=== PATIENT | female | born 1985 | race Caucasian/White ===

== ENCOUNTER 2018-04-05 13:04 | Emergency (ER) | payer MEDICAID, SELFPAY ==
[2018-04-05 13:05] VITALS: BP 131/75; PULSE 120; RESP 18; TEMP 36.6; O2SAT 100; BMI 20.9
[2018-04-05 15:07] LABS: Color, Urine Yellow (Yellow); Glucose, Dipstick Normal (Normal); Ketone-Dipstick 50 mg/dl (Negative); Leukocyte Esterase-Dipstick 500 /ul (Negative); Nitrite-Dipstick Negative (Negative); Occult Blood-Urine 10 /ul (Negative); Protein-Dipstick 15 mg/dl (Negative); Urine Clarity Cloudy (Clear); Urine Urobilinogen Normal (Normal)
[2018-04-05 15:13] LABS: Internal QC Validated? YES +Cl - CLEAR BKGD; Pregnancy, Urine Negative Negative
[2018-04-05 15:16] LABS: Urine Bilirubin Dipstick 1 mg/dL (Negative)
[2018-04-05 15:25] LABS: Hyaline Cast 0-5 SEEN /lpf (0-5)
[2018-04-05 15:26] LABS: Squamous Epithelial Cells - UA 0-5 SEEN /hpf (5-10)
[2018-04-05 15:29] LABS: White Blood Cells 0-5 SEEN /hpf (0-5)
[2018-04-05 15:30] LABS: Mucous, Urine 2+ /hpf (<or=2+)
[2018-04-05 15:31] LABS: Red Blood Cells-Urine 0-5 SEEN /hpf (0-5)
[2018-04-05 15:32] LABS: Bacteria RARE /hpf (None Seen)
[2018-04-05 15:44] LABS: Trichomonas 0-5 SEEN /hpf (None Seen)
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
[2018-04-05] MEDS: metroNIDAZOLE 500 MG Tablet PO (16:15)
[2018-04-05] MEDS: metroNIDAZOLE 500 MG Tablet 1500 MG PO (16:15)
[2018-04-05 16:16] VITALS: PULSE 70; RESP 18
[2018-04-05 16:25] LABS: HIV - WCH Non-Reactive (Nonreactive)
[2018-04-05 17:34] LABS: Chlamydia Trachomatis by PCR Negative (Negative); Neisserai gonorrhoeae by PCR Negative (Negative); Probe Check PASS; Sample Adequacy Control PASS; Specimen Processing Control PASS
== END 2018-04-05 16:17 | disposition home or self-care (01) ==
PROVIDERS: Emergency Provider Emergency Medicine
DX: A59.01 Trichomonal vulvovaginitis (principal); Z59.0 Homelessness; Z72.0 Tobacco use; E28.2 Polycystic ovarian syndrome; F11.90 Opioid use, unspecified, uncomplicated
CPT/HCPCS: 81001; 81025; 86703; 87210; 87491; 87591; 99283

== ENCOUNTER 2018-05-18 13:55 | Emergency (ER) | payer MEDICAID, SELFPAY ==
[2018-05-18 13:56] VITALS: BP 126/83; PULSE 138; RESP 20; TEMP 36.7; O2SAT 95; BMI 21.3
--- NOTE | 2018-05-18 14:23 | ED.RN ---
PT STATED SHE WOULD LIKE TO GO THROUGH HER BELONGINGS AND HAVE NURSING WRITE DOWN AN ITEMIZED LIST OF HER BELONGINGS. PT WENT THROUGH ENTIRE BOOKBAG AND NURSING WROTE DOWN ITEMS. PT GIVEN COPY OF ITEMIZED LIST THAT NURSING CREATED OF HER BELONGINGS. PT WAS AGREEABLE TO LIST AND STATES THAT ALL IS CORRECT ON LIST.
[2018-05-18 15:24] LABS: Absolute Lymphocyte Count 2.98 X10^3/ul (0.83-4.51); Absolute Neutrophil Count 9.9 X10^3/uL (2.0-7.7); Basophil# 0.04 X10^3/uL; Basophil% 0.3 % (0-1); Eosinophil# 0.14 X10^3/uL; Hematocrit 40.7 % (37-47); Hemoglobin 13.7 g/dl (12.0-15.0); Lymphocyte # 2.98 X10^3/ul (4.0); Lymphocyte % 20.5 % (19-41); Mean Corp Hgb Conc 33.7 g/gl (32-36); Mean Corpuscular Hgb 30.3 pg (27.0-32.0); Mean Platelet Vol. 10.1 fl (6.2-12.0); Monocyte# 1.43 X10^3/uL; Monocyte% 9.8 % (0-10); Neutrophil # 9.93 X10^3/uL (2.7-7.7); Neutrophil % 68.3 % (47-70); Platelet Count 320 K/mm3 (150-450); RBC Distribution Width CV 13.9 % (11.6-14.6); RBC Distribution Width SD 45.4 fl (35.1-43.9); Red Blood Count 4.52 M/mm3 (4.2-5.4); White Blood Count 14.5 K/mm3 (4.4-11.0)
[2018-05-18 15:25] LABS: POSITIVE COUNT NO; POSITIVE DIFFERENTIAL NO; POSITIVE MORPHOLOGY NO
[2018-05-18 15:32] LABS: Anion Gap 8 (5-15); BUN 15 mg/dL (7-18); Calcium,Total 9.1 mg/dL (8.5-10.1); Chloride 105 mmol/L (98-107); Creatinine, Serum 0.83 mg/dL (0.55-1.02); EST Glomerular Filtration Rate 85 mL/min (>60); Est Glom Filt Rate - Afr Amer 103 mL/min (>60); Estimated Creatinine Clearance 92.78 ml/min; Glucose 148 mg/dL (74-106); Potassium 3.4 mmol/L (3.5-5.1); Sodium Level 139 mmol/L (136-145)
[2018-05-18 15:52] LABS: Alcohol, Blood (Medical)-Serum < 3.0 mg/dL
[2018-05-18 16:23] LABS: Amphetamine Urine VISTA POSITIVE (<1000 ng/mL); Barbiturate Urine VISTA NEGATIVE (< 200 ng/mL); Benzodiazepine Urine VISTA NEGATIVE (< 200 ng/mL); Cocaine Urine VISTA NEGATIVE (< 300 ng/mL); Ecstacy Urine VISTA POSITIVE (< 500 ng/mL); Methadone Urine VISTA NEGATIVE (< 300 ng/mL); PCP Urine VISTA NEGATIVE (< 25 ng/mL); THC Urine VISTA POSITIVE (< 50 ng/mL); Vista UDS pH Range 6
[2018-05-18 16:32] LABS: Pregnancy, Serum, hCG Quali. NEGATIVE Negative (0-9 Nonpreg)
--- NOTE | 2018-05-18 16:37 | ED.VISSUMM ---
- ER Visit Summary Date of Service: 05/18/18 Chief Complaint: Paranoia History of Present Illness: The patient is a 32 F who presents with paranoia. She was brought in by police. She was pink slipped. Apparently she was very paranoid. Patient complains of a impending sense of doom. She is worried that something is going to happen to her son and that someone is going to cause him intentional harm. Apparently she had told the police that her son had been kidnapped and murdered. Her son lives in [place] with his father. Patient does admit to a little line of stimulant. She is uncertain if this was cocaine or methamphetamine. She otherwise denies recent medical illness such as chest pain shortness of breath vomiting or diarrhea. She denies any pain. Physical Examination: Afebrile initial heart rate 138 vitals otherwise unremarkable Moist mucous membranes Heart regular rhythm tachycardia Lungs are clear Abdomen soft Alert Patient is paranoid Test Results: EKG shows sinus rhythm at a rate of 117. Labs notable for white blood cell count 14.5. Glucose 148. Alcohol negative. negative. Drug screen is positive for THC, methamphetamine, amphetamines. 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 Will have the patient evaluated by crisis. Patient signed out to the oncoming physician for final disposition on reevaluation. Treatment Plan: [] Disposition: Pending crisis evaluation Impression: Paranoia Methamphetamine abuse This note was generated with [employer] dictation software. It may contain incorrect words, spelling, and punctuation that were not noted in review of the chart prior to signing ED Disposition - Plan for ED Patient: Chief Complaint: Mental Health Referrals: Care Physician,No Primary [Primary Care Provider] -
--- NOTE | 2018-05-18 16:55 | ED.RN ---
Nilsa called from crisis and will be here to eval pt after he addresses pt at the [facility].
[2018-05-18 19:57] VITALS: BP 120/68; PULSE 96; RESP 14; O2SAT 98
--- NOTE | 2018-05-18 19:59 | ED.VISSUMM ---
- ER Visit Summary Date of Service: 05/18/18 Patient was seen by mental health, she is stable to be discharged. She is not suicidal. This note was generated with [employer] dictation software. It may contain incorrect words, spelling, and punctuation that were not noted in review of the chart prior to signing ED Disposition - Plan for ED Patient: Disposition: Home or Assisted Living Chief Complaint: Mental Health Referrals: Care Physician,No Primary [Primary Care Provider] - 3-5 Days
[2018-05-18 20:17] VITALS: BP 130/74; PULSE 118; RESP 16; RESP 18; O2SAT 98
--- NOTE | 2018-05-18 20:19 | ED.RN ---
PATIENT DISCHARGED, STATES SHE HAS A PLACE TO STAY AND WILL RETURN TO REHAB IN THE MORNING. REFUSES ANY HELP OR RIDE HOME. MOTHER CALLED AND SPOKE WITH.
== END 2018-05-18 20:29 | disposition home or self-care (01) ==
PROVIDERS: Emergency Provider Emergency Medicine
DX: F22 Delusional disorders (principal); F15.10 Other stimulant abuse, uncomplicated; Z72.0 Tobacco use
CPT/HCPCS: 80048; 80307; 80320; 84703; 85025; 93005; 99283; G0480

== ENCOUNTER 2018-07-28 12:11 | Emergency (ER) | payer MEDICAID, SELFPAY ==
[2018-07-28 12:14] VITALS: BP 144/106; PULSE 105; RESP 20; TEMP 36.8; O2SAT 100; BMI 20.9
--- NOTE | 2018-07-28 12:36 | ED.VISSUMM ---
- ER Visit Summary Date of Service: 07/28/18 Chief Complaint: Parasites History of Present Illness: The patient is a 32 F who is concerned about possible parasites. She has been staying on people's couches. She was exposed to fleas. She is also concerned about pinworms. Patient denies any psychiatric history. She denies any medical history. She does use multiple recreational drugs, nothing regularly. Denies regular alcohol use or withdrawal. Denies fevers or any other associated symptoms. Denies any suicidal or homicidal thoughts. Physical Examination: Afebrile and vital signs unremarkable except for a blood pressure of 144/106 and heart rate of 105. Patient has a blunted affect and a depressed mood. She is not suicidal or homicidal. Alert and oriented. Skin and mucous membranes are unremarkable. Rectal exam chaperoned by nurse Foote was unremarkable. Patient has tiny papules over her forearms and feet. No ulcers. Good pulses. No findings consistent with infective endocarditis. No murmur. Lung sounds clear. Abdomen soft and nontender. Test Results: None indicated Emergency Department Course and Treatment: I suspect some of this may be from her polysubstance use. There is no indication that she needs emergency admission. There is nothing to suggest withdrawal that is life-threatening such as alcohol or benzodiazepines. Patient will be treated with a course of Elimite. She may also use Benadryl for itching. Follow-up with primary care. Treatment Plan: As above Disposition: Discharge Impression: 1. Pruritus This note was generated with [employer] dictation software. It may contain incorrect words, spelling, and punctuation that were not noted in review of the chart prior to signing ED Disposition - Plan for ED Patient: Chief Complaint: Itching Referrals: Care Physician,No Primary [Primary Care Provider] -
--- NOTE | 2018-07-28 12:40 | ED.DEP ---
ED Disposition - Plan for ED Patient: Chief Complaint: Itching Instructions: Self-Care for Skin Rashes Prescriptions: DiphenhydrAMINE [Benadryl] 25 mg PO TID PRN PRN #20 cap PRN Reason: Itching Permethrin [Elimite] 60 gm TP X1 #1 cream..g. Referrals: Daniel,Vianney, DO [NON-STAFF] -
--- NOTE | 2018-07-28 14:09 | ED.RN ---
DISCHARGE INSTRUCTIONS GIVEN TO AND REVIEWED WITH PATIENT, PATIENT DENIES QUESTIONS OR CONCERNS AND VOICES UNDERSTANDING OF DISCHARGE INSTRUCTIONS. PT AMBULATES OUT OF ROOM WITHOUT DIFFICULTY.
== END 2018-07-28 14:10 | disposition home or self-care (01) ==
LOC: ED 13:05
PROVIDERS: Emergency Provider Emergency Medicine
DX: L29.9 Pruritus, unspecified (principal); Z72.0 Tobacco use
CPT/HCPCS: 99282

== ENCOUNTER 2018-09-06 14:09 | Inpatient (IN) | payer MEDICAID, SELFPAY ==
[2018-09-06 14:11] VITALS: BP 117/76; PULSE 126; RESP 18; TEMP 37.3; O2SAT 97; BMI 21.3
[2018-09-06] MEDS: DiphenhydrAMINE 50 MG/ML Syringe 25 MG IV (15:03)
[2018-09-06] MEDS: Ketorolac 30 MG/ML Syringe IV (15:03)
[2018-09-06] MEDS: 0.9% Normal Saline 1,000 ML 1000 ML IV (15:03)
[2018-09-06] MEDS: Metoclopramide 10 MG/2 ML Vial IV (15:04)
[2018-09-06 15:22] LABS: Absolute Lymphocyte Count 1.26 X10^3/ul (0.83-4.51); Absolute Neutrophil Count 13.9 X10^3/uL (2.0-7.7); Basophil# 0.03 X10^3/uL; Basophil% 0.2 % (0-1); Eosinophil# 0.08 X10^3/uL; Eosinophils% 0.5 % (0-5); Hematocrit 39.3 % (37-47); Hemoglobin 13.3 g/dl (12.0-15.0); Lymphocyte # 1.26 X10^3/ul (4.0); Lymphocyte % 7.4 % (19-41); Mean Corp Hgb Conc 33.8 g/gl (32-36); Mean Corpuscular Hgb 29.8 pg (27.0-32.0); Mean Corpuscular Volume 87.9 fL (81-99); Mean Platelet Vol. 10.6 fl (6.2-12.0); Monocyte# 1.77 X10^3/uL; Monocyte% 10.3 % (0-10); Neutrophil # 13.94 X10^3/uL (2.7-7.7); Neutrophil % 81.3 % (47-70); Platelet Count 257 K/mm3 (150-450); RBC Distribution Width CV 13.3 % (11.6-14.6); Red Blood Count 4.47 M/mm3 (4.2-5.4); White Blood Count 17.1 K/mm3 (4.4-11.0)
[2018-09-06 15:25] LABS: Anion Gap 5 (5-15); BUN 8 mg/dL (7-18); BUN/Creat Ratio 11.6 RATIO (10-20); Calcium,Total 8.7 mg/dL (8.5-10.1); Chloride 102 mmol/L (98-107); Creatinine, Serum 0.69 mg/dL (0.55-1.02); EST Glomerular Filtration Rate 106 mL/min (>60); Est Glom Filt Rate - Afr Amer 128 mL/min (>60); Estimated Creatinine Clearance 111.61 ml/min; Glucose 117 mg/dL (74-106); Potassium 3.6 mmol/L (3.5-5.1); Sodium Level 138 mmol/L (136-145)
[2018-09-06 15:26] LABS: Differential Indicated SCAN CRITERIA MET; POSITIVE COUNT NO; POSITIVE DIFFERENTIAL YES; POSITIVE MORPHOLOGY NO
[2018-09-06 15:31] LABS: Alcohol, Blood (Medical)-Serum < 3.0 mg/dL
[2018-09-06 15:45] LABS: Pregnancy, Serum, hCG Quali. NEGATIVE Negative (0-9 Nonpreg)
--- NOTE | 2018-09-06 15:58 | RAD_ITS ---
STUDY: X-RAY CHEST REASON FOR EXAM: Female, 32 years old. Migraine. Fever. TECHNIQUE: Frontal and lateral views of the chest. COMPARISON: September 28, 2017 FINDINGS: There is a dense opacity with air bronchograms in the left lower lobe compatible with pneumonia. There is no demonstrated pleural abnormality. Normal size heart. Normal mediastinum and nedra. Normal visualized pulmonary arteries. Normal visualized aortic arch and descending thoracic aorta. Normal visualized thoracic spine. Normal visualized ribs, clavicles, and shoulders. There is no demonstrated abnormality of the visualized soft tissue structures of the upper abdomen. RAD/Chest PA and Lateral IMPRESSION: Left lower lobe pneumonia. Electronically Signed: Stanford Mancilla MD at 17:17 EST , Service support ,
--- NOTE | 2018-09-06 16:40 | ED.VISSUMM ---
- ER Visit Summary Date of Service: 09/06/18 Chief Complaint: [Headache] History of Present Illness: The patient is a 32 F presents the emergency department complaint of headache that started about 1-2 weeks ago. Patient states the headaches go away the but then come back. Patient describes it as migraine-like. Patient complains of photophobia. She complains of nausea. Patient states that she has been dealing with headaches ever since she was young. She denies any falls or head injuries. Patient states that she has had a cough for about a month. Cough mostly dry. Patient has had some chills but denies fever. Patient denies feeling suicidal or homicidal. She does admit to illicit drug use and states that she is used cocaine and methamphetamines about a week ago. She denies alcohol use. She does not smoke cigarettes. Patient states that she would like to detox from drugs and she wants to get better. Patient also tells me that she is homeless.] Physical Examination: HEENT-PERRLA, EOMI. Cranial nerves II through XII grossly intact. TMs clear. Mucous membranes moist. No adenopathy. Cardiovascular-regular rate and rhythm without murmur or ectopy Lungs-clear to auscultation, chest wall stable without crepitus or subcu emphysema Abdomen-normoactive bowel sounds, soft, nontender, no rebound or rigidity, no peritoneal signs. Neuro [id number] and heel sprague testing within normal limits, negative Romberg, negative pronator drift, fundi benign Extremities-intact ?4, normal range of motion, normal pulses, atraumatic] Test Results: [CBC with differential obtained showed a white count 17,000, hemoglobin 13, platelets 287. Chemistries unremarkable. HCG was negative. Alcohol was less than 3. Chest x-ray obtained showed a left lower lobe infiltrate. Urine tox screen pending.] Emergency Department Course and Treatment: [Patient had blood cultures ordered and she was started on Rocephin and Zithromax. Patient was medicated with Reglan, Benadryl, and Toradol for headache as well as with a liter normal same fluid bolus. Her headache mostly resolved.] Treatment Plan: [Case was discussed with hospitalist will evaluate patient for admission] Disposition: [Admit] Impression: [Pneumonia Sepsis Migrainous cephalgia-resolved Illicit drug use] This note was generated with Dragon dictation software. It may contain incorrect words, spelling, and punctuation that were not noted in review of the chart prior to signing ED Disposition - Plan for ED Patient: Chief Complaint: Headache Referrals: Care Physician,No Primary [Primary Care Provider] -
[2018-09-06] MEDS: Ceftriaxone 1 GM/50 ML BAG IV (16:43)
--- NOTE | 2018-09-06 16:49 | PCM.HP.STD ---
Problem List (1) Pneumonia Status: Acute Qualifiers: Pneumonia type: due to unspecified organism Laterality: left Lung location: lower lobe of lung Qualified Code(s): J18.1 - Lobar pneumonia, unspecified organism (2) Sepsis Status: Acute Qualifiers: Sepsis type: sepsis due to unspecified organism Qualified Code(s): A41.9 - Sepsis, unspecified organism History of Present Illness Date of Admission: 09/06/18 Chief Complaint: headache. chest pain. The patient is a 32 year old F presents with a myriad of complaints. Patient complains of headache, nausea, vomiting, abdominal pain, left-sided chest pain that is worse with deep inspirations. Just not feeling well and presented to the emergency room. In the emergency room, patient was noted to be septic with a temperature of 37.3, pulse of 126 white count of 17.1. Patient was found to have a left lower lobe infiltrate. Patient was started on azithromycin and Rocephin in the emergency room. Patient being admitted for sepsis and pneumonia workup. Patient symptoms had been going on for her for about a week or 2 and just gradually gotten worse. [] Past Medical History Past Medical History (Chronic Problems): Chronic Problems Tobacco dependence (Chronic) PCOS (polycystic ovarian syndrome) (Chronic) Allergies No Known Allergies Allergy (Verified 09/06/18 14:11) Home Medications: Ambulatory Orders Medication Instructions Recorded Metformin HCl [Glucophage] 1,000 mg PO DAILY 09/06/18 Smoking Status: Heavy Smoker (>10/day) Tobacco Use: Cigarettes Alcohol: None Drugs: Cocaine - Occasionally, Marijuana - Occasionally, - - Methamphetamines daily. - *Family History Paternal History Items: Diabetes, Hypertension Review of Systems Constitutional: Reports: Chills, Fever Eyes: Denies: Blurred vision, Double vision HEENT: Denies: Head Aches, Sinus Congestion, Sinus Drainage Cardiovascular: Reports: Chest Pain. Denies: Edema Respiratory: Reports: Cough, Shortness of Breath Gastrointestinal: Reports: Abdominal Pain, Nausea, Vomiting. Denies: Diarrhea Genitourinary: Denies: Dysuria Gynecological: Reports: - - Last menstrual period is currently ongoing Musculoskeletal: Denies: Joint Pain, Joint Tenderness Skin: Denies: Rash, Wounds Neurological: Denies: Numbness, Tingling, Focal weakness Psychiatric: Reports: Anxiety. Denies: Depression Hematologic/ Lymphatic: Denies: Easy Bruising, Easy Bleeding, Hx of blood clot Comment: A 10 point review of systems were negative except as mentioned in the history of present illness and the other review of systems. VTE Information - Inpt Only VTE Present on Admission: No VTE Mechan Device Prophylaxis: None VTE Pharm Prophylaxis ordered?: Yes - Physical Exam General: Alert, - - No eye contact. Reluctantly engages in questions. HEENT: Atraumatic, Normocephalic, - - No scleral icterus Oral: Moist Mucosa, No Gingival or Mucosal Lesions/ Ulcerations Neck: No Nodes, Thyroid Normal Size and Texture Lungs: Diminished - And left lower lobe, - - Dullness to percussion in the left lower lobe Cardiovascular: Regular rate, Regular Rhythm, Normal S1, Normal S2 Abdomen: Bowel Sounds Present, Soft, Non Tender, Non-Distended, No Hepato-splenomegaly Extremities: No edema, No Calf Tenderness Skin: No rashes, No breakdown, - - Numerous tattoos on her back as well as lower extremities Musculoskeletal: No Tenderness to Palpation of Joints or Extremities, No Muscle Wasting Neurological: - - DTRs are 3/4 patellar bilateral. No clonus Psych/Mental Status: Appropriate, Flat Affect Vital Signs Temp Pulse Resp BP Pulse Ox 37.3 C H 126 H 18 117/76 97 09/06/18 14:11 09/06/18 14:11 09/06/18 14:11 09/06/18 14:11 09/06/18 14:11 Oxygen Delivery Method Room Air Weight: 59.9 kg Body Mass Index (BMI) 21.3 Laboratory Tests Past 24 Hrs 09/06/18 09/06/18 09/06/18 15:05 15:05 15:05 WBC 17.1 H RBC 4.47 Hgb 13.3 Hct 39.3 MCV 87.9 MCH 29.8 MCHC 33.8 RDW 13.3 RDW Differential 43.0 Plt Count 257 MPV 10.6 Immature Gran % (Auto) 0.300 Neut % (Auto) 81.3 H Lymph % (Auto) 7.4 L [place] % (Auto) 10.3 H Eos % (Auto) 0.5 Baso % (Auto) 0.2 Absolute Neuts (auto) 13.9 H Absolute Lymphs (auto) 1.26 Total Counted Not Reportable Sodium 138 Potassium 3.6 Chloride 102 Carbon Dioxide 31.0 Anion Gap 5 BUN 8 Creatinine 0.69 Estim Creat Clear Calc 111.61 Est GFR (MDRD) Af Amer 128 Est GFR (MDRD) Non-Af 106 BUN/Creatinine Ratio 11.6 Glucose 117 H Calcium 8.7 Serum , Qual Ethyl Alcohol < 3.0 09/06/18 15:05 WBC RBC Hgb Hct MCV MCH MCHC RDW RDW Differential Plt Count MPV Immature Gran % (Auto) Neut % (Auto) Lymph % (Auto) [place] % (Auto) Eos % (Auto) Baso % (Auto) Absolute Neuts (auto) Absolute Lymphs (auto) Total Counted Sodium Potassium Chloride Carbon Dioxide Anion Gap BUN Creatinine Estim Creat Clear Calc Est GFR (MDRD) Af Amer Est GFR (MDRD) Non-Af BUN/Creatinine Ratio Glucose Calcium Serum , Qual NEGATIVE Ethyl Alcohol Chest x-ray personally reviewed and shows a left lower lobe infiltrate. Assessment/Plan All Active Problems Pneumonia (Acute) Sepsis (Acute) 1. Suspected pneumococcal pneumonia Patient will be on Rocephin and azithromycin Check urinary antigens for Streptococcus and Legionella Check sputum culture Pulmonary toilet with chest physiotherapy, bronchodilators and guaifenesin 2. Sepsis present on admission Secondary to pneumonia Lactic acid ordered and currently pending 3. Methamphetamine abuse Patient stated that she is interested in detox. Patient made aware that we do not have any specific detox program here at this hospital. Patient will need further follow-up on outpatient basis for addiction counseling Patient states that she snorts or smokes did not denies any injection use. Nonetheless, we will check an HIV. 4. DVT prophylaxis with Lovenox Code Visit Inpatient E&M: 93638 Init Hosp L3
--- NOTE | 2018-09-06 16:53 | HP.PCM_ITS ---
Problem List (1) Pneumonia Status: Acute Qualifiers: Pneumonia type: due to unspecified organism Laterality: left Lung location: lower lobe of lung Qualified Code(s): J18.1 - Lobar pneumonia, unspecified organism (2) Sepsis Status: Acute Qualifiers: Sepsis type: sepsis due to unspecified organism Qualified Code(s): A41.9 - Sepsis, unspecified organism History of Present Illness Date of Admission: 09/06/18 Chief Complaint: headache. chest pain. The patient is a 32 year old F presents with a myriad of complaints. Patient complains of headache, nausea, vomiting, abdominal pain, left-sided chest pain that is worse with deep inspirations. Just not feeling well and presented to the emergency room. In the emergency room, patient was noted to be septic with a temperature of 37.3, pulse of 126 white count of 17.1. Patient was found to have a left lower lobe infiltrate. Patient was started on azithromycin and Rocephin in the emergency room. Patient being admitted for sepsis and pneumonia workup. Patient symptoms had been going on for her for about a week or 2 and just gradually gotten worse. [] Past Medical History Past Medical History (Chronic Problems): Chronic Problems Tobacco dependence (Chronic) PCOS (polycystic ovarian syndrome) (Chronic) Allergies No Known Allergies Allergy (Verified 09/06/18 14:11) Home Medications: Ambulatory Orders Medication Instructions Recorded Metformin HCl [Glucophage] 1,000 mg PO DAILY 09/06/18 Smoking Status: Heavy Smoker (>10/day) Tobacco Use: Cigarettes Alcohol: None Drugs: Cocaine - Occasionally, Marijuana - Occasionally, - - Methamphetamines daily. - *Family History Paternal History Items: Diabetes, Hypertension Review of Systems Constitutional: Reports: Chills, Fever Eyes: Denies: Blurred vision, Double vision HEENT: Denies: Head Aches, Sinus Congestion, Sinus Drainage Cardiovascular: Reports: Chest Pain. Denies: Edema Respiratory: Reports: Cough, Shortness of Breath Gastrointestinal: Reports: Abdominal Pain, Nausea, Vomiting. Denies: Diarrhea Genitourinary: Denies: Dysuria Gynecological: Reports: - - Last menstrual period is currently ongoing Musculoskeletal: Denies: Joint Pain, Joint Tenderness Skin: Denies: Rash, Wounds Neurological: Denies: Numbness, Tingling, Focal weakness Psychiatric: Reports: Anxiety. Denies: Depression Hematologic/ Lymphatic: Denies: Easy Bruising, Easy Bleeding, Hx of blood clot Comment: A 10 point review of systems were negative except as mentioned in the history of present illness and the other review of systems. VTE Information - Inpt Only VTE Present on Admission: No VTE Mechan Device Prophylaxis: None VTE Pharm Prophylaxis ordered?: Yes - Physical Exam General: Alert, - - No eye contact. Reluctantly engages in questions. HEENT: Atraumatic, Normocephalic, - - No scleral icterus Oral: Moist Mucosa, No Gingival or Mucosal Lesions/ Ulcerations Neck: No Nodes, Thyroid Normal Size and Texture Lungs: Diminished - And left lower lobe, - - Dullness to percussion in the left lower lobe Cardiovascular: Regular rate, Regular Rhythm, Normal S1, Normal S2 Abdomen: Bowel Sounds Present, Soft, Non Tender, Non-Distended, No Hepato- splenomegaly Extremities: No edema, No Calf Tenderness Skin: No rashes, No breakdown, - - Numerous tattoos on her back as well as lower extremities Musculoskeletal: No Tenderness to Palpation of Joints or Extremities, No Muscle Wasting Neurological: - - DTRs are 3/4 patellar bilateral. No clonus Psych/Mental Status: Appropriate, Flat Affect Vital Signs Temp Pulse Resp BP Pulse Ox 37.3 C H 126 H 18 117/76 97 09/06/18 14:11 09/06/18 14:11 09/06/18 14:11 09/06/18 14:11 09/06/18 14:11 Oxygen Delivery Method Room Air Weight: 59.9 kg Body Mass Index (BMI) 21.3 Laboratory Tests Past 24 Hrs 09/06/18 09/06/18 09/06/18 15:05 15:05 15:05 WBC 17.1 H RBC 4.47 Hgb 13.3 Hct 39.3 MCV 87.9 MCH 29.8 MCHC 33.8 RDW 13.3 RDW Differential 43.0 Plt Count 257 MPV 10.6 Immature Gran % (Auto) 0.300 Neut % (Auto) 81.3 H Lymph % (Auto) 7.4 L [place] % (Auto) 10.3 H Eos % (Auto) 0.5 Baso % (Auto) 0.2 Absolute Neuts (auto) 13.9 H Absolute Lymphs (auto) 1.26 Total Counted Not Reportable Sodium 138 Potassium 3.6 Chloride 102 Carbon Dioxide 31.0 Anion Gap 5 BUN 8 Creatinine 0.69 Estim Creat Clear Calc 111.61 Est GFR (MDRD) Af Amer 128 Est GFR (MDRD) Non-Af 106 BUN/Creatinine Ratio 11.6 Glucose 117 H Calcium 8.7 Serum , Qual Ethyl Alcohol < 3.0 09/06/18 15:05 WBC RBC Hgb Hct MCV MCH MCHC RDW RDW Differential Plt Count MPV Immature Gran % (Auto) Neut % (Auto) Lymph % (Auto) [place] % (Auto) Eos % (Auto) Baso % (Auto) Absolute Neuts (auto) Absolute Lymphs (auto) Total Counted Sodium Potassium Chloride Carbon Dioxide Anion Gap BUN Creatinine Estim Creat Clear Calc Est GFR (MDRD) Af Amer Est GFR (MDRD) Non-Af BUN/Creatinine Ratio Glucose Calcium Serum , Qual NEGATIVE Ethyl Alcohol Chest x-ray personally reviewed and shows a left lower lobe infiltrate. Assessment/Plan All Active Problems Pneumonia (Acute) Sepsis (Acute) 1. Suspected pneumococcal pneumonia * Patient will be on Rocephin and azithromycin * Check urinary antigens for Streptococcus and Legionella * Check sputum culture * Pulmonary toilet with chest physiotherapy, bronchodilators and guaifenesin 2. Sepsis present on admission * Secondary to pneumonia * Lactic acid ordered and currently pending 3. Methamphetamine abuse * Patient stated that she is interested in detox. Patient made aware that we do not have any specific detox program here at this hospital. Patient will need further follow-up on outpatient basis for addiction counseling * Patient states that she snorts or smokes did not denies any injection use. Nonetheless, we will check an HIV. 4. DVT prophylaxis with Lovenox Code Visit Inpatient E&M: 75312 Init Hosp L3
[2018-09-06 17:21] VITALS: BP 90/63; PULSE 85; RESP 16; O2SAT 97
[2018-09-06 17:22] VITALS: BP 90/63; PULSE 88; RESP 16; O2SAT 96
[2018-09-06 18:05] VITALS: BMI 20.7
[2018-09-06 18:07] VITALS: BMI 20.6
[2018-09-06 18:43] VITALS: TEMP 37.1
[2018-09-06 19:54] VITALS: PULSE 104; RESP 20
[2018-09-06] MEDS: Ipratropium/Albuterol Sulfate 3 ML AMPUL.NEB INHALATION (19:54)
[2018-09-06 20:16] LABS: Lactic Acid 1.9 mmol/L (0.4-2.0)
[2018-09-06 21:23] VITALS: BP 97/65; PULSE 92; RESP 16; TEMP 36.8; O2SAT 95
[2018-09-06] MEDS: guaiFENesin 1,200 MG Tablet 1200 MG PO (21:31)
[2018-09-06] MEDS: 0.9% Normal Saline 1,000 ML 200 ML IV (21:31)
[2018-09-07] VITALS (8 sets, daily range): BP systolic 105–120; BP diastolic 55–86; PULSE 86–117; RESP 12–22; TEMP 36.6–38.6; O2SAT 95–100
[2018-09-07 01:29] LABS: Amphetamine Urine VISTA POSITIVE (<1000 ng/mL); Barbiturate Urine VISTA NEGATIVE (< 200 ng/mL); Benzodiazepine Urine VISTA NEGATIVE (< 200 ng/mL); Cocaine Urine VISTA NEGATIVE (< 300 ng/mL); Ecstacy Urine VISTA NEGATIVE (< 500 ng/mL); Methadone Urine VISTA NEGATIVE (< 300 ng/mL); PCP Urine VISTA NEGATIVE (< 25 ng/mL); THC Urine VISTA POSITIVE (< 50 ng/mL); Vista UDS pH Range 6
[2018-09-07] MEDS: 0.9% Normal Saline 1,000 ML 200 ML IV (02:26)
[2018-09-07] MEDS: Ketorolac 15 MG/ML Vial IV (02:27)
[2018-09-07 02:37] LABS: Bacteria 0 SEEN /hpf (None Seen)
[2018-09-07 02:40] LABS: Color, Urine Amber (Yellow); Glucose, Dipstick Normal (Normal); Ketone-Dipstick 5 mg/dl (Negative); Leukocyte Esterase-Dipstick 25 /ul (Negative); Nitrite-Dipstick Negative (Negative); Occult Blood-Urine 250 /ul (Negative); Protein-Dipstick 30 mg/dl (Negative); Urine Clarity Sl. Cloudy (Clear); Urine Urobilinogen 1 mg/dl (Normal)
[2018-09-07 02:48] LABS: Urine Bilirubin Dipstick 1 mg/dL (Negative)
[2018-09-07 02:49] LABS: Amorphous Sediment 1+; Mucous, Urine 1+ /hpf (<or=2+); Red Blood Cells-Urine 10-25 SEEN /hpf (0-5); Squamous Epithelial Cells - UA 0-5 SEEN /hpf (5-10); White Blood Cells 0-5 SEEN /hpf (0-5)
[2018-09-07 06:35] LABS: Absolute Lymphocyte Count 1.71 X10^3/ul (0.83-4.51); Absolute Neutrophil Count 5.7 X10^3/uL (2.0-7.7); Basophil# 0.03 X10^3/uL; Basophil% 0.3 % (0-1); Eosinophil# 0.08 X10^3/uL; Eosinophils% 0.9 % (0-5); Hematocrit 33.9 % (37-47); Hemoglobin 11.1 g/dl (12.0-15.0); Lymphocyte # 1.71 X10^3/ul (4.0); Lymphocyte % 19.7 % (19-41); Mean Corp Hgb Conc 32.7 g/gl (32-36); Mean Corpuscular Volume 88.5 fL (81-99); Mean Platelet Vol. 10.4 fl (6.2-12.0); Monocyte# 1.19 X10^3/uL; Monocyte% 13.7 % (0-10); Neutrophil # 5.68 X10^3/uL (2.7-7.7); Neutrophil % 65.3 % (47-70); Platelet Count 252 K/mm3 (150-450); RBC Distribution Width CV 13.5 % (11.6-14.6); RBC Distribution Width SD 43.8 fl (35.1-43.9); Red Blood Count 3.83 M/mm3 (4.2-5.4); White Blood Count 8.7 K/mm3 (4.4-11.0)
[2018-09-07] MEDS: Ipratropium/Albuterol Sulfate 3 ML AMPUL.NEB INHALATION ×2 (07:01→11:03)
[2018-09-07 07:09] LABS: POSITIVE COUNT NO; POSITIVE DIFFERENTIAL NO; POSITIVE MORPHOLOGY NO
[2018-09-07 07:28] LABS: Anion Gap 6 (5-15); BUN 13 mg/dL (7-18); Calcium,Total 7.7 mg/dL (8.5-10.1); Chloride 112 mmol/L (98-107); Creatinine, Serum 0.48 mg/dL (0.55-1.02); EST Glomerular Filtration Rate 160 mL/min (>60); Est Glom Filt Rate - Afr Amer 193 mL/min (>60); Estimated Creatinine Clearance 157.15 ml/min; Glucose 106 mg/dL (74-106); Potassium 3.8 mmol/L (3.5-5.1); Sodium Level 144 mmol/L (136-145)
[2018-09-07] MEDS: Ceftriaxone 1 GM/50 ML BAG IV (09:31)
[2018-09-07] MEDS: 0.9% NaCl Peripheral Flush Adult/Peds IV (09:31)
[2018-09-07] MEDS: guaiFENesin 1,200 MG Tablet 1200 MG PO ×2 (09:32→22:59)
--- NOTE | 2018-09-07 09:33 | PCM.PROGNOTE ---
Subjective: Chief complaint: Follow-up after admission for probable pneumonia and headaches. Patient seen and examined. No acute events overnight. This morning, she mentioned that her headache is getting better. Still complaining of dry cough, sputum production. Denied fever or chills. Her vital signs are stable, afebrile. - Physical Exam General: Alert, Oriented x3, Cooperative, No apparent distress HEENT: Atraumatic, PERRLA, EOMI, Normocephalic Oral: Moist Mucosa, No Gingival or Mucosal Lesions/ Ulcerations Neck: Supple, No JVD, Negative Carotid Bruits, Trachea Midline, Thyroid Normal Size and Texture Lungs: Clear to auscultation, No rhonchi, No wheeze, No rales, Diminished Cardiovascular: Regular rate, Regular Rhythm, Normal S1, Normal S2, PMI Normal Abdomen: Bowel Sounds Present, Soft, Non Tender, Non-Distended, No Hepato-splenomegaly Extremities: No clubbing, No cyanosis, No edema Skin: No rashes, No breakdown Lymphatic: No Cervical, Supraclavicular, or Inguinal Adenopathy Neurological: Cranial nerves II-XII grossly intact, Motor Exam 5/5 strength throughout Psych/Mental Status: Normal Affect, Anxious, Alert and oriented to time, place, person, mood and affect Vital Signs Temp Pulse Resp BP Pulse Ox 97.8 F 86 12 109/74 97 09/07/18 05:52 09/07/18 06:55 09/07/18 06:55 09/07/18 02:24 09/07/18 06:55 Oxygen Delivery Method Room Air Weight: 128 lb 0.91 oz Body Mass Index (BMI) 20.6 Intake and Output for Last 24 Hours 09/05/18 09/06/18 09/07/18 23:59 23:59 23:59 Intake Total 3034 / 3034 Balance 3034 / 3034 Microbiology Past 72 Hours 09/07/18 00:36 Streptococcus pneumoniae Antigen (M - Final Urine, Clean Catch 09/07/18 00:36 Legionella Antigen - Final Urine Catheter - Catheter 09/06/18 20:00 Influenza Types A,B Direct FA (MARY LOU) - Final Mucosa - Nasopharyngeal Laboratory Tests Past 24 Hrs 09/06/18 09/06/18 09/06/18 15:05 15:05 15:05 WBC 17.1 H RBC 4.47 Hgb 13.3 Hct 39.3 MCV 87.9 MCH 29.8 MCHC 33.8 RDW 13.3 RDW Differential 43.0 Plt Count 257 MPV 10.6 Immature Gran % (Auto) 0.300 Neut % (Auto) 81.3 H Lymph % (Auto) 7.4 L [place]uther[place] % (Auto) 10.3 H Eos % (Auto) 0.5 Baso % (Auto) 0.2 Absolute Neuts (auto) 13.9 H Absolute Lymphs (auto) 1.26 Total Counted Not Reportable Sodium 138 Potassium 3.6 Chloride 102 Carbon Dioxide 31.0 Anion Gap 5 BUN 8 Creatinine 0.69 Estim Creat Clear Calc 111.61 Est GFR (MDRD) Af Amer 128 Est GFR (MDRD) Non-Af 106 BUN/Creatinine Ratio 11.6 Glucose 117 H Lactic Acid Calcium 8.7 Serum , Qual Urine Color Urine Clarity Urine pH Ur Specific [place] Urine Protein Urine Glucose (UA) Urine Ketones Urine Occult Blood Urine Nitrite Urine Bilirubin Urine Urobilinogen Ur Leukocyte Esterase Urine RBC Urine WBC Ur Squamous Epith Cells Amorphous Sediment Urine Bacteria Urine Mucus Urine Opiates Screen Urine Methadone Screen Ur Barbiturates Screen Ur Phencyclidine Scrn Ur Amphetamines Screen U Methamphetamin-MDMA U Benzodiazepines Scrn Urine Cocaine Screen U Cannabinoids Screen Ur Drug Screen Comment Ethyl Alcohol < 3.0 HIV 1&2 Antibody 09/06/18 09/06/18 09/06/18 15:05 19:10 19:10 WBC RBC Hgb Hct MCV MCH MCHC RDW RDW Differential Plt Count MPV Immature Gran % (Auto) Neut % (Auto) Lymph % (Auto) [place]uther[place] % (Auto) Eos % (Auto) Baso % (Auto) Absolute Neuts (auto) Absolute Lymphs (auto) Total Counted Sodium Potassium Chloride Carbon Dioxide Anion Gap BUN Creatinine Estim Creat Clear Calc Est GFR (MDRD) Af Amer Est GFR (MDRD) Non-Af BUN/Creatinine Ratio Glucose Lactic Acid 1.9 Calcium Serum , Qual NEGATIVE Urine Color Urine Clarity Urine pH Ur Specific [place] Urine Protein Urine Glucose (UA) Urine Ketones Urine Occult Blood Urine Nitrite Urine Bilirubin Urine Urobilinogen Ur Leukocyte Esterase Urine RBC Urine WBC Ur Squamous Epith Cells Amorphous Sediment Urine Bacteria Urine Mucus Urine Opiates Screen Urine Methadone Screen Ur Barbiturates Screen Ur Phencyclidine Scrn Ur Amphetamines Screen U Methamphetamin-MDMA U Benzodiazepines Scrn Urine Cocaine Screen U Cannabinoids Screen Ur Drug Screen Comment Ethyl Alcohol HIV 1&2 Antibody Pending 09/07/18 09/07/18 09/07/18 00:36 00:36 05:40 WBC RBC Hgb Hct MCV MCH MCHC RDW RDW Differential Plt Count MPV Immature Gran % (Auto) Neut % (Auto) Lymph % (Auto) [place] % (Auto) Eos % (Auto) Baso % (Auto) Absolute Neuts (auto) Absolute Lymphs (auto) Total Counted Sodium 144 Potassium 3.8 Chloride 112 H Carbon Dioxide 26.0 Anion Gap 6 BUN 13 Creatinine 0.48 L Estim Creat Clear Calc 157.15 Est GFR (MDRD) Af Amer 193 Est GFR (MDRD) Non-Af 160 BUN/Creatinine Ratio 27.0 H Glucose 106 Lactic Acid Calcium 7.7 L Serum , Qual Urine Color Hoa Urine Clarity Sl. Cloudy Urine pH 6.0 Ur Specific [place] 1.020 Urine Protein 30 H Urine Glucose (UA) Normal Urine Ketones 5 H Urine Occult Blood 250 H Urine Nitrite Negative Urine Bilirubin 1 H Urine Urobilinogen 1 H Ur Leukocyte Esterase 25 H Urine RBC 10-25 SEEN Urine WBC 0-5 SEEN Ur Squamous Epith Cells 0-5 SEEN Amorphous Sediment 1+ Urine Bacteria 0 SEEN Urine Mucus 1+ Urine Opiates Screen NEGATIVE Urine Methadone Screen NEGATIVE Ur Barbiturates Screen NEGATIVE Ur Phencyclidine Scrn NEGATIVE Ur Amphetamines Screen POSITIVE H U Methamphetamin-MDMA NEGATIVE U Benzodiazepines Scrn NEGATIVE Urine Cocaine Screen NEGATIVE U Cannabinoids Screen POSITIVE H Ur Drug Screen Comment Ethyl Alcohol HIV 1&2 Antibody 09/07/18 05:40 WBC 8.7 RBC 3.83 L Hgb 11.1 L Hct 33.9 L MCV 88.5 MCH 29.0 MCHC 32.7 RDW 13.5 RDW Differential 43.8 Plt Count 252 MPV 10.4 Immature Gran % (Auto) 0.100 Neut % (Auto) 65.3 Lymph % (Auto) 19.7 [place]utherford % (Auto) 13.7 H Eos % (Auto) 0.9 Baso % (Auto) 0.3 Absolute Neuts (auto) 5.7 Absolute Lymphs (auto) 1.71 Total Counted Not Reportable Sodium Potassium Chloride Carbon Dioxide Anion Gap BUN Creatinine Estim Creat Clear Calc Est GFR (MDRD) Af Amer Est GFR (MDRD) Non-Af BUN/Creatinine Ratio Glucose Lactic Acid Calcium Serum , Qual Urine Color Urine Clarity Urine pH Ur Specific [place] Urine Protein Urine Glucose (UA) Urine Ketones Urine Occult Blood Urine Nitrite Urine Bilirubin Urine Urobilinogen Ur Leukocyte Esterase Urine RBC Urine WBC Ur Squamous Epith Cells Amorphous Sediment Urine Bacteria Urine Mucus Urine Opiates Screen Urine Methadone Screen Ur Barbiturates Screen Ur Phencyclidine Scrn Ur Amphetamines Screen U Methamphetamin-MDMA U Benzodiazepines Scrn Urine Cocaine Screen U Cannabinoids Screen Ur Drug Screen Comment Ethyl Alcohol HIV 1&2 Antibody Clinical Impression(s) from Imaging Studies Chest X-Ray 09/06/18 15:58 IMPRESSION: Left lower lobe pneumonia. Electronically Signed: Stanford Mancilla MD at 17:17 EST , Service support , Medical Necessity - Tobacco Use Smoking Status: Heavy Smoker (>10/day) Tobacco Use: Cigarettes Assessment/Plan All Active Problems Pneumonia (Acute) Sepsis (Acute) This is a 32 years old female patient presented to the emergency room because of headache, had chest x-ray done in the ED and she was found to have probable left lower lobe infiltrate consistent with pneumonia as well as sepsis. #1 probable left lower lobe community acquired pneumonia/probable sepsis: She is on IV Rocephin and Zithromax. She did spike a fever this morning, her white blood cell count is back to normal. Pneumococcal and Legionella antigen are negative. Nasal swab for influenza a and B were negative. Blood cultures are pending. Chest x-ray reviewed. Plan to continue same treatment, possible DC home tomorrow. #2 headaches: Attributed to migraine headaches. She is on Toradol and Tylenol. Headache is improving. #3 polysubstance abuse: Urine drug screen was positive for amphetamines and cannabinoids. #4 DVT prophylaxis: Subcu Lovenox. This note was generated with [employer] dictation software. It may contain incorrect words, spelling, and punctuation that were not noted in checking the note before signing. Code Visit Inpatient E&M: 05591 Subs Hosp L2
[2018-09-07] MEDS: Acetaminophen 325 MG Tablet 650 MG PO (09:37)
[2018-09-08 02:00] VITALS: BP 96/60; PULSE 101; RESP 16; TEMP 37.4; O2SAT 95
[2018-09-08 02:57] VITALS: O2SAT 95
--- NOTE | 2018-09-08 07:11 | PCM.PN.HOSP ---
Subjective: Patient with no acute events overnight per self and per nursing report. Patient notes she is breathing with greater ease and has been coughing less. She is mildly irritable this morning and discussed again encouragement to follow-up with primary care physician to establish as well as pending HIV and hepatitis panel with encouraged follow-up to review these results with possibility for treatment for hepatitis C if positive with 6 months of clean status with documented attendance to meetings. Patient denies fevers, chills, nausea, emesis, abdominal pain, chest pain or dyspnea. Objective: Physical Examination: General: awake, alert, oriented x 3 and cooperative, seated upright in bed in no apparent distress. Skin: normal color, turgor, no icterus, cyanosis. HEENT: AT/NC, EOMI, PERRLA, mildly dry MM, no carotid bruits or JVD noted. Lungs: Diminished BS BL Bases, L>R, moderate effort, no rales, ronchi or wheezing. Heart: Regular rate and rhythm; no gallop, rub audible. Abdomen: soft, this habitus, NTTP, ND, normal BS, no HSM. Extremities: no cyanosis, clubbing, or edema. Neurological: patient awake, alert, oriented x 3; cognitive function intact; pupils equally reactive to light and accomodation; cranial nerves II-XII grossly normal, moving all 4 extremities, no focal deficits, strength improving, mildly globally decreased. Psychiatric: affect appears irritable, no acute evidence of depressive or anxiety feelings. Vitals/I&O's: Vital Signs Temp Pulse Resp BP Pulse Ox 99.4 F H 101 H 16 96/60 95 09/08/18 02:00 09/08/18 02:00 09/08/18 02:00 09/08/18 02:00 09/08/18 02:57 Oxygen Delivery Method Room Air Weight: 128 lb 0.923 oz Body Mass Index (BMI) 20.6 Intake and Output for Last 24 Hours 09/06/18 09/07/18 09/08/18 23:59 23:59 23:59 Intake Total 4885 / 4885 300 / 300 Output Total 1000 / 1000 Balance 3885 / 3885 300 / 300 Microbiology Past 72 Hours 09/07/18 00:36 Urine, Clean Catch Streptococcus pneumoniae Antigen (M - Final 09/07/18 00:36 Urine Catheter - Catheter Legionella Antigen - Final 09/06/18 20:00 Mucosa - Nasopharyngeal Influenza Types A,B Direct FA (MARY LOU) - Final Laboratory Results 09/07/18 05:40: Sodium 144, Potassium 3.8, Chloride 112 H, Carbon Dioxide 26.0, Anion Gap 6, BUN 13, Creatinine 0.48 L, Estim Creat Clear Calc 157.15, Est GFR (MDRD) Af Amer 193, Est GFR (MDRD) Non-Af 160, BUN/Creatinine Ratio 27.0 H, Glucose 106, Calcium 7.7 L Current Medications Acetaminophen (Tylenol) 650 mg PO Q6H PRN PRN PRN Reason: Mild Pain (1-3)/Temp > 100.7 F Last Admin: 09/07/18 09:37 Dose: 650 mg Albuterol Sulfate (Ventolin Aerosols) 2.5 mg INHALATION Q2H PRN PRN PRN Reason: SHORTNESS OF BREATH Enoxaparin Sodium (Lovenox) 40 mg SC DAILY@1000 [facility] Last Admin: 09/07/18 09:43 Dose: Not Given Guaifenesin (Mucinex) 1,200 mg PO BID [facility] Last Admin: 09/07/18 22:59 Dose: 1,200 mg Azithromycin 500 mg/ Dextrose 255 mls @ 250 mls/hr IV Q24 [facility] Stop: 09/09/18 11:02 Last Admin: 09/07/18 11:16 Dose: 250 mls/hr Ceftriaxone Sodium (Rocephin) 1 gm in 50 mls @ 100 mls/hr IV Q24 [facility] Last Admin: 09/07/18 09:31 Dose: 100 mls/hr Ketorolac Tromethamine (Toradol) 15 mg IV Q6H PRN PRN PRN Reason: PAIN Stop: 09/11/18 11:44 Last Admin: 09/07/18 02:27 Dose: 15 mg Magnesium Hydroxide (Milk Of Magnesia) 30 ml PO DAILY PRN PRN PRN Reason: Constipation Nutritional Formula (Lactose Free) (Ensure Enlive) 120 ml PO 4X/DAY [facility] Last Admin: 09/07/18 22:59 Dose: 120 ml Ondansetron HCl (Zofran) 4 mg IV Q8H PRN PRN PRN Reason: NAUSEA Sodium Chloride () 5 - 15 ml IV UD PRN PRN Reason: SALINE FLUSH Last Admin: 09/07/18 09:31 Dose: 10 ml Medical Necessity - Tobacco Use Smoking Status: Heavy Smoker (>10/day) Tobacco Use: Cigarettes Assessment/Plan All Active Problems Pneumonia (Acute) Sepsis (Acute) The patient is a 32 y/o F w/ PMHx: Tobacco use, PCOS, Polysubstance abyse (cocain, cannabis, methamphetamines) who presents to the [facility] ED on 09/06/18 with history of headache, nausea, emesis, abdominal discomfort, L sided chest pain worse with deep inspiration. (1) Acute Sepsis secondary to Community Acquired Pneumonia: CXR in the ED w/ LLL PNA. Admission CBC w/ WBC 17.1 with L shift. Admitted to [place], maintain on oxygen with wean as tolerated to room air, continue ATC duonebs, PRN albuterol, maintained on IV Rocephin and Azithromycin, HOB, IS parameters w/ negative antigens, negative rapid influenza, ordered but not obtained sputum cultures. Bld cx x 2 obtained in the ED. Will transition to omnicef and will complete 3rd dose azithromycin prior to discharge. (2) Polysubstance Abuse, IVDA Hx: Patient currently not candidate for hep C treatment currently as needs to be clean, sober x 6 months, documented attendance NA or AA meetings, counseling and ongoing negative drug screens. HIV, hepatitis panel to assess for co-infection pending. Encouraged PCP establishment and follow-up. (3) Tobacco Abuse: Encouraged cessation, inpatient consultation per RT, NR if desired. (4) PCOS: Maintain on home metformin regimen. (5) DVT Prophylaxis: SCDs, lovenox.
--- NOTE | 2018-09-08 07:21 | PN_ITS ---
Subjective: Patient with no acute events overnight per self and per nursing report. Patient notes she is breathing with greater ease and has been coughing less. She is mildly irritable this morning and discussed again encouragement to follow-up with primary care physician to establish as well as pending HIV and hepatitis panel with encouraged follow-up to review these results with possibility for treatment for hepatitis C if positive with 6 months of clean status with documented attendance to meetings. Patient denies fevers, chills, nausea, emesis, abdominal pain, chest pain or dyspnea. Objective: Physical Examination: General: awake, alert, oriented x 3 and cooperative, seated upright in bed in no apparent distress. Skin: normal color, turgor, no icterus, cyanosis. HEENT: AT/NC, EOMI, PERRLA, mildly dry MM, no carotid bruits or JVD noted. Lungs: Diminished BS BL Bases, L>R, moderate effort, no rales, ronchi or whe ezing. Heart: Regular rate and rhythm; no gallop, rub audible. Abdomen: soft, this habitus, NTTP, ND, normal BS, no HSM. Extremities: no cyanosis, clubbing, or edema. Neurological: patient awake, alert, oriented x 3; cognitive function intact; pupils equally reactive to light and accomodation; cranial nerves II-XII grossly normal, moving all 4 extremities, no focal deficits, strength improving, mildly globally decreased. Psychiatric: affect appears irritable, no acute evidence of depressive or anxiety feelings. Vitals/I&O's: Vital Signs Temp Pulse Resp BP Pulse Ox 99.4 F H 101 H 16 96/60 95 09/08/18 02:00 09/08/18 02:00 09/08/18 02:00 09/08/18 02:00 09/08/18 02:57 Oxygen Delivery Method Room Air Weight: 128 lb 0.923 oz Body Mass Index (BMI) 20.6 Intake and Output for Last 24 Hours 09/06/18 09/07/18 09/08/18 23:59 23:59 23:59 Intake Total 4885 / 4885 300 / 300 Output Total 1000 / 1000 Balance 3885 / 3885 300 / 300 Microbiology Past 72 Hours 09/07/18 00:36 Urine, Clean Catch Streptococcus pneumoniae Antigen (M - Final 09/07/18 00:36 Urine Catheter - Catheter Legionella Antigen - Final 09/06/18 20:00 Mucosa - Nasopharyngeal Influenza Types A,B Direct FA (MARY LOU) - Final Laboratory Results 09/07/18 05:40: Sodium 144, Potassium 3.8, Chloride 112 H, Carbon Dioxide 26.0, Anion Gap 6, BUN 13, Creatinine 0.48 L, Estim Creat Clear Calc 157.15, Est GFR (MDRD) Af Amer 193, Est GFR (MDRD) Non-Af 160, BUN/Creatinine Ratio 27.0 H, Glucose 106, Calcium 7.7 L Current Medications Acetaminophen (Tylenol) 650 mg PO Q6H PRN PRN PRN Reason: Mild Pain (1-3)/Temp > 100.7 F Last Admin: 09/07/18 09:37 Dose: 650 mg Albuterol Sulfate (Ventolin Aerosols) 2.5 mg INHALATION Q2H PRN PRN PRN Reason: SHORTNESS OF BREATH Enoxaparin Sodium (Lovenox) 40 mg SC DAILY@1000 [facility] Last Admin: 09/07/18 09:43 Dose: Not Given Guaifenesin (Mucinex) 1,200 mg PO BID [facility] Last Admin: 09/07/18 22:59 Dose: 1,200 mg Azithromycin 500 mg/ Dextrose 255 mls @ 250 mls/hr IV Q24 [facility] Stop: 09/09/18 11:02 Last Admin: 09/07/18 11:16 Dose: 250 mls/hr Ceftriaxone Sodium (Rocephin) 1 gm in 50 mls @ 100 mls/hr IV Q24 [facility] Last Admin: 09/07/18 09:31 Dose: 100 mls/hr Ketorolac Tromethamine (Toradol) 15 mg IV Q6H PRN PRN PRN Reason: PAIN Stop: 09/11/18 11:44 Last Admin: 09/07/18 02:27 Dose: 15 mg Magnesium Hydroxide (Milk Of Magnesia) 30 ml PO DAILY PRN PRN PRN Reason: Constipation Nutritional Formula (Lactose Free) (Ensure Enlive) 120 ml PO 4X/DAY [facility] Last Admin: 09/07/18 22:59 Dose: 120 ml Ondansetron HCl (Zofran) 4 mg IV Q8H PRN PRN PRN Reason: NAUSEA Sodium Chloride () 5 - 15 ml IV UD PRN PRN Reason: SALINE FLUSH Last Admin: 09/07/18 09:31 Dose: 10 ml Medical Necessity - Tobacco Use Smoking Status: Heavy Smoker (>10/day) Tobacco Use: Cigarettes Assessment/Plan All Active Problems Pneumonia (Acute) Sepsis (Acute) The patient is a 32 y/o F w/ PMHx: Tobacco use, PCOS, Polysubstance abyse (cocain, cannabis, methamphetamines) who presents to the [facility] ED on 09/06/18 with history of headache, nausea, emesis, abdominal discomfort, L sided chest pain worse with deep inspiration. (1) Acute Sepsis secondary to Community Acquired Pneumonia: CXR in the ED w/ LLL PNA. Admission CBC w/ WBC 17.1 with L shift. Admitted to [place], maintain on oxygen with wean as tolerated to room air, continue ATC duonebs, PRN albuterol, maintained on IV Rocephin and Azithromycin, HOB, IS parameters w/ negative antigens, negative rapid influenza, ordered but not obtained sputum cultures. Bld cx x 2 obtained in the ED. Will transition to omnicef and will complete 3rd dose azithromycin prior to discharge. (2) Polysubstance Abuse, IVDA Hx: Patient currently not candidate for hep C treatment currently as needs to be clean, sober x 6 months, documented attendance NA or AA meetings, counseling and ongoing negative drug screens. HIV, hepatitis panel to assess for co-infection pending. Encouraged PCP establishment and follow-up. (3) Tobacco Abuse: Encouraged cessation, inpatient consultation per RT, NR if desired. (4) PCOS: Maintain on home metformin regimen. (5) DVT Prophylaxis: SCDs, lovenox.
--- NOTE | 2018-09-08 07:26 | DCINST_ITS ---
- Discharge Diagnoses Current Active Problems: (1) Acute Sepsis secondary to Community Acquired Pneumonia (2) Polysubstance Abuse, IVDA (3) Tobacco Abuse (4) PCOS You will use the following diet at home:: No restrictions Your food should be the consistency of: Regular Your liquids should be the consistency of: Regular/Thin Discharge Activity: - - Advise continued moderate activity until re-evaluation per your primary care physician. Call your doctor if you observe: Fever of 101 or Higher, Inability to urinate, Inability to have a bowel movement, Shortness of breath, Dizziness, Fainting spells, Chest pain, Uncontrolled pain Instructions: What Is Pneumonia?, Preventing Pneumonia, Pneumonia Treatment, Why Do You Smoke?, Planning to Quit Smoking, Getting Support for Quitting Smoking, Coping with Smoking Withdrawal, Cocaine: Myths and Facts, Cocaine: Understanding Its Effects, Cocaine: Getting Help, Understanding Marijuana Abuse, Understanding Methamphetamine Abuse and Addiction Pending Tests on Discharge: HIV and hepatitis panel are pending at your discharge. Please review these results at follow-up with your primary care physician. Allergies/Adverse Reactions: Allergies No Known Allergies Allergy (Verified 09/06/18 14:11) Medications to take at Discharge Metformin HCl [Glucophage] 1,000 mg PO DAILY 09/06/18 Albuterol Inhaler [Ventolin Hfa] 1 - 2 puff INHALATION Q4H PRN PRN #1 inhaler 09/08/18 Cefdinir [Omnicef [equiv]] 300 mg PO Q12H #8 capsule 09/08/18 Guaifenesin [Mucinex] 1,200 mg PO BID #20 tablet 09/08/18 The following prescriptions were given: Albuterol Inhaler [Ventolin Hfa] 1 - 2 puff INHALATION Q4H PRN PRN #1 inhaler PRN Reason: dyspnea, wheezing Cefdinir [Omnicef [equiv]] 300 mg PO Q12H #8 capsule Guaifenesin [Mucinex] 1,200 mg PO BID #20 tablet Primary Care Physician: Care Physician,No Primary [Primary Care Provider] - Please follow up with your Primary Care Physician in: Please establish with PCP and follow-up within 3-5 days. Test Results: Test results from this visit will be discussed in further detail at your follow- up appointment, if applicable. Proposed Discharge Date: 09/08/18
--- NOTE | 2018-09-08 08:36 | PCA ---
went into pt room to find out who her primary care physician is to make a follow up appointment. pt sleeping will check back later before discharge
[2018-09-08 09:12] VITALS: BP 116/61; PULSE 104; RESP 16; TEMP 37.3; O2SAT 95
[2018-09-08] MEDS: Ceftriaxone 1 GM/50 ML BAG IV (10:36)
[2018-09-08] MEDS: guaiFENesin 1,200 MG Tablet 1200 MG PO (10:38)
--- NOTE | 2018-09-08 12:05 | CASEMGMT ---
Social Work Note TAYLOR met with pt to complete initial assessment and to determine discharge needs. SW introduced self and role at [facility]. Pt is alert and orientated x4. Pt states that she is homeless, missed her court date, has a warrant out for her arrest and will be going to half-way once she discharges from [facility]. Per H+P, pt has history of methamphetamine use and alcohol abuse. TAYLOR provided pt with packet of resources including counseling resources in [facility], [facility], and Homeless shelters. Pt agreeable to taking packet of resources. Pt denied additional needs or concerns at this time. Plan: Pt states she will be going to half-way once she discharges from [facility]. Counseling resources and homeless penitentiary resources provided to pt. Sharonda Castillo [employer], [employer] CONTROL CLERK
[2018-09-08 13:36] VITALS: BP 100/71; PULSE 98; RESP 16; TEMP 36.9; O2SAT 100
[2018-09-08 14:08] LABS: HIV - WCH Non-Reactive (Nonreactive)
--- NOTE | 2018-09-08 14:34 | PCM.DC.SUM ---
Discharge Date and Diagnosis Date of Admission: 09/06/18 Date of Discharge: 09/08/18 - Primary Discharge Diagnosis (1) Acute Sepsis secondary to Community Acquired Pneumonia (2) Polysubstance Abuse, IVDA Hx (3) Tobacco Abuse (4) PCOS - Secondary Discharge Diagnosis Chronic Problems Tobacco dependence (Chronic) PCOS (polycystic ovarian syndrome) (Chronic) Hospital Course and Treatment Operations: None Procedures: EKG Summary of Care Provided: The patient is a 32 y/o F w/ PMHx: Tobacco use, PCOS, Polysubstance abuse (cocain, cannabis, methamphetamines) who presented to the [facility] ED on 09/06/18 with history of headache, nausea, emesis, abdominal discomfort, L sided chest pain worse with deep inspiration. CXR in the ED w/ LLL PNA. Admission CBC w/ WBC 17.1 with L shift. Admitted to PR, maintain on oxygen with wean as tolerated to room air, continue ATC duonebs, PRN albuterol, maintained on IV Rocephin and Azithromycin with transition upon discharge to complete course w/ omnicef and 3rd dose azithromycin administered prior to discharge, HOB, IS parameters w/ negative antigens, negative rapid influenza, ordered but not obtained sputum cultures. Bld cx x 2 obtained in the ED. Given patient history of Polysubstance Abuse, IVDA Hx discussed that patient currently not candidate for hep C treatment currently as needs to be clean, sober x 6 months, documented attendance NA or AA meetings, counseling and ongoing negative drug screens. HIV, hepatitis panel to assess for co-infection pending upon discharge. Encouraged PCP establishment and follow-up with CM/SW consulted to assist with PCP set-up and substance abuse; however, patient declined noting it does not matter since I am going to nursing home. Encouraged tobacco cessation, inpatient consultation per RT. Patient discharged to home in improved, stable condition with recommendations as noted and rx for completion abx as well as PRN albuterol. - Physical Exam Vital Signs Temp Pulse Resp BP Pulse Ox 98.4 F 98 16 100/71 100 09/08/18 13:36 09/08/18 13:36 09/08/18 13:36 09/08/18 13:36 09/08/18 13:36 Oxygen Delivery Method Room Air Weight: 128 lb 0.923 oz Body Mass Index (BMI) 20.6 Intake and Output for Last 24 Hours 09/06/18 09/07/18 09/08/18 23:59 23:59 23:59 Intake Total 4885 / 4885 1360 / 1360 Output Total 1000 / 1000 Balance 3885 / 3885 1360 / 1360 Microbiology Past 72 Hours 09/07/18 00:36 Urine Culture - Final Urine, Clean Catch Mixed Gram Positive Organisms 09/07/18 00:36 Streptococcus pneumoniae Antigen (M - Final Urine, Clean Catch 09/07/18 00:36 Legionella Antigen - Final Urine Catheter - Catheter 09/06/18 20:00 Influenza Types A,B Direct FA (MARY LOU) - Final Mucosa - Nasopharyngeal Laboratory Tests Past 24 Hrs 09/06/18 09/08/18 19:10 07:30 Hepatitis A IgM Ab Pending Hepatitis A Ab Total Pending Hep Bs Antigen Pending Hep B Core Total Ab Pending Hep B Core IgM Ab Pending HIV 1&2 Antibody Non-Reactive Discharge Activity: - - Advise continued moderate activity until re-evaluation per your primary care physician. Call your doctor if you observe: Fever of 101 or Higher, Inability to urinate, Inability to have a bowel movement, Shortness of breath, Dizziness, Fainting spells, Chest pain, Uncontrolled pain Home Medications: Medications to take at Discharge Metformin HCl [Glucophage] 1,000 mg PO DAILY 09/06/18 Albuterol Inhaler [Ventolin Hfa] 1 - 2 puff INHALATION Q4H PRN PRN #1 inhaler 09/08/18 Cefdinir [Omnicef [equiv]] 300 mg PO Q12H #8 capsule 09/08/18 Guaifenesin [Mucinex] 1,200 mg PO BID #20 tablet 09/08/18 Following Prescrptions Were Given to Patient: Albuterol Inhaler [Ventolin Hfa] 1 - 2 puff INHALATION Q4H PRN PRN #1 inhaler PRN Reason: dyspnea, wheezing Cefdinir [Omnicef [equiv]] 300 mg PO Q12H #8 capsule Guaifenesin [Mucinex] 1,200 mg PO BID #20 tablet Primary Care Physician: Care Physician,No Primary [Primary Care Provider] - Please follow up with your Primary Care Physician in: Please establish with PCP and follow-up within 3-5 days. Please Follow Up With: Ebony Garcia MD When: 3-5 days Patient Instructions: What Is Pneumonia?, Preventing Pneumonia, Pneumonia Treatment, Cocaine: Myths and Facts, Cocaine: Understanding Its Effects, Cocaine: Getting Help, Why Do You Smoke?, Planning to Quit Smoking, Getting Support for Quitting Smoking, Coping with Smoking Withdrawal, Understanding Marijuana Abuse, Understanding Methamphetamine Abuse and Addiction Pending Tests Upon Discharge: HIV and hepatitis panel pending at discharge to be reviewed with PCP upon evaluation. Disposition: Home Minutes spent on discharge:: 35 Patient Condition:: Fair Medical Necessity - Tobacco Use Smoking Status: Heavy Smoker (>10/day) Tobacco Use: Cigarettes Meaningful Use Info Meaningful Use Diagnoses (Choose all that apply): None applicable Code Visit Inpatient E&M: 14982 Disch Hosp
--- NOTE | 2018-09-08 14:38 | DS.PCM_ITS ---
Discharge Date and Diagnosis Date of Admission: 09/06/18 Date of Discharge: 09/08/18 - Primary Discharge Diagnosis (1) Acute Sepsis secondary to Community Acquired Pneumonia (2) Polysubstance Abuse, IVDA Hx (3) Tobacco Abuse (4) PCOS - Secondary Discharge Diagnosis Chronic Problems Tobacco dependence (Chronic) PCOS (polycystic ovarian syndrome) (Chronic) Hospital Course and Treatment Operations: None Procedures: EKG Summary of Care Provided: The patient is a 32 y/o F w/ PMHx: Tobacco use, PCOS, Polysubstance abuse (cocain, cannabis, methamphetamines) who presented to the [facility] ED on 09/06/18 with history of headache, nausea, emesis, abdominal discomfort, L sided chest pain worse with deep inspiration. CXR in the ED w/ LLL PNA. Admission CBC w/ WBC 17.1 with L shift. Admitted to [place], maintain on oxygen with wean as tolerated to room air, continue ATC duonebs, PRN albuterol, maintained on IV Rocephin and Azithromycin with transition upon discharge to complete course w/ omnicef and 3rd dose azithromycin administered prior to discharge, HOB, IS parameters w/ negative antigens, negative rapid influenza, ordered but not obtained sputum cultures. Bld cx x 2 obtained in the ED. Given patient history of Polysubstance Abuse, IVDA Hx discussed that patient currently not candidate for hep C treatment currently as needs to be clean, sober x 6 months, documented attendance NA or AA meetings, counseling and ongoing negative drug screens. HIV, hepatitis panel to assess for co-infection pending upon discharge. Encouraged PCP establishment and follow-up with CM/SW consulted to assist with PCP set-up and substance abuse; however, patient declined noting it does not matter since I am going [facility]. Encouraged tobacco cessation, inpatient consultation per RT. Patient discharged to home in improved, stable condition with recommendations as noted and rx for completion abx as well as PRN albuterol. - Physical Exam Vital Signs Temp Pulse Resp BP Pulse Ox 98.4 F 98 16 100/71 100 09/08/18 13:36 09/08/18 13:36 09/08/18 13:36 09/08/18 13:36 09/08/18 13:36 Oxygen Delivery Method Room Air Weight: 128 lb 0.923 oz Body Mass Index (BMI) 20.6 Intake and Output for Last 24 Hours 09/06/18 09/07/18 09/08/18 23:59 23:59 23:59 Intake Total 4885 / 4885 1360 / 1360 Output Total 1000 / 1000 Balance 3885 / 3885 1360 / 1360 Microbiology Past 72 Hours 09/07/18 00:36 Urine Culture - Final Urine, Clean Catch Mixed Gram Positive Organisms 09/07/18 00:36 Streptococcus pneumoniae Antigen (M - Final Urine, Clean Catch 09/07/18 00:36 Legionella Antigen - Final Urine Catheter - Catheter 09/06/18 20:00 Influenza Types A,B Direct FA (MARY LOU) - Final Mucosa - Nasopharyngeal Laboratory Tests Past 24 Hrs 09/06/18 09/08/18 19:10 07:30 Hepatitis A IgM Ab Pending Hepatitis A Ab Total Pending Hep Bs Antigen Pending Hep B Core Total Ab Pending Hep B Core IgM Ab Pending HIV 1&2 Antibody Non-Reactive Discharge Activity: - - Advise continued moderate activity until re-evaluation per your primary care physician. Call your doctor if you observe: Fever of 101 or Higher, Inability to urinate, Inability to have a bowel movement, Shortness of breath, Dizziness, Fainting spells, Chest pain, Uncontrolled pain Home Medications: Medications to take at Discharge Metformin HCl [Glucophage] 1,000 mg PO DAILY 09/06/18 Albuterol Inhaler [Ventolin Hfa] 1 - 2 puff INHALATION Q4H PRN PRN #1 inhaler 09/08/18 Cefdinir [Omnicef [equiv]] 300 mg PO Q12H #8 capsule 09/08/18 Guaifenesin [Mucinex] 1,200 mg PO BID #20 tablet 09/08/18 Following Prescrptions Were Given to Patient: Albuterol Inhaler [Ventolin Hfa] 1 - 2 puff INHALATION Q4H PRN PRN #1 inhaler PRN Reason: dyspnea, wheezing Cefdinir [Omnicef [equiv]] 300 mg PO Q12H #8 capsule Guaifenesin [Mucinex] 1,200 mg PO BID #20 tablet Primary Care Physician: Care Physician,No Primary [Primary Care Provider] - Please follow up with your Primary Care Physician in: Please establish with PCP and follow-up within 3-5 days. Please Follow Up With: Ebony Garcia MD When: 3-5 days Patient Instructions: What Is Pneumonia?, Preventing Pneumonia, Pneumonia Treatment, Cocaine: Myths and Facts, Cocaine: Understanding Its Effects, Cocaine: Getting Help, Why Do You Smoke?, Planning to Quit Smoking, Getting Support for Quitting Smoking, Coping with Smoking Withdrawal, Understanding Marijuana Abuse, Understanding Methamphetamine Abuse and Addiction Pending Tests Upon Discharge: HIV and hepatitis panel pending at discharge to be reviewed with PCP upon evaluation. Disposition: Home Minutes spent on discharge:: 35 Patient Condition:: Fair Medical Necessity - Tobacco Use Smoking Status: Heavy Smoker (>10/day) Tobacco Use: Cigarettes Meaningful Use Info Meaningful Use Diagnoses (Choose all that apply): None applicable Code Visit Inpatient E&M: 24646 Disch Hosp
--- NOTE | 2018-09-08 16:53 | CPS ---
Patient working on PEP therapy on own
[2018-09-09 08:10] LABS: HEPATITIS B SURFACE AG Negative (Negative); Hepatitis A AB, Total Positive (Negative); Hepatitis A IgM Antibody Negative (Negative); Hepatitis B Core AB IgM Negative (Negative); Hepatitis B Core Ab Total Negative (Negative); Hepatitis C Ab 0.1 s/co ratio (0.0-0.9)
[2018-09-09 08:45] LABS: Hep B Surface Antibodies Reactive (.)
--- OUTSIDE RECORDS SUMMARY | 2018-10-31 20:54 | XMS RPT_ITS ---
:1985 Author Organization OHIP Care Team Providers Name Role Phone Elma Simons Attending Unavailable Call, On Primary Care Unavailable Primay Care Physicia, No Primary Care Unavailable Jorge Phelps Admitting Unavailable Jorge Phelps Attending Unavailable Jorge Phelps Attending Unavailable Jorge Phelps Attending Unavailable Primay Care Physicia, No Primary Care Unavailable Jonel Parisi Attending Unavailable Primay Care Physicia, No Primary Care Unavailable Jeremy Coates Attending Unavailable Primay Care Physicia, No Primary Care Unavailable Jonel Plasencia Attending Unavailable Primay Care Physicia, No Primary Care Unavailable Jopperi, Petar Admitting Unavailable White, Tonja Attending Unavailable Jopperi, Petar Attending Unavailable Primay Care Physicia, No Primary Care Unavailable Jopperi, Petar Admitting Unavailable Ashelfah, Ghasem Attending Unavailable Primay Care Physicia, No Primary Care Unavailable Ashelfah, Ghasem Consulting Unavailable Jopperi, Petar Admitting Unavailable White, Tonja Attending Unavailable Primay Care Physicia, No Primary Care Unavailable White, Tonja Consulting Unavailable PROBLEMS PROBLEMS DATE TYPE CONDITION / CODE ATTENDING STATUS SOURCE 09/08/2018 Unknown J18.9 - White, Tonja Active Kyle Pneumonia, Community unspecified Hospital organism / Repository J18.9(ICD-10) PROCEDURES PROCEDURES No Procedure Records FoundRESULTS RESULTS DISCHARGE SUMMARY Observed: 09/08/2018 Status: F Source: [place] 2:38 PM [facility] REPOSITORY [facility] Medical Records Department [address] [place] [address] Discharge Summary 09/08/18 1434 MR#: [id number] Acct: [id number] Name: DALY SRINIVASAN Rep #: [id number] : 1985 32 From: Tonja Higginbotham PCP: Care Physician, No Primary Status: DIS IN Y Location: [facility] [place] [id number] Discharge Date and Diagnosis Date of Admission: 09/06/18 Date of Discharge: 09/08/18 - Primary Discharge Diagnosis (1) Acute Sepsis secondary to Community Acquired Pneumonia (2) Polysubstance Abuse, IVDA Hx (3) Tobacco Abuse (4) PCOS - Secondary Discharge Diagnosis Chronic Problems Tobacco dependence (Chronic) PCOS (polycystic ovarian syndrome) (Chronic) Hospital Course and Treatment Operations: None Procedures: EKG Summary of Care Provided: The patient is a 32 y/o F w/ PMHx: Tobacco use, PCOS, Polysubstance abuse (cocain, cannabis, methamphetamines) who presented to the [facility] ED on 09/06/18 with history of headache, nausea, emesis, abdominal discomfort, L sided chest pain worse with deep inspiration. CXR in the ED w/ LLL PNA. Admission CBC w/ WBC 17.1 with L shift. Admitted to UT, maintain on oxygen with wean as tolerated to room air, continue ATC duonebs, PRN albuterol, maintained on IV Rocephin and Azithromycin with transition upon discharge to complete course w/ omnicef and 3rd dose azithromycin administered prior to discharge, HOB, IS parameters w/ negative antigens, negative rapid influenza, ordered but not obtained sputum cultures. Bld cx x 2 obtained in the ED. Given patient history of Polysubstance Abuse, IVDA Hx discussed that patient currently not candidate for hep C treatment currently as needs to be clean, sober x 6 months, documented attendance NA or AA meetings, counseling and ongoing negative drug screens. HIV, hepatitis panel to assess for co-infection pending upon discharge. Encouraged PCP establishment and follow-up with CM/SW consulted to assist with PCP set-up and substance abuse; however, patient declined noting it does not matter since I am going to alf. Encouraged tobacco cessation, inpatient consultation per RT. Patient discharged to home in improved, stable condition with recommendations as noted and rx for completion abx as well as PRN albuterol. - Physical Exam Vital Signs Temp Pulse Resp BP Pulse Ox 98.4 F 98 16 100/71 100 12/03/18 13:36 09/08/18 13:36 09/08/18 13:36 09/08/18 13:36 09/08/18 13:36 Oxygen Delivery Method Room Air Weight: 128 lb 0.923 oz Body Mass Index (BMI) 20.6 Intake and Output for Last 24 Hours Intake Total 4885 / 4885 1360 / 1360 Output Total 1000 / 1000 Balance 3885 / 3885 1360 / 1360 Microbiology Past 72 Hours 09/07/18 00:36 Urine Culture - Final Urine, Clean Catch Mixed Gram Positive Organisms 09/07/18 00:36 Streptococcus pneumoniae Antigen (M - Final Laboratory Tests Past 24 Hrs Discharge Activity: - - Advise continued moderate activity until re-evaluation per your primary care physician. Call your doctor if you observe: Fever of 101 or Higher, Inability to urinate, Inability to have a bowel movement, Shortness of breath, Dizziness, Fainting spells, Chest pain, Uncontrolled pain Home Medications: Medications to take at Discharge Metformin HCl [Glucophage] 1,000 mg PO DAILY 09/06/18 Albuterol Inhaler [Ventolin Hfa] 1 - 2 puff INHALATION Q4H PRN PRN #1 inhaler 09/08/18 Cefdinir [Omnicef [equiv]] 300 mg PO Q12H #8 capsule 09/08/18 Guaifenesin [Mucinex] 1,200 mg PO BID #20 tablet 09/08/18 Following Prescrptions Were Given to Patient: Albuterol Inhaler [Ventolin Hfa] 1 - 2 puff INHALATION Q4H PRN PRN #1 inhaler PRN Reason: dyspnea, wheezing Cefdinir [Omnicef [equiv]] 300 mg PO Q12H #8 capsule Guaifenesin [Mucinex] 1,200 mg PO BID #20 tablet Primary Care Physician: Care Physician,No Primary [Primary Care Provider] - Please follow up with your Primary Care Physician in: Please establish with PCP and follow-up within 3-5 days. Please Follow Up With: Ebony Garcia MD When: 3-5 days Patient Instructions: What Is Pneumonia?, Preventing Pneumonia, Pneumonia Treatment, Cocaine: Myths and Facts, Cocaine: Understanding Its Effects, Cocaine: Getting Help, Why Do You Smoke?, Planning to Quit Smoking, Getting Support for Quitting Smoking, Coping with Smoking Withdrawal, Understanding Marijuana Abuse, Understanding Methamphetamine Abuse and Addiction Pending Tests Upon Discharge: HIV and hepatitis panel pending at discharge to be reviewed with PCP upon evaluation. Disposition: Home Minutes spent on discharge:: 35 Patient Condition:: Fair Medical Necessity - Tobacco Use Smoking Status: Heavy Smoker (>10/day) Tobacco Use: Cigarettes Meaningful Use Info Meaningful Use Diagnoses (Choose all that apply): None applicable Code Visit Inpatient E AND M: 35090 Disch Hosp 09/08/18 1438 <Electronically signed by Tonja Higginbotham > Date Tonja Higginbotham Cosigner Signature (if applicable): Date CC: No Primary Care Physician; Tonja Higginbotham Signed HEPATITIS ABC PROFILE Collected: 09/08/2018 Status: F Source: [place] 7:30 AM [facility] REPOSITORY TYPE CODE TESTS RESULT OUT OF RANGE REFERENCE UNITS LAB L3100.0200 Negative Normal HEP A Negative IgM 6734 LAB L3100.0300 Negative High HEP A Positive AB,T.6726 LAB L3100.0400 Negative Normal HB Negative SURF AG LAB L3100.0440 Negative Normal HB Negative CORE [id number] LAB L3100.0460 Negative Normal HEP B Negative CORE,TOT LAB L3100.0510 . Normal Hep B Reactive Oliva AB Result Comment: Non Reactive: Inconsistent with immunity, less than 10 mIU/mL Reactive: Consistent with immunity, greater than 9.9 mIU/mL LAB L3100.0750 0.0-0.9 s/co ratio Normal HCV Ab 0.1 LAB L3100.0765 . Normal COMMENT Comment Result Comment: Non reactive HCV antibody screen is consistent with no HCV infection, unless recent infection is suspected or other evidence exists to indicate HCV infection. Performed at: [facility] [id number] [employer] Equipment Mechanic: Jj Kent PhD, Phone: [phone] Performed By: #### L3000.0700 #### [facility] (refer to report for specific site) refer to report for address and phone number DISCHARGE INSTRUCTION Observed: 09/08/2018 Status: F Source: [place] 7:26 AM [facility] REPOSITORY [facility] Medical Records Department [address] [place] [address] Instructions for Home/Discharge Instructions 09/08/18 0721 MR#: [id number] Acct: [id number] Name: DALY SRINIVASAN Rep #: [id number] : 1985 32 From: Tonja Higginbotham PCP: Care Physician, No Primary Status: ADM IN - Discharge Diagnoses Current Active Problems: (1) Acute Sepsis secondary to Community Acquired Pneumonia (2) Polysubstance Abuse, IVDA (3) Tobacco Abuse (4) PCOS You will use the following diet at home:: No restrictions Your food should be the consistency of: Regular Your liquids should be the consistency of: Regular/Thin Discharge Activity: - - Advise continued moderate activity until re-evaluation per your primary care physician. Call your doctor if you observe: Fever of 101 or Higher, Inability to urinate, Inability to have a bowel movement, Shortness of breath, Dizziness, Fainting spells, Chest pain, Uncontrolled pain Instructions: What Is Pneumonia?, Preventing Pneumonia, Pneumonia Treatment, Why Do You Smoke?, Planning to Quit Smoking, Getting Support for Quitting Smoking, Coping with Smoking Withdrawal, Cocaine: Myths and Facts, Cocaine: Understanding Its Effects, Cocaine: Getting Help, Understanding Marijuana Abuse, Understanding Methamphetamine Abuse and Addiction Pending Tests on Discharge: HIV and hepatitis panel are pending at your discharge. Please review these results at follow-up with your primary care physician. Allergies/Adverse Reactions: Allergies No Known Allergies Allergy (Verified 09/06/18 14:11) Medications to take at Discharge Metformin HCl [Glucophage] 1,000 mg PO DAILY 09/06/18 Albuterol Inhaler [Ventolin Hfa] 1 - 2 puff INHALATION Q4H PRN PRN #1 inhaler 09/08/18 Cefdinir [Omnicef [equiv]] 300 mg PO Q12H #8 capsule 09/08/18 Guaifenesin [Mucinex] 1,200 mg PO BID #20 tablet 09/08/18 The following prescriptions were given: Albuterol Inhaler [Ventolin Hfa] 1 - 2 puff INHALATION Q4H PRN PRN #1 inhaler PRN Reason: dyspnea, wheezing Cefdinir [Omnicef [equiv]] 300 mg PO Q12H #8 capsule Guaifenesin [Mucinex] 1,200 mg PO BID #20 tablet Primary Care Physician: Care Physician,No Primary [Primary Care Provider] - Please follow up with your Primary Care Physician in: Please establish with PCP and follow-up within 3-5 days. Test Results: Test results from this visit will be discussed in further detail at your follow-up appointment, if applicable. Proposed Discharge Date: 09/08/18 09/08/18 0726 <Electronically signed by Tonja Higginbotham > Date Tonja Higginbotham CC: No Primary Care Physician Observed: 09/07/2018 Status: F Source: [place] CULTURE, BLOOD (WB) 3:40 PM [facility] REPOSITORY BC No growth in 5 days. Performed By: #### M200.1000 #### [facility] [address] [place], [place], [address] CBC W/DIFF, AUTOMATED Collected: 09/07/2018 Status: F Source: [place] 5:40 AM [facility] REPOSITORY TYPE CODE TESTS RESULT OUT OF RANGE REFERENCE UNITS LAB L100.1000 4.4-11.0 K/mm3 Normal WBC 8.7 LAB L100.1200 4.2-5.4 M/mm3 Low RBC 3.83 LAB L100.1300 12.0-15.0 g/dl Low HGB 11.1 LAB L100.1400 37-47 % Low HCT 33.9 LAB L100.1500 81-99 fL Normal MCV 88.5 LAB L100.1600 27.0-32.0 pg Normal MCH 29.0 LAB L100.1700 32-36 g/gl Normal MCHC 32.7 LAB L100.1810 11.6-14.6 % Normal RDW CV 13.5 LAB L100.1820 35.1-43.9 fl Normal RDW SD 43.8 LAB L100.1900 150-450 K/mm3 Normal PLT 252 LAB L100.2000 6.2-12.0 fl Normal MPV 10.4 LAB L100.2100 47-70 % Normal NEUT% 65.3 LAB L100.2200 19-41 % Normal LY% 19.7 LAB L100.2300 0-10 % High MONO% 13.7 LAB L100.2400 0-5 % Normal EO% 0.9 LAB L100.2500 0-1 % Normal BASO% 0.3 LAB L100.2550 0.0-0.9 % Normal IM GRAN % 0.100 Result Comment: IG% - Immature Granulocytes (promyelocytes, myelocytes and metamyelocytes) > 1% indicates that a LEFT SHIFT is Present. LAB L100.2620 2.0-7.7 X10 3/uL Normal Absolute Neut 5.7 LAB L100.2720 0.83-4.51 X10 3/ul Normal Absolute Lymph 1.71 Performed By: #### L100.0100 #### [facility]. [place], [place], [address] BASIC METABOLIC Collected: 09/07/2018 Status: F Source: [place] PROFILE (BMP) 5:40 AM [facility] REPOSITORY TYPE CODE TESTS RESULT OUT OF RANGE REFERENCE UNITS LAB L501.0100 74-106 mg/dL Normal GLU 106 Result Comment: Fasting Glucose result from 100 to 125 mg/dL suggests IMPAIRED HOMEOSTASIS per A.D.A. criteria. Please note revised GLUCOSE reference range effective 2017. LAB L501.1000 7-18 mg/dL Normal BUN 13 LAB L501.1100 0.55-1.02 mg/dL Low CREAT,SERUM 0.48 Result Comment: The validity of the calculated GFR AND GFRAA in patients over 70 years has not been determined. Clinical correlation is essential. LAB L501.1110 >60 mL/min Normal EST GFR 160 Result Comment: Non- GFR Calc LAB L501.1115 >60 mL/min Normal EST GFR - AA 193 Result Comment: GFR Calc LAB L501.1255 ml/min Normal Estimated CRCL 157.15 LAB L501.1300 10-20 RATIO High BUN/CRE 27.0 LAB L501.2200 8.5-10 mg/dL Low .1 CA 7.7 LAB L501.5300 136-14 mmol/L 5 NA Normal 144 LAB L501.5600 3.5-5. mmol/L 1 K Normal 3.8 LAB L501.5900 98-107 mmol/L High CL 112 LAB L501.6100 21.0-3 mmol/L 2.0 CO2 Normal 26.0 LAB L501.6200 5-15 GAP Normal 6 Performed By: #### L500.2500 #### [facility] [address] [place], [place], [address] URINE DRUG SCREEN Collected: 09/07/2018 Status: F Source: [place] (VISTA) 12:36 AM [facility] REPOSITORY TYPE CODE TESTS RESULT OUT OF RANGE REFERENCE UNITS LAB L505.0075 TO BE Normal CONFIRMED Result Comment: CONFIRMATORY TESTING FOR ALL POSITIVE URINE DRUG SCREEN RESULTS WILL ONLY BE SENT OUT UPON PHYSICIAN ORDER. VISTA Urine Drug Screen methods provide only preliminary analytical test results. A more specific alternate chemical method must be used in order to obtain a confirmed analytical result. Gas chromatography/mass spectrometery (GC/MS) is the preferred confirmatory method. Clinical consideration and professional judgement should be applied to any drug of abuse test result, particularly when preliminary positive results are used. URINE TCA TESTING MUST BE ORDERED SEPARATELY. USE TEST MNEMONIC: [facility] LAB L505.5005 VISTA UDS PH 6 Normal LAB L505.5015 <1000 High ng/mL AMPHETAMINES POSITIVE LAB L505.5025 < 200 ng/mL BARBITIURATES Normal NEGATIVE LAB L505.5035 < 200 ng/mL BENZODIAZIPINE Normal NEGATIVE LAB L505.5045 < 300 ng/mL COCAINE Normal NEGATIVE LAB L505.5055 < 500 ng/mL ECSTACY Normal NEGATIVE LAB L505.5065 < 300 ng/mL METHADONE Normal NEGATIVE LAB L505.5075 < 300 ng/mL OPIATES Normal NEGATIVE LAB L505.5085 < 25 ng/mL PCP Normal NEGATIVE LAB L505.5095 < 50 High ng/mL THC POSITIVE Performed By: #### L505.5000 #### [facility] [address] [place], [place], [address] URINALYSIS, COMPLETE Collected: 09/07/2018 Status: F Source: [place] 12:36 AM [facility] REPOSITORY Order Comment: COLOR OF URINE MAY AFFECT DIPSTICK RESULTS. How was Urine Obtained? CLEAN CATCH TYPE CODE TESTS RESULT OUT OF RANGE REFERENCE UNITS LAB L400.3000 Yellow COLOR Normal Hoa LAB L400.3050 Clear Normal CLARITY Sl. Cloudy LAB L400.3200 Normal mg/dl Normal GLUCOSE, UR Normal LAB L400.3300 Negative mg/dL High BILIRUBIN URINE 1 Result Comment: COLOR OF URINE MAY AFFECT DIPSTICK RESULTS. LAB L400.3400 Negative mg/dl High KETONE UR 5 LAB L400.3465 1.002-1.030 Normal SP.GR. DIPSTX 1.020 LAB L400.3550 5.0 - 8.0 pH Normal UR 6.0 LAB L400.3600 Negative mg/dl High PROT DIPSTX 30 LAB L400.3700 Normal mg/dl High UROBILI 1 LAB L400.3750 Negative Normal NITRITE UR Negative LAB L400.3780 Negative /ul High OCCULT 250 BLOOD-UR LAB L400.3800 Negative /ul High LEUK ESTERASE 25 LAB L400.4050 0-5 /hpf Normal WBC 0-5 SEEN LAB L400.4100 0-5 /hpf Normal RBC-UA 10-25 SEEN LAB L400.4150 5-10 /hpf Normal SQUAM EPI 0-5 SEEN LAB L400.4300 None Seen /hpf Normal BACTERIA 0 SEEN LAB L400.4350 <or=2+ /hpf Normal MUCUS, URINE 1+ LAB L400.4900 Normal AMORPHOUS 1+ Performed By: #### L400.0001 #### [facility] [address] [facility]. [place], [place], [id number] Observed: 09/07/2018 Status: F Source: [place] LEGIONELLA ANTIGEN 12:36 AM [facility] URINE REPOSITORY Legionella, UR Legionella Antigen result interpretation: Negative Presumptive negative for Legionella pneumophila serogroup 1 antigen in urine, suggesting no recent or current infection. Legionella Ag, Urine Negative (See interpretation below) Performed By: #### M300.4500 #### [facility] [address] [facility] [place] [place], [address] STREP Observed: 09/07/2018 Status: F Source: [place] PNEUMONIAE ANTIG(UR,CSF) 12:36 AM [facility] REPOSITORY S pneumo Ag [] Negative Urine Presumptive negative for pneumococcal pneumonia, suggesting no current or recent pneumococcal infection. Infection due to S pneumoniae cannot be ruled out since the antigen present in the sample may be below the detection limit of the test. Strep pneumo Test Negative URINE (See interpretation below) Performed By: #### M300.4600 #### [address] [place], [place], [address] Observed: 09/07/2018 Status: F Source: [place] CULTURE, URINE 12:36 AM [facility] REPOSITORY Urine Culture ORGANISM 1: Mixed Gram Positive Organisms [place] Count 1000-10,000 MIX CULTURE Mixed contaminants. Submit a new specimen if indicated. Performed By: #### M100.0650 #### [address] [place], [address] Observed: 09/06/2018 Status: F Source: [place] INFLUENZA A+B (RAPID 8:00 PM [facility] REPOSITORY FLU A/B Rapid Negative test results should be confirmed by culture. Order Rapid Viral Culture for Influenzae A+B ([id number]) if clinically indicated. Influenza Ag, Direct Presumptive NEGATIVE for Influenza A/B Antigen (See Note) Performed By: #### M101.0101 #### [address] [place], [place], [address] LACTIC ACID Collected: 09/06/2018 Status: F Source: [place] 7:10 PM [facility] REPOSITORY Order Comment: Yes/No query for Sepsis Lactate Rule Y TYPE CODE TESTS RESULT OUT OF RANGE REFERENCE UNITS LAB L503.6005 0.4-2.0 mmol/L Normal LACTIC ACID 1.9 Performed By: #### L503.6005 #### [facility] [address] [place] [address]. [place], [place], [address] HIV - [facility] Collected: 09/06/2018 Status: F Source: [place] 7:10 PM [facility] REPOSITORY TYPE CODE TESTS RESULT OUT OF RANGE REFERENCE UNITS LAB L3890.6005 Nonreactive Normal HIV - H Non-Reactive Performed By: #### L3890.6005 #### [facility] [address] [place], [address] Observed: 09/06/2018 Status: F Source: [place] CULTURE, BLOOD (WB) 7:10 PM [facility] REPOSITORY BC No growth in 5 days. Performed By: #### M200.1000 #### [facility] [address] [place], [address] HISTORY AND PHYSICAL Observed: 09/06/2018 Status: F Source: [place] EXAM 4:56 PM [facility] REPOSITORY [facility] Medical Records Department [address] [place] [address] History and Physical 09/06/18 1649 MR#: [id number] Acct: [id number] Name: DALY SRINIVASAN Rep #: [id number] : 1985 32 From: Petar Malone DO PCP: Care Physician, No Primary Status: REG ER Y Location: ED Problem List (1) Pneumonia Status: Acute Qualifiers: Pneumonia type: due to unspecified organism Laterality: left Lung location: lower lobe of lung Qualified Code(s): J18.1 - Lobar pneumonia, unspecified organism (2) Sepsis Status: Acute Qualifiers: Sepsis type: sepsis due to unspecified organism Qualified Code(s): A41.9 - Sepsis, unspecified organism History of Present Illness Date of Admission: 09/06/18 Chief Complaint: headache. chest pain. The patient is a 32 year old F presents with a myriad of complaints. Patient complains of headache, nausea, vomiting, abdominal pain, left-sided chest pain that is worse with deep inspirations. Just not feeling well and presented to the emergency room. In the emergency room, patient was noted to be septic with a temperature of 37.3, pulse of 126 white count of 17.1. Patient was found to have a left lower lobe infiltrate. Patient was started on azithromycin and Rocephin in the emergency room. Patient being admitted for sepsis and pneumonia workup. Patient symptoms had been going on for her for about a week or 2 and just gradually gotten worse. [] Past Medical History Past Medical History (Chronic Problems): Chronic Problems Tobacco dependence (Chronic) PCOS (polycystic ovarian syndrome) (Chronic) Allergies No Known Allergies Allergy (Verified 09/06/18 14:11) Home Medications: Ambulatory Orders Medication Instructions Recorded Metformin HCl [Glucophage] 1,000 mg PO DAILY 09/06/18 Smoking Status: Heavy Smoker (>10/day) Tobacco Use: Cigarettes Alcohol: None Drugs: Cocaine - Occasionally, Marijuana - Occasionally, - - Methamphetamines daily. - *Family History Paternal History Items: Diabetes, Hypertension Review of Systems Constitutional: Reports: Chills, Fever Eyes: Denies: Blurred vision, Double vision HEENT: Denies: Head Aches, Sinus Congestion, Sinus Drainage Cardiovascular: Reports: Chest Pain. Denies: Edema Respiratory: Reports: Cough, Shortness of Breath Gastrointestinal: Reports: Abdominal Pain, Nausea, Vomiting. Denies: Diarrhea Genitourinary: Denies: Dysuria Gynecological: Reports: - - Last menstrual period is currently ongoing Musculoskeletal: Denies: Joint Pain, Joint Tenderness Skin: Denies: Rash, Wounds Neurological: Denies: Numbness, Tingling, Focal weakness Psychiatric: Reports: Anxiety. Denies: Depression Hematologic/ Lymphatic: Denies: Easy Bruising, Easy Bleeding, Hx of blood clot Comment: A 10 point review of systems were negative except as mentioned in the history of present illness and the other review of systems. VTE Information - Inpt Only VTE Present on Admission: No VTE Mechan Device Prophylaxis: None VTE Pharm Prophylaxis ordered?: Yes - Physical Exam General: Alert, - - No eye contact. Reluctantly engages in questions. HEENT: Atraumatic, Normocephalic, - - No scleral icterus Oral: Moist Mucosa, No Gingival or Mucosal Lesions/ Ulcerations Neck: No Nodes, Thyroid Normal Size and Texture Lungs: Diminished - And left lower lobe, - - Dullness to percussion in the left lower lobe Cardiovascular: Regular rate, Regular Rhythm, Normal S1, Normal S2 Abdomen: Bowel Sounds Present, Soft, Non Tender, Non-Distended, No Hepato-splenomegaly Extremities: No edema, No Calf Tenderness Skin: No rashes, No breakdown, - - Numerous tattoos on her back as well as lower extremities Musculoskeletal: No Tenderness to Palpation of Joints or Extremities, No Muscle Wasting Neurological: - - DTRs are 3/4 patellar bilateral. No clonus Psych/Mental Status: Appropriate, Flat Affect Vital Signs Temp Pulse Resp BP Pulse Ox 37.3 C H 126 H 18 117/76 97 09/06/18 14:11 12/01/18 14:11 09/06/18 14:11 09/06/18 14:11 09/06/18 14:11 Oxygen Delivery Method Room Air Weight: 59.9 kg Body Mass Index (BMI) 21.3 Laboratory Tests Past 24 Hrs WBC RBC Hgb Hct MCV MCH MCHC RDW RDW Differential Plt Count MPV Immature Gran % (Auto) Neut % (Auto) Chest x-ray personally reviewed and shows a left lower lobe infiltrate. Assessment/Plan All Active Problems Pneumonia (Acute) Sepsis (Acute) 1. Suspected pneumococcal pneumonia * Patient will be on Rocephin and azithromycin * Check urinary antigens for Streptococcus and Legionella * Check sputum culture * Pulmonary toilet with chest physiotherapy, bronchodilators and guaifenesin 2. Sepsis present on admission * Secondary to pneumonia * Lactic acid ordered and currently pending 3. Methamphetamine abuse * Patient stated that she is interested in detox. Patient made aware that we do not have any specific detox program here at this hospital. Patient will need further follow-up on outpatient basis for addiction counseling * Patient states that she snorts or smokes did not denies any injection use. Nonetheless, we will check an HIV. 4. DVT prophylaxis with Lovenox Code Visit Inpatient E AND M: 16510 Init Hosp L3 09/06/18 1656 <Electronically signed by Petar Malone DO> Date Petar Malone DO [facility] Hospitalign Signature: Date (if applicable) CC: No Primary Care Physician; Petar Malone DO Signed EMERGENCY DEPARTMENT Observed: 09/06/2018 Status: F Source: [place] SUMMARY 4:43 PM [facility] REPOSITORY [facility] Medical Records Department [address] [place] [address] Emergency Department Summary 09/06/18 1640 MR#: [id number] Acct: [id number] Name: DALY SRINIVASAN Rep #: [id number] : 1985 32 From: Jarret Morgan DO PCP: Care Physician, No Primary Status: REG ER - ER Visit Summary Date of Service: 09/06/18 Chief Complaint: [Headache] History of Present Illness: The patient is a 32 F presents the emergency department complaint of headache that started about 1-2 weeks ago. Patient states the headaches go away the but then come back. Patient describes it as migraine-like. Patient complains of photophobia. She complains of nausea. Patient states that she has been dealing with headaches ever since she was young. She denies any falls or head injuries. Patient states that she has had a cough for about a month. Cough mostly dry. Patient has had some chills but denies fever. Patient denies feeling suicidal or homicidal. She does admit to illicit drug use and states that she is used cocaine and methamphetamines about a week ago. She denies alcohol use. She does not smoke cigarettes. Patient states that she would like to detox from drugs and she wants to get better. Patient also tells me that she is homeless.] Physical Examination: HEENT-PERRLA, EOMI. Cranial nerves II through XII grossly intact. TMs clear. Mucous membranes moist. No adenopathy. Cardiovascular-regular rate and rhythm without murmur or ectopy Lungs-clear to auscultation, chest wall stable without crepitus or subcu emphysema Abdomen-normoactive bowel sounds, soft, nontender, no rebound or rigidity, no peritoneal signs. Neuro xywj-hjbjwf-dfvc and heel sprague testing within normal limits, negative Romberg, negative pronator drift, fundi benign Extremities-intact 4, normal range of motion, normal pulses, atraumatic] Test Results: [CBC with differential obtained showed a white count 17,000, hemoglobin 13, platelets 287. Chemistries unremarkable. HCG was negative. Alcohol was less than 3. Chest x-ray obtained showed a left lower lobe infiltrate. Urine tox screen pending.] Emergency Department Course and Treatment: [Patient had blood cultures ordered and she was started on Rocephin and Zithromax. Patient was medicated with Reglan, Benadryl, and Toradol for headache as well as with a liter normal same fluid bolus. Her headache mostly resolved.] Treatment Plan: [Case was discussed with hospitalist will evaluate patient for admission] Disposition: [Admit] Impression: [Pneumonia Sepsis Migrainous cephalgia-resolved Illicit drug use] This note was generated with [employer]erson[employer] dictation software. It may contain incorrect words, spelling, and punctuation that were not noted in review of the chart prior to signing ED Disposition - Plan for ED Patient: Chief Complaint: Headache Referrals: Care Physician,No Primary [Primary Care Provider] - What to do if you have Problems For any increased pain, shortness of breath, bleeding, nausea or vomiting, chest pain, or any unexpected problems, contact your Primary Care Provider. Call [facility] ([phone]) or report to the closest Emergency Room. Call 911 if necessary. 09/06/18 1643 <Electronically signed by Jarret Morgan DO> Date Jarret Morgan DO Cosigner Signature (If Indicated): Date CC: No Primary Care Physician CHEST PA AND LATERAL Observed: 09/06/2018 Status: F Source: [place] 3:58 PM [facility] REPOSITORY [facility] Imaging Services [address] [place] [address] [place] [address] Chest PA and Lateral MR#: [id number] Acct: [id number] Name: DALY SRINIVASAN Rep #: [id number] : 1985 F 32 From: Stanford Mancilla MD PCP: Care Physician, No Primary Status: ADM IN Study: Chest PA and Lateral Date of Exam: 09/06/18 Exam# [id number] Ordering Dr: Jarret Morgan DO STUDY: X-RAY CHEST REASON FOR EXAM: Female, 32 years old. Migraine. Fever. TECHNIQUE: Frontal and lateral views of the chest. COMPARISON: September 28, 2017 FINDINGS: There is a dense opacity with air bronchograms in the left lower lobe compatible with pneumonia. There is no demonstrated pleural abnormality. Normal size heart. Normal mediastinum and nedra. Normal visualized pulmonary arteries. Normal visualized aortic arch and descending thoracic aorta. Normal visualized thoracic spine. Normal visualized ribs, clavicles, and shoulders. There is no demonstrated abnormality of the visualized soft tissue structures of the upper abdomen. RAD/Chest PA and Lateral IMPRESSION: Left lower lobe pneumonia. Electronically Signed: Stanford Mancilla MD at 17:17 EST , Service support , CC: No Primary Care Physician; Jarret Morgan DO Track Grinder: Signed BASIC METABOLIC Collected: 09/06/2018 Status: F Source: [place] PRO[place] (BMP) 3:05 PM [facility] REPOSITORY TYPE CODE TESTS RESULT OUT OF RANGE REFERENCE UNITS LAB L501.0100 74-106 mg/dL High GLU 117 Result Comment: Fasting Glucose result from 100 to 125 mg/dL suggests IMPAIRED HOMEOSTASIS per A.D.A. criteria. Please note revised GLUCOSE reference range effective 2017. LAB L501.1000 7-18 mg/dL Normal BUN 8 LAB L501.1100 0.55-1.02 mg/dL Normal CREAT,SERUM 0.69 Result Comment: The validity of the calculated GFR AND GFRAA in patients over 70 years has not been determined. Clinical correlation is essential. LAB L501.1110 >60 mL/min Normal EST GFR 106 Result Comment: Non- GFR Calc LAB L501.1115 >60 mL/min Normal EST GFR - AA 128 Result Comment: GFR Calc LAB L501.1255 ml/min Normal Estimated CRCL 111.61 LAB L501.1300 10-20 RATIO BUN/CRE Normal 11.6 LAB L501.2200 8.5-10 mg/dL .1 CA Normal 8.7 LAB L501.5300 136-14 mmol/L 5 NA Normal 138 LAB L501.5600 3.5-5. mmol/L 1 K Normal 3.6 LAB L501.5900 98-107 mmol/L CL Normal 102 LAB L501.6100 21.0-3 mmol/L 2.0 CO2 Normal 31.0 LAB L501.6200 5-15 GAP Normal 5 Performed By: #### L500.2500 #### [facility] [place], [address] CBC W/DIFF, AUTOMATED Collected: 09/06/2018 Status: F Source: [place] 3:05 PM [facility] REPOSITORY TYPE CODE TESTS RESULT OUT OF RANGE REFERENCE UNITS LAB L100.1000 4.4-11.0 K/mm3 High WBC 17.1 LAB L100.1200 4.2-5.4 M/mm3 Normal RBC 4.47 LAB L100.1300 12.0-15.0 g/dl Normal HGB 13.3 LAB L100.1400 37-47 % Normal HCT 39.3 LAB L100.1500 81-99 fL Normal MCV 87.9 LAB L100.1600 27.0-32.0 pg Normal MCH 29.8 LAB L100.1700 32-36 g/gl Normal MCHC 33.8 LAB L100.1810 11.6-14.6 % Normal RDW CV 13.3 LAB L100.1820 35.1-43.9 fl Normal RDW SD 43.0 LAB L100.1900 150-450 K/mm3 Normal PLT 257 LAB L100.2000 6.2-12.0 fl Normal MPV 10.6 LAB L100.2100 47-70 % High NEUT% 81.3 LAB L100.2200 19-41 % Low LY% 7.4 LAB L100.2300 0-10 % High MONO% 10.3 LAB L100.2400 0-5 % Normal EO% 0.5 LAB L100.2500 0-1 % Normal BASO% 0.2 LAB L100.2550 0.0-0.9 % Normal IM GRAN % 0.300 Result Comment: IG% - Immature Granulocytes (promyelocytes, myelocytes and metamyelocytes) > 1% indicates that a LEFT SHIFT is Present. LAB L100.2620 2.0-7.7 X10 3/uL High Absolute Neut 13.9 LAB L100.2720 0.83-4.51 X10 3/ul Normal Absolute Lymph 1.26 Performed By: #### L100.0100 #### [facility] [address] [place], [address] ALCOHOL, BLOOD Collected: 09/06/2018 Status: F Source: [place] (MEDICAL)-SERUM 3:05 PM [facility] REPOSITORY TYPE CODE TESTS RESULT OUT OF RANGE REFERENCE UNITS LAB L501.9100 mg/dL Normal SERUM < 3.0 ETOH Result Comment: The serum:whole blood ethanol ratio is approximately 1.14 and varies slightly with hematocrit. Medical Alcohol reference interval and critical value in non-tolerant individuals; 50 - 100 Impairment 100 Intoxication 100 - 250 Severe Poisoning 250 - 400 Deep/possible fatal coma Performed By: #### L501.9100 #### [facility] [place], [address] ,SERUM,HCG QUALI. Collected: Status: F Source: [place] 09/06/2018 3:05 PM [facility] REPOSITORY TYPE CODE TESTS RESULT OUT OF REFERENCE UNITS RANGE LAB L700.6700 =>Qualitative mIU/mL Normal HCG Qual < 1 triggr LAB L700.7000 0-9 Nonpreg Negative Normal HCGSQUAL NEGATIVE Performed By: #### L700.6800 #### [facility] [address] [place] [address] [place], [address] EMERGENCY DEPARTMENT Observed: 07/28/2018 Status: F Source: [place] SUMMARY 4:38 PM [facility] REPOSITORY [facility] Medical Records Department [address] [place] [address] Emergency Department Summary 07/28/18 1236 MR#: [id number] Acct: [id number] Name: DALY SRINIVASAN Rep #: [id number] : 1985 32 From: Jonel Plasencia MD PCP: Care Physician, No Primary Status: DEP ER - ER Visit Summary Date of Service: 07/28/18 Chief Complaint: Parasites History of Present Illness: The patient is a 32 F who is concerned about possible parasites. She has been staying on people's couches. She was exposed to fleas. She is also concerned about pinworms. Patient denies any psychiatric history. She denies any medical history. She does use multiple recreational drugs, nothing regularly. Denies regular alcohol use or withdrawal. Denies fevers or any other associated symptoms. Denies any suicidal or homicidal thoughts. Physical Examination: Afebrile and vital signs unremarkable except for a blood pressure of 144/106 and heart rate of 105. Patient has a blunted affect and a depressed mood. She is not suicidal or homicidal. Alert and oriented. Skin and mucous membranes are unremarkable. Rectal exam chaperoned by nurse Dary was unremarkable. Patient has tiny papules over her forearms and feet. No ulcers. Good pulses. No findings consistent with infective endocarditis. No murmur. Lung sounds clear. Abdomen soft and nontender. Test Results: None indicated Emergency Department Course and Treatment: I suspect some of this may be from her polysubstance use. There is no indication that she needs emergency admission. There is nothing to suggest withdrawal that is life-threatening such as alcohol or benzodiazepines. Patient will be treated with a course of Elimite. She may also use Benadryl for itching. Follow-up with primary care. Treatment Plan: As above Disposition: Discharge Impression: 1. Pruritus This note was generated with Verson[employer] dictation software. It may contain incorrect words, spelling, and punctuation that were not noted in review of the chart prior to signing ED Disposition - Plan for ED Patient: Chief Complaint: Itching Referrals: Care Physician,No Primary [Primary Care Provider] - What to do if you have Problems For any increased pain, shortness of breath, bleeding, nausea or vomiting, chest pain, or any unexpected problems, contact your Primary Care Provider. Call [facility] ([phone]) or report to the closest Emergency Room. Call 911 if necessary. 07/28/18 4838 <Electronically signed by Jonel Plasencia MD> Date Jonel Plasencia MD Cosigner Signature (If Indicated): Date CC: No Primary Care Physician DISCHARGE INSTRUCTION Observed: 07/28/2018 Status: F Source: [place] 4:38 PM [facility] REPOSITORY [facility] Medical Records Department [address] [place] [address] Discharge Instruction 07/28/18 1240 MR#: [id number] Acct: [id number] Name: DALY SRINIVASAN Rep #: [id number] : 1985 32 From: Jonel Plasencia MD PCP: Care Physician, No Primary Status: [facility] ER ED Disposition - Plan for ED Patient: Chief Complaint: Itching Instructions: Self-Care for Skin Rashes Prescriptions: DiphenhydrAMINE [Benadryl] 25 mg PO TID PRN PRN #20 cap PRN Reason: Itching Permethrin [Elimite] 60 gm TP X1 #1 cream..g. Referrals: Fast,Vianney, DO [NON-STAFF] - What to do if you have Problems For any increased pain, shortness of breath, bleeding, nausea or vomiting, chest pain, or any unexpected problems, contact your Primary Care Provider. Call [facility] ([phone]) or report to the closest Emergency Room. Call 911 if necessary. 07/28/18 1638 <Electronically signed by Jonel Plasencia MD> Date Jonel Plasencia MD Cosigner Signature (If Indicated): Date CC: No Primary Care Physician ED.PDOC Observed: 05/20/2018 Status: F Source: [place] 2:30 PM [facility] REPOSITORY DALY SRINIVASAN Female [id number] Attending provider: [facility] ER ER [id number] Elma Diallo 1985 32 DOS: 05/20/18 Hx/Exam - History of Present Illness Chief Complaint: DETOX MEDICAL CLEARANCE Symptom Duration: meth-1 year, alcohol 15 years Quality: alcohol, meth Episode Frequency: constant Assoc Sxs/Pertinent Hx: has never gone to detox previously. Last use/drink few days ago Patient/Family Denies: fever, cp, sob, ab pain, urine sx - Review of Systems Constitutional: Denies: Fever, Chills, Sweats Respiratory: Denies: Shortness of Breath Cardiovascular: Denies: Chest Pain Gastrointestinal: Denies: Nausea, Vomiting, Abdominal Pain Genitourinary: Denies: Dysuria, Frequency, Urgency Reproductive: Denies Presumptive Psychiatric: Denies: Suicidal Ideation - Past Surgical History Surgical History: Yes , Yes Tonsillectomy, Yes Other (right fallopian tube removed s/p tubal preg) - Social History Smoking Status: Current every day smoker - Physical Exam General Appearance: awake, alert, no apparent distress Eyes: PERRL, EOMI, conjunctivae clear, no discharge Neck: supple, non-tender, no stridor, no masses, no bony tenderness, full ROM Respiratory: lungs clear, no wheezes/rhonchi/rales, no respiratory distress Cardiovascular: regular rate, rhythm Abdomen/GI: non tender, soft, non-distended, normal bowel sounds, no organomegaly, no pulsatile mass , no peritoneal signs Neurologic: speech clear/fluent, 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 She notes hx of PCOS, not currently on medication, but otherwise healthy. CMP, CBC WNL. Alcohol is < 3. Drug screen positive for THC. HCG is negative. She is medically clear for detox. Supervising- Dr Morales, seen by NADJA EKG - EKG EKG Interpretation: Not Applicable Discharge Screen - Discharge Discharge Problem: Alcohol abuse, Drug abuse, Desire for detoxification Disposition: [facility] Condition: Stable Referrals: Call,On [Primary Care Provider] - Chemo More [Family Provider] - <Electronically signed by Elma Diallo > Dictated By: NADJA Alvarez Dictated Date/Time:05/20/18 1430 Electronically Signed Date/Time: 05/20/18 2157 CBC WITH AUTO DIFF Collected: 05/20/2018 Status: F Source: [place] 2:22 PM [facility] REPOSITORY TYPE CODE TESTS RESULT OUT OF RANGE REFERENCE UNITS LAB WBC 4.0-11.0 K/uL WHITE BLOOD Normal COUNT 8.3 LAB RBC 4.20-5.50 M/uL RED BLOOD Normal COUNT 4.28 LAB HGB 12.0-16.0 g/dL HEMOGLOBIN Normal 13.1 LAB HCT 37.0-47.0 % HEMATOCRIT Normal 38.4 LAB MCV 80-97 fL MEAN CELL Normal VOLUME 89.9 LAB MCH 26.0-32.0 pg MEAN Normal CORPUSCULAR HGB 30.6 LAB MCHC 31.0-36.0 g/dL MEAN Normal CORPUSCULAR HGB 34.1 CONC LAB RDW 11.0-15.5 % RED CELL Normal DISTRI WIDTH 14.2 LAB PLT 140-450 K/uL PLATELET Normal COUNT 304 LAB MPV 6.6-10.5 fl MEAN Normal PLATELET VOLUME 8.1 LAB GR% 42-80 % GRAN % Normal 56.2 LAB LY% 16-48 % LYMPH % Normal 28.4 LAB MO% 3-9 % High MONO % 10.2 LAB EO% 0-8 % EOS % Normal 4.4 LAB BASO% 0-2 % BAS0 % Normal 0.80 LAB GR# 2.2-9.1 K/uL GRAN # Normal 4.6 LAB LY# 1.0-4.0 K/uL LYMPH # Normal 2.3 LAB MO# 0.1-1.7 K/uL MONO # Normal 0.8 LAB EO# 0.0-1.80 K/uL EOS # Normal 0.4 LAB BA# 0-0.1 K/ul BASO # Normal 0.1 Performed By: #### CBC #### [address] [address] COMPREHENSIVE METABOLIC Collected: 05/20/2018 Status: F Source: [place] PANEL 2:22 PM [facility] REPOSITORY TYPE CODE TESTS RESULT OUT OF REFERENCE UNITS RANGE LAB GLU 70-100 mg/dL GLUCOSE Normal 79 LAB BUN 7-18 mg/dL BUN Normal 12.0 LAB CRE 0.4-1.2 mg/dL CREATININE Normal 0.60 LAB NA 136-147 MMOL/L SODIUM Normal 143 LAB K 3.6-5.2 MMOL/L POTASSIUM Normal 4.2 LAB CL 98-107 MMOL/L CHLORIDE High 108 LAB CO2 21-32 MMOL/L CARBON Normal DIOXIDE 27.0 LAB GAP 11-23 ANION GAP Normal 12.6 LAB CAPO 8.5-10.1 mg/dL CALCIUM Normal 8.8 LAB TP 6.0-8.3 g/dL TOTAL Normal PROTEIN 7.3 LAB ALB 3.0-5.0 g/dL ALBUMIN Normal 3.4 LAB GLOB 2.5-4.6 g/dl GLOBULIN Normal 3.9 LAB A/G 1.1-1.8 Low ALB/GLOB RATIO 0.9 LAB TBIL 0-1.0 mg/dL Normal BILIRUBIN,TOTAL 0.3 LAB SGOT 9-34 U/L SGOT/AST Normal 19 LAB SGPT 12-78 U/L SGPT/ALT Normal 25 LAB ALK 45-117 U/L Low ALK PHOSPHATASE 43 LAB GFR mL/min GFR > 60.0 LAB GFRAA mL/min GFR AM > 60.0 Result Comment: THE NORMAL LEVEL OF GFR VARIES ACCORDING TO AGE, SEX, AND BODY SIZE. A GFR LEVEL OF LESS THAN 60 ML/MIN REPRESENTS LOSS OF THE ADULT LEVEL OF NORMAL KIDNEY FUNCTION. Performed By: #### [place], [place] #### [place] [id number] ALCOHOL Collected: 05/20/2018 Status: F Source: [place] 2:22 PM [facility] REPOSITORY TYPE CODE TESTS RESULT OUT OF REFERENCE UNITS RANGE LAB ALC mg/dL ALCOHOL < 3.0 Result Comment: < 3 mg/dl NONE DETECTED 50-100 mg/dl MAY SHOW SIGNS OF INTOXICATION 300-500 mg/dl COMATOSE LEVEL Performed By: #### [place], [place] #### [address] [address] URINE DRUG SCREEN Collected: 05/20/2018 Status: F Source: [place] 2:22 PM [facility] REPOSITORY Order Comment: What Is Urine Source? Clean [place]atch [place] What Is Urine Source? [place] TYPE CODE TESTS RESULT OUT OF RANGE REFERENCE UNITS LAB UCOC COCAINE NEGATIVE LAB UTHC THC Abnormal PRESUMPTIVE POSITIVE LAB UAMP AMPHETAMINES NEGATIVE LAB UBAR BARBITURATES NEGATIVE LAB UMTD METHADONE NEGATIVE LAB UOPI OPIATES NEGATIVE LAB UPCP PHENCYCLIDINE NEGATIVE LAB UBNZ BENZODIAZEPINES NEGATIVE LAB CUTOFF DRG SCREEN CUT SEE OFF BELOW Performed By: #### HCGUR, UDRGS #### [place] [id number] Other Comment: URINE DRUG SCREENS ARE FOR MEDICAL PURPOSES ONLY. THIS TEST PROVIDES ONLY A PRELIMINARY TEST RESULT. A MORE SPECIFIC ALTERNATE CHEMICAL METHOD MUST BE USED IN ORDER TO OBTAIN A CONFIRMED ANALYTICAL RESULT. CONFIRMATION PERFORMED UPON REQUEST Cannabinoids ........................... 50 Opiates ................................ 300 Cocaine ................................ 150 Amphetamine ............................ 500 Phencyclidine .......................... 25 Barbiturates ........................... 200 Methadone .............................. 300 Benzodiazepines ........................ 200 INTERPRETIVE INFOMRATION: This is a screening test only. False positive and false negative results can occur. The absence of expected drug(s) and/or drug metabolite(s) may indicate non-compliance, inappropriate timing of specimen absorption, diluted/adulterated urine, or limitations of testing. The concentration at which the screening test can detect a drug or metabolite varies within a drug class. The concentration value must be greater than or equal to the cutoff to be reported as positive. The following opiods are not detected in this test: fentanyl,buprenorphine, meperidine, tramadol, and tapentadol. Individual opioid testing is available and can be ordered separately. HCG URINE Collected: 05/20/2018 Status: F Source: [place] 2:22 PM [facility] REPOSITORY TYPE CODE TESTS RESULT OUT OF REFERENCE UNITS RANGE LAB HCGUR HCG NEGATIVE URINE Performed By: #### HCGUR, UDRGS #### [address] [address] Other Comment: URINE DRUG SCREENS ARE FOR MEDICAL PURPOSES ONLY. THIS TEST PROVIDES ONLY A PRELIMINARY TEST RESULT. A MORE SPECIFIC ALTERNATE CHEMICAL METHOD MUST BE USED IN ORDER TO OBTAIN A CONFIRMED ANALYTICAL RESULT. CONFIRMATION PERFORMED UPON REQUEST Cannabinoids ........................... 50 Opiates ................................ 300 Cocaine ................................ 150 Amphetamine ............................ 500 Phencyclidine .......................... 25 Barbiturates ........................... 200 Methadone .............................. 300 Benzodiazepines ........................ 200 INTERPRETIVE INFOMRATION: This is a screening test only. False positive and false negative results can occur. The absence of expected drug(s) and/or drug metabolite(s) may indicate non-compliance, inappropriate timing of specimen absorption, diluted/adulterated urine, or limitations of testing. The concentration at which the screening test can detect a drug or metabolite varies within a drug class. The concentration value must be greater than or equal to the cutoff to be reported as positive. The following opiods are not detected in this test: fentanyl,buprenorphine, meperidine, tramadol, and tapentadol. Individual opioid testing is available and can be ordered separately. RAPID PLASMA REAGIN Collected: 05/20/2018 Status: F Source: [place] 2:22 PM [facility] REPOSITORY TYPE CODE TESTS RESULT OUT OF REFERENCE UNITS RANGE LAB RPR NONREACTIVE NONREACTIVE RAPID PLASMA REAGIN Performed By: #### RPR #### [facility] [address] [place] [address] HEPATITIS PROFILE Collected: 05/20/2018 Status: F Source: [place] 2:22 PM [facility] REPOSITORY TYPE CODE TESTS RESULT OUT OF REFERENCE UNITS RANGE LAB HAIGM Negative HEPATITIS A Negative VIRUS ANTIBODY IGM LAB HBSAGR Negative HEPATITIS B Negative SURFACE ANTIGEN Result Comment: Based on the non-reactive HBsAg screen, the HBsAg Confirmation test is not indicated and therefore not performed. INTERPRETIVE INFORMATION: Hepatitis B Surface Ag This assay should not be used for blood donor screening, associated re-entry protocols, or for screening Human Cells, Tissues and Cellular and Tissue-Based Products (HCT/P). LAB HCVI IV HEPATITIS C AB INDEX 0.02 Result Comment: Performed by [employer] [facility] [employer], [address] [place] [address] [email or web address], Dagoberto Ho MD, Lab. Director Performed By: #### HEP #### [id number] [place] [address] 12 LEAD ELECTROCARDIOGRAM Observed: 05/20/2018 Status: F Source: [place] 12:55 PM [facility] REPOSITORY [facility] Cardiovascular Services [address] [place] [address] 12 Lead EKG 05/18/18 1538 MR#: [id number] Acct: [id number] Name: DALY SRINIVASAN Rep #: [id number] : 1985 32 From: Albin Ocampo MD Attending Dr: Status: DEP ER Ordering Dr: Jeremy Coates MD Date: 05/18/18 Location: ED Sex: F C Admitted: Test Reason : MENTAL HEALTH Blood Pressure : / mmHG Vent. Rate : 117 BPM Atrial Rate : 117 BPM P-R Int : 152 ms QRS Dur : 074 ms QT Int : 320 ms P-R-T Axes : 072 088 045 degrees QTc Int : 446 ms Sinus tachycardia Otherwise normal ECG Confirmed by ALBIN OCAMPO MD ([id number]), editor department MISTI DUNCAN ([id number]) on 05/20/2018 12:55:24 PM Referred By: MARINA Confirmed By:ALBIN OCAMPO MD 05/20/18 1255 Date Albin Ocampo MD CC: No Primary Care Physician; Jeremy Coates MD Signed EMERGENCY DEPARTMENT Observed: 05/18/2018 Status: F Source: [place] SUMMARY 8:01 PM [facility] REPOSITORY [facility] Medical Records Department [address] [place] [address] Emergency Department Summary 05/18/189 MR#: [id number] Acct: [id number] Name: KAMILA SRINIVASANDoreen Sanchez Rep #: [id number] : 1985 32 From: Elier Prieto MD PCP: Care Physician, No Primary Status: REG ER - ER Visit Summary Date of Service: 05/18/18 Patient was seen by [facility], she is stable to be discharged. She is not suicidal. This note was generated with [employer] software. It may contain incorrect words, spelling, and punctuation that were not noted in review of the chart prior to signing ED Disposition - Plan for ED Patient: Disposition: Home or Assisted Living Chief Complaint: Mental Health Referrals: Care Physician,No Primary [Primary Care Provider] - 3-5 Days What to do if you have Problems For any increased pain, shortness of breath, bleeding, nausea or vomiting, chest pain, or any unexpected problems, contact your Primary Care Provider. Call [facility] ([phone]) or report to the closest Emergency Room. Call 911 if necessary. 05/18/182000 <Electronically signed by Elier Prieto MD> Date Elier Prieto MD Cosigner Signature (If Indicated): Date CC: No Primary Care Physician EMERGENCY DEPARTMENT Observed: 05/18/2018 Status: F Source: [place] SUMMARY 4:40 PM [facility] REPOSITORY [facility] Medical Records Department [address] [place] [address] Emergency Department Summary 05/18/18 1637 MR#: [id number] Acct: [id number] Name: DALY SRINIVASAN Rep #: [id number] : 1985 32 From: Jeremy Coates MD PCP: Care Physician, No Primary Status: REG ER - ER Visit Summary Date of Service: 05/18/18 Chief Complaint: Paranoia History of Present Illness: The patient is a 32 F who presents with paranoia. She was brought in by police. She was pink slipped. Apparently she was very paranoid. Patient complains of a impending sense of doom. She is worried that something is going to happen to her son and that someone is going to cause him intentional harm. Apparently she had told the police that her son had been kidnapped and murdered. Her son lives in [place] with his father. Patient does admit to a little line of stimulant. She is uncertain if this was cocaine or methamphetamine. She otherwise denies recent medical illness such as chest pain shortness of breath vomiting or diarrhea. She denies any pain. Physical Examination: Afebrile initial heart rate 138 vitals otherwise unremarkable Moist mucous membranes Heart regular rhythm tachycardia Lungs are clear Abdomen soft Alert Patient is paranoid Test Results: EKG shows sinus rhythm at a rate of 117. Labs notable for white blood cell count 14.5. Glucose 148. Alcohol negative. negative. Drug screen is positive for THC, methamphetamine, amphetamines. 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 Rocephin (patient is septic). Cultures were obtained from the emergency department also placed on IV fluids as well as supplemental oxygen titrated to keep oxygen saturation greater than 90 3. Polycystic ovarian disease patient is on Aldactone and metformin 4. Tobacco dependence counseled on cessation, offered nicotine patch for tobacco cravings 5. DVT prophylaxis low risk did encourage early ambulation Clinical Impression(s) from Imaging Studies Chest X-Ray 09/28/17 10:55 IMPRESSION: Left basilar airspace consolidation likely representing pneumonia. Electronically Signed: Gillian Duncan MD at 11:38 EST , Service support , Chest CTA 09/28/17 11:42 IMPRESSION: 1. No CTA demonstrated pulmonary embolism or arterial dissection. 2. Left lower lobe and right middle lobe airspace consolidation and atelectasis likely representing pneumonia. 3. Mediastinal and left hilar lymphadenopathy. 4. Suggest follow-up imaging after treatment to exclude underlying neoplasia. Electronically Signed: Gillian Duncan MD at 13:03 EST , Service support , 09/28/17 1427 <Electronically signed by Jorge Phelps MD> Date Jorge Phelps MD Cosigner Signature: Date (if applicable) CC: No Primary Care Physician; Jorge Phelps MD Signed Observed: 09/28/2017 Status: F Source: [place] CULTURE, BLOOD (WB) 1:49 PM [facility] REPOSITORY BC No growth in 5 days. Performed By: #### M200.1000 #### [facility] [address] [facility] [place], [address] EMERGENCY DEPARTMENT Observed: 09/28/2017 Status: F Source: [place] SUMMARY 1:48 PM [facility] REPOSITORY [facility] Medical Records Department [address] [place] [address] Emergency Department Summary 09/28/17 1056 MR#: [id number] Acct: [id number] Name: DALY SRINIVASAN Rep #: [id number] : 1985 31 From: Jw Da Silva MD PCP: Care Physician, No Primary Status: REG ER ADDENDUM by Jw Da Silva MD on 09/28/17 at 1347 The patient then changed her mind and wanted to be admitted to the hospital. Her temperature did go up to 100.6 F. Patient will be treated with azithromycin and Rocephin. She will not get doxycycline. Blood cultures and lactate are pending. Patient will be admitted to the hospital. The admitting physician, Dr. Phelps will follow up on the lactate level Date Jw Da Silva MD cc: No Primary Care Physician * Signed - ER Visit Summary Date of Service: 09/28/17 Chief Complaint: Shortness of breath, chest pain History of Present Illness: The patient is a 31 F who presents with shortness of breath and chest pain. She has been this way for about a week. She states is been getting worse for the past 2 days. She saw her PCP who gave her steroids and an inhaler. These are not helping. Her cough is productive of a clear sputum. She also has rhinorrhea. The pain is in the bilateral lower portions of her chest. It is sharp and stabbing. She has been eating and drinking okay. She does smoke but she is not currently on any control pills. She is on Spironolactone and metformin for PCO S. She denies a fever. Physical Examination: Vital signs reviewed. HEENT exam unremarkable. Heart is cardiac in regular rhythm without murmurs. Lungs are clear to auscultation. There is no significant chest tenderness to palpation. Abdomen is soft and nontender. Extremities reveal no edema. Skin exam normal. Neurologic exam normal. Test Results: Laboratory studies reveal a white blood cell count 25.6, chloride 96 d-dimer 1.19. HCG negative. Chest x-ray reveals a left lower lobe infiltrate. CT of the chest was obtained and shows bilateral infiltrates with no PE Emergency Department Course and Treatment: Patient received fluids as well as Toradol. She is feeling better. Treatment Plan: I offered the patient admission based on her white blood cell count and pneumonia. She does not want this. Would like to go home. I will give her doxycycline here and for home. She will continue the inhaler at home. Follow- up with PCP Disposition: Discharge Impression: Community acquired pneumonia This note was generated with [employer] dictation software. It may contain incorrect words, spelling, and punctuation that were not noted in review of the chart prior to signing ED Disposition - Plan for ED Patient: Chief Complaint: Shortness of Breath Referrals: Care Physician,No Primary [Primary Care Provider] - What to do if you have Problems For any increased pain, shortness of breath, bleeding, nausea or vomiting, chest pain, or any unexpected problems, contact your Primary Care Provider. Call [facility] ([phone]) or report to the closest Emergency Room. Call 911 if necessary. 09/28/17 4247 <Electronically signed by Jw Da Silva MD> Date wJ Da Silva MD Cosigner Signature (If Indicated): Date CC: No Primary Care Physician LACTIC ACID Collected: 09/28/2017 Status: F Source: [place] 1:43 PM [facility] REPOSITORY Order Comment: Yes/No query for Sepsis Lactate Rule Y TYPE CODE TESTS RESULT OUT OF RANGE REFERENCE UNITS LAB L503.6005 0.4-2.0 mmol/L Normal LACTIC ACID 1.2 Performed By: #### L503.6005 #### [facility] [address] [facility] [place], [address] Observed: 09/28/2017 Status: F Source: [place] CULTURE, BLOOD (WB) 1:43 PM [facility] REPOSITORY BC No growth in 5 days. Performed By: #### M200.1000 #### [facility] [address] [facility] [place] [place], [address] DISCHARGE INSTRUCTION Observed: 09/28/2017 Status: F Source: [place] 1:18 PM [facility] REPOSITORY [facility] Medical Records Department [address] [place] [address] Discharge Instruction 09/28/17 1318 MR#: [id number] Acct: [id number] Name: DALY SRINIVASAN Rep #: [id number] : 1985 31 From: Jw Da Silva MD PCP: Leanna Physician, No Primary Status: REG ER ED Disposition - Plan for ED Patient: Disposition: Home or Assisted Living Chief Complaint: Shortness of Breath Instructions: ED Pneumonia Adult Prescriptions: Doxycycline Hyclate 1 tab PO BID #20 cap Referrals: Care Physician,No Primary [Primary Care Provider] - What to do if you have Problems For any increased pain, shortness of breath, bleeding, nausea or vomiting, chest pain, or any unexpected problems, contact your Primary Care Provider. Call [facility] ([phone]) or report to the closest Emergency Room. Call 911 if necessary. 09/28/17 1318 <Electronically signed by Jw Da Silva MD> Date Jw Da Silva MD Cosigner Signature (If Indicated): Date CC: No Primary Care Physician CTA CHEST W/WO Observed: 09/28/2017 Status: F Source: [place] CONTRAST 11:42 AM [facility] REPOSITORY [facility] Imaging Services [address] [place] [address] CTA Chest W/WO Contrast MR#: [id number] Acct: [id number] Name: DALY SRINIVASAN Rep #: [id number] : 1985 F 31 From: Gillian Duncan MD PCP: Care Physician, No Primary Status: REG ER Study: CTA Chest W/WO Contrast Date of Exam: 09/28/17 Exam# [id number] Ordering Dr: Jw Da Silva MD STUDY: CTA CHEST REASON FOR EXAM: Female, 31 years old. Elevated d-dimer and pleuritic chest pain. RADIATION DOSAGE (If Supplied By Facility): CTDIvol = ( 6.51 ) mGy, DLP = ( 156.66 ) mGycm TECHNIQUE: The examination was performed with the intravenous administration of 75 ml of Isovue 370 contrast material. Post-processing of the angiographic images was performed, with multiplanar reformation and 3D reconstruction. Individualized dose optimization techniques were used for this CT. COMPARISON: None. FINDINGS: Cardiac monitoring leads are present. Normal enhancement of the main pulmonary artery and right and left pulmonary arteries. Normal enhancement of the bilateral peripheral pulmonary arteries. There is no demonstrated pulmonary embolism. Normal thoracic aorta and visualized great vessels. There is no demonstrated aortic dissection. Normal heart and pericardium. There are enlarged aorticopulmonary window nodes. There are enlarged left-sided hilar lymph nodes. Normal visualized trachea and bronchi. The lungs are hyper expanded, with flattening of the hemidiaphragms. There is left lower lobe airspace consolidation likely secondary to pneumonia. There is also patchy right middle lobe airspace consolidation and/or atelectasis. Normal pleura. Normal chest wall structures. There are degenerative changes of thoracic spine. Normal visualized upper abdomen. CT/CTA Chest W/WO Contrast IMPRESSION: 1. No CTA demonstrated pulmonary embolism or arterial dissection. 2. Left lower lobe and right middle lobe airspace consolidation and atelectasis likely representing pneumonia. 3. Mediastinal and left hilar lymphadenopathy. 4. Suggest follow-up imaging after treatment to exclude underlying neoplasia. Electronically Signed: Gillian Duncan MD at 13:03 EST , Service support , CC: No Primary Care Physician; Jw Da Silva MD Track Grinder: Signed CBC W/DIFF, AUTOMATED Collected: 09/28/2017 Status: F Source: [place] 11:06 AM [facility] REPOSITORY TYPE CODE TESTS RESULT OUT OF RANGE REFERENCE UNITS LAB L100.1000 4.4-11.0 K/mm3 High WBC 25.6 LAB L100.1200 4.2-5.4 M/mm3 Normal RBC 4.62 LAB L100.1300 12.0-15.0 g/dl Normal HGB 14.2 LAB L100.1400 37-47 % Normal HCT 41.6 LAB L100.1500 81-99 fL Normal MCV 90.0 LAB L100.1600 27.0-32.0 pg Normal MCH 30.7 LAB L100.1700 32-36 g/gl Normal MCHC 34.1 LAB L100.1810 11.6-14.6 % Normal RDW CV 13.3 LAB L100.1820 35.1-43.9 fl Normal RDW SD 43.2 LAB L100.1900 150-450 K/mm3 High PLT 613 LAB L100.2000 6.2-12.0 fl Normal MPV 9.0 LAB L100.2100 47-70 % High NEUT% 85.7 LAB L100.2200 19-41 % Low LY% 7.2 LAB L100.2300 0-10 % Normal MONO% 5.9 LAB L100.2400 0-5 % Normal EO% 0.3 LAB L100.2500 0-1 % Normal BASO% 0.2 LAB L100.2550 0.0-0.9 % Normal IM GRAN % 0.700 Result Comment: IG% - Immature Granulocytes (promyelocytes, myelocytes and metamyelocytes) > 1% indicates that a LEFT SHIFT is Present. LAB L100.2620 2.0-7.7 X10 3/uL High Absolute Neut 22.0 LAB L100.2720 0.83-4.51 X10 3/ul Normal Absolute Lymph 1.85 LAB L100.9900 Normal PATH REV Reviewed Result Comment: Neutrophilic leukocytosis. Thrombocytosis. Clinical correlation necessary. Daniel Tsang M.D. 10/02/17 AMENDED REPORT 10/02/17 1246 PATH REV previously reported as: February isamar Performed By: #### L100.0100 #### [facility] [address] [place], [place], [address] D-DIMER QUANTITATIVE Collected: 09/28/2017 Status: F Source: [place] (DVT/PE) 11:06 AM [facility] REPOSITORY Order Comment: CRITICAL VALUE VERIFIED. CALLED TO [facility] 09/28/17 Cynthia5 Mary Ann Mcguire. RESULTS READ BACK BY SAME. TYPE CODE TESTS RESULT OUT OF RANGE REFERENCE UNITS LAB L300.8000 0.27-0.49 FEU/ug/m High alert D-DIMER 1.19 QUANT Result Comment: D-Dimer ELEVATED (>0.49): Additional studies and clinical assessments are indicated to conclude diagnosis of: Deep Vein Thrombosis (DVT) or Pulmonary Embolism (PE) Performed By: #### L300.8000 #### [facility] [address] [place], [place], [address] ,SERUM,HCG QUALI. Collected: Status: F Source: [place] 09/28/2017 11:06 AM [facility] REPOSITORY TYPE CODE TESTS RESULT OUT OF REFERENCE UNITS RANGE LAB L700.7000 0-9 Nonpreg Negative Normal HCGSQUAL NEGATIVE LAB L700.6700 =>Qualitative mIU/mL Normal HCG Qual < 1 triggr Performed By: #### L700.6800 #### [facility] [address] [place], [address] BASIC METABOLIC Collected: 09/28/2017 Status: F Source: [place] PROFILE (BMP) 11:06 AM [facility] REPOSITORY TYPE CODE TESTS RESULT OUT OF RANGE REFERENCE UNITS LAB L501.0100 70-110 mg/dL Normal GLU 71 LAB L501.1000 7-18 mg/dL Normal BUN 10 LAB L501.1100 0.55-1.02 mg/dL Normal 0.62 CREAT,SERUM Result Comment: The validity of the calculated GFR AND GFRAA in patients over 70 years has not been determined. Clinical correlation is essential. LAB L501.1110 >60 mL/min Normal EST GFR 119 Result Comment: Non- GFR Calc LAB L501.1115 >60 mL/min Normal EST GFR - AA 144 Result Comment: GFR Calc LAB L501.1255 ml/min Normal Estimated CRCL 125.34 LAB L501.1300 10-20 RATIO BUN/CRE Normal 16.0 LAB L501.2200 8.5-10 mg/dL .1 CA Normal 9.4 LAB L501.5300 136-14 mmol/L 5 NA Normal 137 LAB L501.5600 3.5-5. mmol/L 1 K Normal 3.9 LAB L501.5900 98-107 mmol/L Low CL 96 LAB L501.6100 21.0-3 mmol/L 2.0 CO2 Normal 30.0 LAB L501.6200 5-15 GAP Normal 11 Performed By: #### L500.2500 #### [facility] [address] [place], [address] CHEST PA AND LATERAL Observed: 09/28/2017 Status: F Source: [place] 10:56 AM [facility] REPOSITORY [facility] Imaging Services [address] [place] [address] Chest PA and Lateral MR#: [id number] Acct: [id number] Name: DALY SRINIVASAN Rep #: [id number] : 1985 F 31 From: Gillian Duncan MD PCP: Care Physician, No Primary Status: REG ER Study: Chest PA and Lateral Date of Exam: 09/28/17 Exam# [id number] Ordering Dr: Jw Da Silva MD STUDY: X-RAY CHEST REASON FOR EXAM: Female, 31 years old. Chest pain with shortness of breath and cough. TECHNIQUE: PA and lateral views of the chest. COMPARISON: Prior comparison studies are not available for review at this time. FINDINGS: Cardiac monitoring leads are present. The lungs are expanded. There is left lower lobe airspace consolidation and lingular airspace consolidation. There may be small left- sided pleural effusion. Normal size heart. Normal mediastinum and nedra. There is prominence of the pulmonary hilar arteries without peripheral pulmonary vascular congestion. There is atherosclerotic tortuosity of the aortic arch and descending thoracic aorta. Normal visualized thoracic spine. Normal visualized ribs, clavicles, and shoulders. There is no demonstrated abnormality of the visualized soft tissue structures of the upper abdomen. RAD/Chest PA and Lateral IMPRESSION: Left basilar airspace consolidation likely representing pneumonia. Electronically Signed: Gillian Duncan MD at 11:38 EST , Service support , CC: No Primary Care Physician; Jw Da Silva MD Track Grinder: Signed Observed: 09/28/2017 Status: F Source: [place] RESPIRATORY PANEL 12:00 AM [facility]LECULAR REPOSITORY Comments: collected by respiratory RP PANEL ADENOVIRUS Not Detected HUMAN METAPHNEUMO Not Detected INFLUENZA A Not Detected INFLUENZA A (SUBTYPE H1) Not Detected INFLUENZA A (SUBTYPE H3) Not Detected INFLUENZA B Not Detected PARAINFLUENZA 1 Not Detected PARAINFLUENZA 2 Not Detected PARAINFLUENZA 3 Not Detected PARAINFLUENZA 4 Not Detected RHINOVIRUS Not Detected RSV A Not Detected RSV B Not Detected NAAT METHOD Testing was performed using nucleic acid amplification Performed By: #### M100.638 #### [facility] [address] [place], [address] ALLERGIES ALLERGIES DATE TYPE / CODE NAME / CODE REACTION SEVERITY SOURCE 09/06/2018 Drug No Known Unknown [facility] Allergy/4160 Allergies/F00 [facility] 85914(SNOMED 8642279(RXNOR Repository CT) M) 05/20/2018 Drug No Known Drug Unknown [place] Allergy/4160 Allergy/M0000 [facility] 36273(SNOMED 133584(RXNO Hospital CT) ) Repository ENCOUNTERS ENCOUNTERS ADMIT/DISCHARGE ACCOUNT ADMITTING ENCOUNTER LOCATION SOURCE NUMBER CLASS 09/06/2018 [id number] Ambulatory BMSBuilding:[facility] [place] [facility] Repository 09/06/2018/ [id number] Petar Malone Inpatient [place] 8 6 Encounter [facility] ing:WE1Imwt: Repository NW471Vnr: 1 09/06/2018 [id number] Petar Malone Ambulatory BMSBuilding:B [place] 0 [facility] Repository 09/06/2018 [id number] Petar Malone Ambulatory BMSBuilding:B [place] [facility] Repository 07/28/2018/ [id number] Emergency [place] 8 5 [facility] ing:ED Repository 05/20/2018/ [id number] Emergency [address] ing:ER Repository 05/18/2018/ [id number] Emergency [place] 4 [facility] ing:ED Repository 04/05/2018/ [id number] Emergency [place] [address] 2 [facility] ing:ED Repository 09/28/2017/ [id number] Jorge Phelps Inpatient [place] 7 8 Encounter [facility] ing:HI8Gkaz: Repository [id number]: 1 09/28/2017 [id number] Ambulatory BMSBuilding:B [place] 0 [facility] Repository 09/28/2017 [id number] Ambulatory BMSBuilding:B [place] 4 [place].[facility] Repository PAYERS PAYERS ENCOUNTER GUARANTOR PAYER SUBSCRIBER SOURCE 09/06/2018 DALY J Primary DALY J [place] [id number] S Insurance:JENNA JAINB: [facility] [id number] PLANPolicy Number: Repository [id number]: . () [id number] Date:7652-45-41WM [address] [place] [address]CT: 09/06/2018 Secondary NOT GIVENUNK [place] Insurance:SELF PAY [facility] Number: Effective Repository Date:2018-09-06 09/06/2018 DALY J Primary DALY J [place] [id number] S Insurance:JENNA JAINB: [facility] [id number] PLANPolicy Number: Repository [address]Nig: . () [id number] Date:1952-47-80LQ [address] [place] [address] 88300ER: 09/06/2018 Secondary NOT GIVENUNK [place] Insurance:SELF PAY [facility] Number: Effective Repository Date:2018-09-06 09/06/2018 DALY J Primary DALY J [place] [id number] Insurance:JENNA JAINB: [facility] [id number] PLANPolicy Number: Repository [id number]: . () [id number] Date:6417-91-80UH [address] [place] [address] 16991WT: 09/06/2018 Secondary NOT GIVENUNK [place] Insurance:SELF PAY [facility] Number: Effective Repository Date:2018-09-06 09/06/2018 DALY J Primary DALY J [place] [id number] S Insurance:JENNA JAINB: [facility] [id number], [place] PLANPolic Number: Repository [id number]: . (HP) [id number] Date:7424-51-47TJ [address] [place], [place] [address] [address]JN: 09/06/2018 Secondary NOT GIVENUNK [place] Insurance:SELF PAY [facility] Number: Effective Repository Date:2018-09-06 07/28/2018 DALY J Primary DALY J [place] [id number] S Insurance:JENNA JAINB: [facility] [id number], [place] PLANPolicy Number: Repository [address]Ioa: . (HP) [id number] Date:3629-71-04VI [address] [place] [address]15[address]EN: 07/28/2018 Secondary NOT GIVENUNK [place] Insurance:SELF PAY [facility] Number: Effective Repository Date:2018-07-28 05/20/2018 DALY J Primary DALY J [place] [id number] S Insurance:JENNA JAINB: [facility] [id number] PLANPolicy Number: 8 S LYME Repository [address]Cdc: 330 [id number] [place], [place] [phone] (HP) Date:2513-74-17JJ [address] [place] [address]69[address]AX: 05/20/2018 Secondary DALY J [place] Insurance:SELF [facility] Number: Hospital Effective Repository Date:2018-05-20 05/18/2018 DALY J Primary DALY J [place] [id number] S Insurance:JENNA FERNANDEZ: [facility] [id number], [place] PLANPolic Number: Repository [id number]: 330 [id number] [phone] (HP) Date:2101-13-05CX [address] [address]CJ: 05/18/2018 Secondary NOT GIVENUNK [place] Insurance:SELF PAY [facility] Number: Effective Repository Date:2018-05-18 04/05/2018 DALY Sanchez Primary DALY [place] [id number] S Insurance:JENNA FERNANDEZ: [facility] [id number] PLANPolicy Number: Repository [address]Txy: 330 [id number] [phone] (HP) Date:9704-86-96QD [address] [place] [address]65[address]VQ: 04/05/2018 Secondary NOT GIVENUNK [place] Insurance:SELF PAY [facility] Number: Effective Repository Date:2018-04-05 09/28/2017 Daly Oliveira Primary Daly [id number] Insurance:JENNA Fernandez: [facility] [id number], [place] PLANPolicy Number: Repository [id number]: 330 [id number] [phone] (HP) Date:1622-28-17YK [address] [place] [address]57[address]TB: 09/28/2017 Secondary NOT GIVENUNK [place] Insurance:SELF PAY [facility] Number: Effective Repository Date:2017-09-28 09/28/2017 Daly Oliveira Primary Daly [id number] Insurance:JENNA Fernandez: [facility] [id number], [place]ANPolic Number: Repository [id number]: 330 [id number] [phone] (HP) Date:0116-10-82KY [address], [place] [address]SZ: 09/28/2017 Secondary NOT GIVENUNK [place] Insurance:SELF PAY [facility] Number: Effective Repository Date:2017-09-28 09/28/2017 Daly Oliveira Primary Daly Wright [id number] S Insurance:JENNA Fernandez: [facility] [id number] PLANPolicy Number: Repository [id number]: [phone] [id number] [phone] () Date:[id number] [address]FN: 09/28/2017 Secondary NOT GIVENUNK Kyle Insurance:SELF PAY [facility] Number: Effective Repository Date:2017-09-28
== END 2018-09-08 14:20 | disposition home or self-care (01) | DRG 139 ==
LOC: ED 14:48 → MS2 17:16
PROVIDERS: Emergency Provider Emergency Medicine; Visit Provider Family Medicine
DX: J18.9 Pneumonia, unspecified organism (principal); E28.2 Polycystic ovarian syndrome; F15.10 Other stimulant abuse, uncomplicated; F14.10 Cocaine abuse, uncomplicated; F12.10 Cannabis abuse, uncomplicated; F17.210 Nicotine dependence, cigarettes, uncomplicated; Z59.0 Homelessness; G43.909 Migraine, unspecified, not intractable, without status migrainosus
CPT/HCPCS: 36415; 71046; 80048; 80307; 80320; 81001; 83605; 84703; 85025; 86703; 86704; 86705; 86706; 86708; 86709; 86803; 87040; 87086; 87088; 87340; 87449; 87804; 94640; 94667; 94668; 97802; 99283; J7030; A4216; G0480

== ENCOUNTER 2019-01-15 14:24 | Emergency (ER) | payer MEDICAID, SELFPAY ==
[2018-09-08 09:21] VITALS: BMI 21.3
[2019-01-15 14:25] VITALS: BP 140/102; PULSE 122; RESP 16; TEMP 36.4; O2SAT 98; BMI 22.6
--- NOTE | 2019-01-15 15:00 | ED.RN ---
PT REFUSED BLOOD DRAW, PT REPORTED I'M TRYING TO REMAIN PROFESSIONAL DR. FAIRCHILD NOT AVAILABLE AT THIS TIME TO INFORM.
--- NOTE | 2019-01-15 15:15 | CM.ED ---
Social Work Assessment Referral Date: 01/15/19 Date of Assessment: 01/15/19 Informant: NURSING Reason for Consult: SUBSTANCE ABUSE Information obtained from: PATIENT AND PATIENT'S MOTHER. Living Arrangements: PATIENT REPORTS IS CURRENTLY LIVING ON THE STRE[address]. Employment/Financial: PATIENT IS NOT EMPLOYED. Supports: PATIENT HAS SUPPORT FROM FAMILY WHO WANT PATIENT TO GET HELP. Social/Family Stressors: PATIENT REPORTS IS HOMELESS D/T SUBSTANCE ABUSE. PATIENT WANTING HELP. PATIENT STATES WAS KICKED OUT OF THE [facility] A FEW MONTHS AGO AND IS UNABLE TO RETURN. Mental Health History: PATIENT DENIES ANY HX OF MENTAL HEALTH. PATIENT STATES ONLY BECOMES PARANOID WHEN USING SUBSTANCES. Substance Abuse History: PATIENT ADMITS TO HX OF SUBSTANCE ABUSE. Substance(s) of choice: METH, COCAINE Last use: EARLIER TODAY Interventions: SOCIAL SERVICE ASSESSMENT [employer] EVALUATED PATIENT- REFERRED TO [facility] CALL TO [facility], PATIENT HAS ALREADY BEEN IN CONTACT AND IS TO COME IN FOR ASSESSMENT. Assessment: PATIENT IS A 33 Y/O FEMALE WHO PRESENTS TO ED D/T SUBSTANCE ABUSE, PARANOIA. PATIENT STATES IS PARANOID SHE IS COMING DOWN OFF METH. PATIENT STATES HAS BEEN LIVING [place] [address] FOR 2 YEARS. REPORTS IS UNABLE TO RETURN TO [facility] SHE DID SOMETHING AND WAS KICKED OUT. [employer] MET WITH PATIENT AND INFORMED HER THERE IS NO DETOX FOR METH. [employer] REFERRED PATIENT TO [facility]. PATIENT REPORTS TO THIS WORKER SHE HAS ALREADY BEEN IN CONTACT WITH [facility] AND IS TO GO IN FOR INTAKE WITHIN THE NEXT FEW DAYS. THIS WORKER CALLED AND VERIFIED THAT [facility] HAS SPOKEN WITH PATIENT AND ENCOURAGED HER TO COME IN FOR INTAKE. PATIENT APPLYING MAKEUP TO FACE AT THIS TIME AND SAYS ONCE COMPLETED WISHES TO LEAVE. PATIENT STATES WILL BE FOLLOWING UP WITH [facility]. UPDATED PHYSICIAN. DISCHARGE INSTRUCTIONS BEING COMPLETED AT THIS TIME. PLAN: PATIENT TO BE DISCHARGED AND ENCOURAGED TO FOLLOW UP WITH INTAKE ASSESSMENT AT [facility].
--- NOTE | 2019-01-15 15:18 | ED.DCSUM_ITS ---
- ER Visit Summary Date of Service: 01/15/19 Chief Complaint: Illicit drug use and request for detox [] History of Present Illness: The patient is a 33 F [presents to the emergency department requesting detox from methamphetamines as well as cocaine. Patient states that she is been using frequently for years. Patient also has been homeless for 2 years. Patient states she gets a lot of anxiety and paranoia related to her drug use however she states that when she is not using she does not feel that way. Patient does not use heroin or narcotics. Patient does not inject drugs but rather snorts them. She denies feeling suicidal or homicidal.] Physical Examination: [HEENT-PERRLA, EOMI. Cranial nerves II through XII grossly intact. TMs clear. Mucous membranes moist. No adenopathy. Cardiovascular-regular rate and rhythm without murmur or ectopy Lungs-clear to auscultation, chest wall stable without crepitus or subcu emphysema Abdomen-normoactive bowel sounds, soft, nontender, no rebound or rigidity, no peritoneal signs. Extremities-intact ?4, normal range of motion, normal pulses, atraumatic] Test Results: [Patient refused blood draw. I ordered a toxicology screen which will be pending. [facility] and apparently she does not qualify for admission here therefore social media senior associate will look into referral to [facility]-up for drug treatment.] Emergency Department Course and Treatment: [Follow-up as outpatient with 180 as there is no available inpatient treatment for which she is requesting.] Treatment Plan: [] Disposition: [Discharge] Impression: [Illicit drug use Paranoia secondary to methamphetamine use] This note was generated with [employer] dictation software. It may contain incorrect words, spelling, and punctuation that were not noted in review of the chart prior to signing ED Disposition - Plan for ED Patient: Referrals: Care Physician,No Primary [Primary Care Provider] -
--- NOTE | 2019-01-15 15:19 | ED.DEP ---
ED Disposition - Plan for ED Patient: Instructions: ED Drug Abuse General Referrals: Care Physician,No Primary [Primary Care Provider] - Additional Instructions: Follow up with [facility]
== END 2019-01-15 15:29 | disposition home or self-care (01) ==
LOC: ED 14:56
PROVIDERS: Emergency Provider Emergency Medicine
DX: F19.10 Other psychoactive substance abuse, uncomplicated (principal); F22 Delusional disorders; F15.90 Other stimulant use, unspecified, uncomplicated; Z72.0 Tobacco use
CPT/HCPCS: 99282

== ENCOUNTER 2019-01-21 17:01 | Emergency (ER) | payer MEDICAID, SELFPAY ==
[2019-01-21 17:02] VITALS: BP 129/109; PULSE 111; RESP 18; TEMP 37; O2SAT 95; BMI 22.2
--- NOTE | 2019-01-21 18:06 | CM.ED ---
SOCIAL WORK NOTE PATIENT SEEN AND ASSESSED BY THIS WORKER ON 01/15/19. PATIENT HERE WANTING REHAB. PATIENT REPORTS DOES NOT HAVE INSURANCE AND HAS BEEN TRYING FOR 2 YEARS TO GET HELP WITH SUBSTANCE ABUSE. PATIENT ADMITS TO METH USE THIS DAY AND STATES I'M HIGH AND TRYING TO COME DOWN. CALL TO [facility]S 24 HOUR TREATMENT NAVIGATOR, HAMLET. PER HAMLET, PATIENT WAS AT [facility] EARLIER THIS DAY AND WAS SENT IN BY SQUAD FROM [facility]. HAMLET SPOKE WITH THE PATIENT OVER THE PHONE AND PATIENT INFORMED HAMLET SHE DOES WANT REHAB. HAMLET STATES NEEDS TO MAKE A FEW PHONE CALLS AND WILL GET BACK TO THIS WORKER. UPDATED DR. TOSCANO AND NURSING ON PLAN. ALESSIO HEART, CEMENT BREAKER, ESTIMATOR PAPERBOARD BOXES.
--- NOTE | 2019-01-21 18:11 | ED.RN ---
ATTEMPTED TO GIVE PT ATIVAN. PT BECOMES ANGRY. STATES I DON'T WANT A FUCKING THING FROM YOU UNLESS YOU ARE KNOCKING ME OUT. TOLD PT I WAS TRYING TO GIVE HER SOMETHING TO TAKE THE EDGE OFF AND HELP HER RELAX SLIGHTLY. PT STATES I DON'T FUCKING WANT ANYTHING FROM YOU. OFFERED PT A WARM BLANKET .. PT REFUSED
--- NOTE | 2019-01-21 18:45 | CM.ED ---
SOCIAL WORK NOTE RECEIVED CALL BACK FROM [facility] TREATMENT NAVIGATOR. PER HAMLET, SPOKE WITH JAMI AT [facility] ([phone]) WHO REPORTS HAS FEMALE BEDS AVAILABLE. HAMLET STATES PATIENT WILL NEED TO CALL AND SPEAK WITH JAMI FOR INTAKE. THIS WORKER UPDATED PATIENT AND FACILITATED CALL TO JAMI WITH [facility]. JAMI REQUESTING LAB WORK BE COMPLETED AND FAXED TO . UPDATED DR. TOSCANO AND NURSING. EMOTIONAL SUPPORT AND ENCOURAGEMENT PROVIDED TO PATIENT THROUGHOUT. PATIENT REQUESTING SOMETHING TO EAT AND DRINK. ASSISTED NURSING IN GETTING FOOD FOR PATIENT AT THIS TIME. ALESSIO HEART, SOLAR DESIGN ENGINEER, CONING MACHINE OPERATOR.
[2019-01-21 19:12] LABS: Absolute Lymphocyte Count 2.94 X10^3/ul (0.83-4.51); Absolute Neutrophil Count 4.7 X10^3/uL (2.0-7.7); Basophil# 0.04 X10^3/uL; Basophil% 0.4 % (0-1); Eosinophil# 0.38 X10^3/uL; Eosinophils% 4.3 % (0-5); Hematocrit 40.3 % (37-47); Lymphocyte # 2.94 X10^3/ul (4.0); Lymphocyte % 33.1 % (19-41); Mean Corp Hgb Conc 34.7 g/gl (32-36); Mean Corpuscular Volume 86.5 fL (81-99); Mean Platelet Vol. 9.9 fl (6.2-12.0); Monocyte# 0.81 X10^3/uL; Monocyte% 9.1 % (0-10); Neutrophil # 4.71 X10^3/uL (2.7-7.7); POSITIVE COUNT NO; POSITIVE DIFFERENTIAL NO; POSITIVE MORPHOLOGY NO; Platelet Count 313 K/mm3 (150-450); RBC Distribution Width CV 13.3 % (11.6-14.6); RBC Distribution Width SD 42.2 fl (35.1-43.9); Red Blood Count 4.66 M/mm3 (4.2-5.4); White Blood Count 8.9 K/mm3 (4.4-11.0)
[2019-01-21 19:26] LABS: ALB/GLOB Ratio 1.1 RATIO (0.9-2.4); AST(SGOT) 13 U/L (15-37); Alanine Aminotransfer ALT/SGPT 16 U/L (13-56); Alkaline Phosphatase 48 U/L (45-117); Anion Gap 9 (5-15); BUN 15 mg/dL (7-18); BUN/Creat Ratio 18.1 RATIO (10-20); Calcium,Total 8.9 mg/dL (8.5-10.1); Chloride 106 mmol/L (98-107); Creatinine, Serum 0.83 mg/dL (0.55-1.02); EST Glomerular Filtration Rate 85 mL/min (>60); Est Glom Filt Rate - Afr Amer 103 mL/min (>60); Estimated Creatinine Clearance 91.94 ml/min; Globulin 3.5 g/dL (2.2-4.2); Glucose 91 mg/dL (74-106); Potassium 3.8 mmol/L (3.5-5.1); Protein, Total 7.5 g/dL (6.4-8.2); Sodium Level 139 mmol/L (136-145)
[2019-01-21 19:30] VITALS: BP 129/84; PULSE 101; RESP 15; O2SAT 97
--- NOTE | 2019-01-21 19:39 | CM.ED ---
SOCIAL WORK NOTE RECEIVED CALL FROM [facility] WITH [facility]. INFORMED PATIENT ABLE TO TRANSPORT BY [facility] TO [facility]. THIS WORKER TO UPDATE [facility] ONCE ALL INFORMATION FAXED TO [facility] AND IS READY FOR D/C. ALESSIO HEART, BUS WASHER, STENO POOL SUPERVISOR.
[2019-01-21 19:52] LABS: Pregnancy, Serum, hCG Quali. NEGATIVE Negative (0-9 Nonpreg)
[2019-01-21 19:53] LABS: Internal QC Validated? YES +Cl - CLEAR BKGD
--- NOTE | 2019-01-21 19:59 | CM.ED ---
SOCIAL WORK NOTE ALL REQUESTED CLINICAL INFORMATION FAXED TO [facility] AT THIS TIME. CALL TO [facility] TO UPDATE. ALESSIO HEART, DIRECT SERVICE PROVIDER, SILO MAN.
--- NOTE | 2019-01-21 20:07 | ED.RN ---
THIS RN SPOKE TO [facility] WORKER IN [facility] AND GAVE A NURSE TO NURSE REPORT ABOUT PT
[2019-01-21 20:08] VITALS: RESP 16
--- NOTE | 2019-01-21 20:45 | CM.ED ---
SOCIAL WORK NOTE CALL TO [facility], SPOKE WITH NURSE. NURSE STATES WILL NEED RESULTS FROM URINE. NURSE REQUESTING TO SPEAK WITH PATIENT. PHONE GIVEN TO PATIENT. PATIENT COOPERATIVE AND ANSWERED ALL QUESTIONS. PATIENT UP OUT OF BED TO GIVE URINE SAMPLE. UPDATED NURSING. ALESSIO HEART, SUPERVISOR SHIPFITTERS, LENS DOTTER.
--- NOTE | 2019-01-21 21:02 | CM.ED ---
SOCIAL WORK NOTE UPDATED PATIENT'S NURSE, URINE SAMPLE IN ROOM. UPDATED DR. TOSCANO ON STATUS. ALESSIO HEART, JEWEL OLIVING MACHINE OPERATOR, CHECK WEIGHER.
[2019-01-21 21:07] VITALS: RESP 16
[2019-01-21 22:06] LABS: Amphetamine Urine VISTA POSITIVE (<1000 ng/mL); Barbiturate Urine VISTA NEGATIVE (< 200 ng/mL); Benzodiazepine Urine VISTA NEGATIVE (< 200 ng/mL); Cocaine Urine VISTA NEGATIVE (< 300 ng/mL); Ecstacy Urine VISTA POSITIVE (< 500 ng/mL); Methadone Urine VISTA NEGATIVE (< 300 ng/mL); PCP Urine VISTA NEGATIVE (< 25 ng/mL); THC Urine VISTA POSITIVE (< 50 ng/mL); Vista UDS pH Range 5
--- NOTE | 2019-01-21 22:13 | CM.ED ---
SOCIAL WORK NOTE TOX SCREEN FAXED AND CALLED TO ADMISSIONS NURSEGIGI WITH [facility]. ALESSIO HEART, OVERHAULER, MINIATURE TRAIN DRIVER.
--- NOTE | 2019-01-21 22:22 | CM.ED ---
SOCIAL WORK NOTE FAX CONFIRMATION FOR [facility] RECEIVED. UPDATED NURSING. CALL TO GIGI, ADMISSIONS NURSE WITH [facility]. PROVIDED WITH CONTACT NUMBER FOR EMERGENCY DEPT. NO OTHER QUESTIONS AT THIS TIME. STILL AWAITING ACCEPTANCE FOR PHYSICIAN. ALESSIO HEART, CONTROL ROOM AGENT, INDUSTRIAL MAINTENANCE MILLWRIGHT.
[2019-01-21 22:39] VITALS: RESP 15
[2019-01-21 23:00] VITALS: RESP 17
--- NOTE | 2019-01-21 23:16 | ED.VISSUMM ---
- ER Visit Summary Date of Service: 01/21/19 Chief Complaint: Need to sleep History of Present Illness: The patient is a 33 F who has multiple issues that stem from methamphetamine use. She said she just really wants to sleep. She is anxious. She denies any suicidal or homicidal thoughts. The patient is currently homeless. She went through intake at [facility] and was started on an outpatient plan. She is not doing well. She continues to use methamphetamines. She is requesting help. Physical Examination: Afebrile. Vital signs unremarkable except for heart rate of 111. Patient is mildly agitated. Making rapid movements and speaking rapidly. Heart is tachycardic but regular. Lungs are clear. Abdomen is soft. Skin appears normal. Cranial nerves grossly intact. No focal or lateralizing neurologic abnormalities grossly. Test Results: CBC, CMP unremarkable. test negative. Alcohol negative. Tox screen positive for amphetamines, methamphetamines/MDMA, and THC. Hepatitis panel was requested by 180, and it is pending. Emergency Department Course and Treatment: Patient did not require involuntary admission or sitter. I believe most of her issues stem from methamphetamine abuse. She declined Ativan. Patient was discussed with [facility]. They requested a medical evaluation. The patient is medically cleared for transfer for inpatient psychiatric and/or detox care. Staff from [facility] were contacting a detox facility and [facility]. If the patient is accepted, she will be transferred by [facility]. Treatment Plan: As above Disposition: Pending Impression: 1. Methamphetamine abuse This note was generated with [employer] dictation software. It may contain incorrect words, spelling, and punctuation that were not noted in review of the chart prior to signing ED Disposition - Plan for ED Patient: Referrals: Care Physician,No Primary [Primary Care Provider] -
--- NOTE | 2019-01-21 23:36 | ED.RN ---
CALLED [facility] AND NOTIFIED THEM THIS PT CANT BE PLACED TONIGHT THROUGH [facility] AND SOCIAL WORK IS NO LONGER HERE. ASKED IF [facility] CAN EVALUATE THE SITUATION.
[2019-01-22] VITALS (12 sets, daily range): BP systolic 118–160; BP diastolic 61–103; PULSE 83–93; RESP 12–18; O2SAT 98–99
--- NOTE | 2019-01-22 01:13 | ED.RN ---
SREEKANTH FROM [facility] WILL BE HERE IN AN HOUR TO SEE THIS PT.
[2019-01-22] MEDS: LORazepam 1 MG Tablet PO (04:29)
--- NOTE | 2019-01-22 06:01 | EKG12_ITS ---
Test Reason : [facility] [place] Blood Pressure : / mmHG Vent. Rate : 074 BPM Atrial Rate : 074 BPM P-R Int : 154 ms QRS Dur : 088 ms QT Int : 402 ms P-R-T Axes : 072 084 065 degrees QTc Int : 446 ms Normal sinus rhythm with sinus arrhythmia Normal ECG Confirmed by GRACE ECHOLS, BETH ([id number]), graphic editor ELICEO FABIAN ([id number]) on 01/26/2019 10:21:11 AM Referred By: CARMELA Confirmed By:BETH EDWARDS MD
--- NOTE | 2019-01-22 10:14 | ED.RN ---
REPORT CALLED TO GINGER NURSE AT [facility].
--- NOTE | 2019-01-22 11:25 | ED.RN ---
EMS IN DEPARTMENT.
[2019-01-23 06:07] LABS: HEPATITIS B SURFACE AG Negative (Negative); Hepatitis A IgM Antibody Negative (Negative); Hepatitis B Core AB IgM Negative (Negative)
[2019-01-23 13:24] LABS: Hep C Antibodies <0.1 s/co ratio (0.0-0.9)
== END 2019-01-22 11:32 ==
PROVIDERS: Emergency Provider Emergency Medicine
DX: F15.10 Other stimulant abuse, uncomplicated (principal); F32.9 Major depressive disorder, single episode, unspecified; F41.9 Anxiety disorder, unspecified; Z72.0 Tobacco use; Z59.0 Homelessness
CPT/HCPCS: 80053; 80074; 80307; 80320; 84703; 85025; 93005; 99285; G0480

== ENCOUNTER → 2019-03-27 10:55 | Outpatient (CLI) | payer MEDICAID, SELFPAY ==
--- NOTE | 2019-03-27 11:00 | RAD_ITS ---
STUDY: X-RAY - LEFT WRIST REASON FOR EXAM: Female, 33 years old. Soft tissue mass TECHNIQUE: 3 view(s) of the wrist were obtained. COMPARISON: None. FINDINGS: Normal visualized distal radius and ulna. Normal radiocarpal articulation. Normal distal radioulnar articulation. Normal carpal bones. Normal carpal articulations. Normal carpometacarpal articulation of the thumb. Normal second through fifth carpometacarpal articulations. Normal visualized metacarpal bones. The palpable soft tissue mass by clinical history is not well visualized. RAD/Wrist min 3 Views IMPRESSION: No acute bony findings The palpable mass by clinical history is not well seen on the radiographs. This could be further evaluated with MRI. Electronically Signed: Franco Chris, at 0:17 EDT Tel , Service support ,
== END ==
DX: M67.40 Ganglion, unspecified site (principal)
CPT/HCPCS: 73110

== ENCOUNTER → 2019-05-04 16:29 | Outpatient (CLI) | payer MEDICAID, SELFPAY ==
--- NOTE | 2019-05-04 16:36 | MRI_ITS ---
STUDY: MRI OF THE WRIST WITHOUT CONTRAST LEFT REASON FOR EXAM: Female, 33 years old. Left distal forearm mass. TECHNIQUE: Multiplanar acquisitions were performed utilizing routine T1 and T2-weighted protocols in 3 planes. COMPARISON: None. FINDINGS: Marrow signal is normal, with no fracture, bone contusion, or osteonecrosis. Radiocarpal and ulnocarpal joints are well-maintained. Triangular fibrocartilage is intact. Scapholunate ligament is unremarkable. There is mild fluid in the triquetral-Pisa form recess. Flexor and extensor tendons are normal. There is a 1.9 x 0.9 x 1.3 cm lesion in the volar wrist, hypointense on T1 and hyperintense on T2-weighted imaging. Thin septations are present. The lesion is located anterior to the distal radius and deep to the flexor carpi radialis tendon. The lesion is most consistent with ganglion cyst. Peripheral nerve sheath tumor is less likely. MRI/Upper Ext/No Jt/ wo IMPRESSION: 1. A 1.9 cm cystic appearing lesion anterior to the distal radius, most consistent with ganglion cyst. Less likely, peripheral nerve sheath tumor. Electronically Signed: Tawnya Donohue MD at 22:12 EDT Tel , Service support ,
== END ==
DX: R22.32 Localized swelling, mass and lump, left upper limb (principal)
CPT/HCPCS: 73218

== ENCOUNTER 2019-12-05 11:45 | Emergency (ER) | payer MEDICAID, SELFPAY ==
[2019-12-05 11:46] VITALS: BP 143/79; PULSE 119; RESP 26; TEMP 36.6; O2SAT 98; BMI 22.6
[2019-12-05 11:54] VITALS: PULSE 104; RESP 20; O2SAT 98
--- NOTE | 2019-12-05 11:54 | RAD_ITS ---
STUDY: X-RAY CHEST REASON FOR EXAM: Female, 34 years old. SOB, FLU TECHNIQUE: PA and lateral views of the chest. COMPARISON: 09/06/2018 FINDINGS: The lungs are clear and expanded. There is no demonstrated pleural abnormality. Normal size heart. Normal mediastinum and nedra. Normal visualized pulmonary arteries. Normal visualized aortic arch and descending thoracic aorta. Normal visualized thoracic spine. Normal visualized ribs, clavicles, and shoulders. There is no demonstrated abnormality of the visualized soft tissue structures of the upper abdomen. RAD/Chest PA and Lateral IMPRESSION: Normal x-ray examination of the chest. Electronically Signed: Randolph Treoj DO at 13:12 EST Tel , Service support ,
--- NOTE | 2019-12-05 11:54 | EKG12_ITS ---
Test Reason : SOB Blood Pressure : / mmHG Vent. Rate : 112 BPM Atrial Rate : 112 BPM P-R Int : 164 ms QRS Dur : 082 ms QT Int : 322 ms P-R-T Axes : 067 078 039 degrees QTc Int : 439 ms Sinus tachycardia Possible Left atrial enlargement Nonspecific T wave abnormality Abnormal ECG Confirmed by CAREN ECHOLS, MONALISA ([id number]), fan mail editor ELICEO FABIAN ([id number]) on 12/07/2019 10:12:53 AM Referred By: JESSIE Confirmed By:MONALISA FABIAN MD
[2019-12-05 11:56] VITALS: O2SAT 99
--- NOTE | 2019-12-05 12:00 | ED.DCSUM_ITS ---
History of Present Illness Chief Complaint: Shortness of Breath Informant: Patient Onset: Yesterday Context: Gradual Onset Timing: Continuous Current Severity: Moderate Maximum Severity: Severe Narrative: The patient is a 34-year-old female with history of recurrent pneumonia and prior cocaine abuse who presents to the emergency department with chest pain or shortness of breath. Patient states that her symptoms began last night. She states she began to have a lot of pleuritic pain in the left side of her chest with cough and congestion. She is unsure if she is had fever. She states this feels very similar to when she has had pneumonia in the past. She is on no daily medications. She does smoke. She denies any history of underlying lung disease. Prior similar symptoms: Yes Recent Illness/Hospitalization: No Past Medical History - Allergies and Home Meds Allergies/Adverse Reactions: Allergies No Known Allergies Allergy (Verified 12/05/19 11:49) Primary Care Physician: Ene Cohen [Primary Care Provider] - Prior records reviewed: Yes Past Medical History: - - Recurrent pneumonia Surgical History: noncontributory Smoking Status: Heavy Smoker (>10/day) - Family History Paternal Family History: Reports: Diabetes, Hypertension Review of Systems General: Reports: Chills Eyes: Denies: Visual changes - bilaterally, Diplopia ENT: Denies: Rhinorrhea, Sore throat Cardiovascular: Reports: Chest pain Respiratory: Reports: Cough, Sputum Gastrointestinal: Reports: Nausea Genitourinary: Denies: Dysuria, Hematuria, Frequency Musculoskeletal: Reports: Arthralgias Skin: Denies: Rash, Wounds Neurological: Denies: Headache, Weakness, Numbness Physical Exam Vital Signs/Narrative: Vital Signs Temp Pulse Resp BP Pulse Ox 12/05/19 11:54 104 H 20 H 98 12/05/19 11:46 98 F 119 H 26 H 143/79 H 98 Inital Vital Signs reviewed: Yes General: Well nourished, Well developed, No Acute Distress Head: Normocephalic, Atraumatic Eyes: Perrl, EOMI ENT: Moist mucous membranes, No rhinorrhea Neck: Supple, Nontender Cardiovascular: Regular rhythm, No murmurs, Tachycardia Respiratory: No distress, Chest nontender, Decreased Air Movement Abdomen: Soft, Nontender, Nondistended, Normal bowel sounds Back: Nontender, Normal Inspection Extremities: Nontender, No edema Skin: Normal color, No rash Neurological: Alert, Oriented x3, Cranial nerves II-XII grossly intact, Normal Strength, Normal Sensation Psychological: Normal affect, Normal Mood Diagnostic/Tx/Re-eval Chest X-Ray - ED: 2 View, Normal, Heart, Lungs Clinical Impression(s) from Imaging Studies Chest X-Ray 12/05/19 11:54 IMPRESSION: Normal x-ray examination of the chest. Electronically Signed: Randolph DO Maya at 13:12 EST Tel , Service support , ADDENDUM: 12/05/19 1349 Chest CTA 12/05/19 12:39 IMPRESSION: Negative for pulmonary embolism or thoracic aortic dissection. There is lingular/partial left lower lobe collapse with probable mucous plug in the left lower lobe bronchus. Bronchoscopy may be helpful to further evaluate. Electronically Signed: Randolph DO Maya at 13:42 EST Tel , Service support , Abnormal Lab Results 12/05/19 12/05/19 12/05/19 12:10 12:10 12:20 WBC 30.4 H* RBC 4.62 Hgb 14.0 Hct 40.9 MCV 88.5 MCH 30.3 MCHC 34.2 RDW Std Deviation 42.5 RDW Coeff of Tonya 13.1 Plt Count 315 MPV 10.0 Immature Gran % (Auto) 0.900 Neut % (Auto) 88.1 H Lymph % (Auto) 4.6 L [place] % (Auto) 5.6 Eos % (Auto) 0.4 Baso % (Auto) 0.4 Absolute Neuts (auto) 26.8 H Absolute Lymphs (auto) 1.39 Nucleated RBC % 0 Differential Comment SCANNED Diff Path Review May foll D-Dimer Quant (PE/DVT) Sodium Potassium Chloride Carbon Dioxide Anion Gap BUN Creatinine Estim Creat Clear Calc Est GFR (MDRD) Af Amer Est GFR (MDRD) Non-Af BUN/Creatinine Ratio Glucose Lactic Acid Calcium Total Bilirubin AST ALT Alkaline Phosphatase Troponin I Total Protein Albumin Globulin Albumin/Globulin Ratio Urine Color Yellow Urine Clarity Cloudy Urine pH 5.0 Ur Specific [place] 1.025 Urine Protein 30 H Urine Glucose (UA) Normal Urine Ketones 5 H Urine Occult Blood 25 H Urine Nitrite Negative Urine Bilirubin 1 H Urine Urobilinogen 1 H Ur Leukocyte Esterase 25 H Urine RBC 0-5 SEEN Urine WBC 0-5 SEEN Ur Squamous Epith Cells 0-5 SEEN Urine Bacteria RARE Urine Mucus 3+ Urine Test Negative 12/05/19 12/05/19 12/05/19 12:20 12:20 12:20 WBC RBC Hgb Hct MCV MCH MCHC RDW Std Deviation RDW Coeff of Tonya Plt Count MPV Immature Gran % (Auto) Neut % (Auto) Lymph % (Auto) Concord[place] % (Auto) Eos % (Auto) Baso % (Auto) Absolute Neuts (auto) Absolute Lymphs (auto) Nucleated RBC % Differential Comment Diff Path Review D-Dimer Quant (PE/DVT) 0.63 H* Sodium 138 Potassium 3.6 Chloride 107 Carbon Dioxide 26.0 Anion Gap 5 BUN 13 Creatinine 0.83 Estim Creat Clear Calc 91.09 Est GFR (MDRD) Af Amer 102 Est GFR (MDRD) Non-Af 85 BUN/Creatinine Ratio 15.6 Glucose 118 H Lactic Acid 2.5 H* Calcium 9.4 Total Bilirubin 0.40 AST 7 L ALT 15 Alkaline Phosphatase 60 Troponin I < 0.015 Total Protein 7.5 Albumin 3.5 Globulin 4.0 Albumin/Globulin Ratio 0.9 Urine Color Urine Clarity Urine pH Ur Specific [place] Urine Protein Urine Glucose (UA) Urine Ketones Urine Occult Blood Urine Nitrite Urine Bilirubin Urine Urobilinogen Ur Leukocyte Esterase Urine RBC Urine WBC Ur Squamous Epith Cells Urine Bacteria Urine Mucus Urine Test - Rhythm Strip Rhythm Strip: Sinus Tach Rate: 110 Ectopy: None - EKG Initial EKG Interpretation: Sinus Rhythm, No Acute Injury Pattern Prior: Unchanged - Medical Decision Making The patient presents to the emergency department with cough, left-sided chest pain, tachypnea, and tachycardia. With her history, was concern for recurrent pneumonia versus pulmonary embolus. The patient was treated with analgesics with marked improvement. She was given nebulized breathing treatment and had some improvement of aeration. Her chest x-ray did not show focal infiltrative process, but given her symptoms I did want to investigate further. The patient does have a leukocytosis of 30,000 and a mild elevation of her lactic acid of 2.5. She was given IV fluids. The patient underwent CTA of her chest. There is no evidence of pulmonary embolus or dissection. She does have mucus plugging in the left lingular and lower lobe and concern for consolidation. I do feel that this patient would benefit from admission. I have discussed her care with tube lancer, Dr. Thomas. The patient was ordered IV antibiotics. I did discuss this with the patient and she is basically refusing admission. I counseled her that with this mucous plugging, if it does not improve, her shortness of breath could get worse and she can suffer a respiratory or cardiac arrest or even permanent disability. The patient still does not want to stay. She states that she needs to take care of things at home. The patient is able to understand the risks and repeat this to me. She has capacity to make her own medical decision. I have no reason to hold her against her will. I will place the patient on oral Levaquin. I have basically begged the patient to stay in the hospital and she is refusing. She will sign out AGAINST MEDICAL ADVICE. Impression 1. Left-sided pleuritic chest pain 2. Mucus plugging 3. Community-acquired pneumonia ED Disposition - Plan for ED Patient: Disposition: Against Medical Advice Instructions: PNEUMONIA (Adult) Prescriptions: Levofloxacin [Levaquin] 750 mg PO DAILY #7 tab Prescription Printed Referrals: Ene Cohen [Primary Care Provider] -
[2019-12-05] MEDS: Ipratropium/Albuterol Sulfate 3 ML AMPUL.NEB INHALATION (12:11)
[2019-12-05 12:13] VITALS: PULSE 122; RESP 20
[2019-12-05] MEDS: Ketorolac 15 MG/ML Vial IV (12:23)
[2019-12-05] MEDS: 0.9% Normal Saline 1,000 ML 1000 ML IV (12:23)
[2019-12-05 12:32] VITALS: BP 113/92; PULSE 116; RESP 28; TEMP 36.7; O2SAT 97
[2019-12-05 12:33] LABS: Color, Urine Yellow (Yellow); Glucose, Dipstick Normal (Normal); Ketone-Dipstick 5 mg/dl (Negative); Leukocyte Esterase-Dipstick 25 /ul (Negative); Nitrite-Dipstick Negative (Negative); Occult Blood-Urine 25 /ul (Negative); Protein-Dipstick 30 mg/dl (Negative); Specific Gravity, Urine 1.025 (1.002-1.030); Urine Clarity Cloudy (Clear); Urine Urobilinogen 1 mg/dl (Normal)
[2019-12-05 12:36] LABS: Absolute Lymphocyte Count 1.39 X10^3/uL (0.83-4.51); Absolute Neutrophil Count 26.8 X10^3/uL (2.0-7.7); Basophil# 0.12 X10^3/uL; Basophil% 0.4 % (0-1); Eosinophil# 0.12 X10^3/uL; Eosinophils% 0.4 % (0-5); Hematocrit 40.9 % (37-47); Lymphocyte # 1.39 X10^3/ul (4.0); Lymphocyte % 4.6 % (19-41); Mean Corp Hgb Conc 34.2 g/dL (32-36); Mean Corpuscular Hgb 30.3 pg (27.0-32.0); Mean Corpuscular Volume 88.5 fL (81-99); Monocyte# 1.71 X10^3/uL; Monocyte% 5.6 % (0-10); NRBC Flagged by Analyzer 0 % (0-5); Neutrophil # 26.76 X10^3/uL (2.7-7.7); Neutrophil % 88.1 % (47-70); POSITIVE COUNT YES; POSITIVE DIFFERENTIAL YES; Platelet Count 315 K/mm3 (150-450); RBC Distribution Width CV 13.1 % (11.6-14.6); RBC Distribution Width SD 42.5 fl (35.1-43.9); Red Blood Count 4.62 M/mm3 (4.2-5.4)
[2019-12-05 12:36] LABS: Internal QC Validated? YES +Cl - CLEAR BKGD
[2019-12-05 12:37] LABS: Pregnancy, Urine Negative Negative
[2019-12-05 12:38] LABS: White Blood Count 30.4 K/mm3 (4.4-11.0)
[2019-12-05 12:38] LABS: Urine Bilirubin Dipstick 1 mg/dL (Negative)
[2019-12-05 12:39] LABS: Differential Indicated SCAN CRITERIA MET
--- NOTE | 2019-12-05 12:39 | CT_ITS ---
STUDY: CTA CHEST REASON FOR EXAM: Female, 34 years old. COUGH,CONGESTION,SHORT OF BREATH, CHEST PAIN W/ DEEP BREATH -- MULTI-USE DRUG ABUSER RADIATION DOSAGE (If Supplied By Facility): CTDIvol = ( 6.99 ) mGy, DLP = ( 186.17 ) mGycm TECHNIQUE: The examination was performed with the intravenous administration of 75CC ISOVUE 370. Post-processing of the angiographic images was performed, with multiplanar reformation and 3D reconstruction. Individualized dose optimization techniques were used for this CT. COMPARISON: None. FINDINGS: Normal enhancement of the main pulmonary artery and right and left pulmonary arteries. Normal enhancement of the bilateral peripheral pulmonary arteries. There is no demonstrated pulmonary embolism. Normal thoracic aorta and visualized great vessels. There is no demonstrated aortic dissection. Normal heart and pericardium. Normal mediastinum. Normal hilar regions. Normal visualized trachea and bronchi. The lungs are well expanded. There is partial left lower lobe/lingular collapse. There appears to be a mucous plug in the region of the left lower lobe bronchus. Lungs are otherwise clear. Normal pleura. Normal chest wall structures. Normal osseous structures. Normal visualized upper abdomen. CT/CTA Chest W/WO Contrast IMPRESSION: Negative for pulmonary embolism or thoracic aortic dissection. There is lingular/partial left lower lobe collapse with probable mucous plug in the left lower lobe bronchus. Bronchoscopy may be helpful to further evaluate. Electronically Signed: Randolph Trejo DO at 13:42 EST Tel , Service support ,
[2019-12-05 12:45] LABS: Bacteria RARE /hpf (None Seen); Mucous, Urine 3+ /hpf (<or=2+); Red Blood Cells-Urine 0-5 SEEN /hpf (0-5); Squamous Epithelial Cells - UA 0-5 SEEN /hpf (5-10); White Blood Cells 0-5 SEEN /hpf (0-5)
[2019-12-05 12:52] LABS: D-Dimer Quantitative (DVT/PE) 0.63 FEU/ug/m (0.27-0.49)
[2019-12-05 12:54] LABS: ALB/GLOB Ratio 0.9 RATIO (0.9-2.4); AST(SGOT) 7 U/L (15-37); Alanine Aminotransfer ALT/SGPT 15 U/L (13-56); Albumin, Serum 3.5 g/dL (3.2-5.0); Alkaline Phosphatase 60 U/L (45-117); Anion Gap 5 (5-15); BUN 13 mg/dL (7-18); BUN/Creat Ratio 15.6 RATIO (10-20); Calcium,Total 9.4 mg/dL (8.5-10.1); Chloride 107 mmol/L (98-107); Creatinine, Serum 0.83 mg/dL (0.55-1.02); EST Glomerular Filtration Rate 85 mL/min (>60); Est Glom Filt Rate - Afr Amer 102 mL/min (>60); Estimated Creatinine Clearance 91.09 ml/min; Glucose 118 mg/dL (74-106); Potassium 3.6 mmol/L (3.5-5.1); Protein, Total 7.5 g/dL (6.4-8.2); Sodium Level 138 mmol/L (136-145)
[2019-12-05 13:05] LABS: Differential Comment SCANNED
[2019-12-05 13:10] LABS: Lactic Acid 2.5 mmol/L (0.4-1.9)
--- NOTE | 2019-12-05 13:10 | EKG12_ITS ---
Test Reason : SOB Blood Pressure : / mmHG Vent. Rate : 119 BPM Atrial Rate : 119 BPM P-R Int : 096 ms QRS Dur : 080 ms QT Int : 446 ms P-R-T Axes : 000 086 059 degrees QTc Int : 627 ms Sinus tachycardia with short NE Prolonged QT Abnormal ECG Confirmed by CAREN ECHOLS, MONALISA ([id number]), rewrite editor ELICEO FABIAN ([id number]) on 12/07/2019 10:13:20 AM Referred By: JESSIE Confirmed By:MONALISA FABIAN MD
[2019-12-05] MEDS: levoFLOXacin 750 MG Tablet PO (14:13)
[2019-12-05 14:14] VITALS: BP 109/76; PULSE 102; RESP 16; O2SAT 95
[2019-12-05 14:58] LABS: Amphetamine Urine VISTA POSITIVE (<1000 ng/mL); Barbiturate Urine VISTA NEGATIVE (< 200 ng/mL); Benzodiazepine Urine VISTA NEGATIVE (< 200 ng/mL); Cocaine Urine VISTA NEGATIVE (< 300 ng/mL); Ecstacy Urine VISTA POSITIVE (< 500 ng/mL); Methadone Urine VISTA NEGATIVE (< 300 ng/mL); PCP Urine VISTA NEGATIVE (< 25 ng/mL); THC Urine VISTA POSITIVE (< 50 ng/mL); Vista UDS pH Range 5
[2019-12-05 16:25] LABS: Reflex Lactate? Y
[2019-12-08 09:56] LABS: Pathologist Review Reviewed
== END 2019-12-05 14:16 | disposition left against medical advice (07) ==
PROVIDERS: Emergency Provider Emergency Medicine
DX: J18.9 Pneumonia, unspecified organism (principal); Z82.49 Family history of ischemic heart disease and other diseases of the circulatory system; T17.990A Other foreign object in respiratory tract, part unspecified in causing asphyxiation, initial encounter; X58.XXXA Exposure to other specified factors, initial encounter; Y93.9 Activity, unspecified; Y92.9 Unspecified place or not applicable; Y99.9 Unspecified external cause status; Z87.01 Personal history of pneumonia (recurrent); F17.210 Nicotine dependence, cigarettes, uncomplicated; F14.10 Cocaine abuse, uncomplicated
CPT/HCPCS: 71046; 71275; 80053; 80307; 81001; 81025; 83605; 84484; 85025; 85379; 87040; 93005; 94640; 96361; 96365; 96367; 96375; 99285; Q9967; A4216

== ENCOUNTER 2019-12-10 17:46 | Inpatient (IN) | payer MEDICAID, SELFPAY ==
[2019-12-10] VITALS (12 sets, daily range): BP systolic 90–125; BP diastolic 55–85; PULSE 112–123; RESP 18–28; TEMP 36.6–37.7; O2SAT 95–100; BMI 23.3; BMI 25.9; BMI 26.0
--- NOTE | 2019-12-10 18:22 | EKG12_ITS ---
Test Reason : SOB Blood Pressure : / mmHG Vent. Rate : 115 BPM Atrial Rate : 115 BPM P-R Int : 138 ms QRS Dur : 084 ms QT Int : 316 ms P-R-T Axes : 063 065 051 degrees QTc Int : 437 ms Sinus tachycardia Possible Left atrial enlargement Borderline ECG Confirmed by CAREN ECHOLS, MONALISA ([id number]), editor greeting card MISTI DUNCAN ([id number]) on 12/14/2019 3:45:17 PM Referred By: Lamar Mahoney Confirmed By:MONALISA FABIAN MD
--- NOTE | 2019-12-10 18:23 | CT_ITS ---
STUDY: CT CHEST WITHOUT CONTRAST REASON FOR EXAM: Female, 34 years old. Check progression of left lower lobe pneumonia. Mucus plugging. Increasing shortness of breath. RADIATION DOSAGE (If Supplied By Facility): CTDIvol = ( 9.75 ) mGy, DLP = ( 284.96 ) mGycm TECHNIQUE: Transaxial imaging was performed without the administration of intravenous contrast material. Multiplanar coronal and sagittal images were reformatted. Individualized dose optimization techniques were used for this CT. COMPARISON: CTA of the chest, December 05, 2019. FINDINGS: There is a moderate left pleural effusion with marked atelectasis involving the left lower lobe. There is occlusion of the right lower lobe bronchus. Lungs are otherwise clear. Remainder of the bronchi appear normal. Normal heart and pericardium. Increasing size and number mediastinal lymphadenopathy. Normal hilar regions. Normal unenhanced pulmonary arteries. Normal aorta arch and descending thoracic aorta. There are multi-level degenerative changes of the thoracic spine. There is no demonstrated abnormality of the visualized upper abdomen. CT/Chest without Contrast IMPRESSION: 1. Occlusion of the left lower lobe bronchus at its origin with complete collapse left lower lobe. 2. New left pleural effusion. 3. Enlarged mediastinal lymphadenopathy. 4. No other interval change. Electronically Signed: Herrera Wolff DO at 19:49 EST Tel [phone], Service support ,
--- NOTE | 2019-12-10 18:27 | ED.DCSUM_ITS ---
History of Present Illness Chief Complaint: Shortness of Breath Informant: Patient Onset: Days - worse last couple days Activity at onset: Rest Timing: Continuous Quality: - - painful breathing, left chest Current Severity: Severe Maximum Severity: Severe Worsened by: Coughing, - - breathing Relieved by: Nothing Associated Symptoms: Chills, Cough, Fever - subjective. Negative for: Bloody Sputum Chest Pain: Pleuritic - left lower chest Narrative: History is limited due to the patient being very angry and being in pain, and crying. She states that she was just recently admitted here for pneumonia, and was told to get back to the hospital she was getting better, she states she is not getting better. She has painful breathing and is having trouble breathing, she states that when she was discharged back to her hotel room with the antib iotic she was post to be on, she lost it and has been without her antibiotic for at least several days. She said she was diagnosed with a mucous plug. She feels like none of these symptoms are new but things are worse in the last few days. - Past Medical History (1) PCOS (polycystic ovarian syndrome) Status: Chronic Past Medical History - Allergies and Home Meds Allergies/Adverse Reactions: Allergies No Known Allergies Allergy (Verified 12/10/19 17:51) Primary Care Physician: [facility] Al,Ene Woods [Primary Care Provider] - Surgical History: noncontributory Lives: Alone Smoking Status: Current every day smoker Drugs: - - hx IVDU and methamphetamine abuse - Family History Paternal Family History: Reports: Diabetes, Hypertension Review of Systems ROS: Unable to Obtain - limited eval due to acuity, yelling, crying General: Reports: Chills, Fever, Malaise, Subjective Eyes: Denies: Visual changes - bilaterally, Diplopia ENT: Denies: Bilateral ear pain, Sore throat Cardiovascular: Reports: Chest pain. Denies: Palpitations Respiratory: Reports: Dyspnea, Cough. Denies: Sputum Gastrointestinal: Denies: Abdominal pain, Nausea, Vomiting, Diarrhea, Melena, Hematochezia Musculoskeletal: Denies: Back pain, Extremity Pain Skin: Denies: Rash, Wounds Neurological: Denies: Weakness, Numbness Psych: Reports: Anxiety. Denies: Suicidal thoughts Physical Exam Vital Signs/Narrative: Vital Signs Temp Pulse Resp BP Pulse Ox 12/10/19 17:47 97.9 F 123 H 18 90/59 L 95 Inital Vital Signs reviewed: Yes General: Well nourished, Well developed, Acute Distress - mild resp/pain; speaking in 3-5 word sentences Head: Normocephalic, Atraumatic Eyes: Perrl, EOMI ENT: Moist mucous membranes, No rhinorrhea Neck: Supple, Nontender, No lymphadenopathy, No JVD Cardiovascular: Regular rate, Regular rhythm, No murmurs, Tachycardia Respiratory: CTA bilaterally - shallow breathing limits exam; equal BS bilat. trachea midline., Chest nontender, - - splinting on deep insp Abdomen: Soft, Nontender, Nondistended, Normal bowel sounds Back: Nontender, Normal Inspection Extremities: Nontender, No edema. Negative for: Calf Tenderness Skin: Normal color, No rash, No Trauma Neurological: Alert, Oriented x3, Cranial nerves II-XII grossly intact, Normal Strength, Normal Sensation Psychological: Tearful, Agitated Diagnostic/Tx/Re-eval Impressions Chest CT 12/10/19 18:23 IMPRESSION: 1. Occlusion of the left lower lobe bronchus at its origin with complete collapse left lower lobe. 2. New left pleural effusion. 3. Enlarged mediastinal lymphadenopathy. 4. No other interval change. Electronically Signed: Herrera Wolff DO at 19:49 EST Tel [phone], Service support , 12/10/19 18:23 CT Chest [Chest without Contrast] [CT] Stat Laboratory Results 12/10/19 12/10/19 12/10/19 18:45 18:45 18:45 WBC 29.4 H RBC 4.50 Hgb 13.5 Hct 40.3 MCV 89.6 MCH 30.0 MCHC 33.5 RDW Std Deviation 44.0 H RDW Coeff of Tonya 13.4 Plt Count 463 H MPV 8.7 Neut % (Auto) Not Reportable Absolute Neuts (auto) 24.4 H Absolute Lymphs (auto) 2.06 Total Counted 100 Neutrophils % (Manual) 60 Band Neutrophils % 23 H Lymphocytes % (Manual) 7 L Monocytes % (Manual) 10 Diff Path Review May foll Platelet Estimate ADEQUATE RBC Morphology NORM C+C PT 16.1 H INR 1.3 APTT 33.2 Sodium 137 Potassium 3.7 Chloride 103 Carbon Dioxide 28.0 Anion Gap 6 BUN 8 Creatinine 0.75 Estim Creat Clear Calc 100.81 Est GFR (MDRD) Af Amer 116 Est GFR (MDRD) Non-Af 96 BUN/Creatinine Ratio 10.7 Glucose 110 H Lactic Acid Calcium 8.9 Total Bilirubin 0.50 AST 11 L ALT 24 Alkaline Phosphatase 63 Troponin I < 0.015 Total Protein 7.3 Albumin 2.5 L Globulin 4.8 H Albumin/Globulin Ratio 0.5 L 12/10/19 18:45 WBC RBC Hgb Hct MCV MCH MCHC RDW Std Deviation RDW Coeff of Tonya Plt Count MPV Neut % (Auto) Absolute Neuts (auto) Absolute Lymphs (auto) Total Counted Neutrophils % (Manual) Band Neutrophils % Lymphocytes % (Manual) Monocytes % (Manual) Diff Path Review Platelet Estimate RBC Morphology PT INR APTT Sodium Potassium Chloride Carbon Dioxide Anion Gap BUN Creatinine Estim Creat Clear Calc Est GFR (MDRD) Af Amer Est GFR (MDRD) Non-Af BUN/Creatinine Ratio Glucose Lactic Acid 1.7 Calcium Total Bilirubin AST ALT Alkaline Phosphatase Troponin I Total Protein Albumin Globulin Albumin/Globulin Ratio - Rhythm Strip Rhythm Strip: Sinus Tach Rate: 115 Ectopy: None - EKG Initial EKG Interpretation: No Acute Injury Pattern, Sinus Tachycardia Prior: Unchanged Treatment - Dyspnea: Albuterol, Atrovent, Antibiotics, - - mucomyst, analgesics Repeat Evaluation: Improved - Medical Decision Making Patient still has a persistent significant leukocytosis with bandemia, her lactate is within normal limits, I repeated the chest imaging with plain CT to reevaluate the details of the lobar collapse and mucous plugging she had associated with her pneumonia before. That is persistent, and in addition she has a parapneumonic effusion now with enlarged mediastinal lymphadenopathy. No other interval change was noted, as above. She had a CT angiography ruling out pulmonary embolus before and I think that there is no reason to re-exposure to the contrast to see if that is there again since she has plenty on this imaging to explain her symptoms. Her symptoms were treated here and she did feel a little better but was still ill enough to be admitted to the hospital. Empiric antibiotics were ordered. Her breathing treatment included Mucomyst. Discussed with hospitalist for PCU admission and at his request will discuss with pulmonology. ED Disposition - Plan for ED Patient: Disposition: Acute Care [facility] Diagnosis: Sepsis, Pneumonia, Noncompliance with medication regimen, Parapneumonic effusion Referrals: Ivette Melendez,Ene Woods [Primary Care Provider] -
[2019-12-10] MEDS: Ipratropium/Albuterol Sulfate 3 ML AMPUL.NEB INHALATION (18:39)
[2019-12-10 19:03] LABS: Hematocrit 40.3 % (37-47); Hemoglobin 13.5 g/dL (12.0-15.0); Mean Corp Hgb Conc 33.5 g/dL (32-36); Mean Corpuscular Volume 89.6 fL (81-99); Mean Platelet Vol. 8.7 fl (6.2-12.0); POSITIVE DIFFERENTIAL YES; POSITIVE MORPHOLOGY YES; Platelet Count 463 K/mm3 (150-450); RBC Distribution Width CV 13.4 % (11.6-14.6); White Blood Count 29.4 K/mm3 (4.4-11.0)
[2019-12-10] MEDS: 0.9% Normal Saline 1,000 ML 999 ML IV (19:10)
[2019-12-10] MEDS: Ondansetron 4 MG/2 ML Vial IV (19:20)
[2019-12-10] MEDS: Morphine 4 MG/ML Syringe IV (19:20)
[2019-12-10 19:25] LABS: International Normalized Ratio 1.3; Prothrombin Time (Protime)PT. 16.1 SECONDS (11.7-14.9)
[2019-12-10 19:26] LABS: Partial Thromboplast Time 33.2 Seconds (24.1-36.2)
[2019-12-10 19:32] LABS: ALB/GLOB Ratio 0.5 RATIO (0.9-2.4); AST(SGOT) 11 U/L (15-37); Alanine Aminotransfer ALT/SGPT 24 U/L (13-56); Albumin, Serum 2.5 g/dL (3.2-5.0); Alkaline Phosphatase 63 U/L (45-117); Anion Gap 6 (5-15); BUN 8 mg/dL (7-18); BUN/Creat Ratio 10.7 RATIO (10-20); Calcium,Total 8.9 mg/dL (8.5-10.1); Chloride 103 mmol/L (98-107); Creatinine, Serum 0.75 mg/dL (0.55-1.02); EST Glomerular Filtration Rate 96 mL/min (>60); Est Glom Filt Rate - Afr Amer 116 mL/min (>60); Estimated Creatinine Clearance 100.81 ml/min; Globulin 4.8 g/dL (2.2-4.2); Glucose 110 mg/dL (74-106); Potassium 3.7 mmol/L (3.5-5.1); Protein, Total 7.3 g/dL (6.4-8.2); Sodium Level 137 mmol/L (136-145)
[2019-12-10 19:37] LABS: Differential Indicated MANUAL DIFF
[2019-12-10 19:40] LABS: Lymphocyte 7 % (19-41); Monocyte 10 % (0-10); Neutrophil-Band 23 % (0-5); Neutrophil-Segmented 60 % (47-70); Total Cells Counted 100 (MANUAL DIFF)
[2019-12-10 19:41] LABS: Platelet Estimate ADEQUATE (ADEQ); Red Cell Morphology NORM C+C NORMAL (NORM C&C)
[2019-12-10 19:43] LABS: Absolute Lymphocyte Count 2.06 X10^3/uL (0.83-4.51); Absolute Neutrophil Count 24.4 X10^3/uL (2.0-7.7)
[2019-12-10] MEDS: Acetylcysteine 800 MG/4 ML VIAL.NEB. INHALATION (19:50)
--- NOTE | 2019-12-10 20:04 | HP.PCM_ITS ---
Problem List (1) Noncompliance with medication regimen Status: Acute (2) Parapneumonic effusion Status: Acute (3) Pneumonia Status: Acute Qualifiers: Pneumonia type: due to unspecified organism Laterality: left Lung location: lower lobe of lung Qualified Code(s): J18.9 - Pneumonia, unspecified organism (4) Sepsis Status: Acute Qualifiers: Sepsis type: sepsis due to unspecified organism Qualified Code(s): A41.9 - Sepsis, unspecified organism (5) Tobacco dependence Status: Chronic (6) PCOS (polycystic ovarian syndrome) Status: Chronic History of Present Illness Date of Admission: 12/10/19 Chief Complaint: sob The patient is a 34 year old F with a significant history of tobacco abuse and prior cocaine abuse who presents with 1-week history of progressively worsening shortness of breath. Associated with her symptoms is pain under her left breast. She rated her pain as intensity 12 out of 10. She has a nonproductive cough. She reported she is homeless. She was seen at our hospital on 12/05/2019 where she was diagnosed with left- sided pleuritic chest pain; mucous plug and community acquired pneumonia. Patient signed out AGAINST MEDICAL ADVICE. However she was given a prescription for Levaquin. She reported that she lost the prescription. On this visit at the Emergent department patient had tachycardia and tachypnea. Further, she had leukocytosis with bandemia. Chest CT showed occlusion of the left lower lobe bronchus at its origin with complete collapse of left lower lobe.; new left pleural effusion; enlarged mediastinal lymphadenopathy. Past Medical History Past Medical History (Chronic Problems): Chronic Problems Tobacco dependence (Chronic) PCOS (polycystic ovarian syndrome) (Chronic) Allergies No Known Allergies Allergy (Verified 12/10/19 17:51) Home Medications: Ambulatory Orders Medication Instructions Recorded NK 12/10/19 Surgical History: tonsillectomy Lives: Homeless Smoking Status: Current every day smoker Tobacco Use: Cigarettes Alcohol: Sober Drugs: - - hx IVDU and methamphetamine abuse - *Family History Paternal History Items: Diabetes, Hypertension Review of Systems Constitutional: Reports: Anorexia. Denies: Chills, Fever, Weight Change HEENT: Denies: Head Aches, Sinus Congestion, Sinus Drainage Cardiovascular: Reports: Chest Pain. Denies: Palpitations Respiratory: Reports: Cough, Shortness of Breath Gastrointestinal: Denies: Abdominal Pain, Nausea, Vomiting Genitourinary: Denies: Dysuria Musculoskeletal: Denies: Joint Pain, Joint Tenderness Skin: Denies: Rash, Wounds Neurological: Denies: Numbness, Tingling, Focal weakness Psychiatric: Denies: Anxiety, Depression, Homicidal Ideations, Suicidal Ideatio ns Hematologic/ Lymphatic: Denies: Easy Bruising, Easy Bleeding VTE Information - Inpt Only VTE Present on Admission: No VTE Mechan Device Prophylaxis: SCD's VTE Pharm Prophylaxis ordered?: No Patient Problems: Active and Suspected Problems Noncompliance with medication regimen (Acute) Parapneumonic effusion (Acute) Pneumonia (Acute) Sepsis (Acute) - Physical Exam Vitals/I&O's: Vital Signs Temp Pulse Resp BP Pulse Ox 97.9 F 113 H 28 H 106/80 97 12/10/19 17:47 12/10/19 19:51 12/10/19 19:51 12/10/19 19:17 12/10/19 19:17 Oxygen Flow Rate (L/min) 2 Oxygen Delivery Method Nasal Cannula Weight: 65.771 kg Body Mass Index (BMI) 23.3 General: Alert, Oriented x3, Cooperative, - - Moaning and screaming secondary to pain HEENT: Atraumatic, EOMI, Normocephalic Neck: Supple, No JVD, Negative Carotid Bruits Lungs: No rhonchi, No wheeze, No rales, Diminished - Left base, - Cardiovascular: Regular rate, Normal S1, Normal S2, No murmurs Abdomen: Bowel Sounds Present, Soft, Non Tender Extremities: No edema, Capillary Refill Less than 3 Seconds Skin: No rashes, No breakdown Musculoskeletal: No Tenderness to Palpation of Joints or Extremities Neurological: Cranial nerves II-XII grossly intact Psych/Mental Status: Restless Laboratory Results 12/10/19 18:45: WBC 29.4 H, RBC 4.50, Hgb 13.5, Hct 40.3, MCV 89.6, MCH 30.0, MCHC 33.5, RDW Std Deviation 44.0 H, RDW Coeff of Tonya 13.4, Plt Count 463 H, MPV 8.7, Neut % (Auto) Not Reportable, Absolute Neuts (auto) 24.4 H, Absolute Lymphs (auto) 2.06, Total Counted 100, Neutrophils % (Manual) 60, Band Neutrophils % 23 H, Lymphocytes % (Manual) 7 L, Monocytes % (Manual) 10, Diff Path Review February, Platelet Estimate ADEQUATE, RBC Morphology NORM C+C 12/10/19 18:45: PT 16.1 H, INR 1.3, APTT 33.2 12/10/19 18:45: Sodium 137, Potassium 3.7, Chloride 103, Carbon Dioxide 28.0, Anion Gap 6, BUN 8, Creatinine 0.75, Estim Creat Clear Calc 100.81, Est GFR (MDRD) Af Amer 116, Est GFR (MDRD) Non-Af 96, BUN/Creatinine Ratio 10.7, Glucose 110 H, Calcium 8.9, Total Bilirubin 0.50, AST 11 L, ALT 24, Alkaline Phosphatase 63, Troponin I < 0.015, Total Protein 7.3, Albumin 2.5 L, Globulin 4.8 H, Albumin/Globulin Ratio 0.5 L 12/10/19 18:45: Lactic Acid Pending Current Medications Ceftriaxone Sodium 2 gm/ (Sodium Chloride) 50 mls @ 100 mls/hr IV X1 ONE Stop: 12/10/19 20:29 Azithromycin 500 mg/ Dextrose 255 mls @ 250 mls/hr IV X1 ONE Stop: 12/10/19 21:01 Assessment/Plan All Active Problems Noncompliance with medication regimen (Acute) Parapneumonic effusion (Acute) Pneumonia (Acute) Sepsis (Acute) The patient is a 34 year old F with a significant history of tobacco abuse and prior cocaine abuse who presents with 1-week history of progressively worsening shortness of breath; left side chest pain nonproductive cough; anorexia; and with leukocytosis; bandemia; Chest CT findings of occlusion of the left lower lobe bronchus at its origin with complete collapse of left lower lobe. and New left pleural effusion; and enlarged mediastinal lymphadenopathy consistent with sepsis secondary to pneumonia; mucous plug and parapneumonic effusion. Sepsis secondary to community-acquired pneumonia/Mucus plug and parapneumonic effusion Probable gram-positive and gram-negative.. Lactic acid: 1.7 RR: Generally more than 20 with highest of 28 Heart rate: Generally more than 90 with highest of 118 Blood culture ?[address] showed occlusion of the left lower lobe bronchus at its origin with complete collapse of left lower lobe.; New left pleural effusion; enlarged mediastinal lymphadenopathy. Respiratory Gram stain and culture pending Antibiotics: Was started on ceftriaxone and azithromycin in the emergency department. While inpatient we will continue patient on ceftriaxone and azithromycin. MRSA nasal screen. IV hydration: Received normal saline bolus at the emergency department. DuoNeb scheduled. Albuterol as needed Mucomyst inhalation. Morphine for pain. Zofran for antiemetics. Bowel protocol in place. Legionella antigen screen and Strep antigen ordered Ultrasound thoracentesis with fluid studies. We will keep patient n.p.o. Case was discussed with a clinical medical transcriptionist, Dr. Ron Akbar who will follow. Tobacco abuse Counseled Nicotine patch prescribed. Cocaine abuse She reported last time of cocaine use was about a month ago. Reportedly she snorted cocaine. Counseled. IV drug use and methamphetamine abuse In chart is documented IV drug use but patient denies. DVT prophylaxis SCDs Inpatient E&M: 10043 Init Hosp L3
[2019-12-10 20:05] LABS: Lactic Acid 1.7 mmol/L (0.4-1.9)
[2019-12-10] MEDS: Morphine 2 MG/ML Syringe IV (22:03)
[2019-12-11] VITALS (33 sets, daily range): BP systolic 92–115; BP diastolic 56–77; PULSE 92–123; RESP 20–36; TEMP 36.6–37.9; O2SAT 95–100
[2019-12-11] MEDS: Ipratropium/Albuterol Sulfate 3 ML AMPUL.NEB INHALATION ×5 (01:50→18:44)
[2019-12-11] MEDS: Acetylcysteine 800 MG/4 ML VIAL.NEB. INHALATION ×2 (01:51→07:07)
[2019-12-11 01:59] LABS: M R Staph aureus DNA By PCR Negative (Negative); Probe Check PASS; Specimen Processing Control PASS
[2019-12-11] MEDS: Morphine 2 MG/ML Syringe IV ×2 (02:13→06:31)
[2019-12-11 06:41] LABS: Absolute Lymphocyte Count 1.33 X10^3/uL (0.83-4.51); Absolute Neutrophil Count 19.1 X10^3/uL (2.0-7.7); Basophil# 0.12 X10^3/uL; Basophil% 0.5 % (0-1); Eosinophil# 0.03 X10^3/uL; Eosinophils% 0.1 % (0-5); Hematocrit 33.7 % (37-47); Hemoglobin 11.1 g/dL (12.0-15.0); Lymphocyte # 1.33 X10^3/ul (4.0); Lymphocyte % 5.9 % (19-41); Mean Corp Hgb Conc 32.9 g/dL (32-36); Mean Corpuscular Hgb 29.8 pg (27.0-32.0); Mean Corpuscular Volume 90.6 fL (81-99); Mean Platelet Vol. 8.9 fl (6.2-12.0); Monocyte# 1.72 X10^3/uL; Monocyte% 7.6 % (0-10); NRBC Flagged by Analyzer 0 % (0-5); Neutrophil # 19.14 X10^3/uL (2.7-7.7); Neutrophil % 84.6 % (47-70); POSITIVE DIFFERENTIAL YES; POSITIVE MORPHOLOGY YES; Platelet Count 330 K/mm3 (150-450); RBC Distribution Width CV 13.6 % (11.6-14.6); RBC Distribution Width SD 44.8 fl (35.1-43.9); Red Blood Count 3.72 M/mm3 (4.2-5.4); White Blood Count 22.6 K/mm3 (4.4-11.0)
[2019-12-11] MEDS: 0.9% Saline Lock 10 ML Syringe IV ×3 (06:42→20:04)
[2019-12-11 06:43] LABS: Differential Indicated SCAN CRITERIA MET
[2019-12-11 06:57] LABS: Differential Comment SCANNED
[2019-12-11 07:17] LABS: ALB/GLOB Ratio 0.4 RATIO (0.9-2.4); Anion Gap 6 (5-15); BUN 7 mg/dL (7-18); BUN/Creat Ratio 13.8 RATIO (10-20); Calcium,Total 7.9 mg/dL (8.5-10.1); Chloride 109 mmol/L (98-107); Creatinine, Serum 0.51 mg/dL (0.55-1.02); EST Glomerular Filtration Rate 149 mL/min (>60); Est Glom Filt Rate - Afr Amer 180 mL/min (>60); Estimated Creatinine Clearance 148.25 ml/min; Globulin 4.1 g/dL (2.2-4.2); Glucose 103 mg/dL (74-106); LDH 249 U/L (84-246); Protein, Total 5.9 g/dL (6.4-8.2); Sodium Level 137 mmol/L (136-145)
[2019-12-11] MEDS: Ketorolac 15 MG/ML Vial IV ×2 (10:30→20:04)
[2019-12-11 11:45] LABS: Color, Urine Amber (Yellow); Glucose, Dipstick Normal (Normal); Ketone-Dipstick 50 mg/dl (Negative); Leukocyte Esterase-Dipstick Negative /ul (Negative); Nitrite-Dipstick Negative (Negative); Occult Blood-Urine 10 /ul (Negative); Protein-Dipstick 15 mg/dl (Negative); Specific Gravity, Urine 1.025 (1.002-1.030); Urine Clarity Sl. Cloudy (Clear); Urine Urobilinogen Normal (Normal)
[2019-12-11 11:50] LABS: Urine Bilirubin Dipstick 1 mg/dL (Negative)
[2019-12-11 11:53] LABS: Bacteria 1+ /hpf (None Seen); Mucous, Urine 2+ /hpf (<or=2+); Red Blood Cells-Urine 0-5 SEEN /hpf (0-5); Squamous Epithelial Cells - UA 0-5 SEEN /hpf (5-10); White Blood Cells 0-5 SEEN /hpf (0-5)
--- NOTE | 2019-12-11 12:09 | PCM.CONS.PUL ---
Problem List (1) Noncompliance with medication regimen Status: Acute (2) Parapneumonic effusion Status: Acute (3) Pneumonia Status: Acute Qualifiers: Pneumonia type: due to unspecified organism Laterality: left Lung location: lower lobe of lung Qualified Code(s): J18.9 - Pneumonia, unspecified organism (4) Sepsis Status: Acute Qualifiers: Sepsis type: sepsis due to unspecified organism Qualified Code(s): A41.9 - Sepsis, unspecified organism (5) Tobacco dependence Status: Chronic (6) PCOS (polycystic ovarian syndrome) Status: Chronic Reason for Consult Date of Consultation: 12/11/19 Reason for Consultation: Left lower lobe collapse History of Present Illness: The patient is a 34 year old F, with no reported past medical history outside of polycystic ovarian syndrome, who presented to [facility] on 12/10/2019 secondary to progressive shortness of breath and chest pain. Patient was reportedly recently seen here and diagnosed with pneumonia. Patient was placed on Levaquin therapy, but failed to continue therapy. Patient states that she felt relatively the same as she did when she was discharged from a symptom standpoint, but they were just more intense. Patient had reported chills, cough and a subjective fever. Patient reported a sharp stabbing chest pain on the left that was worse with deep inhalation. In the ER, patient reportedly did not look well. Patient continued to have a significant leukocytosis and a CT scan of the chest showed complete lobar collapse of the left lower lobe, mucous plugging and an associated effusion with enlarged mediastinal lymphadenopathy. Patient was placed on empiric antibiotics, given a breathing treatment and admitted to the PCU for further evaluation. Since being in the PCU, patient states she feels she is relatively unchanged. Patient was frustrated with the amount of chest pain that she was having and was not very cooperative with extensive questioning. Patient denied ever having issues with pleural effusions previously. Patient has stated that she lost the prescription for antibiotics, but now I found it in my pocket. Patient was discharged from the ER 6 days ago after signing out AMA. Patient does report that she smokes at baseline, but has never been seen by a extension worker or had PFTs previously. Patient does not use any inhalers at baseline. Patient does have a previous history of IV drug use, but denied that at this time. Patient very limited with review of systems secondary to frustration with repeated questioning. Past Medical History Past Medical History (Chronic Problems): Chronic Problems Tobacco dependence (Chronic) PCOS (polycystic ovarian syndrome) (Chronic) Allergies No Known Allergies Allergy (Verified 12/10/19 17:51) Home Medications: Ambulatory Orders Medication Instructions Recorded NK 12/10/19 Surgical History: tonsillectomy Lives: Homeless Smoking Status: Current every day smoker Tobacco Use: Cigarettes Alcohol: Sober Drugs: - - hx IVDU and methamphetamine abuse - *Family History Paternal History Items: Diabetes, Hypertension Review of Systems Unable to obtain accurate/complete ROS d/t: See HPI Patient Problems: Active and Suspected Problems Noncompliance with medication regimen (Acute) Parapneumonic effusion (Acute) Pneumonia (Acute) Sepsis (Acute) Objective: CT of the chest was personally reviewed. Previous CT scan showed no pulmonary embolism with left lower lobe pneumonia. Most recent CT scan shows progression through mediastinal lymphadenopathy, left pleural effusion and displacement of the left lower lobe. - Physical Exam Vitals/I&O's: Vital Signs Temp Pulse Resp BP Pulse Ox 37.0 C 115 H 20 H 103/73 99 12/11/19 11:00 12/11/19 11:08 12/11/19 11:02 12/11/19 11:00 12/11/19 11:00 Oxygen Flow Rate (L/min) 2 Oxygen Delivery Method Nasal Cannula Weight: 74.2 kg Body Mass Index (BMI) 25.9 Intake and Output for Last 24 Hours 12/09/19 12/10/19 12/11/19 23:59 23:59 23:59 Intake Total 1645 / 1645 720.5 / 720.5 Output Total 0 / 0 Balance 1645 / 1645 720.5 / 720.5 General: Alert, Oriented x3, - - Appears ill. Frustrated with questioning. Appears older than stated age. HEENT: Atraumatic, PERRLA, EOMI, Normocephalic, - - Slight scleral injection without icterus Oral: Moist Mucosa, No Gingival or Mucosal Lesions/ Ulcerations, - - Fair dentition Neck: Supple, No JVD, No Nodes, Trachea Midline Lungs: Diminished - Little breath sounds noted in the left base. Rhonchi at the left base., Wheezes - Left, - - Dullness to percussion at the left base. With deep inhalation. Cardiovascular: Normal S1, Normal S2, No murmurs, No rub noted, No Gallop, Tachycardic Abdomen: Bowel Sounds Present, Soft, Non Tender, Non-Distended Extremities: No clubbing, No cyanosis, No edema, Capillary Refill Less than 3 Seconds Skin: No rashes, No breakdown Musculoskeletal: No Tenderness to Palpation of Joints or Extremities Lymphatic: No Cervical, Supraclavicular, or Inguinal Adenopathy Neurological: Cranial nerves II-XII grossly intact, Neuro grossly intact, Motor Exam 5/5 strength throughout Psych/Mental Status: Agitated, Anxious, Restless Laboratory Results 12/10/19 18:45: WBC 29.4 H, RBC 4.50, Hgb 13.5, Hct 40.3, MCV 89.6, MCH 30.0, MCHC 33.5, RDW Std Deviation 44.0 H, RDW Coeff of Tonya 13.4, Plt Count 463 H, MPV 8.7, Neut % (Auto) Not Reportable, Absolute Neuts (auto) 24.4 H, Absolute Lymphs (auto) 2.06, Total Counted 100, Neutrophils % (Manual) 60, Band Neutrophils % 23 H, Lymphocytes % (Manual) 7 L, Monocytes % (Manual) 10, Diff Path Review February, Platelet Estimate ADEQUATE, RBC Morphology NORM C+C 12/10/19 18:45: PT 16.1 H, INR 1.3, APTT 33.2 12/10/19 18:45: Sodium 137, Potassium 3.7, Chloride 103, Carbon Dioxide 28.0, Anion Gap 6, BUN 8, Creatinine 0.75, Estim Creat Clear Calc 100.81, Est GFR (MDRD) Af Amer 116, Est GFR (MDRD) Non-Af 96, BUN/Creatinine Ratio 10.7, Glucose 110 H, Calcium 8.9, Total Bilirubin 0.50, AST 11 L, ALT 24, Alkaline Phosphatase 63, Troponin I < 0.015, Total Protein 7.3, Albumin 2.5 L, Globulin 4.8 H, Albumin/Globulin Ratio 0.5 L 12/10/19 18:45: Lactic Acid 1.7 12/11/19 00:15: MRSA (PCR) Negative 12/11/19 06:24: WBC 22.6 H, RBC 3.72 L, Hgb 11.1 L, Hct 33.7 L, MCV 90.6, MCH 29.8, MCHC 32.9, RDW Std Deviation 44.8 H, RDW Coeff of Tonya 13.6, Plt Count 330, MPV 8.9, Immature Gran % (Auto) 1.300 H, Neut % (Auto) 84.6 H, Lymph % (Auto) 5.9 L, [place] % (Auto) 7.6, Eos % (Auto) 0.1, Baso % (Auto) 0.5, Absolute Neuts (auto) 19.1 H, Absolute Lymphs (auto) 1.33, Nucleated RBC % 0, Differential Comment SCANNED 12/11/19 06:24: Sodium 137, Potassium 4.0, Chloride 109 H, Carbon Dioxide 22.0, Anion Gap 6, BUN 7, Creatinine 0.51 L, Estim Creat Clear Calc 148.25, Est GFR (MDRD) Af Amer 180, Est GFR (MDRD) Non-Af 149, BUN/Creatinine Ratio 13.8, Glucose 103, Calcium 7.9 L, Lactate Dehydrogenase 249 H 12/11/19 06:24: Total Protein 5.9 L, Globulin 4.1, Albumin/Globulin Ratio 0.4 L 12/11/19 11:35: Urine Color Hoa, Urine Clarity Sl. Cloudy, Urine pH 5.0, Ur Specific [place] 1.025, Urine Protein 15 H, Urine Glucose (UA) Normal, Urine Ketones 50 H, Urine Occult Blood 10 H, Urine Nitrite Negative, Urine Bilirubin 1 H, Urine Urobilinogen Normal, Ur Leukocyte Esterase Negative, Urine RBC 0-5 SEEN, Urine WBC 0-5 SEEN, Ur Squamous Epith Cells 0-5 SEEN, Urine Bacteria 1+, Urine Mucus 2+ Current Medications Acetaminophen (Tylenol) 650 mg PO Q6H PRN PRN PRN Reason: Pain Score 1-10/Temp > 100.7 F Albuterol Sulfate (Ventolin Aerosols) 2.5 mg INHALATION Q2H PRN PRN PRN Reason: SOB/Wheezing Albuterol/Ipratropium (Duoneb) 3 ml INHALATION Q4HWA.RT BRANDEN Last Admin: 12/11/19 11:02 Dose: 3 ml Documented by: Glucagon () 1 mg IM .X1 PRN PRN Reason: Hypoglycemia Guaifenesin (Mucinex) 1,200 mg PO BID [facility] Ceftriaxone Sodium 2 gm/ (Sodium Chloride) 50 mls @ 100 mls/hr IV Q24@2200 [facility] Azithromycin 500 mg/ Dextrose 255 mls @ 250 mls/hr IV Q24@2200 [facility] Dextrose (Dextrose 10%-Water) 250 mls @ 999 mls/hr IV .Q16M PRN; Protocol PRN Reason: HYPOGLYCEMIA Sodium Chloride () 250 mls @ 15 mls/hr IV .[id number] PRN PRN Reason: Saline Flush Last Infusion: 12/11/19 06:39 Dose: 0 mls/hr Documented by: Sodium Chloride () 250 mls @ 15 mls/hr IV .[id number] PRN PRN Reason: Additional IVPB Infusion Ketorolac Tromethamine (Toradol (Bkc)) 15 mg IV Q8H PRN PRN PRN Reason: Pain Score 1-1010 Stop: 12/16/19 08:25 Last Admin: 12/11/19 10:30 Dose: 15 mg Documented by: Melatonin (Melatonin) 3 mg PO QHS PRN PRN PRN Reason: INSOMNIA Nicotine (Nicoderm Cq (Pbkc)) 21 mg TRANSDERM. DAILY [facility] Last Admin: 12/11/19 10:32 Dose: 21 mg Documented by: Ondansetron HCl (Zofran) 4 mg IV Q8H PRN PRN PRN Reason: NAUSEA/VOMITING Senna/Docusate Sodium (Senokot-S, Jossie-Colace) 2 tablet PO BID PRN PRN PRN Reason: Constipation Sodium Chloride () 10 - 40 ml IV UD PRN PRN Reason: SALINE FLUSH Last Admin: 12/11/19 10:33 Dose: 20 ml Documented by: Clinical Impression(s) from Imaging Studies Chest CT 12/10/19 18:23 IMPRESSION: 1. Occlusion of the left lower lobe bronchus at its origin with complete collapse left lower lobe. 2. New left pleural effusion. 3. Enlarged mediastinal lymphadenopathy. 4. No other interval change. Electronically Signed: Herrera Wolff DO at 19:49 EST Tel [phone], Service support , Assessment/Plan All Active Problems Noncompliance with medication regimen (Acute) Parapneumonic effusion (Acute) Pneumonia (Acute) Sepsis (Acute) RECOMMENDATIONS: 1. Obtain thoracentesis 2. Agree with empiric antibiotics 3. No plans for bronchoscopy until response to thoracentesis available 4. Hold on steroids for now 5. Transition from Mucomyst to Mucinex IMPRESSIONS: 1. Sepsis secondary to community-acquired pneumonia with probable parapneumonic effusion versus empyema Patient with delay in therapy after leaving AMA from the hospital. Patient has developed a left-sided pleural effusion and concern for parapneumonic effusion versus empyema is significant. Unclear if patient truly has an airway obstruction or if this is secondary to extrinsic compression from the pleural effusion. Pain control with NSAIDs would be appropriate. Continue with IV antibiotics. Vancomycin likely not necessary given negative MRSA screen. Would transition from Mucomyst to Mucinex as this may loosen secretions better in the setting of airway obstruction. Further recommendations once thoracentesis results are available. 2. Tobacco abuse/cocaine abuse/history of methamphetamine and IV drug use/history of noncompliance/homelessness Complicates care, management, recovery and prognosis. No murmurs noted on exam. Findings on CT scan of the chest are not suggestive of septic emboli. Likely okay to hold off on any echocardiogram. Blood cultures have already been sent. Enlarged mediastinal lymphadenopathy would be an expected result of an untreated pneumonia. Monitor for signs or symptoms of withdrawal. Social work to evaluate for medication availability and potential senior care options. Patient has a relative lymphopenia on examination, but this may be secondary to acute bacterial infection. If not improving, evaluation for HIV given history of IV drug use may be appropriate Inpatient E&M: 80447 Init Hosp L3
[2019-12-11 12:59] LABS: Pathologist Review Reviewed
--- NOTE | 2019-12-11 13:03 | PCM.PN.HOSP ---
<Ramses Olivas - Last Filed: 12/11/19 13:03> Patient Problems: Active and Suspected Problems Noncompliance with medication regimen (Acute) Parapneumonic effusion (Acute) Pneumonia (Acute) Sepsis (Acute) Reason for Visit: SOB Subjective: Pt states she returned for SOB, currently denying SOB. She states she feels sick, however does not tell me any specific symptoms. She currently denies CP, dizziness, LH, fever, chills, sweats, cough, SOB, nausea, vomiting, diarrhea. She is somewhat lethargic. She smokes cigarettes and cocaine. Vitals/I&O's: Vital Signs Temp Pulse Resp BP Pulse Ox 98.9 F 97 22 H 102/73 98 12/11/19 12:00 12/11/19 12:00 12/11/19 12:00 12/11/19 12:00 12/11/19 12:00 Oxygen Flow Rate (L/min) 2 Oxygen Delivery Method Nasal Cannula Weight: 163 lb 9.328 oz Body Mass Index (BMI) 25.9 Intake and Output for Last 24 Hours 12/09/19 12/10/19 12/11/19 23:59 23:59 23:59 Intake Total 1645 / 1645 720.5 / 720.5 Output Total 0 / 0 Balance 1645 / 1645 720.5 / 720.5 General: Alert, Oriented x3, Cooperative HEENT: Atraumatic, PERRLA, EOMI, Normocephalic Neck: Supple, No JVD, Negative Carotid Bruits Lungs: Clear to auscultation, Normal air movement, Diminished Cardiovascular: Tachycardic Abdomen: Bowel Sounds Present, Soft, Non Tender Extremities: No edema, Capillary Refill Less than 3 Seconds Skin: No rashes, No breakdown Musculoskeletal: No Tenderness to Palpation of Joints or Extremities Neurological: Cranial nerves II-XII grossly intact Psych/Mental Status: Normal Affect, Appropriate, Alert and oriented to time, place, person, mood and affect Laboratory Results 12/10/19 18:45: WBC 29.4 H, RBC 4.50, Hgb 13.5, Hct 40.3, MCV 89.6, MCH 30.0, MCHC 33.5, RDW Std Deviation 44.0 H, RDW Coeff of Tonya 13.4, Plt Count 463 H, MPV 8.7, Neut % (Auto) Not Reportable, Absolute Neuts (auto) 24.4 H, Absolute Lymphs (auto) 2.06, Total Counted 100, Neutrophils % (Manual) 60, Band Neutrophils % 23 H, Lymphocytes % (Manual) 7 L, Monocytes % (Manual) 10, Diff Path Review Reviewed, Platelet Estimate ADEQUATE, RBC Morphology NORM C+C 12/10/19 18:45: PT 16.1 H, INR 1.3, APTT 33.2 12/10/19 18:45: Sodium 137, Potassium 3.7, Chloride 103, Carbon Dioxide 28.0, Anion Gap 6, BUN 8, Creatinine 0.75, Estim Creat Clear Calc 100.81, Est GFR (MDRD) Af Amer 116, Est GFR (MDRD) Non-Af 96, BUN/Creatinine Ratio 10.7, Glucose 110 H, Calcium 8.9, Total Bilirubin 0.50, AST 11 L, ALT 24, Alkaline Phosphatase 63, Troponin I < 0.015, Total Protein 7.3, Albumin 2.5 L, Globulin 4.8 H, Albumin/Globulin Ratio 0.5 L 12/10/19 18:45: Lactic Acid 1.7 12/11/19 00:15: MRSA (PCR) Negative 12/11/19 06:24: WBC 22.6 H, RBC 3.72 L, Hgb 11.1 L, Hct 33.7 L, MCV 90.6, MCH 29.8, MCHC 32.9, RDW Std Deviation 44.8 H, RDW Coeff of Tonya 13.6, Plt Count 330, MPV 8.9, Immature Gran % (Auto) 1.300 H, Neut % (Auto) 84.6 H, Lymph % (Auto) 5.9 L, [place] % (Auto) 7.6, Eos % (Auto) 0.1, Baso % (Auto) 0.5, Absolute Neuts (auto) 19.1 H, Absolute Lymphs (auto) 1.33, Nucleated RBC % 0, Differential Comment SCANNED 12/11/19 06:24: Sodium 137, Potassium 4.0, Chloride 109 H, Carbon Dioxide 22.0, Anion Gap 6, BUN 7, Creatinine 0.51 L, Estim Creat Clear Calc 148.25, Est GFR (MDRD) Af Amer 180, Est GFR (MDRD) Non-Af 149, BUN/Creatinine Ratio 13.8, Glucose 103, Calcium 7.9 L, Lactate Dehydrogenase 249 H 12/11/19 06:24: Total Protein 5.9 L, Globulin 4.1, Albumin/Globulin Ratio 0.4 L 12/11/19 11:35: Urine Color Hoa, Urine Clarity Sl. Cloudy, Urine pH 5.0, Ur Specific [place] 1.025, Urine Protein 15 H, Urine Glucose (UA) Normal, Urine Ketones 50 H, Urine Occult Blood 10 H, Urine Nitrite Negative, Urine Bilirubin 1 H, Urine Urobilinogen Normal, Ur Leukocyte Esterase Negative, Urine RBC 0-5 SEEN, Urine WBC 0-5 SEEN, Ur Squamous Epith Cells 0-5 SEEN, Urine Bacteria 1+, Urine Mucus 2+ Current Medications Acetaminophen (Tylenol) 650 mg PO Q6H PRN PRN PRN Reason: Pain Score 1-10/Temp > 100.7 F Albuterol Sulfate (Ventolin Aerosols) 2.5 mg INHALATION Q2H PRN PRN PRN Reason: SOB/Wheezing Albuterol/Ipratropium (Duoneb) 3 ml INHALATION Q4HWA.RT BRANDEN Last Admin: 12/11/19 11:02 Dose: 3 ml Documented by: Glucagon () 1 mg IM .X1 PRN PRN Reason: Hypoglycemia Guaifenesin (Mucinex) 1,200 mg PO BID [facility] Ceftriaxone Sodium 2 gm/ (Sodium Chloride) 50 mls @ 100 mls/hr IV Q24@2200 [facility] Azithromycin 500 mg/ Dextrose 255 mls @ 250 mls/hr IV Q24@2200 [facility] Dextrose (Dextrose 10%-Water) 250 mls @ 999 mls/hr IV .Q16M PRN; Protocol PRN Reason: HYPOGLYCEMIA Sodium Chloride () 250 mls @ 15 mls/hr IV .[id number] PRN PRN Reason: Saline Flush Last Infusion: 12/11/19 06:39 Dose: 0 mls/hr Documented by: Sodium Chloride () 250 mls @ 15 mls/hr IV .[id number] PRN PRN Reason: Additional IVPB Infusion Ketorolac Tromethamine (Toradol (Bkc)) 15 mg IV Q8H PRN PRN PRN Reason: Pain Score 1-10/10 Stop: 03/11/20 08:25 Last Admin: 12/11/19 10:30 Dose: 15 mg Documented by: Melatonin (Melatonin) 3 mg PO QHS PRN PRN PRN Reason: INSOMNIA Nicotine (Nicoderm Cq (Pbkc)) 21 mg TRANSDERM. DAILY [facility]AND[facility] Last Admin: 12/11/19 10:32 Dose: 21 mg Documented by: Ondansetron HCl (Zofran) 4 mg IV Q8H PRN PRN PRN Reason: NAUSEA/VOMITING Senna/Docusate Sodium (Senokot-S, Jossie-Colace) 2 tablet PO BID PRN PRN PRN Reason: Constipation Sodium Chloride () 10 - 40 ml IV UD PRN PRN Reason: SALINE FLUSH Last Admin: 12/11/19 10:33 Dose: 20 ml Documented by: STROKE Vital Signs/Narrative: Vital Signs Temp Pulse Resp BP Pulse Ox 12/11/19 12:00 98.9 F 97 22 H 102/73 98 12/11/19 11:08 115 H 12/11/19 11:02 113 H 20 H 12/11/19 11:00 98.6 F 110 H 29 H 103/73 99 12/11/19 10:00 100.1 F H 112 H 26 H 97/64 99 Medical Necessity - Tobacco Use Smoking Status: Current every day smoker Tobacco Use: Cigarettes Assessment/Plan All Active Problems Noncompliance with medication regimen (Acute) Parapneumonic effusion (Acute) Pneumonia (Acute) Sepsis (Acute) 1. Sepsis 2/2 CAP - possible mucus plug, parapneumonic effusion - rocephin/azithro. WBC 29k-->22k. LA 1.7. Trop neg. MRSA neg. -CT chest reviewed. Occlusion of left lower lobe bronchus at origin, complete collapse left lower lobe. New left pleural effusion. suspect parapneumonic. -Left hospital [facility] on 12/05/2019 after being diagnosed with community-acquired pneumonia. She did not fill her Levaquin prescription. -Urine antigens pending, obtain sputum if possible. Diagnostic thora would be helpful if possible. Pulm following. Blood cx pending. 2. Nicotine abuse, cocaine abuse, homelessness - complicating the above, complicating likeliness of follow up, outpatient compliance, and likeliness of recurrence. SW consult. Patch if desired. 3. Hx IVDU - check hiv. lft's nl. 4. Hx PCOS - no home meds DVT ppx: early ambulation DC planning: c/s for homelessness. This patient was seen by Ramses Olivas PA-C under the supervision of Dr. Malone <Petar Malone - Last Filed: 12/11/19 15:21> Vitals/I&O's: Vital Signs Temp Pulse Resp BP Pulse Ox 36.8 C 97 25 H 106/74 100 12/11/19 14:03 12/11/19 14:03 12/11/19 14:03 12/11/19 14:03 12/11/19 14:03 Oxygen Flow Rate (L/min) 2 Oxygen Delivery Method Nasal Cannula Weight: 74.2 kg Body Mass Index (BMI) 25.9 Intake and Output for Last 24 Hours 12/09/19 12/10/19 12/11/19 23:59 23:59 23:59 Intake Total 1645 / 1645 720.5 / 720.5 Output Total 0 / 0 Balance 1645 / 1645 720.5 / 720.5 General: - - groggy, takes time to interact. when she comes to, she follows instructions and interacts appropriately Lungs: Normal air movement, Diminished - LLL Cardiovascular: Tachycardic Abdomen: Bowel Sounds Present, Soft, Non Tender, Non-Distended Psych/Mental Status: Normal Affect, Appropriate Laboratory Results 12/10/19 18:45: WBC 29.4 H, RBC 4.50, Hgb 13.5, Hct 40.3, MCV 89.6, MCH 30.0, MCHC 33.5, RDW Std Deviation 44.0 H, RDW Coeff of Tonya 13.4, Plt Count 463 H, MPV 8.7, Neut % (Auto) Not Reportable, Absolute Neuts (auto) 24.4 H, Absolute Lymphs (auto) 2.06, Total Counted 100, Neutrophils % (Manual) 60, Band Neutrophils % 23 H, Lymphocytes % (Manual) 7 L, Monocytes % (Manual) 10, Diff Path Review Reviewed, Platelet Estimate ADEQUATE, RBC Morphology NORM C+C 12/10/19 18:45: PT 16.1 H, INR 1.3, APTT 33.2 12/10/19 18:45: Sodium 137, Potassium 3.7, Chloride 103, Carbon Dioxide 28.0, Anion Gap 6, BUN 8, Creatinine 0.75, Estim Creat Clear Calc 100.81, Est GFR (MDRD) Af Amer 116, Est GFR (MDRD) Non-Af 96, BUN/Creatinine Ratio 10.7, Glucose 110 H, Calcium 8.9, Total Bilirubin 0.50, AST 11 L, ALT 24, Alkaline Phosphatase 63, Troponin I < 0.015, Total Protein 7.3, Albumin 2.5 L, Globulin 4.8 H, Albumin/Globulin Ratio 0.5 L 12/10/19 18:45: Lactic Acid 1.7 12/11/19 00:15: MRSA (PCR) Negative 12/11/19 06:24: WBC 22.6 H, RBC 3.72 L, Hgb 11.1 L, Hct 33.7 L, MCV 90.6, MCH 29.8, MCHC 32.9, RDW Std Deviation 44.8 H, RDW Coeff of Tonya 13.6, Plt Count 330, MPV 8.9, Immature Gran % (Auto) 1.300 H, Neut % (Auto) 84.6 H, Lymph % (Auto) 5.9 L, [place] % (Auto) 7.6, Eos % (Auto) 0.1, Baso % (Auto) 0.5, Absolute Neuts (auto) 19.1 H, Absolute Lymphs (auto) 1.33, Nucleated RBC % 0, Differential Comment SCANNED 12/11/19 06:24: Sodium 137, Potassium 4.0, Chloride 109 H, Carbon Dioxide 22.0, Anion Gap 6, BUN 7, Creatinine 0.51 L, Estim Creat Clear Calc 148.25, Est GFR (MDRD) Af Amer 180, Est GFR (MDRD) Non-Af 149, BUN/Creatinine Ratio 13.8, Glucose 103, Calcium 7.9 L, Lactate Dehydrogenase 249 H 12/11/19 06:24: Total Protein 5.9 L, Globulin 4.1, Albumin/Globulin Ratio 0.4 L 12/11/19 11:35: Urine Color Hoa, Urine Clarity Sl. Cloudy, Urine pH 5.0, Ur Specific [place] 1.025, Urine Protein 15 H, Urine Glucose (UA) Normal, Urine Ketones 50 H, Urine Occult Blood 10 H, Urine Nitrite Negative, Urine Bilirubin 1 H, Urine Urobilinogen Normal, Ur Leukocyte Esterase Negative, Urine RBC 0-5 SEEN, Urine WBC 0-5 SEEN, Ur Squamous Epith Cells 0-5 SEEN, Urine Bacteria 1+, Urine Mucus 2+ Current Medications Acetaminophen (Tylenol) 650 mg PO Q6H PRN PRN PRN Reason: Pain Score 1-10/Temp > 100.7 F Albuterol Sulfate (Ventolin Aerosols) 2.5 mg INHALATION Q2H PRN PRN PRN Reason: SOB/Wheezing Albuterol/Ipratropium (Duoneb) 3 ml INHALATION Q4HWA.RT BRANDEN Last Admin: 12/11/19 15:03 Dose: 3 ml Documented by: Glucagon () 1 mg IM .X1 PRN PRN Reason: Hypoglycemia Guaifenesin (Mucinex) 1,200 mg PO BID [facility] Ceftriaxone Sodium 2 gm/ (Sodium Chloride) 50 mls @ 100 mls/hr IV Q24@2200 [facility] Azithromycin 500 mg/ Dextrose 255 mls @ 250 mls/hr IV Q24@2200 [facility] Sodium Chloride () 250 mls @ 15 mls/hr IV .[id number] PRN PRN Reason: Saline Flush Last Infusion: 12/11/19 06:39 Dose: 0 mls/hr Documented by: Sodium Chloride () 250 mls @ 15 mls/hr IV .[id number] PRN PRN Reason: Additional IVPB Infusion Ketorolac Tromethamine (Toradol (Bkc)) 15 mg IV Q8H PRN PRN PRN Reason: Pain Score 1-10/10 Stop: 12/16/19 08:25 Last Admin: 12/11/19 10:30 Dose: 15 mg Documented by: Melatonin (Melatonin) 3 mg PO QHS PRN PRN PRN Reason: INSOMNIA Nicotine (Nicoderm Cq (Pbkc)) 21 mg TRANSDERM. DAILY [facility] Last Admin: 12/11/19 10:32 Dose: 21 mg Documented by: Ondansetron HCl (Zofran) 4 mg IV Q8H PRN PRN PRN Reason: NAUSEA/VOMITING Senna/Docusate Sodium (Senokot-S, Jossie-Colace) 2 tablet PO BID PRN PRN PRN Reason: Constipation Sodium Chloride () 10 - 40 ml IV UD PRN PRN Reason: SALINE FLUSH Last Admin: 12/11/19 10:33 Dose: 20 ml Documented by: STROKE Vital Signs/Narrative: Vital Signs Temp Pulse Resp BP Pulse Ox 12/11/19 14:03 36.8 C 97 25 H 106/74 100 12/11/19 13:55 100 12/11/19 13:52 36.8 C 96 25 H 98/67 100 12/11/19 12:00 37.2 C 97 22 H 102/73 98 Assessment/Plan Patient seen and examined independently. Data reviewed. I agree with the above note by the physician drafter assistant. Assessment 1. sepsis 2. suspected pneumococcal pneumonia 3. pleural effusion--ruled out on US 4. Chronic issues: polysubstance abuse, PCOS, nicotine abuse Plan: 1. continue abx 2. stop narcotics, ketorolac for pain Inpatient E&M: 27658 Subs Hosp L2
--- NOTE | 2019-12-11 15:33 | CASEMGMT ---
Social Work Received consult for pt alcohol and substance abuse and homeless. Attempted to visit pt twice but unavailable. SW to continue to follow for possible resources. Viviana Orourke, HOB GRINDER MANAGER ARCHITECTURE
[2019-12-11 17:02] LABS: HIV - WCH Non-Reactive (Nonreactive)
[2019-12-11] MEDS: Acetaminophen 325 MG Tablet 650 MG PO (17:46)
[2019-12-11] MEDS: guaiFENesin 1,200 MG Tablet 1200 MG PO (21:02)
--- NOTE | 2019-12-11 21:03 | US_ITS ---
STUDY: SUPERFICIAL ULTRASOUND - LEFT PLEURAL SPACE REASON FOR EXAM: Female, 34 years old. LT PLEURAL EFFUSION assessment. TECHNIQUE: A superficial ultrasound was performed with real-time and static naik-scale imaging. COMPARISON: None. FINDINGS: There is no evidence of pleural effusion. Dense consolidation of the left lower lobe. US/Chest IMPRESSION: Dense consolidation of the left lower lobe. No pleural effusion is seen. Electronically Signed: Adam Palacios, at 14:14 EST , Service support ,
[2019-12-12] VITALS (20 sets, daily range): BP systolic 96–123; BP diastolic 63–88; PULSE 86–107; RESP 18–30; TEMP 36.3–37.1; O2SAT 94–100
[2019-12-12] MEDS: Ketorolac 15 MG/ML Vial IV ×3 (04:15→22:28)
[2019-12-12] MEDS: Acetaminophen 325 MG Tablet 650 MG PO ×3 (04:15→22:27)
[2019-12-12] MEDS: 0.9% Saline Lock 10 ML Syringe IV ×3 (04:17→22:30)
[2019-12-12] MEDS: Ipratropium/Albuterol Sulfate 3 ML AMPUL.NEB INHALATION ×5 (07:05→22:52)
[2019-12-12 07:44] LABS: Absolute Lymphocyte Count 1.93 X10^3/uL (0.83-4.51); Basophil# 0.06 X10^3/uL; Basophil% 0.3 % (0-1); Eosinophil# 0.18 X10^3/uL; Hematocrit 33.7 % (37-47); Hemoglobin 11.1 g/dL (12.0-15.0); Lymphocyte # 1.93 X10^3/ul (4.0); Lymphocyte % 10.5 % (19-41); Mean Corp Hgb Conc 32.9 g/dL (32-36); Mean Corpuscular Hgb 29.3 pg (27.0-32.0); Mean Corpuscular Volume 88.9 fL (81-99); Mean Platelet Vol. 8.8 fl (6.2-12.0); Monocyte# 0.95 X10^3/uL; Monocyte% 5.2 % (0-10); NRBC Flagged by Analyzer 0 % (0-5); Neutrophil % 81.6 % (47-70); Platelet Count 424 K/mm3 (150-450); RBC Distribution Width CV 13.5 % (11.6-14.6); Red Blood Count 3.79 M/mm3 (4.2-5.4); White Blood Count 18.4 K/mm3 (4.4-11.0)
[2019-12-12 08:11] LABS: Anion Gap 6 (5-15); BUN 7 mg/dL (7-18); Calcium,Total 8.4 mg/dL (8.5-10.1); Chloride 105 mmol/L (98-107); EST Glomerular Filtration Rate 152 mL/min (>60); Est Glom Filt Rate - Afr Amer 184 mL/min (>60); Estimated Creatinine Clearance 151.22 ml/min; Glucose 115 mg/dL (74-106); Potassium 3.4 mmol/L (3.5-5.1); Sodium Level 139 mmol/L (136-145)
--- NOTE | 2019-12-12 08:28 | PCM.PN.PUL ---
Patient Problems: Active and Suspected Problems Noncompliance with medication regimen (Acute) Parapneumonic effusion (Acute) Pneumonia (Acute) Sepsis (Acute) Subjective: Patient feels subjectively improved compared to yesterday. Patient is still reporting some pleuritic chest pain, but feels this is less intense and only associated with coughing. Patient reports minimal production. No nausea or vomiting reported. Patient is reporting she is hungry. - Physical Exam Vitals/I&O's: Vital Signs Temp Pulse Resp BP Pulse Ox 36.8 C 93 24 H 106/70 100 12/12/19 08:00 12/12/19 08:00 12/12/19 08:00 12/12/19 08:00 12/12/19 08:00 Oxygen Flow Rate (L/min) 2 Oxygen Delivery Method Nasal Cannula Weight: 74.2 kg Body Mass Index (BMI) 25.9 Intake and Output for Last 24 Hours 12/10/19 12/11/19 12/12/19 23:59 23:59 23:59 Intake Total 1645 / 1645 1805.5 / 1805.5 110.5 / 110.5 Output Total 0 / 0 1200 / 1200 Balance 1645 / 1645 1805.5 / 1805.5 -1089.5 / -1089.5 General: Alert, Oriented x3, Cooperative, - - Mild distress. Vocalizing well. No stridor appreciated. HEENT: Atraumatic, PERRLA, EOMI, Normocephalic, - - No scleral icterus or injection noted Oral: Moist Mucosa, No Gingival or Mucosal Lesions/ Ulcerations Neck: Supple, No JVD, No Nodes, Trachea Midline Lungs: No rhonchi, No wheeze, No rales, Diminished - Left base, - - Fair effort. Dullness to percussion left base Cardiovascular: Regular rate, Regular Rhythm, Normal S1, Normal S2, No murmurs, No rub noted, No Gallop Abdomen: Bowel Sounds Present, Soft, Non Tender, Non-Distended Extremities: No clubbing, No cyanosis, No edema, Capillary Refill Less than 3 Seconds Skin: No rashes, No breakdown Musculoskeletal: No Tenderness to Palpation of Joints or Extremities Lymphatic: No Cervical, Supraclavicular, or Inguinal Adenopathy Neurological: Cranial nerves II-XII grossly intact, Neuro grossly intact, Motor Exam 5/5 strength throughout Psych/Mental Status: Alert and oriented to time, place, person, mood and affect Microbiology Past 72 Hours 12/11/19 11:35 Urine, Clean Catch Streptococcus pneumoniae Antigen (M - Final Streptococcus pneumonia Ag 12/11/19 11:35 Urine, Clean Catch Legionella Antigen - Final Laboratory Results 12/10/19 18:45: Diff Path Review Reviewed 12/11/19 11:35: Urine Color Hoa, Urine Clarity Sl. Cloudy, Urine pH 5.0, Ur Specific [place] 1.025, Urine Protein 15 H, Urine Glucose (UA) Normal, Urine Ketones 50 H, Urine Occult Blood 10 H, Urine Nitrite Negative, Urine Bilirubin 1 H, Urine Urobilinogen Normal, Ur Leukocyte Esterase Negative, Urine RBC 0-5 SEEN, Urine WBC 0-5 SEEN, Ur Squamous Epith Cells 0-5 SEEN, Urine Bacteria 1+, Urine Mucus 2+ 12/11/19 15:54: HIV 1&2 Antibody Non-Reactive 12/12/19 06:58: WBC 18.4 H, RBC 3.79 L, Hgb 11.1 L, Hct 33.7 L, MCV 88.9, MCH 29.3, MCHC 32.9, RDW Std Deviation 44.0 H, RDW Coeff of Tonya 13.5, Plt Count 424, MPV 8.8, Immature Gran % (Auto) 1.400 H, Neut % (Auto) 81.6 H, Lymph % (Auto) 10.5 L, [place] % (Auto) 5.2, Eos % (Auto) 1.0, Baso % (Auto) 0.3, Absolute Neuts (auto) 15.0 H, Absolute Lymphs (auto) 1.93, Nucleated RBC % 0 12/12/19 06:58: Sodium 139, Potassium 3.4 L, Chloride 105, Carbon Dioxide 28.0, Anion Gap 6, BUN 7, Creatinine 0.50 L, Estim Creat Clear Calc 151.22, Est GFR (MDRD) Af Amer 184, Est GFR (MDRD) Non-Af 152, BUN/Creatinine Ratio 14.0, Glucose 115 H, Calcium 8.4 L Current Medications Acetaminophen (Tylenol) 650 mg PO Q6H PRN PRN PRN Reason: Pain Score 1-10/Temp > 100.7 F Last Admin: 12/12/19 04:15 Dose: 650 mg Documented by: Albuterol Sulfate (Ventolin Aerosols) 2.5 mg INHALATION Q2H PRN PRN PRN Reason: SOB/Wheezing Albuterol/Ipratropium (Duoneb) 3 ml INHALATION Q4HWA.RT [facility] Last Admin: 12/12/19 07:05 Dose: 3 ml Documented by: Glucagon () 1 mg IM .X1 PRN PRN Reason: Hypoglycemia Guaifenesin (Mucinex) 1,200 mg PO BID [facility] Last Admin: 12/11/19 21:02 Dose: 1,200 mg Documented by: Ceftriaxone Sodium 2 gm/ (Sodium Chloride) 50 mls @ 100 mls/hr IV Q24@2200 [facility] Last Infusion: 12/11/19 21:57 Dose: Infused Documented by: Azithromycin 500 mg/ Dextrose 255 mls @ 250 mls/hr IV Q24@2200 [facility] Last Infusion: 12/11/19 23:48 Dose: Infused Documented by: Sodium Chloride () 250 mls @ 15 mls/hr IV .[id number] PRN PRN Reason: Saline Flush Last Infusion: 12/12/19 00:30 Dose: 0 mls/hr Documented by: Sodium Chloride () 250 mls @ 15 mls/hr IV .[id number] PRN PRN Reason: Additional IVPB Infusion Ketorolac Tromethamine (Toradol (Bkc)) 15 mg IV Q8H PRN PRN PRN Reason: Pain Score 1-10/10 Stop: 12/16/19 08:25 Last Admin: 12/12/19 04:15 Dose: 15 mg Documented by: Melatonin (Melatonin) 3 mg PO QHS PRN PRN PRN Reason: INSOMNIA Nicotine (Nicoderm Cq (Pbkc)) 21 mg TRANSDERM. DAILY [facility] Last Admin: 12/11/19 10:32 Dose: 21 mg Documented by: Ondansetron HCl (Zofran) 4 mg IV Q8H PRN PRN PRN Reason: NAUSEA/VOMITING Senna/Docusate Sodium (Senokot-S, Jossie-Colace) 2 tablet PO BID PRN PRN PRN Reason: Constipation Sodium Chloride () 10 - 40 ml IV UD PRN PRN Reason: SALINE FLUSH Last Admin: 12/12/19 04:17 Dose: 20 ml Documented by: Clinical Impression(s) from Imaging Studies Chest Ultrasound 12/11/19 21:03 IMPRESSION: Dense consolidation of the left lower lobe. No pleural effusion is seen. Electronically Signed: Adam Palacios, at 14:14 EST , Service support , Medical Necessity - Tobacco Use Smoking Status: Current every day smoker Tobacco Use: Cigarettes Assessment/Plan All Active Problems Noncompliance with medication regimen (Acute) Parapneumonic effusion (Acute) Pneumonia (Acute) Sepsis (Acute) RECOMMENDATIONS: 1. Initiate vest therapy 2. Agree with empiric antibiotics 3. Stable bronchoscopy on Saturday if unable to recruit left lower lobe 4. Hold on steroids for now 5. Increase activity as tolerated IMPRESSIONS: 1. Sepsis secondary to pneumococcal pneumonia with probable parapneumonic effusion versus empyema Patient with delay in therapy after leaving AMA from the hospital. Patient has developed a left-sided pleural effusion and concern for parapneumonic effusion versus empyema is significant. Reportedly, patient did not have any fluid to drain despite CT imaging. Will initiate patient on aggressive pulmonary toileting with vest therapy. Cannot exclude the need for bronchoscopy on Saturday if unable to recruit left lower lobe. Patient is at increased risk for complications given delay in therapy. 2. Tobacco abuse/cocaine abuse/history of methamphetamine and IV drug use/history of noncompliance/homelessness Complicates care, management, recovery and prognosis. No murmurs noted on exam. Findings on CT scan of the chest are not suggestive of septic emboli. Likely okay to hold off on any echocardiogram. Blood cultures have already been sent. Enlarged mediastinal lymphadenopathy would be an expected result of an untreated pneumonia. Monitor for signs or symptoms of withdrawal. Social work to evaluate for medication availability and potential group home options. Patient has a relative lymphopenia on examination, but this may be secondary to acute bacterial infection. If not improving, evaluation for HIV given history of IV drug use may be appropriate Inpatient E&M: 28009 [facility] H[facility] L3
[2019-12-12] MEDS: guaiFENesin 1,200 MG Tablet 1200 MG PO ×2 (10:09→22:29)
--- NOTE | 2019-12-12 12:23 | PCM.PN.HOSP ---
<Ramses Olivas - Last Filed: 12/12/19 12:23> Patient Problems: Active and Suspected Problems Noncompliance with medication regimen (Acute) Parapneumonic effusion (Acute) Pneumonia (Acute) Sepsis (Acute) Reason for Visit: SOB Subjective: Pt resting comfortably in bed NAD. She is sleepy, but awakens readily, keeps eyes closed during interview. She reports overnight subjective fevers/chills/sweats. Occasional nonproductive cough. Chest pain with cough and deep inspiration. Still on o2 - 100%. Will wean. Denies SOB. Vitals/I&O's: Vital Signs Temp Pulse Resp BP Pulse Ox 97.5 F L 89 20 H 119/88 H 100 12/12/19 10:00 12/12/19 11:08 12/12/19 11:08 12/12/19 10:00 12/12/19 10:00 Oxygen Flow Rate (L/min) 2 Oxygen Delivery Method Room Air Weight: 163 lb 9.328 oz Body Mass Index (BMI) 25.9 Intake and Output for Last 24 Hours 12/10/19 12/11/19 12/12/19 23:59 23:59 23:59 Intake Total 1645 / 1645 1805.5 / 1805.5 410.5 / 410.5 Output Total 0 / 0 1200 / 1200 Balance 1645 / 1645 1805.5 / 1805.5 -789.5 / -789.5 General: Alert, Oriented x3, Cooperative HEENT: Atraumatic, PERRLA, EOMI, Normocephalic Neck: Supple, No JVD, Negative Carotid Bruits Lungs: Clear to auscultation, Diminished Cardiovascular: Regular rate, No murmurs Abdomen: Bowel Sounds Present, Soft, Non Tender Extremities: No edema, Capillary Refill Less than 3 Seconds Skin: No rashes, No breakdown Musculoskeletal: No Tenderness to Palpation of Joints or Extremities Neurological: Cranial nerves II-XII grossly intact Psych/Mental Status: Normal Affect, Appropriate, Alert and oriented to time, place, person, mood and affect Microbiology Past 72 Hours 12/11/19 11:35 Urine, Clean Catch Streptococcus pneumoniae Antigen (M - Final Streptococcus pneumonia Ag 12/11/19 11:35 Urine, Clean Catch Legionella Antigen - Final Laboratory Results 12/10/19 18:45: Diff Path Review Reviewed 12/11/19 15:54: HIV 1&2 Antibody Non-Reactive 12/12/19 06:58: WBC 18.4 H, RBC 3.79 L, Hgb 11.1 L, Hct 33.7 L, MCV 88.9, MCH 29.3, MCHC 32.9, RDW Std Deviation 44.0 H, RDW Coeff of Tonya 13.5, Plt Count 424, MPV 8.8, Immature Gran % (Auto) 1.400 H, Neut % (Auto) 81.6 H, Lymph % (Auto) 10.5 L, [place] % (Auto) 5.2, Eos % (Auto) 1.0, Baso % (Auto) 0.3, Absolute Neuts (auto) 15.0 H, Absolute Lymphs (auto) 1.93, Nucleated RBC % 0 12/12/19 06:58: Sodium 139, Potassium 3.4 L, Chloride 105, Carbon Dioxide 28.0, Anion Gap 6, BUN 7, Creatinine 0.50 L, Estim Creat Clear Calc 151.22, Est GFR (MDRD) Af Amer 184, Est GFR (MDRD) Non-Af 152, BUN/Creatinine Ratio 14.0, Glucose 115 H, Calcium 8.4 L Current Medications Acetaminophen (Tylenol) 650 mg PO Q6H PRN PRN PRN Reason: Pain Score 1-10/Temp > 100.7 F Last Admin: 12/12/19 04:15 Dose: 650 mg Documented by: Albuterol Sulfate (Ventolin Aerosols) 2.5 mg INHALATION Q2H PRN PRN PRN Reason: SOB/Wheezing Albuterol/Ipratropium (Duoneb) 3 ml INHALATION Q4HWA.RT [facility] Last Admin: 12/12/19 11:08 Dose: 3 ml Documented by: Glucagon () 1 mg IM .X1 PRN PRN Reason: Hypoglycemia Guaifenesin (Mucinex) 1,200 mg PO BID [facility] Last Admin: 12/12/19 10:09 Dose: 1,200 mg Documented by: Ceftriaxone Sodium 2 gm/ (Sodium Chloride) 50 mls @ 100 mls/hr IV Q24@2200 [facility] Last Infusion: 12/11/19 21:57 Dose: Infused Documented by: Azithromycin 500 mg/ Dextrose 255 mls @ 250 mls/hr IV Q24@2200 [facility] Last Infusion: 12/11/19 23:48 Dose: Infused Documented by: Sodium Chloride () 250 mls @ 15 mls/hr IV .[id number] PRN PRN Reason: Saline Flush Last Infusion: 12/12/19 00:30 Dose: 0 mls/hr Documented by: Sodium Chloride () 250 mls @ 15 mls/hr IV .[id number] PRN PRN Reason: Additional IVPB Infusion Ketorolac Tromethamine (Toradol (Bkc)) 15 mg IV Q8H PRN PRN PRN Reason: Pain Score 1-1010 Stop: 12/16/19 08:25 Last Admin: 12/12/19 04:15 Dose: 15 mg Documented by: Melatonin (Melatonin) 3 mg PO QHS PRN PRN PRN Reason: INSOMNIA Nicotine (Nicoderm Cq (Pbkc)) 21 mg TRANSDERM. DAILY [facility] Last Admin: 12/12/19 10:09 Dose: 21 mg Documented by: Ondansetron HCl (Zofran) 4 mg IV Q8H PRN PRN PRN Reason: NAUSEA/VOMITING Senna/Docusate Sodium (Senokot-S, Jossie-Colace) 2 tablet PO BID PRN PRN PRN Reason: Constipation Sodium Chloride () 10 - 40 ml IV UD PRN PRN Reason: SALINE FLUSH Last Admin: 12/12/19 04:17 Dose: 20 ml Documented by: STROKE Vital Signs/Narrative: Vital Signs Temp Pulse Resp BP Pulse Ox 12/12/19 11:08 89 20 H 12/12/19 10:00 97.5 F L 94 24 H 119/88 H 100 Medical Necessity - Tobacco Use Smoking Status: Current every day smoker Tobacco Use: Cigarettes Assessment/Plan All Active Problems Noncompliance with medication regimen (Acute) Parapneumonic effusion (Acute) Pneumonia (Acute) Sepsis (Acute) 1. Sepsis 2/2 CAP - possible mucus plug, parapneumonic effusion - rocephin/azithro. WBC improving. LA 1.7. Trop neg. MRSA neg. -CT chest reviewed. Occlusion of left lower lobe bronchus at origin, complete collapse left lower lobe. New left pleural effusion. suspect parapneumonic. -[facility] on 12/05/2019 after being diagnosed with community-acquired pneumonia. She did not fill her Levaquin prescription. -Urine antigens + for strep pna. obtain sputum if possible.Pulm following. Blood cx pending. -US with no effusion, dense consolidation. -possible bronch per pul. per pulm no steroids. try vest. -add IS 2. Nicotine abuse, cocaine abuse, homelessness - complicating the above, complicating likeliness of follow up, outpatient compliance, and likeliness of recurrence. SW consult. Patch if desired. 3. Hx IVDU - hiv neg.. lft's nl. 4. Hx PCOS - no home meds DVT ppx: early ambulation DC planning: SW c/s for homelessness. This patient was seen by Ramses Olivas PA-C under the supervision of Dr. Malone <Petar Malone - Last Filed: 12/12/19 13:32> Vitals/I&O's: Vital Signs Temp Pulse Resp BP Pulse Ox 36.4 C L 89 20 H 119/88 H 94 12/12/19 10:00 12/12/19 11:08 12/12/19 11:08 12/12/19 10:00 12/12/19 12:36 Oxygen Flow Rate (L/min) 2 Oxygen Delivery Method Room Air Weight: 74.2 kg Body Mass Index (BMI) 25.9 Intake and Output for Last 24 Hours 12/10/19 12/11/19 12/12/19 23:59 23:59 23:59 Intake Total 1645 / 1645 1805.5 / 1805.5 410.5 / 410.5 Output Total 0 / 0 1200 / 1200 Balance 1645 / 1645 1805.5 / 1805.5 -789.5 / -789.5 General: Alert, Cooperative HEENT: Atraumatic, Normocephalic Neck: No Nodes, Trachea Midline Lungs: No rhonchi, No wheeze, Diminished Cardiovascular: Regular rate, Regular Rhythm, Normal S1, Normal S2, No murmurs Extremities: No edema, No Calf Tenderness Skin: No rashes, No breakdown Psych/Mental Status: Normal Affect, Appropriate Microbiology Past 72 Hours 12/11/19 11:35 Urine, Clean Catch Streptococcus pneumoniae Antigen (M - Final Streptococcus pneumonia Ag 12/11/19 11:35 Urine, Clean Catch Legionella Antigen - Final Laboratory Results 12/11/19 15:54: HIV 1&2 Antibody Non-Reactive 12/12/19 06:58: WBC 18.4 H, RBC 3.79 L, Hgb 11.1 L, Hct 33.7 L, MCV 88.9, MCH 29.3, MCHC 32.9, RDW Std Deviation 44.0 H, RDW Coeff of [place] 13.5, Plt Count 424, MPV 8.8, Immature Gran % (Auto) 1.400 H, Neut % (Auto) 81.6 H, Lymph % (Auto) 10.5 L, [place] % (Auto) 5.2, Eos % (Auto) 1.0, Baso % (Auto) 0.3, Absolute Neuts (auto) 15.0 H, Absolute Lymphs (auto) 1.93, Nucleated RBC % 0 12/12/19 06:58: Sodium 139, Potassium 3.4 L, Chloride 105, Carbon Dioxide 28.0, Anion Gap 6, BUN 7, Creatinine 0.50 L, Estim Creat Clear Calc 151.22, Est GFR (MDRD) Af Amer 184, Est GFR (MDRD) Non-Af 152, BUN/Creatinine Ratio 14.0, Glucose 115 H, Calcium 8.4 L Current Medications Acetaminophen (Tylenol) 650 mg PO Q6H PRN PRN PRN Reason: Pain Score 1-10/Temp > 100.7 F Last Admin: 12/12/19 04:15 Dose: 650 mg Documented by: Albuterol Sulfate (Ventolin Aerosols) 2.5 mg INHALATION Q2H PRN PRN PRN Reason: SOB/Wheezing Albuterol/Ipratropium (Duoneb) 3 ml INHALATION Q4HWA.RT [facility] Last Admin: 12/12/19 11:08 Dose: 3 ml Documented by: Glucagon () 1 mg IM .X1 PRN PRN Reason: Hypoglycemia Guaifenesin (Mucinex) 1,200 mg PO BID [facility] Last Admin: 12/12/19 10:09 Dose: 1,200 mg Documented by: Ceftriaxone Sodium 2 gm/ (Sodium Chloride) 50 mls @ 100 mls/hr IV Q24@2200 [facility] Last Infusion: 12/11/19 21:57 Dose: Infused Documented by: Azithromycin 500 mg/ Dextrose 255 mls @ 250 mls/hr IV Q24@2200 [facility] Last Infusion: 12/11/19 23:48 Dose: Infused Documented by: Sodium Chloride () 250 mls @ 15 mls/hr IV .[id number] PRN PRN Reason: Saline Flush Last Infusion: 12/12/19 00:30 Dose: 0 mls/hr Documented by: Sodium Chloride () 250 mls @ 15 mls/hr IV .[id number] PRN PRN Reason: Additional IVPB Infusion Ketorolac Tromethamine (Toradol (Bkc)) 15 mg IV Q8H PRN PRN PRN Reason: Pain Score 1-10/10 Stop: 12/16/19 08:25 Last Admin: 12/12/19 04:15 Dose: 15 mg Documented by: Melatonin (Melatonin) 3 mg PO QHS PRN PRN PRN Reason: INSOMNIA Nicotine (Nicoderm Cq (Pbkc)) 21 mg TRANSDERM. DAILY [facility] Last Admin: 12/12/19 10:09 Dose: 21 mg Documented by: Ondansetron HCl (Zofran) 4 mg IV Q8H PRN PRN PRN Reason: NAUSEA/VOMITING Senna/Docusate Sodium (Senokot-S, Jossie-Colace) 2 tablet PO BID PRN PRN PRN Reason: Constipation Sodium Chloride () 10 - 40 ml IV UD PRN PRN Reason: SALINE FLUSH Last Admin: 12/12/19 04:17 Dose: 20 ml Documented by: STROKE Vital Signs/Narrative: Vital Signs Temp Pulse Resp BP Pulse Ox 12/12/19 12:36 94 12/12/19 11:08 89 20 H 12/12/19 10:00 36.4 C L 94 24 H 119/88 H 100 Assessment/Plan Patient seen and examined independently. Data reviewed. I agree with the above note by the physician chemical laboratory assistant. Assessment 1. sepsis 2. suspected pneumococcal pneumonia 3. pleural effusion--ruled out on US 4. Chronic issues: polysubstance abuse, PCOS, nicotine abuse Plan: 1. continue abx 2. pulmonary toilet 3. may need bronch. Inpatient E&M: 63098 Subs Hosp L2
--- NOTE | 2019-12-12 14:30 | CASEMGMT ---
SOCIAL WORK REASON FOR REFERRAL: HOMELESS, HISTORY OF MENTAL HEALTH AND SUBSTANCE ABUSE PATIENT KNOWN TO THIS WORKER FROM PREVIOUS VISITS. MET WITH PATIENT IN ROOM. INTRODUCED ROLE. PATIENT REPORTS IS HOMELESS AND HAS BEEN FOR SOME TIME. PATIENT STATES WILL STAY WITH OTHERS OR IN HOTELS. PATIENT REPORTS DOES NOT WANT ANY ASSISTANCE FROM [facility] SHE HAS BEEN THERE IN THE PAST. PATIENT DID NOT WANT TO DISCUSS ISSUES WITH [facility]. PATIENT STATES HAS FOLLOWED WITH THE COUNSELING CENTER AND HAS HISTORY OF ANXIETY. PATIENT WAS PRESCRIBED MEDICATION, BUT MEDICATION ALWAYS GETS STOLEN. PATIENT ADMITS TO SUBSTANCE ABUSE REPORTING, WHATEVER I CAN GET. FROM PRIOR VISITS PATIENT WITH HISTORY OF METH. PATIENT UNSURE OF NEEDS AT THIS TIME. EDUCATION PROVIDED ON LOCAL RESOURCES INCLUDING [employer]. SW WILL REMAIN AVAILABLE FOR NEEDS. 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
[2019-12-12] MEDS: MELATONIN 3 MG TABLET PO (22:27)
[2019-12-13] VITALS (11 sets, daily range): BP systolic 103–126; BP diastolic 63–83; PULSE 86–108; RESP 18–30; TEMP 36.5–36.9; O2SAT 93–97; BMI 25.9
--- NOTE | 2019-12-13 01:16 | EKG12_ITS ---
Test Reason : RHYTHM CHANGE Blood Pressure : / mmHG Vent. Rate : 094 BPM Atrial Rate : 094 BPM P-R Int : 144 ms QRS Dur : 092 ms QT Int : 350 ms P-R-T Axes : 051 064 038 degrees QTc Int : 437 ms Normal sinus rhythm Normal ECG Confirmed by GRACE ECHOLS, BETH ([id number]), manager editorial ELICEO FABIAN ([id number]) on 12/16/2019 10:02:54 AM Referred By: Lamar Mahoney Confirmed By:BETH EDWARDS MD
[2019-12-13 06:35] LABS: Absolute Lymphocyte Count 2.83 X10^3/uL (0.83-4.51); Absolute Neutrophil Count 7.2 X10^3/uL (2.0-7.7); Basophil# 0.09 X10^3/uL; Basophil% 0.8 % (0-1); Eosinophil# 0.31 X10^3/uL; Eosinophils% 2.7 % (0-5); Hemoglobin 10.9 g/dL (12.0-15.0); Lymphocyte # 2.83 X10^3/ul (4.0); Lymphocyte % 24.9 % (19-41); Mean Corpuscular Hgb 29.1 pg (27.0-32.0); Mean Corpuscular Volume 88.2 fL (81-99); Mean Platelet Vol. 8.8 fl (6.2-12.0); Monocyte# 0.67 X10^3/uL; Monocyte% 5.9 % (0-10); NRBC Flagged by Analyzer 0 % (0-5); Neutrophil # 7.16 X10^3/uL (2.7-7.7); Neutrophil % 62.9 % (47-70); Platelet Count 460 K/mm3 (150-450); RBC Distribution Width CV 13.5 % (11.6-14.6); RBC Distribution Width SD 43.8 fl (35.1-43.9); Red Blood Count 3.74 M/mm3 (4.2-5.4); White Blood Count 11.4 K/mm3 (4.4-11.0)
[2019-12-13 07:06] LABS: Anion Gap 7 (5-15); BUN 6 mg/dL (7-18); BUN/Creat Ratio 15.5 RATIO (10-20); Calcium,Total 8.3 mg/dL (8.5-10.1); Chloride 107 mmol/L (98-107); Creatinine, Serum 0.39 mg/dL (0.55-1.02); EST Glomerular Filtration Rate 205 mL/min (>60); Est Glom Filt Rate - Afr Amer 248 mL/min (>60); Estimated Creatinine Clearance 193.87 ml/min; Glucose 85 mg/dL (74-106); Potassium 3.9 mmol/L (3.5-5.1); Sodium Level 139 mmol/L (136-145)
[2019-12-13] MEDS: Ipratropium/Albuterol Sulfate 3 ML AMPUL.NEB INHALATION ×4 (07:14→19:00)
[2019-12-13] MEDS: Ketorolac 15 MG/ML Vial IV ×2 (08:14→18:31)
[2019-12-13] MEDS: 0.9% Saline Lock 10 ML Syringe IV ×2 (08:14→18:31)
[2019-12-13] MEDS: Acetaminophen 325 MG Tablet 650 MG PO ×2 (08:14→18:30)
--- NOTE | 2019-12-13 09:54 | PCM.PN.PUL ---
Patient Problems: Active and Suspected Problems Noncompliance with medication regimen (Acute) Parapneumonic effusion (Acute) Pneumonia (Acute) Sepsis (Acute) Subjective: Patient continues to have pleuritic chest pain, but overall feels subjectively improved compared to previous. Patient does believe the vest therapy is making a difference, but is not reporting a lot of production associated with its use. Patient denies any nausea or vomiting. - Physical Exam Vitals/I&O's: Vital Signs Temp Pulse Resp BP Pulse Ox 36.8 C 99 18 103/63 93 12/13/19 05:00 12/13/19 07:14 12/13/19 07:14 12/13/19 05:00 12/13/19 07:14 Oxygen Flow Rate (L/min) 2 Oxygen Delivery Method Room Air Weight: 74.2 kg Body Mass Index (BMI) 25.9 Intake and Output for Last 24 Hours 12/11/19 12/12/19 12/14/19 23:59 23:59 00:59 Intake Total 1805.5 / 1805.5 764.67 / 764.67 267.83 / 267.83 Output Total 0 / 0 2200 / 2200 Balance 1805.5 / 1805.5 -1435.33 / -1435.33 267.83 / 267.83 General: Alert, Oriented x3, Cooperative, No apparent distress, - - No conversational dyspnea. HEENT: Atraumatic, PERRLA, EOMI, Normocephalic, - - No scleral icterus or injection noted Oral: Moist Mucosa, No Gingival or Mucosal Lesions/ Ulcerations Neck: Supple, No JVD, No Nodes, Trachea Midline Lungs: No rhonchi, No wheeze, No rales, Diminished - Left base Cardiovascular: Regular rate, Regular Rhythm, Normal S1, Normal S2, No murmurs, No rub noted, No Gallop Abdomen: Bowel Sounds Present, Soft, Non Tender, Non-Distended Extremities: No clubbing, No cyanosis, No edema Skin: No rashes, No breakdown Musculoskeletal: No Tenderness to Palpation of Joints or Extremities Lymphatic: No Cervical, Supraclavicular, or Inguinal Adenopathy Neurological: Cranial nerves II-XII grossly intact, Neuro grossly intact, Motor Exam 5/5 strength throughout Psych/Mental Status: Anxious Microbiology Past 72 Hours 12/12/19 04:20 Sputum, Expectorated/Coughed Gram Stain - Final 12/11/19 11:35 Urine, Clean Catch Streptococcus pneumoniae Antigen (M - Final Streptococcus pneumonia Ag 12/11/19 11:35 Urine, Clean Catch Legionella Antigen - Final Laboratory Results 12/13/19 05:33: WBC 11.4 H, RBC 3.74 L, Hgb 10.9 L, Hct 33.0 L, MCV 88.2, MCH 29.1, MCHC 33.0, RDW Std Deviation 43.8, RDW Coeff of Tonya 13.5, Plt Count 460 H, MPV 8.8, Immature Gran % (Auto) 2.800 H, Neut % (Auto) 62.9, Lymph % (Auto) 24.9, [place] % (Auto) 5.9, Eos % (Auto) 2.7, Baso % (Auto) 0.8, Absolute Neuts (auto) 7.2, Absolute Lymphs (auto) 2.83, Nucleated RBC % 0 12/13/19 05:33: Sodium 139, Potassium 3.9, Chloride 107, Carbon Dioxide 25.0, Anion Gap 7, BUN 6 L, Creatinine 0.39 L, Estim Creat Clear Calc 193.87, Est GFR (MDRD) Af Amer 248, Est GFR (MDRD) Non-Af 205, BUN/Creatinine Ratio 15.5, Glucose 85, Calcium 8.3 L Current Medications Acetaminophen (Tylenol) 650 mg PO Q6H PRN PRN PRN Reason: Pain Score 1-10/Temp > 100.7 F Last Admin: 12/13/19 08:14 Dose: 650 mg Documented by: Albuterol Sulfate (Ventolin Aerosols) 2.5 mg INHALATION Q2H PRN PRN PRN Reason: SOB/Wheezing Albuterol/Ipratropium (Duoneb) 3 ml INHALATION Q4HWA.RT [facility] Last Admin: 12/13/19 07:14 Dose: 3 ml Documented by: Glucagon () 1 mg IM .X1 PRN PRN Reason: Hypoglycemia Guaifenesin (Mucinex) 1,200 mg PO BID [facility] Last Admin: 12/12/19 22:29 Dose: 1,200 mg Documented by: Ceftriaxone Sodium 2 gm/ (Sodium Chloride) 50 mls @ 100 mls/hr IV Q24@2200 [facility] Last Infusion: 12/12/19 22:57 Dose: Infused Documented by: Azithromycin 500 mg/ Dextrose 255 mls @ 250 mls/hr IV Q24@2200 [facility] Last Infusion: 12/13/19 01:06 Dose: Infused Documented by: Sodium Chloride () 250 mls @ 15 mls/hr IV .[id number] PRN PRN Reason: Saline Flush Last Infusion: 12/13/19 00:05 Dose: 0 mls/hr Documented by: Sodium Chloride () 250 mls @ 15 mls/hr IV .[id number] PRN PRN Reason: Additional IVPB Infusion Ketorolac Tromethamine (Toradol (Bkc)) 15 mg IV Q8H PRN PRN PRN Reason: Pain Score 1-10/10 Stop: 12/16/19 08:25 Last Admin: 12/13/19 08:14 Dose: 15 mg Documented by: Melatonin (Melatonin) 3 mg PO QHS PRN PRN PRN Reason: INSOMNIA Last Admin: 12/12/19 22:27 Dose: 3 mg Documented by: Nicotine (Nicoderm Cq (Pbkc)) 21 mg TRANSDERM. DAILY [facility] Last Admin: 12/12/19 10:09 Dose: 21 mg Documented by: Ondansetron HCl (Zofran) 4 mg IV Q8H PRN PRN PRN Reason: NAUSEA/VOMITING Senna/Docusate Sodium (Senokot-S, Jossie-Colace) 2 tablet PO BID PRN PRN PRN Reason: Constipation Sodium Chloride () 10 - 40 ml IV UD PRN PRN Reason: SALINE FLUSH Last Admin: 12/13/19 08:14 Dose: 30 ml Documented by: Medical Necessity - Tobacco Use Smoking Status: Current every day smoker Tobacco Use: Cigarettes Assessment/Plan All Active Problems Noncompliance with medication regimen (Acute) Parapneumonic effusion (Acute) Pneumonia (Acute) Sepsis (Acute) RECOMMENDATIONS: 1. Continue vest therapy with chest x-ray in the morning 2. Agree with empiric antibiotics 3. Possible bronchoscopy on Saturday if unable to recruit left lower lobe 4. Hold on steroids for now 5. Increase activity as tolerated IMPRESSIONS: 1. Sepsis secondary to pneumococcal pneumonia with probable parapneumonic effusion versus empyema Patient with delay in therapy after leaving AMA from the hospital. Patient has developed a left-sided pleural effusion and concern for parapneumonic effusion versus empyema is significant. Reportedly, patient did not have any fluid to drain despite CT imaging. Initiated patient on aggressive pulmonary toileting with vest therapy. Cannot exclude the need for bronchoscopy on Saturday if unable to recruit left lower lobe. Patient is at increased risk for complications given delay in initial therapy. 2. Tobacco abuse/cocaine abuse/history of methamphetamine and IV drug use/history of noncompliance/homelessness Complicates care, management, recovery and prognosis. No murmurs noted on exam. Findings on CT scan of the chest are not suggestive of septic emboli. Likely okay to hold off on any echocardiogram. Blood cultures have already been sent. Enlarged mediastinal lymphadenopathy would be an expected result of an untreated pneumonia. Monitor for signs or symptoms of withdrawal. Social work to evaluate for medication availability and potential residential options. Patient has a relative lymphopenia on examination, but this may be secondary to acute bacterial infection. If not improving, evaluation for HIV given history of IV drug use may be appropriate Inpatient E&M: [id number] [facility] Hosp L2
[2019-12-13] MEDS: guaiFENesin 1,200 MG Tablet 1200 MG PO ×2 (10:37→22:36)
--- NOTE | 2019-12-13 13:13 | NURSING ---
With patient's verbal permission, I updated patient's mother, Elisabeth, on patient's current condition and plan of care. Patient's mother is at bedside visiting at this time.
--- NOTE | 2019-12-13 13:50 | PCM.PN.HOSP ---
<Ramses Olivas - Last Filed: 12/13/19 13:50> Patient Problems: Active and Suspected Problems Noncompliance with medication regimen (Acute) Parapneumonic effusion (Acute) Pneumonia (Acute) Sepsis (Acute) Reason for Visit: SOB Subjective: Pt doing well. Still lethargic. No SOB at rest or when ambulating without O2. No fevers/chills. Some CP with cough and deep breath. Still with coughing bouts and some sputum production. No hemoptysis. no le edema. no nausea/vomiting/diarrhea. Vitals/I&O's: Vital Signs Temp Pulse Resp BP Pulse Ox 98.5 F 98 18 108/68 94 12/13/19 10:35 12/13/19 11:16 12/13/19 11:16 12/13/19 10:35 12/13/19 10:35 Oxygen Flow Rate (L/min) 2 Oxygen Delivery Method Room Air Weight: 163 lb 9.328 oz Body Mass Index (BMI) 25.9 Intake and Output for Last 24 Hours 12/11/19 12/12/19 12/14/19 23:59 23:59 00:59 Intake Total 1805.5 / 1805.5 764.67 / 764.67 567.83 / 567.83 Output Total 0 / 0 2200 / 2200 Balance 1805.5 / 1805.5 -1435.33 / -1435.33 567.83 / 567.83 General: Alert, Oriented x3, Cooperative HEENT: Atraumatic, PERRLA, EOMI, Normocephalic Neck: Supple, No JVD, Negative Carotid Bruits Lungs: Clear to auscultation, Diminished Cardiovascular: Regular rate, No murmurs Abdomen: Bowel Sounds Present, Soft, Non Tender Extremities: No edema, Capillary Refill Less than 3 Seconds Skin: No rashes, No breakdown Musculoskeletal: No Tenderness to Palpation of Joints or Extremities Neurological: Cranial nerves II-XII grossly intact Psych/Mental Status: Normal Affect, Appropriate, Alert and oriented to time, place, person, mood and affect Microbiology Past 72 Hours 12/12/19 04:20 Sputum, Expectorated/Coughed Gram Stain - Final 12/12/19 04:20 Sputum, Expectorated/Coughed Respiratory Culture - Preliminary Presumptive C albicans 12/11/19 11:35 Urine, Clean Catch Streptococcus pneumoniae Antigen (M - Final Streptococcus pneumonia Ag 12/11/19 11:35 Urine, Clean Catch Legionella Antigen - Final Laboratory Results 12/13/19 05:33: WBC 11.4 H, RBC 3.74 L, Hgb 10.9 L, Hct 33.0 L, MCV 88.2, MCH 29.1, MCHC 33.0, RDW Std Deviation 43.8, RDW Coeff of Tonya 13.5, Plt Count 460 H, MPV 8.8, Immature Gran % (Auto) 2.800 H, Neut % (Auto) 62.9, Lymph % (Auto) 24.9, [place] % (Auto) 5.9, Eos % (Auto) 2.7, Baso % (Auto) 0.8, Absolute Neuts (auto) 7.2, Absolute Lymphs (auto) 2.83, Nucleated RBC % 0 12/13/19 05:33: Sodium 139, Potassium 3.9, Chloride 107, Carbon Dioxide 25.0, Anion Gap 7, BUN 6 L, Creatinine 0.39 L, Estim Creat Clear Calc 193.87, Est GFR (MDRD) Af Amer 248, Est GFR (MDRD) Non-Af 205, BUN/Creatinine Ratio 15.5, Glucose 85, Calcium 8.3 L Current Medications Acetaminophen (Tylenol) 650 mg PO Q6H PRN PRN PRN Reason: Pain Score 1-10/Temp > 100.7 F Last Admin: 12/13/19 08:14 Dose: 650 mg Documented by: Albuterol Sulfate (Ventolin Aerosols) 2.5 mg INHALATION Q2H PRN PRN PRN Reason: SOB/Wheezing Albuterol/Ipratropium (Duoneb) 3 ml INHALATION Q4HWA.RT [facility] Last Admin: 12/13/19 11:14 Dose: 3 ml Documented by: Glucagon () 1 mg IM .X1 PRN PRN Reason: Hypoglycemia Guaifenesin (Mucinex) 1,200 mg PO BID [facility] Last Admin: 12/13/19 10:37 Dose: 1,200 mg Documented by: Ceftriaxone Sodium 2 gm/ (Sodium Chloride) 50 mls @ 100 mls/hr IV Q24@2200 [facility] Last Infusion: 12/12/19 22:57 Dose: Infused Documented by: Azithromycin 500 mg/ Dextrose 255 mls @ 250 mls/hr IV Q24@2200 [facility] Last Infusion: 12/13/19 01:06 Dose: Infused Documented by: Sodium Chloride () 250 mls @ 15 mls/hr IV .[id number] PRN PRN Reason: Saline Flush Last Infusion: 12/13/19 00:05 Dose: 0 mls/hr Documented by: Sodium Chloride () 250 mls @ 15 mls/hr IV .[id number] PRN PRN Reason: Additional IVPB Infusion Ketorolac Tromethamine (Toradol (Bkc)) 15 mg IV Q8H PRN PRN PRN Reason: Pain Score 1-10/10 Stop: 12/16/19 08:25 Last Admin: 12/13/19 08:14 Dose: 15 mg Documented by: Melatonin (Melatonin) 3 mg PO QHS PRN PRN PRN Reason: INSOMNIA Last Admin: 12/12/19 22:27 Dose: 3 mg Documented by: Nicotine (Nicoderm Cq (Pbkc)) 21 mg TRANSDERM. DAILY [facility] Last Admin: 12/13/19 10:37 Dose: 21 mg Documented by: Ondansetron HCl (Zofran) 4 mg IV Q8H PRN PRN PRN Reason: NAUSEA/VOMITING Senna/Docusate Sodium (Senokot-S, Jossie-Colace) 2 tablet PO BID PRN PRN PRN Reason: Constipation Sodium Chloride () 10 - 40 ml IV UD PRN PRN Reason: SALINE FLUSH Last Admin: 12/13/19 08:14 Dose: 30 ml Documented by: STROKE Vital Signs/Narrative: Vital Signs Temp Pulse Resp BP Pulse Ox 12/13/19 11:16 98 18 12/13/19 10:35 98.5 F 86 20 H 108/68 94 Medical Necessity - Tobacco Use Smoking Status: Current every day smoker Tobacco Use: Cigarettes Assessment/Plan All Active Problems Noncompliance with medication regimen (Acute) Parapneumonic effusion (Acute) Pneumonia (Acute) Sepsis (Acute) 1. Sepsis 2/2 CAP - possible mucus plug, parapneumonic effusion - rocephin/azithro. WBC improving. LA 1.7. Trop neg. MRSA neg. -pt ambulating in the zazu[place] of o2 with no sob. -Urine antigens + for strep pna. obtain sputum if possible. Blood cx pending. -possible bronch per pulm on saturday. no steroids. continue vest. some sputum production. -continue IS 2. Nicotine abuse, cocaine abuse, homelessness - complicating the above, complicating likeliness of follow up, outpatient compliance, and likeliness of recurrence. SW consult. Patch if desired. 3. Hx IVDU - hiv neg. lft's nl. 4. Hx PCOS - no home meds DVT ppx: early ambulation DC planning: SW c/s for homelessness. This patient was seen by Ramses Olivas PA-C under the supervision of Dr. Malone <Petar Malone - Last Filed: 12/13/19 14:56> Vitals/I&O's: Vital Signs Temp Pulse Resp BP Pulse Ox 36.9 C 98 18 108/68 94 12/13/19 10:35 12/13/19 11:16 12/13/19 11:16 12/13/19 10:35 12/13/19 10:35 Oxygen Flow Rate (L/min) 2 Oxygen Delivery Method Room Air Weight: 74.2 kg Body Mass Index (BMI) 25.9 Intake and Output for Last 24 Hours 12/11/19 12/12/19 12/14/19 23:59 23:59 00:59 Intake Total 1805.5 / 1805.5 764.67 / 764.67 567.83 / 567.83 Output Total 0 / 0 2200 / 2200 Balance 1805.5 / 1805.5 -1435.33 / -1435.33 567.83 / 567.83 General: Alert, Cooperative Cardiovascular: Regular rate, No murmurs Abdomen: Bowel Sounds Present, Soft, Non Tender Extremities: No edema, No Calf Tenderness Skin: No rashes, No breakdown Psych/Mental Status: Normal Affect, Appropriate Microbiology Past 72 Hours 12/10/19 18:58 Blood Culture (Wb) - Anticubital Left Blood Culture - Preliminary No growth in 48 hours. 12/10/19 18:45 Blood Culture (Wb) - Anticubital Right Blood Culture - Preliminary No growth in 48 hours. 12/12/19 04:20 Sputum, Expectorated/Coughed Gram Stain - Final 12/12/19 04:20 Sputum, Expectorated/Coughed Respiratory Culture - Preliminary Presumptive C albicans 12/11/19 11:35 Urine, Clean Catch Streptococcus pneumoniae Antigen (M - Final Streptococcus pneumonia Ag 12/11/19 11:35 Urine, Clean Catch Legionella Antigen - Final Laboratory Results 12/13/19 05:33: WBC 11.4 H, RBC 3.74 L, Hgb 10.9 L, Hct 33.0 L, MCV 88.2, MCH 29.1, MCHC 33.0, RDW Std Deviation 43.8, RDW Coeff of Tonya 13.5, Plt Count 460 H, MPV 8.8, Immature Gran % (Auto) 2.800 H, Neut % (Auto) 62.9, Lymph % (Auto) 24.9, [place] % (Auto) 5.9, Eos % (Auto) 2.7, Baso % (Auto) 0.8, Absolute Neuts (auto) 7.2, Absolute Lymphs (auto) 2.83, Nucleated RBC % 0 12/13/19 05:33: Sodium 139, Potassium 3.9, Chloride 107, Carbon Dioxide 25.0, Anion Gap 7, BUN 6 L, Creatinine 0.39 L, Estim Creat Clear Calc 193.87, Est GFR (MDRD) Af Amer 248, Est GFR (MDRD) Non-Af 205, BUN/Creatinine Ratio 15.5, Glucose 85, Calcium 8.3 L Current Medications Acetaminophen (Tylenol) 650 mg PO Q6H PRN PRN PRN Reason: Pain Score 1-10/Temp > 100.7 F Last Admin: 12/13/19 08:14 Dose: 650 mg Documented by: Albuterol Sulfate (Ventolin Aerosols) 2.5 mg INHALATION Q2H PRN PRN PRN Reason: SOB/Wheezing Albuterol/Ipratropium (Duoneb) 3 ml INHALATION Q4HWA.RT [facility] Last Admin: 12/13/19 11:14 Dose: 3 ml Documented by: Glucagon () 1 mg IM .X1 PRN PRN Reason: Hypoglycemia Guaifenesin (Mucinex) 1,200 mg PO BID [facility] Last Admin: 12/13/19 10:37 Dose: 1,200 mg Documented by: Ceftriaxone Sodium 2 gm/ (Sodium Chloride) 50 mls @ 100 mls/hr IV Q24@2200 [facility] Last Infusion: 12/12/19 22:57 Dose: Infused Documented by: Azithromycin 500 mg/ Dextrose 255 mls @ 250 mls/hr IV Q24@2200 [facility] Last Infusion: 12/13/19 01:06 Dose: Infused Documented by: Sodium Chloride () 250 mls @ 15 mls/hr IV .[id number] PRN PRN Reason: Saline Flush Last Infusion: 12/13/19 00:05 Dose: 0 mls/hr Documented by: Sodium Chloride () 250 mls @ 15 mls/hr IV .[id number] PRN PRN Reason: Additional IVPB Infusion Ketorolac Tromethamine (Toradol (Bkc)) 15 mg IV Q8H PRN PRN PRN Reason: Pain Score 1-10/10 Stop: 12/16/19 08:25 Last Admin: 12/13/19 08:14 Dose: 15 mg Documented by: Melatonin (Melatonin) 3 mg PO QHS PRN PRN PRN Reason: INSOMNIA Last Admin: 12/12/19 22:27 Dose: 3 mg Documented by: Nicotine (Nicoderm Cq (Pbkc)) 21 mg TRANSDERM. DAILY [facility] Last Admin: 12/13/19 10:37 Dose: 21 mg Documented by: Ondansetron HCl (Zofran) 4 mg IV Q8H PRN PRN PRN Reason: NAUSEA/VOMITING Senna/Docusate Sodium (Senokot-S, Jossie-Colace) 2 tablet PO BID PRN PRN PRN Reason: Constipation Sodium Chloride () 10 - 40 ml IV UD PRN PRN Reason: SALINE FLUSH Last Admin: 12/13/19 08:14 Dose: 30 ml Documented by: STROKE Vital Signs/Narrative: Vital Signs Pulse Resp 12/13/19 11:16 98 18 Assessment/Plan Patient seen and examined independently. Data reviewed. I agree with the above note by the physician student assistant. Assessment 1. sepsis 2. pneumococcal pneumonia 3. pleural effusion--ruled out on US 4. Chronic issues: polysubstance abuse, PCOS, nicotine abuse Plan: 1. continue abx 2. pulmonary toilet 3. may need bronch. Possibly on 12/13. Inpatient E&M: [id number] [facility] Hosp L2
[2019-12-13] MEDS: MELATONIN 3 MG TABLET PO (22:34)
[2019-12-14] VITALS (9 sets, daily range): BP systolic 108–114; BP diastolic 69–77; PULSE 83–110; RESP 19–32; TEMP 36.7–37.1; O2SAT 94–95
[2019-12-14] MEDS: Acetaminophen 325 MG Tablet 650 MG PO (01:03)
[2019-12-14 01:48] LABS: Internal QC Validated? YES +Cl - CLEAR BKGD; Pregnancy, Urine Negative Negative
[2019-12-14] MEDS: Ipratropium/Albuterol Sulfate 3 ML AMPUL.NEB INHALATION ×4 (03:27→14:46)
[2019-12-14] MEDS: 0.9% Saline Lock 10 ML Syringe IV (03:45)
[2019-12-14] MEDS: Ketorolac 15 MG/ML Vial IV (03:45)
--- NOTE | 2019-12-14 05:55 | RAD_ITS ---
STUDY: X-RAY CHEST REASON FOR EXAM: Female, 34 years old. LLL COLLAPSE TECHNIQUE: PA and lateral views of the chest. COMPARISON: Comparison is made with prior study dated December 05, 2019. FINDINGS: EKG electrodes are seen. Persistent left lower lobe infiltration with soft tissue density in the distal left mainstem bronchus. Small left pleural effusion. Mild increased markings at the right lung base with blunting of the right costophrenic angle. Normal size heart. Normal mediastinum and nedra. Normal visualized pulmonary arteries. Normal visualized aortic arch and descending thoracic aorta. Normal visualized thoracic spine. Normal visualized ribs, clavicles, and shoulders. There is no demonstrated abnormality of the visualized soft tissue structures of the upper abdomen. RAD/Chest PA and Lateral IMPRESSION: Progressive left lower lobe infiltrate/left lower lobe volume loss with evidence of a soft tissue density within the left mainstem bronchus. Blunting of both concerning angles worse on the left side with mild increased markings at the right lung base. Electronically Signed: Adam Palacios, at 12:29 EDT , Service support ,
[2019-12-14 06:27] LABS: Absolute Lymphocyte Count 2.75 X10^3/uL (0.83-4.51); Absolute Neutrophil Count 6.2 X10^3/uL (2.0-7.7); Basophil# 0.07 X10^3/uL; Basophil% 0.7 % (0-1); Eosinophil# 0.33 X10^3/uL; Eosinophils% 3.3 % (0-5); Hematocrit 33.4 % (37-47); Hemoglobin 10.8 g/dL (12.0-15.0); Lymphocyte # 2.75 X10^3/ul (4.0); Lymphocyte % 27.2 % (19-41); Mean Corp Hgb Conc 32.3 g/dL (32-36); Mean Corpuscular Hgb 28.5 pg (27.0-32.0); Mean Corpuscular Volume 88.1 fL (81-99); Mean Platelet Vol. 8.4 fl (6.2-12.0); Monocyte# 0.54 X10^3/uL; Monocyte% 5.3 % (0-10); NRBC Flagged by Analyzer 0 % (0-5); Neutrophil # 6.15 X10^3/uL (2.7-7.7); Neutrophil % 60.9 % (47-70); Platelet Count 511 K/mm3 (150-450); RBC Distribution Width CV 13.6 % (11.6-14.6); RBC Distribution Width SD 43.9 fl (35.1-43.9); Red Blood Count 3.79 M/mm3 (4.2-5.4); White Blood Count 10.1 K/mm3 (4.4-11.0)
[2019-12-14 06:31] LABS: Prothrombin Time (Protime)PT. 12.6 SECONDS (11.7-14.9)
[2019-12-14 06:32] LABS: Partial Thromboplast Time 30.4 Seconds (24.1-36.2)
[2019-12-14] MEDS: guaiFENesin 1,200 MG Tablet 1200 MG PO (10:09)
--- NOTE | 2019-12-14 12:00 | PN_ITS ---
Subjective: The patient was seen and examined at the bedside this morning. Events from the last 24 hours have been reviewed. The patient is currently afebrile, hemodynamically stable and maintaining appropriate oxygen saturations on room air. The patient reports improvement in her overall breathing quality following admission to the hospital. Objective: The patient's most recent lab work, culture data and imaging studies have all been personally reviewed. Streptococcus pneumoniae urinary antigen was positive. - Physical Exam Vitals/I&O's: Vital Signs Temp Pulse Resp BP Pulse Ox 98.8 F 95 20 H 114/77 94 12/14/19 09:57 12/14/19 11:08 12/14/19 11:08 12/14/19 09:57 12/14/19 09:57 Oxygen Flow Rate (L/min) 2 Oxygen Delivery Method Room Air Weight: 163 lb 9.328 oz Body Mass Index (BMI) 25.9 Intake and Output for Last 24 Hours 12/12/19 12/13/19 12/14/19 22:59 23:59 23:59 Intake Total 250.83 / 250.83 Output Total Balance 250.83 / 250.83 General: Alert, Cooperative, No apparent distress HEENT: Atraumatic, Normocephalic Oral: No Gingival or Mucosal Lesions/ Ulcerations Neck: Supple, No Nodes, Trachea Midline Lungs: No rhonchi, No wheeze, No rales, Diminished Cardiovascular: Regular rate, Regular Rhythm, Normal S1, Normal S2 Abdomen: Bowel Sounds Present, Soft, Non Tender Extremities: No clubbing, No cyanosis, No edema Skin: No breakdown Musculoskeletal: No Tenderness to Palpation of Joints or Extremities Lymphatic: No Cervical, Supraclavicular, or Inguinal Adenopathy Neurological: Cranial nerves II-XII grossly intact, Neuro grossly intact Psych/Mental Status: Normal Affect Labs (Last 48 Hours) 12/13/19 12/13/19 12/14/19 05:33 05:33 01:30 WBC 11.4 H RBC 3.74 L Hgb 10.9 L Hct 33.0 L MCV 88.2 MCH 29.1 MCHC 33.0 RDW Std Deviation 43.8 RDW Coeff of Tonya 13.5 Plt Count 460 H MPV 8.8 Immature Gran % (Auto) 2.800 H Neut % (Auto) 62.9 Lymph % (Auto) 24.9 Dukes % (Auto) 5.9 Eos % (Auto) 2.7 Baso % (Auto) 0.8 Absolute Neuts (auto) 7.2 Absolute Lymphs (auto) 2.83 Nucleated RBC % 0 PT INR APTT Sodium 139 Potassium 3.9 Chloride 107 Carbon Dioxide 25.0 Anion Gap 7 BUN 6 L Creatinine 0.39 L Estim Creat Clear Calc 193.87 Est GFR (MDRD) Af Amer 248 Est GFR (MDRD) Non-Af 205 BUN/Creatinine Ratio 15.5 Glucose 85 Calcium 8.3 L Urine Test Negative 12/14/19 12/14/19 06:00 06:00 WBC 10.1 RBC 3.79 L Hgb 10.8 L Hct 33.4 L MCV 88.1 MCH 28.5 MCHC 32.3 RDW Std Deviation 43.9 RDW Coeff of Tonya 13.6 Plt Count 511 H MPV 8.4 Immature Gran % (Auto) 2.600 H Neut % (Auto) 60.9 Lymph % (Auto) 27.2 Dukes % (Auto) 5.3 Eos % (Auto) 3.3 Baso % (Auto) 0.7 Absolute Neuts (auto) 6.2 Absolute Lymphs (auto) 2.75 Nucleated RBC % 0 PT 12.6 INR 1.0 APTT 30.4 Sodium Potassium Chloride Carbon Dioxide Anion Gap BUN Creatinine Estim Creat Clear Calc Est GFR (MDRD) Af Amer Est GFR (MDRD) Non-Af BUN/Creatinine Ratio Glucose Calcium Urine Test Microbiology 12/12/19 04:20 Sputum, Expectorated/Coughed Gram Stain - Final 12/12/19 04:20 Sputum, Expectorated/Coughed Respiratory Culture - Final Presumptive C albicans 12/10/19 18:58 Blood Culture (Wb) - Anticubital Left Blood Culture - Preliminary No growth in 48 hours. 12/10/19 18:45 Blood Culture (Wb) - Anticubital Right Blood Culture - Preliminary No growth in 48 hours. Clinical Impression(s) from Imaging Studies Chest CT 12/10/19 18:23 IMPRESSION: 1. Occlusion of the left lower lobe bronchus at its origin with complete collapse left lower lobe. 2. New left pleural effusion. 3. Enlarged mediastinal lymphadenopathy. 4. No other interval change. Electronically Signed: Herrera Wolff DO at 19:49 EST Tel [phone], Service support , Chest Ultrasound 12/11/19 21:03 IMPRESSION: Dense consolidation of the left lower lobe. No pleural effusion is seen. Electronically Signed: Adam Palacios, at 14:14 EST , Service support , Current Medications Acetaminophen (Tylenol) 650 mg PO Q6H PRN PRN PRN Reason: Pain Score 1-10/Temp > 100.7 F Last Admin: 12/14/19 01:03 Dose: 650 mg Documented by: Albuterol Sulfate (Ventolin Aerosols) 2.5 mg INHALATION Q2H PRN PRN PRN Reason: SOB/Wheezing Albuterol/Ipratropium (Duoneb) 3 ml INHALATION Q4HWA.RT [facility] Last Admin: 12/14/19 11:08 Dose: 3 ml Documented by: Glucagon () 1 mg IM .X1 PRN PRN Reason: Hypoglycemia Guaifenesin (Mucinex) 1,200 mg PO BID [facility] Last Admin: 12/14/19 10:09 Dose: 1,200 mg Documented by: Ceftriaxone Sodium 2 gm/ (Sodium Chloride) 50 mls @ 100 mls/hr IV Q24@2200 [facility] Last Infusion: 12/13/19 23:20 Dose: Infused Documented by: Azithromycin 500 mg/ Dextrose 255 mls @ 250 mls/hr IV Q24@2200 [facility] Last Infusion: 12/14/19 00:48 Dose: Infused Documented by: Sodium Chloride () 250 mls @ 15 mls/hr IV .[id number] PRN PRN Reason: Saline Flush Last Infusion: 12/13/19 00:05 Dose: 0 mls/hr Documented by: Sodium Chloride () 250 mls @ 15 mls/hr IV .[id number] PRN PRN Reason: Additional IVPB Infusion Ketorolac Tromethamine (Toradol (Bkc)) 15 mg IV Q8H PRN PRN PRN Reason: Pain Score 1-10/10 Stop: 12/16/19 08:25 Last Admin: 12/14/19 03:45 Dose: 15 mg Documented by: Melatonin (Melatonin) 3 mg PO QHS PRN PRN PRN Reason: INSOMNIA Last Admin: 12/13/19 22:34 Dose: 3 mg Documented by: Nicotine (Nicoderm Cq (Pbkc)) 21 mg TRANSDERM. DAILY [facility] Last Admin: 12/14/19 10:09 Dose: 21 mg Documented by: Ondansetron HCl (Zofran) 4 mg IV Q8H PRN PRN PRN Reason: NAUSEA/VOMITING Senna/Docusate Sodium (Senokot-S, Jossie-Colace) 2 tablet PO BID PRN PRN PRN Reason: Constipation Sodium Chloride () 10 - 40 ml IV UD PRN PRN Reason: SALINE FLUSH Last Admin: 12/14/19 03:45 Dose: 10 ml Documented by: Medical Necessity - Tobacco Use Smoking Status: Current every day smoker Tobacco Use: Cigarettes Assessment/Plan All Active Problems Noncompliance with medication regimen (Acute) Parapneumonic effusion (Acute) Pneumonia (Acute) Sepsis (Acute) RECOMMENDATIONS: 1. Continue antibiotics and bronchodilators. 2. Continue nicotine replacement therapy. 3. Walking oximetry study prior to consideration for discharge home. 4. Outpatient pulmonary follow-up in 2 weeks. IMPRESSIONS: 1. Sepsis secondary to pneumococcal pneumonia with probable parapneumonic effusion versus empyema Patient with delay in therapy after leaving AMA from the hospital. Patient has developed a left-sided lobar collapse concerning for retained secretions. Continue aggressive bronchopulmonary hygiene. Continue antibiotics as ordered. The patient is currently maintaining appropriate oxygen saturations on room air. 2. Tobacco abuse/cocaine abuse/history of methamphetamine and IV drug use/history of noncompliance/homelessness Complicates care, management, recovery and prognosis. Findings on CT scan of the chest are not suggestive of septic emboli. Enlarged mediastinal lymphadenopathy would be an expected result of an untreated pneumonia. Monitor for signs or symptoms of withdrawal. Social work to evaluate for medication availability and potential senior living options. This note was generated with [employer] dictation software. It may contain incorrect words, spelling, and punctuation that were not noted in checking the note before signing. Inpatient E&M: [id number] Subs Hosp L2
--- NOTE | 2019-12-14 13:09 | DCINST_ITS ---
- Discharge Diagnoses Current Active Problems: Current Active and Chronic Problems Noncompliance with medication regimen (Acute) Parapneumonic effusion (Acute) Pneumonia (Acute) Sepsis (Acute) You will use the following diet at home:: No restrictions Your food should be the consistency of: Regular Your liquids should be the consistency of: Regular/Thin Discharge Activity: Return to Normal Activity Allergies/Adverse Reactions: Allergies No Known Allergies Allergy (Verified 12/10/19 17:51) Medications to take at Discharge Albuterol IH (ProAir) [Proair Hfa] 1 puff INHALATION Q4H PRN PRN #1 inhaler 12/14/19 Cefdinir [Omnicef [equiv]] 300 mg PO Q12H #12 cap 12/14/19 Guaifenesin Dm [Robitussin Dm] 10 ml PO Q6H PRN PRN #1 bottle 12/14/19 The following prescriptions were given: Cefdinir [Omnicef [equiv]] 300 mg PO Q12H #12 cap Transmission Status: Pending to [facility] Albuterol IH (ProAir) [Proair Hfa] 1 puff INHALATION Q4H PRN PRN #1 inhaler PRN Reason: Sob &/Or Wheezing Transmission Status: Pending to [facility] Guaifenesin Dm [Robitussin Dm] 10 ml PO Q6H PRN PRN #1 bottle PRN Reason: Cough Transmission Status: Pending to [facility] Primary Care Physician: Ene Cohen [Primary Care Provider] - Please follow up with your Primary Care Physician in: 1 week Test Results: Test results from this visit will be discussed in further detail at your follow- up appointment, if applicable. Please Follow Up With: Ti Thomas DO When: 2 weeks Proposed Discharge Date: 12/14/19
--- NOTE | 2019-12-14 13:10 | DS.PCM_ITS ---
<Ramses Olivas - Last Filed: 12/14/19 13:10> Discharge Date and Diagnosis - Problem List Patient Problems: Active and Suspected Problems Noncompliance with medication regimen (Acute) Parapneumonic effusion (Acute) Pneumonia (Acute) Sepsis (Acute) Date of Admission: 12/10/19 Date of Discharge: 12/14/19 - Primary Discharge Diagnosis Active and Suspected Problems LLL CAP, strep pneuo + Nicotine abuse Cocaine abuse IVDU Homelessness Hx PCOS - Secondary Discharge Diagnosis Chronic Problems Tobacco dependence (Chronic) PCOS (polycystic ovarian syndrome) (Chronic) Hospital Course and Treatment Imaging Results: CT/Chest without Contrast IMPRESSION: 1. Occlusion of the left lower lobe bronchus at its origin with complete collapse left lower lobe. 2. New left pleural effusion. 3. Enlarged mediastinal lymphadenopathy. 4. No other interval change. US/Chest IMPRESSION: Dense consolidation of the left lower lobe. No pleural effusion is seen. RAD/Chest PA and Lateral IMPRESSION: Progressive left lower lobe infiltrate/left lower lobe volume loss with evidence of a soft tissue density within the left mainstem bronchus. Blunting of both concerning angles worse on the left side with mild increased markings at the right lung base. Operations: None Procedures: None Summary of Care Provided: Hospital Course: The patient is a 34 year old F past medical history of PCOS, nicotine abuse, cocaine abuse, IV drug abuse, homelessness, who presented to the emergency room with shortness of breath. Has been worsening over the past week. She had rec ently been at the hospital with left-sided AMA. She was given a prescription for Levaquin however she did not fill it or take it-she says she lost the prescription. The patient appeared to be septic in the emergency room with chest CT showing occlusion of the left lower lobe bronchus with collapse of the left lower lobe, new left pleural effusion, enlarged mediastinal lymphadenopathy. She had a history of IV drug use and some lymphopenia so she was screened for HIV-this was negative. She had a fever, tachycardia, tachypnea. Actiq acid was 1.7. She was admitted to the PCU and placed on te lemetry and started on azithromycin and Rocephin for sepsis secondary to community-acquired pneumonia. She did test positive for strep pneumo. She seen by pulmonary medicine. There is a plan for thoracentesis however there was no fluid to drain on ultrasound. Patient's breathing improved. She was weaned off oxygen. She ambulated in the room, in the hallway, off oxygen, with no shortness of breath or hypoxia. She completed 5 days of azithromycin here. She will complete a total of 10 days of antibiotics with a prescription for Omnicef. She was also given a prescription for albuterol and Robitussin-DM. These were brought to the room prior to discharge. She will need to follow-up with her PCP in 1 week, follow-up with pulmonary medicine in 2 weeks. She was discharged home in stable condition. This patient was seen by Ramses Olivas PA-C under the supervision of Doctor Mattie. [] Patient Problems: Active and Suspected Problems Noncompliance with medication regimen (Acute) Parapneumonic effusion (Acute) Pneumonia (Acute) Sepsis (Acute) - Physical Exam Vitals/I&O's: Vital Signs Temp Pulse Resp BP Pulse Ox 98.8 F 95 20 H 114/77 94 12/14/19 09:57 12/14/19 11:08 12/14/19 11:08 12/14/19 09:57 12/14/19 09:57 Oxygen Flow Rate (L/min) 2 Oxygen Delivery Method Room Air Weight: 163 lb 9.328 oz Body Mass Index (BMI) 25.9 Intake and Output for Last 24 Hours 12/12/19 12/13/19 12/14/19 22:59 23:59 23:59 Intake Total 490.83 / 490.83 Output Total Balance 490.83 / 490.83 General: Alert, Oriented x3, Cooperative HEENT: Atraumatic, PERRLA, EOMI, Normocephalic Neck: Supple, No JVD, Negative Carotid Bruits Lungs: Clear to auscultation, Normal air movement Cardiovascular: Regular rate, No murmurs Abdomen: Bowel Sounds Present, Soft, Non Tender Extremities: No edema, Capillary Refill Less than 3 Seconds Skin: No rashes, No breakdown Musculoskeletal: No Tenderness to Palpation of Joints or Extremities Neurological: Cranial nerves II-XII grossly intact Psych/Mental Status: Normal Affect, Appropriate, Alert and oriented to time, place, person, mood and affect Microbiology Past 72 Hours 12/12/19 04:20 Sputum, Expectorated/Coughed Gram Stain - Final 12/12/19 04:20 Sputum, Expectorated/Coughed Respiratory Culture - Final Presumptive C albicans 12/10/19 18:58 Blood Culture (Wb) - Anticubital Left Blood Culture - Preliminary No growth in 48 hours. 12/10/19 18:45 Blood Culture (Wb) - Anticubital Right Blood Culture - Preliminary No growth in 48 hours. 12/11/19 11:35 Urine, Clean Catch Streptococcus pneumoniae Antigen (M - Final Streptococcus pneumonia Ag 12/11/19 11:35 Urine, Clean Catch Legionella Antigen - Final Laboratory Results 12/14/19 01:30: Urine Test Negative 12/14/19 06:00: WBC 10.1, RBC 3.79 L, Hgb 10.8 L, Hct 33.4 L, MCV 88.1, MCH 28.5, MCHC 32.3, RDW Std Deviation 43.9, RDW Coeff of Tonya 13.6, Plt Count 511 H, MPV 8.4, Immature Gran % (Auto) 2.600 H, Neut % (Auto) 60.9, Lymph % (Auto) 27.2, [place] % (Auto) 5.3, Eos % (Auto) 3.3, Baso % (Auto) 0.7, Absolute Neuts (auto) 6.2, Absolute Lymphs (auto) 2.75, Nucleated RBC % 0 12/14/19 06:00: PT 12.6, INR 1.0, APTT 30.4 Current Medications Acetaminophen (Tylenol) 650 mg PO Q6H PRN PRN PRN Reason: Pain Score 1-10/Temp > 100.7 F Last Admin: 12/14/19 01:03 Dose: 650 mg Documented by: Albuterol Sulfate (Ventolin Aerosols) 2.5 mg INHALATION Q2H PRN PRN PRN Reason: SOB/Wheezing Albuterol/Ipratropium (Duoneb) 3 ml INHALATION Q4HWA.RT [facility] Last Admin: 12/14/19 11:08 Dose: 3 ml Documented by: Glucagon () 1 mg IM .X1 PRN PRN Reason: Hypoglycemia Guaifenesin (Mucinex) 1,200 mg PO BID [facility] Last Admin: 12/14/19 10:09 Dose: 1,200 mg Documented by: Ceftriaxone Sodium 2 gm/ (Sodium Chloride) 50 mls @ 100 mls/hr IV Q24@2200 [facility] Last Infusion: 12/13/19 23:20 Dose: Infused Documented by: Azithromycin 500 mg/ Dextrose 255 mls @ 250 mls/hr IV Q24@2200 [facility] Last Infusion: 12/14/19 00:48 Dose: Infused Documented by: Sodium Chloride () 250 mls @ 15 mls/hr IV .[id number] PRN PRN Reason: Saline Flush Last Infusion: 12/13/19 00:05 Dose: 0 mls/hr Documented by: Sodium Chloride () 250 mls @ 15 mls/hr IV .[id number] PRN PRN Reason: Additional IVPB Infusion Ketorolac Tromethamine (Toradol (Bkc)) 15 mg IV Q8H PRN PRN PRN Reason: Pain Score 1-1010 Stop: 12/16/19 08:25 Last Admin: 12/14/19 03:45 Dose: 15 mg Documented by: Melatonin (Melatonin) 3 mg PO QHS PRN PRN PRN Reason: INSOMNIA Last Admin: 12/13/19 22:34 Dose: 3 mg Documented by: Nicotine (Nicoderm Cq (Pbkc)) 21 mg TRANSDERM. DAILY [facility] Last Admin: 12/14/19 10:09 Dose: 21 mg Documented by: Ondansetron HCl (Zofran) 4 mg IV Q8H PRN PRN PRN Reason: NAUSEA/VOMITING Senna/Docusate Sodium (Senokot-S, Jossie-Colace) 2 tablet PO BID PRN PRN PRN Reason: Constipation Sodium Chloride () 10 - 40 ml IV UD PRN PRN Reason: SALINE FLUSH Last Admin: 12/14/19 03:45 Dose: 10 ml Documented by: Discharge Diet: No Restrictions Discharge Activity: Return to Normal Activity Home Medications: Medications to take at Discharge Albuterol IH (ProAir) [Proair Hfa] 1 puff INHALATION Q4H PRN PRN #1 inhaler 12/14/19 Cefdinir [Omnicef [equiv]] 300 mg PO Q12H #12 cap 12/14/19 Guaifenesin Dm [Robitussin Dm] 10 ml PO Q6H PRN PRN #1 bottle 12/14/19 Following Prescrptions Were Given to Patient: Cefdinir [Omnicef [equiv]] 300 mg PO Q12H #12 cap Transmission Status: Sent to [facility] Albuterol IH (ProAir) [Proair Hfa] 1 puff INHALATION Q4H PRN PRN #1 inhaler PRN Reason: Sob &/Or Wheezing Transmission Status: Sent to [facility] Guaifenesin Dm [Robitussin Dm] 10 ml PO Q6H PRN PRN #1 bottle PRN Reason: Cough Transmission Status: Sent to [facility] Primary Care Physician: Ene Cohen [Primary Care Provider] - Please follow up with your Primary Care Physician in: 1 week Please Follow Up With: Ti Thomas DO When: 2 weeks Disposition: Home Minutes spent on discharge:: 35 Patient Condition:: Stable Medical Necessity - Tobacco Use Smoking Status: Current every day smoker Tobacco Use: Cigarettes Meaningful Use Info Meaningful Use Diagnoses (Choose all that apply): None applicable <Jorge Phelps - Last Filed: 12/14/19 15:19> Discharge Date and Diagnosis - Primary Discharge Diagnosis Active and Suspected Problems Noncompliance with medication regimen (Acute) Parapneumonic effusion (Acute) Pneumonia (Acute) Sepsis (Acute) - Secondary Discharge Diagnosis Chronic Problems Tobacco dependence (Chronic) PCOS (polycystic ovarian syndrome) (Chronic) Hospital Course and Treatment Summary of Care Provided: This patient was seen in conjunction with Ramses Olivas PA-C . I have independently interviewed and examined the patient and reviewed pertinent historical, laboratory, and other data. Please refer to Ramses Olivas PA-C note for details of this patient's presentation, findings, and recommendations. I have reviewed Ramses Olivas PA-C note and concur with documented findings. In brief,The patient is a 34 year old F with history of polysubstance abuse who presented with shortness of breath. Patient was diagnosed with pneumonia admitted to regular nursing floor where patient was managed. Patient condition did stabilize after 4 days of hospitalization discharged home instructed to follow-up with PCP for subsequent care Hospital course: As documented above - Physical Exam Vitals/I&O's: Vital Signs Temp Pulse Resp BP Pulse Ox 98.8 F 110 H 26 H 114/77 94 12/14/19 09:57 12/14/19 14:45 12/14/19 14:45 12/14/19 09:57 12/14/19 09:57 Oxygen Flow Rate (L/min) 2 Oxygen Delivery Method Room Air Weight: 74.2 kg Body Mass Index (BMI) 25.9 Intake and Output for Last 24 Hours 12/12/19 12/13/19 12/14/19 22:59 23:59 23:59 Intake Total 490.83 / 490.83 Output Total Balance 490.83 / 490.83 Microbiology Past 72 Hours 12/12/19 04:20 Sputum, Expectorated/Coughed Gram Stain - Final 12/12/19 04:20 Sputum, Expectorated/Coughed Respiratory Culture - Final Presumptive C albicans 12/10/19 18:58 Blood Culture (Wb) - Anticubital Left Blood Culture - Preliminary No growth in 48 hours. 12/10/19 18:45 Blood Culture (Wb) - Anticubital Right Blood Culture - Preliminary No growth in 48 hours. 12/11/19 11:35 Urine, Clean Catch Streptococcus pneumoniae Antigen (M - Final Streptococcus pneumonia Ag 12/11/19 11:35 Urine, Clean Catch Legionella Antigen - Final Laboratory Results 12/14/19 01:30: Urine Test Negative 12/14/19 06:00: WBC 10.1, RBC 3.79 L, Hgb 10.8 L, Hct 33.4 L, MCV 88.1, MCH 28.5, MCHC 32.3, RDW Std Deviation 43.9, RDW Coeff of Tonya 13.6, Plt Count 511 H, MPV 8.4, Immature Gran % (Auto) 2.600 H, Neut % (Auto) 60.9, Lymph % (Auto) 27.2, [place] % (Auto) 5.3, Eos % (Auto) 3.3, Baso % (Auto) 0.7, Absolute Neuts (auto) 6.2, Absolute Lymphs (auto) 2.75, Nucleated RBC % 0 12/14/19 06:00: PT 12.6, INR 1.0, APTT 30.4 Current Medications Acetaminophen (Tylenol) 650 mg PO Q6H PRN PRN PRN Reason: Pain Score 1-10/Temp > 100.7 F Last Admin: 12/14/19 01:03 Dose: 650 mg Documented by: Albuterol Sulfate (Ventolin Aerosols) 2.5 mg INHALATION Q2H PRN PRN PRN Reason: SOB/Wheezing Albuterol/Ipratropium (Duoneb) 3 ml INHALATION Q4HWA.RT [facility] Last Admin: 12/14/19 14:46 Dose: 3 ml Documented by: Glucagon () 1 mg IM .X1 PRN PRN Reason: Hypoglycemia Guaifenesin (Mucinex) 1,200 mg PO BID [facility] Last Admin: 12/14/19 10:09 Dose: 1,200 mg Documented by: Ceftriaxone Sodium 2 gm/ (Sodium Chloride) 50 mls @ 100 mls/hr IV Q24@2200 [facility] Last Infusion: 12/13/19 23:20 Dose: Infused Documented by: Azithromycin 500 mg/ Dextrose 255 mls @ 250 mls/hr IV Q24@2200 [facility] Last Infusion: 12/14/19 00:48 Dose: Infused Documented by: Sodium Chloride () 250 mls @ 15 mls/hr IV .[id number] PRN PRN Reason: Saline Flush Last Infusion: 12/13/19 00:05 Dose: 0 mls/hr Documented by: Sodium Chloride () 250 mls @ 15 mls/hr IV .[id number] PRN PRN Reason: Additional IVPB Infusion Ketorolac Tromethamine (Toradol (Bkc)) 15 mg IV Q8H PRN PRN PRN Reason: Pain Score 1-10/10 Stop: 12/16/19 08:25 Last Admin: 12/14/19 03:45 Dose: 15 mg Documented by: Melatonin (Melatonin) 3 mg PO QHS PRN PRN PRN Reason: INSOMNIA Last Admin: 12/13/19 22:34 Dose: 3 mg Documented by: Nicotine (Nicoderm Cq (Pbkc)) 21 mg TRANSDERM. DAILY [facility] Last Admin: 12/14/19 10:09 Dose: 21 mg Documented by: Ondansetron HCl (Zofran) 4 mg IV Q8H PRN PRN PRN Reason: NAUSEA/VOMITING Senna/Docusate Sodium (Senokot-S, Jossie-Colace) 2 tablet PO BID PRN PRN PRN Reason: Constipation Sodium Chloride () 10 - 40 ml IV UD PRN PRN Reason: SALINE FLUSH Last Admin: 12/14/19 03:45 Dose: 10 ml Documented by: Inpatient E&M: [id number] Disch Hosp
== END 2019-12-14 15:45 | disposition home or self-care (01) | DRG 139 ==
LOC: ED 20:11 → PCU 21:02
PROVIDERS: Internal Medicine Critical Care Medicine; Physician Assistant; Admitting Provider Hospitalist; Emergency Provider Emergency Medicine; Referring Provider Nurse Practitioner Family; Visit Provider Internal Medicine
DX: J13 Pneumonia due to Streptococcus pneumoniae (principal); Z59.0 Homelessness; E28.2 Polycystic ovarian syndrome; J91.8 Pleural effusion in other conditions classified elsewhere; F14.10 Cocaine abuse, uncomplicated; Z91.14 Patient's other noncompliance with medication regimen; F17.210 Nicotine dependence, cigarettes, uncomplicated; Z23 Encounter for immunization
CPT/HCPCS: 36415; 71046; 71250; 76604; 80048; 80053; 81001; 81025; 83605; 83615; 84156; 84484; 85025; 85610; 85730; 86703; 87040; 87070; 87106; 87205; 87449; 87641; 93005; 94640; 94667; 94668; 99285; 99406; J7030; J7050; 90686; A4216; J0696; J2405

== ENCOUNTER 2020-09-25 14:26 | Emergency (ER) | payer MEDICAID, SELFPAY ==
[2019-12-13 21:51] VITALS: BMI 25.9
[2020-09-25 14:28] VITALS: BP 137/94; PULSE 100; RESP 19; TEMP 36.8; O2SAT 98; BMI 26.4
--- NOTE | 2020-09-25 14:51 | ED.DCSUM_ITS ---
History of Present Illness Chief Complaint: Mental Health Narrative: This patient is a 34 female who was walking down the street and a bystander called EMS. The patient was brought here due to right foot pain. Patient states that for about 3 to 5 days she has had redness pain and swelling of her right foot with small pustules. No fevers. No nausea or vomiting. She does admit to methamphetamine use. She otherwise has no complaints at this time. Past Medical History - Allergies and Home Meds Allergies/Adverse Reactions: Allergies No Known Allergies Allergy (Verified 09/25/20 14:27) Primary Care Physician: [facility] Ene Wang [Primary Care Provider] - Past Medical History: - - Methamphetamine abuse Surgical History: tonsillectomy Smoking Status: Current every day smoker - Family History Paternal Family History: Reports: Diabetes, Hypertension Review of Systems All systems negative except as indicated General: Denies: Fever Eyes: Denies: Visual changes - bilaterally Cardiovascular: Denies: Chest pain Respiratory: Denies: Dyspnea Gastrointestinal: Denies: Vomiting, Diarrhea Musculoskeletal: Denies: Myalgias, Arthralgias Skin: Reports: Rash Neurological: Denies: Headache Physical Exam Vital Signs/Narrative: Vital Signs Temp Pulse Resp BP Pulse Ox 09/25/20 14:28 98.2 F 100 19 H 137/94 H 98 Inital Vital Signs reviewed: Yes General: Well nourished Head: Normocephalic Eyes: EOMI ENT: Moist mucous membranes Neck: Supple Cardiovascular: Regular rhythm, Tachycardia Respiratory: CTA bilaterally Skin: - - Patient has a couple of tiny pustules on the back of her right ankle as well as some induration and erythema she does not have a focal abscess amenable to incision and drainage she does not have lymphangitic streaking no rash isolated to right ankle Neurological: Alert Psychological: Normal affect Diagnostic/Tx/Re-eval - Medical Decision Making Patient was also requesting an HIV test. We will obtain this at the patient's request. She was given first dose of Keflex as well as a prescription for the same. She understands to follow-up as an outpatient. Patient discharged. ED Disposition - Plan for ED Patient: Disposition: Home or Assisted Living Diagnosis: Cellulitis Instructions: ED Cellulitis Prescriptions: Cephalexin [Keflex] 500 mg PO Q6 #40 cap Prescription Printed Referrals: [facility] Ene Wang [Primary Care Provider] -
[2020-09-25] MEDS: Cephalexin 250 MG Capsule 500 MG PO (15:22)
--- NOTE | 2020-09-25 15:27 | ED.RN ---
PATIENT LEFT BEFORE GETTING FOOT WRAPPED.
[2020-09-25 17:53] LABS: HIV - WCH Non-Reactive (Nonreactive)
== END 2020-09-25 15:29 | disposition home or self-care (01) ==
LOC: ED 15:13
PROVIDERS: Emergency Provider Emergency Medicine
DX: L03.90 Cellulitis, unspecified (principal); F15.90 Other stimulant use, unspecified, uncomplicated; F17.200 Nicotine dependence, unspecified, uncomplicated; Z82.49 Family history of ischemic heart disease and other diseases of the circulatory system; Z83.3 Family history of diabetes mellitus
CPT/HCPCS: 86703; 99284

== ENCOUNTER 2020-12-07 18:45 | Emergency (ER) | payer MEDICAID, SELFPAY ==
[2020-12-07 18:46] VITALS: BP 119/90; PULSE 121; RESP 16; TEMP 35.8; O2SAT 99; BMI 28.7
[2020-12-07 20:17] VITALS: RESP 18
[2020-12-07 20:45] LABS: Absolute Lymphocyte Count 3.47 X10^3/uL (0.83-4.51); Absolute Neutrophil Count 7.5 X10^3/uL (2.0-7.7); Basophil# 0.06 X10^3/uL; Basophil% 0.5 % (0-1); Eosinophils% 3.1 % (0-5); Hematocrit 41.5 % (37-47); Hemoglobin 13.7 g/dL (12.0-15.0); Lymphocyte # 3.47 X10^3/ul (4.0); Lymphocyte % 27.2 % (19-41); Mean Corpuscular Hgb 29.7 pg (27.0-32.0); Mean Corpuscular Volume 89.8 fL (81-99); Mean Platelet Vol. 10.5 fl (6.2-12.0); Monocyte# 1.33 X10^3/uL; Monocyte% 10.4 % (0-10); NRBC Flagged by Analyzer 0 % (0-5); Neutrophil # 7.45 X10^3/uL (2.7-7.7); Neutrophil % 58.5 % (47-70); Platelet Count 417 K/mm3 (150-450); RBC Distribution Width CV 13.1 % (11.6-14.6); RBC Distribution Width SD 42.5 fl (35.1-43.9); Red Blood Count 4.62 M/mm3 (4.2-5.4); White Blood Count 12.8 K/mm3 (4.4-11.0)
[2020-12-07 20:51] LABS: Internal QC Validated? YES +Cl - CLEAR BKGD; Pregnancy, Serum, hCG Quali. NEGATIVE Negative
[2020-12-07 20:57] LABS: Anion Gap 5 (5-15); BUN 22 mg/dL (7-18); BUN/Creat Ratio 26.5 RATIO (10-20); Calcium,Total 9.1 mg/dL (8.5-10.1); Chloride 106 mmol/L (98-107); Creatinine, Serum 0.83 mg/dL (0.55-1.02); EST Glomerular Filtration Rate 84 mL/min (>60); Est Glom Filt Rate - Afr Amer 102 mL/min (>60); Estimated Creatinine Clearance 90.25 ml/min; Glucose 95 mg/dL (74-106); Potassium 3.7 mmol/L (3.5-5.1); Sodium Level 141 mmol/L (136-145)
[2020-12-07 21:17] VITALS: RESP 18
[2020-12-07] MEDS: Ziprasidone IM 20 MG/ML VIAL 10 MG IM (21:22)
[2020-12-07 23:00] VITALS: BP 114/66; PULSE 72; RESP 16; O2SAT 97
[2020-12-08] VITALS: RESP 18
--- NOTE | 2020-12-08 00:03 | ED.DCSUM_ITS ---
- ER Visit Summary Date of Service: 12/08/20 Chief Complaint: Mental health evaluation History of Present Illness: The patient is a 35 F brought in by family member for a mental health evaluation. Patient has been off her medications. She has history of schizophrenia, bipolar disorder, anxiety, depression. She was pink slipped by police. Per pink slip, she is responding to hallucinations and is paranoid. She believes the government is listening to her. She is unable to stay on topic and is pacing around the room. Physical Examination: Vitals are stable. Patient is afebrile. Alert no acute distress. HEENT exam is unremarkable. Neck is supple. Lungs are clear and equal bilaterally. Heart is regular tachycardic Abdomen is soft nontender nondistended. Extremities are unremarkable. Skin is warm and dry. No focal neurologic deficit. Flight of ideas, pacing, agitated Remainder of exam is unremarkable. Emergency Department Course and Treatment: CBC, chemistries unremarkable. hCG negative. Alcohol negative. Covid negative. Tox is pending. Patient remains medically stable in the ED. Will discuss with counseling center for evaluation. Disposition: Per counseling center Impression: Psychosis, history of schizophrenia This note was generated with [employer] dictation software. It may contain incorrect words, spelling, and punctuation that were not noted in review of the chart prior to signing ED Disposition - Plan for ED Patient: Referrals: Care Physician,No Primary [Primary Care Provider] -
--- NOTE | 2020-12-08 01:19 | ED.RN ---
[facility] HAD CALL[facility] AND ASKED FOR THE PINK SLIP TO BE FAXED OVER SO THAT WAS DONE AT 0115. PATIENT WAS ALSO HAD A REFERRAL PUT INTO [facility].
[2020-12-08 01:26] LABS: Amphetamine Urine VISTA POSITIVE (<1000 ng/mL); Barbiturate Urine VISTA NEGATIVE (< 200 ng/mL); Benzodiazepine Urine VISTA NEGATIVE (< 200 ng/mL); Cocaine Urine VISTA NEGATIVE (< 300 ng/mL); Ecstacy Urine VISTA POSITIVE (< 500 ng/mL); Methadone Urine VISTA NEGATIVE (< 300 ng/mL); PCP Urine VISTA NEGATIVE (< 25 ng/mL); THC Urine VISTA NEGATIVE (< 50 ng/mL); Vista UDS pH Range 5
[2020-12-08 03:06] VITALS: BP 120/74; PULSE 78; RESP 16; O2SAT 98
--- NOTE | 2020-12-08 03:59 | ED.RN ---
Report given to [facility] and they are in room to take patient for discharge to other facility
[2020-12-08 04:00] VITALS: RESP 16
== END 2020-12-08 04:00 ==
LOC: ED 20:46
PROVIDERS: Emergency Provider Emergency Medicine
DX: F29 Unspecified psychosis not due to a substance or known physiological condition (principal); F32.9 Major depressive disorder, single episode, unspecified; F41.9 Anxiety disorder, unspecified
CPT/HCPCS: 80048; 80307; 82077; 84703; 85025; 87426; 96372; 99285; J3486

== ENCOUNTER 2021-01-16 23:35 | Emergency (ER) | payer MEDICAID, SELFPAY ==
[2021-01-16 23:37] VITALS: BP 132/52; PULSE 118; RESP 18; TEMP 35.4; O2SAT 95; BMI 25.7
--- NOTE | 2021-01-17 01:28 | ED.DCSUM_ITS ---
- ER Visit Summary Date of Service: 01/17/21 Chief Complaint: Anxiety History of Present Illness: The patient is a 35 F presenting with anxiety and feeling of impending doom. Patient states that she is under a lot of stress because she is homeless. She states she has been homeless for several years. She states she has nowhere to go and becomes more and more anxious if it is cold outside. She has not been taking her medications. Per chart patient has history of schizophrenia but she denies this. She does not have a counselor. She denies fever. Denies suicidal thoughts. Physical Examination: Vitals are stable. Patient is afebrile. Alert no acute distress. HEENT exam is unremarkable. Neck is supple. Lungs are clear and equal bilaterally. Heart is regular rate and rhythm. Abdomen is soft nontender nondistended. Extremities are unremarkable. Skin is warm and dry. No focal neurologic deficit. Denies suicidal or homicidal ideation Remainder of exam is unremarkable. Emergency Department Course and Treatment: Patient was given Ativan p.o. Labs are pending. Patient will be signed out to the oncoming physician for reevaluation. Disposition: Pending Impression: Anxiety This note was generated with [employer] dictation software. It may contain incorrect words, spelling, and punctuation that were not noted in review of the chart prior to signing ED Disposition - Plan for ED Patient: Referrals: Care Physician,No Primary [Primary Care Provider] -
[2021-01-17 02:06] LABS: Absolute Lymphocyte Count 1.79 X10^3/uL (0.83-4.51); Absolute Neutrophil Count 18.6 X10^3/uL (2.0-7.7); Basophil# 0.07 X10^3/uL; Basophil% 0.3 % (0-1); Eosinophil# 0.07 X10^3/uL; Eosinophils% 0.3 % (0-5); Hematocrit 49.2 % (37-47); Hemoglobin 16.7 g/dL (12.0-15.0); Lymphocyte # 1.79 X10^3/ul (4.0); Lymphocyte % 8.3 % (19-41); Mean Corp Hgb Conc 33.9 g/dL (32-36); Mean Corpuscular Hgb 30.3 pg (27.0-32.0); Mean Corpuscular Volume 89.3 fL (81-99); Mean Platelet Vol. 9.4 fl (6.2-12.0); Monocyte# 0.98 X10^3/uL; Monocyte% 4.5 % (0-10); NRBC Flagged by Analyzer 0 % (0-5); Neutrophil # 18.57 X10^3/uL (2.7-7.7); Platelet Count 426 K/mm3 (150-450); RBC Distribution Width CV 13.8 % (11.6-14.6); RBC Distribution Width SD 44.9 fl (35.1-43.9); Red Blood Count 5.51 M/mm3 (4.2-5.4); White Blood Count 21.6 K/mm3 (4.4-11.0)
[2021-01-17] MEDS: LORazepam 1 MG Tablet PO (02:11)
[2021-01-17 02:13] LABS: Internal QC Validated? YES +Cl - CLEAR BKGD; Pregnancy, Serum, hCG Quali. NEGATIVE Negative
[2021-01-17 02:20] LABS: Anion Gap 7 (5-15); BUN 15 mg/dL (7-18); Calcium,Total 9.8 mg/dL (8.5-10.1); Chloride 101 mmol/L (98-107); Creatinine, Serum 1.25 mg/dL (0.55-1.02); EST Glomerular Filtration Rate 52 mL/min (>60); Est Glom Filt Rate - Afr Amer 63 mL/min (>60); Glucose 122 mg/dL (74-106); Potassium 4.1 mmol/L (3.5-5.1); Sodium Level 135 mmol/L (136-145)
[2021-01-17 02:27] LABS: Alcohol, Blood (Medical)-Serum < 3.0 mg/dL
[2021-01-17 03:17] LABS: Amphetamine Urine VISTA POSITIVE (<1000 ng/mL); Barbiturate Urine VISTA NEGATIVE (< 200 ng/mL); Benzodiazepine Urine VISTA NEGATIVE (< 200 ng/mL); Cocaine Urine VISTA NEGATIVE (< 300 ng/mL); Ecstacy Urine VISTA POSITIVE (< 500 ng/mL); Methadone Urine VISTA NEGATIVE (< 300 ng/mL); PCP Urine VISTA NEGATIVE (< 25 ng/mL); THC Urine VISTA NEGATIVE (< 50 ng/mL); Vista UDS pH Range 5
--- NOTE | 2021-01-17 03:29 | ED.RN ---
crisis made aware of patient at this time
--- NOTE | 2021-01-17 03:36 | RAD_ITS ---
STUDY: X-RAY CHEST REASON FOR EXAM: Female, 35 years old. Leukocytosis TECHNIQUE: Single AP portable view of the chest. COMPARISON: December 14, 2019 chest x-ray FINDINGS: There is a persistent slight prominence of the right lower lobe lung markings similar to prior study. There is improved aeration of the left lower lobe when compared to prior study. There is no demonstrated pleural abnormality. Normal size heart. Normal mediastinum and nedra. Normal visualized pulmonary arteries. Normal visualized aortic arch and descending thoracic aorta. Normal visualized thoracic spine. Normal visualized ribs, clavicles, and shoulders. There is no demonstrated abnormality of the visualized soft tissue structures of the upper abdomen. RAD/Chest 1 View (Portable) IMPRESSION: No visualized acute focal infiltrate. Probable chronic right lower lobe atelectasis or minimal interstitial prominence. Electronically Signed: Trisha Longoria MD at 5:43 EDT Tel , Service support ,
[2021-01-17] MEDS: 0.9% Normal Saline 1,000 ML 999 ML IV (03:48)
[2021-01-17 03:52] VITALS: BP 128/84; PULSE 114; RESP 16; TEMP 36.8; O2SAT 98
[2021-01-17 03:58] LABS: CPK Total, Creatine Kinase 173 U/L (26-192)
[2021-01-17 05:43] VITALS: BP 129/85; PULSE 109; RESP 16; O2SAT 98
[2021-01-17 05:56] LABS: Anion Gap 4 (5-15); BUN 15 mg/dL (7-18); BUN/Creat Ratio 17.3 RATIO (10-20); Calcium,Total 8.8 mg/dL (8.5-10.1); Chloride 105 mmol/L (98-107); Creatinine, Serum 0.87 mg/dL (0.55-1.02); EST Glomerular Filtration Rate 80 mL/min (>60); Est Glom Filt Rate - Afr Amer 97 mL/min (>60); Estimated Creatinine Clearance 82.76 ml/min; Glucose 104 mg/dL (74-106); Potassium 4.2 mmol/L (3.5-5.1); Sodium Level 134 mmol/L (136-145)
--- NOTE | 2021-01-17 06:18 | ED.RN ---
CHART FAXED TO [facility] AT THIS TIME
[2021-01-17 06:58] VITALS: BP 110/84; PULSE 92; RESP 16; O2SAT 96
[2021-01-17 07:00] VITALS: BP 113/89; PULSE 105; RESP 28; O2SAT 98
--- NOTE | 2021-01-17 07:46 | ED.VISSUMM ---
- ER Visit Summary Date of Service: 01/17/21 Chief Complaint: [] History of Present Illness: The patient is a 35 F [] Physical Examination: [] Test Results: [] Emergency Department Course and Treatment: [Patient evaluated for feeling down and being off her meds. Is anxious but the majority of her anxiety seems to be associated with her homelessness. She does have a history of schizophrenia. She admits to drug use but denies any heroin use. Patient's work-up is remarkable for leukocytosis but there is no obvious torso infection. No fever. I suspect is reactive. Urine drug is positive for amphetamines. CPK does not show any findings consistent with rhabdomyolysis. Creatinine is mildly elevated. Patient is given a liter of IV fluids and this is rechecked. Her creatinine is now normalized. Patient is given a dose of Ativan in the ER. Patient is evaluated by crisis. She does not have any homicidal or suicidal ideations. She does not require inpatient psychiatric evaluation at this time. She is not interested in addiction counseling. Patient is interested in counseling services. She is given information for this. Treatment Plan: [] Disposition: [Discharge] Impression: [1. Depression 2. Substance abuse 3. Homelessness] This note was generated with [employer] dictation software. It may contain incorrect words, spelling, and punctuation that were not noted in review of the chart prior to signing ED Disposition - Plan for ED Patient: Disposition: Home or Assisted Living Diagnosis: Depression, Drug abuse, Leukocytosis, Homelessness Instructions: ED Depression, ED Drug Abuse Referrals: Counseling,Center [GROUP OF PHYSICIANS] - Additional Instructions: Please follow-up with the counseling center. Their address is [facility] Jelena Ledezma and their phone number [phone]
[2021-01-17 08:03] VITALS: BP 128/91; PULSE 98; RESP 15; O2SAT 99
== END 2021-01-17 08:04 | disposition home or self-care (01) ==
PROVIDERS: Emergency Medicine; Emergency Provider Emergency Medicine
DX: F41.9 Anxiety disorder, unspecified (principal); Z59.0 Homelessness; Z91.14 Patient's other noncompliance with medication regimen; F20.9 Schizophrenia, unspecified
CPT/HCPCS: 71045; 80048; 80307; 82077; 82550; 84703; 85025; 87426; 96360; 99284; A4216

== ENCOUNTER 2021-07-13 09:57 | Emergency (ER) | payer MEDICAID, SELFPAY ==
[2021-07-13 09:59] VITALS: BP 128/95; PULSE 96; RESP 20; TEMP 36.2; O2SAT 97; BMI 33.7
--- NOTE | 2021-07-13 10:19 | RAD_ITS ---
STUDY: X-RAY CHEST REASON FOR EXAM: Female, 35 years old. SOB, PRODUCTIVE COUGH, HEADACHE, DENTAL PAIN X1 WEEK TECHNIQUE: AP COMPARISON: 01/17/2021 FINDINGS: The lungs are clear and expanded. There is no demonstrated pleural abnormality. Normal size heart. Normal mediastinum and nedra. Normal visualized pulmonary arteries. Normal visualized aortic arch and descending thoracic aorta. Normal visualized thoracic spine. Normal visualized ribs, clavicles, and shoulders. There is no demonstrated abnormality of the visualized soft tissue structures of the upper abdomen. RAD/Chest 1 View (Portable) IMPRESSION: Nonacute portable x-ray examination of the chest. Electronically Signed: Jimy Okeefe MD ([facility]) at 10:51 EDT , Service support ,
--- NOTE | 2021-07-13 10:20 | ED.VIS.DYS ---
HPI History of Present Illness Chief Complaint: Shortness of Breath Informant: patient Narrative Narrative: 35-year-old female presented to the emergency room with cough. Patient states for the past week she has had cough shortness of breath and sputum production. She describes the sputum is thick greenish-yellow. Patient states that she is currently homeless and has been sleeping outside. She is a smoker. She notes a headache due to a tooth problem. She does not have a dentist. She is looking for help from social work. No reported fevers. PFSH PFSH Home Medications albuterol sulfate [Ventolin HFA] 2 puff INHALATION Q4H PRN PRN #1 inhaler 07/13/21 [Rx Last Taken Unknown] azithromycin [Zithromax Z-Edin] See Rx Instructions .ROUTE .COMPLEX #6 tab 07/13/21 [Rx Last Taken Unknown] docosahexaenoic acid [ DHA] 200 mg PO DAILY #30 cap 07/13/21 [Rx Last Taken Unknown] Allergy/AdvReac Type Severity Reaction Status Date / Time No Known Allergies Allergy Verified 01/16/21 23:39 Social History (Updated 07/13/21 @ 10:[address] Jonel Parisi, DO) housing: homeless current occupational status: unemployed Smoking Status: Current every day smoker ROS ROS ED Constitutional Constitutional ED: Denies chills or weight loss Eyes Eyes: Denies change in vision or diplopia ENT ENT ED: Reports other Details: Dental pain ; Denies ear pain, rhinorrhea or sore throat Cardiovascular Cardiovascular: Denies chest pain, orthopnea, palpitations or racing heartbeat Respiratory/Chest Respiratory/Chest: Reports cough, dyspnea, dyspnea on exertion and sputum; Denies orthopnea Gastrointestinal Gastrointestinal: Denies abdominal pain, diarrhea, nausea or vomiting Genitourinary Genitourinary ED: Denies dysuria, hematuria or urinary frequency Musculoskeletal Musculoskeletal: Denies arthralgias or myalgias Integumentary Denies abscess or rash Neurologic Neurologic: Reports headache(s); Denies weakness Psychiatric Psychiatric: Denies anxiety, depression, suicidal ideation or suicidal thoughts Endocrine Endocrinology: Denies polydipsia, polyphagia or polyuria Allergic/Immunologic Allergic/Immunologic ED: Denies mouth swelling, tongue swelling or urticaria EXAM Physical Exam Const Vital Signs: 07/13/21 09:59 07/13/21 10:40 Temperature 97.1 F L Temperature Source Temporal Pulse Rate 96 93 Respiratory Rate 20 H 20 H Blood Pressure 128/95 H Blood Pressure Mean 106 Pulse Ox 97 Oxygen Delivery Method Room Air Positive well nourished and well developed General Appearance ED: well developed HEENT Reports normocephalic, head/scalp atraumatic and moist mucous membranes HEENT Narrative: Poor dentition no evidence of abscess floor the mouth is soft. No mandibular swelling or facial swelling noted. Eyes PERRL and EOMs intact bilaterally Neck no lymphadenopathy, supple and no JVD Resp Resp Narrative: Tachypnea Auscultation: wheezes Cardio regular rate, regular rhythm and no murmurs GI normal to inspection, nondistended, normoactive bowel sounds and non-tender Palpation: soft Back/Spine no CVA tenderness and normal ROM Extremity normal to inspection General Extremety ED: Negative for edema General Extremity: Negative for edema Neuro oriented x3 and CN's II-XII intact bilaterally Sensorium / Orientation: alert Motor Exam: strength 5/5 throughout Psych mental status grossly normal Mood & Affect: Negative for depressed or tearful Skin no rashes or lesions noted and no wounds MDM MDM MDM Narrative Medical decision making narrative: My interpretation of the chest x-ray is no acute process. Covid test is negative patient received a DuoNeb. Her lung sounds are better. Home with prescribe her azithromycin and an albuterol MDI. I had social work talk with her and we gave her dental clinics. Radiography Diagnostic Testing: Clinical Impression(s) from Imaging Studies Chest X-Ray 07/13/21 10:19 IMPRESSION: Nonacute portable x-ray examination of the chest. Electronically Signed: Jimy Okeefe MD (Bro[facility]) at 10:51 EDT , Service support , Discharge Plan Triage Chief Complaint: Shortness of Breath ED Provider: Jonel Parisi Dx/Rx/DC Orders Clinical Impression: Acute bronchitis with bronchospasm, Pain, dental Instructions: ED Bronchitis with Wheezing (Adult) Prescriptions: New DHA 200 mg capsule 200 mg PO DAILY Qty: 30 RF: 0 albuterol sulfate [Ventolin HFA] 1 INHALER inhaler 2 puff inhalation Q4H PRN PRN (Reason: Wheezing) Qty: 1 RF: 0 azithromycin [Zithromax Z-Edin] 250 mg tablet See Rx Instructions .ROUTE .COMPLEX Qty: 6 RF: 0 Primary Care Provider: Care Physician,No Primary Referrals: [facility] [NON-STAFF] - As soon as possible Care Physician,No Primary [Primary Care Provider] - Disposition Disposition: Home, Self Care
[2021-07-13 10:40] VITALS: PULSE 93; RESP 20
[2021-07-13] MEDS: Ipratropium/Albuterol Sulfate 3 ML AMPUL.NEB INHALATION (10:40)
--- NOTE | 2021-07-13 11:13 | CM.ED ---
SW Note Referral Source: MD and conditioner tender Reason: Patient is and homeless. SW was advised that patient is and homeless. Per MD she wanted hospital gown as she has been wearing her own clothes for a week. voiced that patient can not go to [facility] related to past issues. Possible drug history. SW called Piotr, detox seo consultant, who works with [facility] and she said that patient could call [facility] and speak to marketing support specialist. SW met with patient in her room. Patient said she had literally just talked to [facility] and this service writer's assistance is not necessary. SW asked patient her plan and she said I was so sick I can't think of a plan. Patient was asked if she needed to talk to [facility] now and patient said I don't have a phone. SW asked if patient needed to use this service writer's phone to contact [facility] and she said that she had talked to them. SW asked how she had talked to them and patient said in person before I came here. SW asked if patient needs any other resources such as Help Me Grow and she denied any other needs or issues. Patient was provided with streetcard list of resources and Dental assistance program at [facility]. SW remains available if needs arise. Plan: Resource list provided. Patient said that she has talked to [facility] and they will help her in regards to housing Phyllis Gibson SUNNY BRITTON
[2021-07-13] MEDS: Acetaminophen 500 MG Tablet 1000 MG PO (12:03)
--- NOTE | 2021-07-13 12:10 | ED.RN ---
PT IS REFUSING HEART TONES AT THIS TIME PT STATES I HAVE AN OB FOR THAT I DON'T NEED IT FROM YOU. MD MADE AWARE. PT STATES I'M NOT DOING ANYTHING 1-EIGHTY IS SUPPOSED TO BE TAKING CARE OF ME. PT D/C WITH RESOURCES.
== END 2021-07-13 12:16 | disposition home or self-care (01) ==
LOC: ED 11:53
PROVIDERS: Emergency Provider Emergency Medicine
DX: J20.9 Acute bronchitis, unspecified (principal); K08.89 Other specified disorders of teeth and supporting structures; F17.200 Nicotine dependence, unspecified, uncomplicated; Z59.00 Homelessness unspecified; Z79.899 Other long term (current) drug therapy
CPT/HCPCS: 71045; 87426; 94640; 99284

== ENCOUNTER 2021-09-23 07:26 | Inpatient (IN) | payer MEDICAID, SELFPAY ==
[2021-09-23] VITALS (163 sets, daily range): BP systolic 102–139; BP diastolic 42–85; PULSE 96–143; RESP 16–36; TEMP 36.1–37.1; O2SAT 67–100; BMI 35.4; BMI 30.7
--- NOTE | 2021-09-23 07:33 | EKG12_ITS ---
Test Reason : SOB Blood Pressure : / mmHG Vent. Rate : 124 BPM Atrial Rate : 124 BPM P-R Int : 144 ms QRS Dur : 070 ms QT Int : 296 ms P-R-T Axes : 057 064 021 degrees QTc Int : 425 ms Sinus tachycardia Otherwise normal ECG Confirmed by GRACE ECHOLS, BETH ([id number]), art editor ELICEO FABIAN ([id number]) on 09/25/2021 9:32:25 AM Referred By: KRANTHI Confirmed By:BETH EDWARDS MD
--- NOTE | 2021-09-23 07:40 | RAD_ITS ---
STUDY: X-RAY CHEST REASON FOR EXAM: Female, 35 years old. SOB TECHNIQUE: Single AP portable view of the chest. COMPARISON: 07/13/2021 FINDINGS: Poor inspiration with some bibasilar atelectasis. There is no demonstrated pleural abnormality. Normal size heart. Normal mediastinum and nedra. Normal visualized pulmonary arteries. Normal visualized aortic arch and descending thoracic aorta. Normal visualized thoracic spine. Normal visualized ribs, clavicles, and shoulders. There is no demonstrated abnormality of the visualized soft tissue structures of the upper abdomen. RAD/Chest 1 View (Portable) IMPRESSION: Poor inspiration with some bibasilar atelectasis. Electronically Signed: Jerome Hobson MD at 7:56 EST Tel , Service support ,
--- NOTE | 2021-09-23 07:42 | CT_ITS ---
STUDY: CTA CHEST REASON FOR EXAM: Female, 35 years old. SOB RADIATION DOSAGE (If Supplied By Facility): CTDIvol = ( 13.84 ) mGy, DLP = ( 435.10 ) mGycm TECHNIQUE: The examination was performed with the intravenous administration of IV 100mL Isovue-370. Post-processing of the angiographic images was performed, with multiplanar reformation and 3D reconstruction. Individualized dose optimization techniques were used for this CT. COMPARISON: CT 12/10/2019 FINDINGS: Normal enhancement of the main pulmonary artery and right and left pulmonary arteries. Normal enhancement of the bilateral peripheral pulmonary arteries. There is no demonstrated pulmonary embolism. Normal thoracic aorta and visualized great vessels. There is no demonstrated aortic dissection. Normal heart and pericardium. Normal mediastinum. Normal hilar regions. Obstruction of the left lower lobe bronchus with complete collapse of the left lower lobe likely from mucous plugging or aspiration. Correlation with bronchoscopy may be useful. The lungs are well expanded. Normal pulmonary parenchyma. Normal pleura. Normal chest wall structures. Normal osseous structures. Normal visualized upper abdomen. CT/CTA Chest W/WO Contrast IMPRESSION: 1. No CT evidence of pulmonary embolism. 2. Obstruction of the left lower lobe bronchus with left lower lobe collapse, possibly from mucous plugging or aspiration. Correlation with endoscopy would be useful.. Electronically Signed: Jerome Hobson MD at 8:45 EST Tel , Service support ,
[2021-09-23 07:45] LABS: Absolute Lymphocyte Count 2.33 X10^3/uL (0.83-4.51); Absolute Neutrophil Count 18.1 X10^3/uL (2.0-7.7); Basophil# 0.05 X10^3/uL; Basophil% 0.2 % (0-1); Eosinophil# 0.16 X10^3/uL; Eosinophils% 0.7 % (0-5); Hematocrit 42.4 % (37-47); Lymphocyte # 2.33 X10^3/ul (0.83-4.51); Lymphocyte % 10.7 % (19-41); Mean Corpuscular Hgb 29.7 pg (27.0-32.0); Mean Platelet Vol. 9.3 fl (6.2-12.0); Monocyte# 0.94 X10^3/uL; Monocyte% 4.3 % (0-10); NRBC Flagged by Analyzer 0 % (0-5); Neutrophil # 18.13 X10^3/uL (2.7-7.7); Neutrophil % 83.6 % (47-70); Platelet Count 431 K/mm3 (150-450); RBC Distribution Width CV 14.8 % (11.6-14.6); RBC Distribution Width SD 48.2 fl (35.1-43.9); Red Blood Count 4.71 M/mm3 (4.2-5.4); White Blood Count 21.7 K/mm3 (4.4-11.0)
--- NOTE | 2021-09-23 07:59 | ED.VIS.DYS ---
HPI History of Present Illness Chief Complaint: Shortness of Breath Narrative Narrative: Patient presenting for evaluation secondary to shortness of breath. Patient is in the third trimester of , her G's and P's are relatively uncertain she tells me that she has one live child and has been maybe ten times. States that she is due any day now. Patient states that she developed significant shortness of breath today. It came on suddenly associated with pain on deep inspiration. Patient does report that she has a cough productive of some yellow sputum. She denies any fevers. Patient states that she has past history of pneumonia, bronchitis, and a collapsed lung. Patient states that she is still having movement denies any vaginal discharge or bleeding. [facility] Medical History Drug abuse Home Medications albuterol sulfate [Ventolin HFA] 2 puff INHALATION Q4H PRN PRN #1 inhaler 07/13/21 [Rx Last Taken Unknown] azithromycin [Zithromax Z-Edin] See Rx Instructions .ROUTE .COMPLEX #6 tab 07/13/21 [Rx Last Taken Unknown] docosahexaenoic acid [ DHA] 200 mg PO DAILY #30 cap 07/13/21 [Rx Last Taken Unknown] Allergy/AdvReac Type Severity Reaction Status Date / Time No Known Allergies Allergy Verified 09/23/21 07:28 Social History housing: homeless current occupational status: unemployed Smoking Status: Current every day smoker tobacco type: cigarettes ROS ROS ED Constitutional Constitutional ED: Denies chills or fever(s) ENT ENT ED: Denies rhinorrhea Cardiovascular Cardiovascular: Reports chest pain Respiratory/Chest Respiratory/Chest: Reports dyspnea Gastrointestinal Gastrointestinal: Denies abdominal pain, diarrhea, nausea or vomiting Genitourinary Genitourinary ED: Denies dysuria or hematuria Musculoskeletal Musculoskeletal: Denies back pain Integumentary Denies rash Neurologic Neurologic: Denies paresthesias or weakness Psychiatric Psychiatric: Denies depression Endocrine Endocrinology: Denies fatigue Allergic/Immunologic Allergic/Immunologic ED: Denies urticaria EXAM Physical Exam Const Vital Signs: 09/23/21 07:28 09/23/21 07:33 Temperature 97.3 F L Temperature Source Temporal Pulse Rate 129 H Respiratory Rate 35 H Respiratory Effort Short of Breath Labored Accessory Muscle Use Blood Pressure 139/60 H Blood Pressure Mean 86 Pulse Ox 94 Oxygen Delivery Method Room Air Nasal Cannula Oxygen Flow Rate (L/min) 2 Somewhat unkempt in respiratory distress Positive well nourished and well developed General Appearance ED: well developed HEENT Reports moist mucous membranes Negative for trauma or tenderness Eyes EOMs intact bilaterally Neck no lymphadenopathy, supple and no JVD Chest Wall inspection of chest normal Resp Resp Narrative: Lung sounds are clear to auscultation bilaterally with shallow respirations and tachypnea. No signs of retractions or accessory muscle use. Cardio regular rate, no murmurs and peripheral pulses 2+ throughout Cardio Narrative: 2+ radial pulses bilaterally symmetric Rate: tachycardic GI normal to inspection, nondistended, normoactive bowel sounds GI Narrative: Abdomen is gravid and nontender Back/Spine normal to inspection Extremity normal to inspection General Extremety ED: Negative for tenderness Neuro oriented x3 and no sensory deficits noted Sensorium / Orientation: alert Motor Exam: strength 5/5 throughout Psych mental status grossly normal Skin no rashes or lesions noted Rashes: no rashes MDM MDM MDM Narrative Medical decision making narrative: Patient presented in respiratory distress. Patient was placed on supplemental oxygen. Bedside ultrasound showed normal lung sliding, no evidence of pneumothorax. Obstetrics ultrasound demonstrates fetus with a heart rate of one hundred sixty-two. Chest x-ray was obtained which didn't show any obvious immediate infiltrates or cause for the patient's significant shortness of breath by my personal interpretation as well as radiology.. CT angiogram of the chest was ordered. EKG demonstrates tachycardic with no ischemic changes. Patient was noted to have a leukocytosis of 21,000 which she did have on a prior lab test. Chemistry shows no significant renal insufficiency or electrolyte derangement lactic acid was modestly elevated at 2.1 bilirubin was normal AST ALT normal alkaline phosphatase very modestly elevated at 133 LDH was normal at 169. Patient does not seem to have evidence of her preeclampsia. CT of the patient's chest demonstrates no evidence of pulmonary embolus, but does show left lower lobe infiltrate with potential mucous plugging. Reviewed patient's records, she has had a history of this in the past. Discussed patient's case initially with obstetrics who did state that the patient would be appropriate for treatment with Rocephin and azithromycin given the fact that she is late in her third trimester this was ordered. Discussed patient with medicine who reported that they did not feel comfortable primarily admitting a third trimester patient. I discussed this again with Dr. Peck who did agree to accept the patient for further treatment. Lab Data Labs: Laboratory Results - last 24 hr 09/23/21 09/23/21 09/23/21 07:38 07:38 07:56 WBC 21.7 H RBC 4.71 Hgb 14.0 Hct 42.4 MCV 90.0 MCH 29.7 MCHC 33.0 RDW Std Deviation 48.2 H RDW Coeff of Tonya 14.8 H Plt Count 431 MPV 9.3 Immature Gran % (Auto) 0.500 Neut % (Auto) 83.6 H Lymph % (Auto) 10.7 L [place] % (Auto) 4.3 Eos % (Auto) 0.7 Baso % (Auto) 0.2 Absolute Neuts (auto) 18.1 H Absolute Lymphs (auto) 2.33 Nucleated RBC % 0 Sodium 138 Potassium 3.7 Chloride 105 Carbon Dioxide 22.0 Anion Gap 11 BUN 9 Creatinine 0.68 Estim Creat Clear Calc 110.16 Est GFR (MDRD) Af Amer 128 Est GFR (MDRD) Non-Af 105 BUN/Creatinine Ratio 13.2 Glucose 117 H Lactic Acid 2.1 H* Calcium 9.3 Total Bilirubin 0.30 AST 14 L ALT 22 Alkaline Phosphatase 133 H Lactate Dehydrogenase 169 Troponin I High Sens 4 Total Protein 7.2 Albumin 2.6 L Globulin 4.6 H Albumin/Globulin Ratio 0.6 L ABG Data ABG results: ABG 09/23/21 08:14 Specimen Type ART Sample Site R Radial pH 7.45 Bicarbonate Actual 20.3 L Total CO2 21 Base Excess -4 L O2 Saturation 96 ABG pCO2 29.3 L ABG pO2 77 Bony Test Positive O2 Delivery Device Cannula Liter Flow 3.0 Radiography Diagnostic Testing: Clinical Impression(s) from Imaging Studies Chest X-Ray 09/23/21 07:40 IMPRESSION: Poor inspiration with some bibasilar atelectasis. Electronically Signed: Jerome Hobson MD at 7:56 EST Tel , Service support , Chest CTA 09/23/21 07:42 IMPRESSION: 1. No CT evidence of pulmonary embolism. 2. Obstruction of the left lower lobe bronchus with left lower lobe collapse, possibly from mucous plugging or aspiration. Correlation with endoscopy would be useful.. 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, Discussing w/Consultants, Arranging Admission or Transfer and Performing Direct Patient Care at Bedside Discharge Plan Triage Chief Complaint: Shortness of Breath ED Provider: Chemo Funes Dx/Rx/DC Orders Clinical Impression: Sepsis, Pneumonia, Third trimester Prescriptions: No Action DHA 200 mg capsule 200 mg PO DAILY Qty: 30 RF: 0 albuterol sulfate [Ventolin HFA] 1 INHALER inhaler 2 puff inhalation Q4H PRN PRN (Reason: Wheezing) Qty: 1 RF: 0 azithromycin [Zithromax Z-Edin] 250 mg tablet See Rx Instructions .ROUTE .COMPLEX Qty: 6 RF: 0 Primary Care Provider: Care Physician,No Primary Referrals: Care Physician,No Primary [Primary Care Provider] - Disposition Disposition: Acute Care Hospital [facility]
[2021-09-23 08:05] LABS: ALB/GLOB Ratio 0.6 RATIO (0.9-2.4); AST(SGOT) 14 U/L (15-37); Alanine Aminotransfer ALT/SGPT 22 U/L (13-56); Albumin, Serum 2.6 g/dL (3.2-5.0); Alkaline Phosphatase 133 U/L (45-117); Anion Gap 11 (5-15); BUN 9 mg/dL (7-18); BUN/Creat Ratio 13.2 RATIO (10-20); Calcium,Total 9.3 mg/dL (8.5-10.1); Chloride 105 mmol/L (98-107); Creatinine, Serum 0.68 mg/dL (0.55-1.02); EST Glomerular Filtration Rate 105 mL/min (>60); Est Glom Filt Rate - Afr Amer 128 mL/min (>60); Estimated Creatinine Clearance 110.16 ml/min; Globulin 4.6 g/dL (2.2-4.2); Glucose 117 mg/dL (74-106); LDH 169 U/L (84-246); Potassium 3.7 mmol/L (3.5-5.1); Protein, Total 7.2 g/dL (6.4-8.2); Sodium Level 138 mmol/L (136-145); Troponin-I HS 4 pg/mL (3.0-54.0)
[2021-09-23 08:21] LABS: Allen Test Positive; Base Excess -4 mmol/L (-2 to +2); Bicarbonate 20.3 mmol/L (22-26); Blood Gas Specimen Type ART; O2 Delivery Device Cannula; PO2 77 mmHG (75-100); SITE R Radial; SO2 96 % (95-99); Total Carbon Dioxide 21 mmol/L; pCO2 29.3 mmHg (35-45); pH 7.45 (7.35-7.45)
[2021-09-23 09:00] LABS: Lactic Acid 2.1 mmol/L (0.4-1.9)
[2021-09-23] MEDS: Ceftriaxone 1 GM/50 ML BAG IV (09:37)
--- NOTE | 2021-09-23 10:14 | HP.PCM.OB_ITS ---
HPI - General General Date of Admission: 09/23/21 HPI Narrative CHAPIN SRINIVASAN, is a 35 F G @ 38.2 weeks who presented to ED c/o Chest pain and SOB with vomiting this morning. Pt reports no OB concerns. denies VB, LOF, contractions. Pt reports h/o drug use but denies recent use. Maternal Data Information Final FABIO: 10/05/21 Final FABIO Source: US >20 weeks Gestational age: 38.2 PFSH PFSH Medical History Drug abuse Home Medications NK 09/23/21 [History Last Taken Unknown] Allergy/AdvReac Type Severity Reaction Status Date / Time No Known Allergies Allergy Verified 09/23/21 07:28 Social History housing: homeless current occupational status: unemployed Smoking Status: Current every day smoker tobacco type: cigarettes NST FHR Rate Baby A Baseline: 150 Variability:: Moderate Accelerations:: 15 x 15 Decelerations:: None NST Reactive:: Yes FHR Category:: Category I Uterine Activity:: q2-5min- pt not feeling contractions. Vital Signs Vital Signs Vital Signs: 09/23/21 07:28 09/23/21 07:33 09/23/21 09:40 Temperature 97.3 F L 98.7 F Temperature Source Temporal Temporal Pulse Rate 129 H 131 H Respiratory Rate 35 H 16 Respiratory Effort Short of Breath Labored Accessory Muscle Use Blood Pressure 139/60 H 127/42 H Blood Pressure Mean 86 70 Pulse Ox 94 93 Oxygen Delivery Method Room Air Nasal Cannula Room Air Oxygen Flow Rate (L/min) 2 09/23/21 10:11 Temperature Temperature Source Pulse Rate 140 H Respiratory Rate Respiratory Effort Blood Pressure Blood Pressure Mean Pulse Ox 95 Oxygen Delivery Method Oxygen Flow Rate (L/min) Weight Weight: 99.6 kg Body Mass Index (BMI) 35.4 Physical Exam Const alert and oriented x3 General Appearance: cooperative HEENT normocephalic Chest Chest Narrative: . Resp Resp Narrative: tachypnea, decreased BS noted- Pt moving difficult to assess but wheezing appreciated GI GI Narrative: Gravid, non tender to palpation. OB / External & Speculum: external exam normal Extremity normal to inspection Skin no rashes or lesions noted Neuro oriented x3 and CN's II-XII intact bilaterally Psych Appearance: grossly normal Labs Labs Labs: Hct 42.4 % (37-47) Hgb 14.0 g/dL (12.0-15.0) Hep Bs Antigen Negative (Negative) HIV 1&2 Antibody Non-Reactive (Nonreactive) C.trachomatis DNA (PCR) Negative (Negative) Group B Strep DNA Pending Assessment & Plan (1) 38 weeks gestation of : (2) Pneumonia affecting : QUALIFIERS: Trimester: third trimester Qualified Code(s): O99.513 - Diseases of the respiratory system complicating , third trimester; J18.9 - Pneumonia, unspecified organism (3) Mucus plugging of bronchi: (4) Collapse of left lung: (5) History of drug use: PLAN: HD#1 admitted from ED with Pneumonia- Left Lower lobe lung collapse due to possible mucous plug 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 Phelps Pulmonology consult- Dr. Thomas Continue IV ABX- Zithromax and rocephin IVF KVO Chest CT done in ER- shows Obstruction LLL Bronchus complete collapse LLL Likely UDS- pt was informed and agrees NSTs Q shift VS - continuous Pulse Ox will await further recommendations for Medicine and pulmonary
[2021-09-23] MEDS: Lactated Ringers 1,000 ML 15 ML IV (10:30)
--- NOTE | 2021-09-23 10:37 | PCM.CONS.GEN ---
Assessment & Plan Assessment/Plan (1) Collapse of left lung: (2) Mucus plugging of bronchi: (3) Pneumonia affecting : QUALIFIERS: Trimester: third trimester Qualified Code(s): O99.513 - Diseases of the respiratory system complicating , third trimester; J18.9 - Pneumonia, unspecified organism (4) 38 weeks gestation of : PLAN: CHAPIN SRINIVASAN, is a 35 F who is 38 weeks presented to the emergency department complaining of right-sided chest pain in addition to shortness of breath. Patient also did complain of nausea and vomiting. Patient was evaluated in the emergency department with a CTA which demonstrated obstruction of the left lower lobe bronchus with left lower lobe collapse possibly from mucous plugging and aspiration. Patient was also found to have elevated WBC count. Patient was started on broad-spectrum antibiotic therapy admitted to the OB service and consultation placed to the hospitalist service. 1. Sepsis ?Secondary to community-acquired pneumonia patient has history of strep pneumonia based on urine antigen test from 12/11/2019. Patient started on Rocephin and azithromycin sputum and blood cultures initiated. Ordered supplemental oxygen to keep oxygen saturation greater than 90 2. Left lower lobe collapse ?Consult placed to pulmonary medicine. Patient seen by Dr. Thomas did recommend bronchopulmonary toileting with Pep therapy, with plans for patient to undergo bronchoscopy possibly on 09/24/2021 if she does not respond to conservative treatment 3. 38-week gestation ?Management deferred to OB 4. History of polysubstance abuse 5. History of noncompliance with medical therapy 6. DVT prophylaxis ?We will recommend bilateral SCDs HPI Consult Data Date of Consult: 09/23/21 HPI Narrative Reason for Consultation: Pneumonia HPI Narrative: CHAPIN SRINIVASAN, is a 35 F who is 38 weeks presented to the emergency department complaining of left-sided chest pain in addition to shortness of breath. Patient also did complain of nausea and vomiting. Patient was evaluated in the emergency department with a CTA which demonstrated obstruction of the left lower lobe bronchus with left lower lobe collapse possibly from mucous plugging and aspiration. Patient was also found to have elevated WBC count. Patient was started on broad-spectrum antibiotic therapy admitted to the OB service and consultation placed to the hospitalist service. [facility], [facility] Medical History Drug abuse Home Medications NK 09/23/21 [History Last Taken Unknown] Allergy/AdvReac Type Severity Reaction Status Date / Time No Known Allergies Allergy Verified 09/23/21 07:28 Social History housing: homeless current occupational status: unemployed Smoking Status: Current every day smoker tobacco type: cigarettes ROS ROS Narrative GENERAL: chills, night sweats, HEENT: denies headache, sinus congestion, RESPIRATORY: shortness of breath, CARDIAC: chest pain, palpitations, GASTROINTESTINAL: , nausea, vomiting, GENITOURINARY: denies dysuria, urgency, frequency, EXTREMITY: denies swelling MUSCULOSKELETAL: denies current joint pain or tenderness NEUROLOGIC: denies focal numbness, weakness, tingling HEMATOLOGIC: denies easy bruising and/or hemorrhage INTEGUMENT: denies rashes PSYCHIATRIC: denies suicidal or homicidal ideation Physical Exam Narrative GENERAL: Appears ill looking HEENT: Atraumatic; EYES; Anicteric, Normal Conjunctiva NECK; supple, normal thyroid, RESPIRATORY: Diminished to auscultation CARDIOVASCULAR: Regular S1 S2, GI: soft, normoactive bowel sounds, : Gravid uterus EXTREMITIES: No edema, no clubbing, MUSCULOSKELETAL: no muscle waisting NEURO: Awake; no lateralizing signs. SKIN: No Rash PSYCH; Flat affect Lab / Micro Data Result Diagrams: 09/23/21 07:38 09/23/21 07:38 Labs: Laboratory Results - last 24 hr 09/23/21 07:38: WBC 21.7 H, RBC 4.71, Hgb 14.0, Hct 42.4, MCV 90.0, MCH 29.7, MCHC 33.0, RDW Std Deviation 48.2 H, RDW Coeff of Tonya 14.8 H, Plt Count 431, MPV 9.3, Immature Gran % (Auto) 0.500, Neut % (Auto) 83.6 H, Lymph % (Auto) 10.7 L, [place] % (Auto) 4.3, Eos % (Auto) 0.7, Baso % (Auto) 0.2, Absolute Neuts (auto) 18.1 H, Absolute Lymphs (auto) 2.33, Nucleated RBC % 0 09/23/21 07:38: Sodium 138, Potassium 3.7, Chloride 105, Carbon Dioxide 22.0, Anion Gap 11, BUN 9, Creatinine 0.68, Estim Creat Clear Calc 110.16, Est GFR (MDRD) Af Amer 128, Est GFR (MDRD) Non-Af 105, BUN/Creatinine Ratio 13.2, Glucose 117 H, Calcium 9.3, Total Bilirubin 0.30, AST 14 L, ALT 22, Alkaline Phosphatase 133 H, Lactate Dehydrogenase 169, Troponin I High Sens 4, Total Protein 7.2, Albumin 2.6 L, Globulin 4.6 H, Albumin/Globulin Ratio 0.6 L 09/23/21 07:56: Lactic Acid 2.1 H* Micro: Microbiology 09/23/21 07:40 Nasal Secretion SARS-CoV-2 Antigen (Rapid) - Final 09/23/21 07:45 Mucosa - Nasopharyngeal Influenza Types A,B Direct FA (MARY LOU) - Final ABG Data ABG results: ABG 09/23/21 08:14 Specimen Type ART Sample Site R Radial pH 7.45 Bicarbonate Actual 20.3 L Total CO2 21 Base Excess -4 L O2 Saturation 96 ABG pCO2 29.3 L ABG pO2 77 Bony Test Positive O2 Delivery Device Cannula Liter Flow 3.0 Radiology Impression Chest X-Ray 09/23/21 07:40 IMPRESSION: Poor inspiration with some bibasilar atelectasis. Electronically Signed: Jerome Hobson MD at 7:56 EST Tel , Service support , Chest CTA 09/23/21 07:42 IMPRESSION: 1. No CT evidence of pulmonary embolism. 2. Obstruction of the left lower lobe bronchus with left lower lobe collapse, possibly from mucous plugging or aspiration. Correlation with endoscopy would be useful.. Electronically Signed: Jerome Hobson MD at 8:45 EST Tel , Service support , Charges/Coding Visit Charges Office Visits / Consults: [id number] IP Consult L5
--- NOTE | 2021-09-23 10:58 | EX.PCM.CONCC ---
Assessment & Plan Assessment/Plan (1) Mucus plugging of bronchi: PLAN: RECOMMENDATIONS: 1. Continue empiric antimicrobials for now. 2. Check strep and urine Legionella antigens. 3. Will provide patient with bronchopulmonary hygiene in the form of PEP therapy. 4. Obtain repeat chest x-ray tomorrow morning. 5. Plan for bronchoscopy tomorrow morning, if mucous plug has not cleared on chest imaging. IMPRESSIONS: 1. Shortness of breath with possible mucous plugging The patient presented to the hospital with shortness of breath. CTA chest was negative for PE but did demonstrate some lobar collapse in the left lower lobe with concern for possible mucous plugging or retained secretions. The patient is currently maintaining appropriate oxygen saturations on room air. The patient was admitted to the hospital in December 2019 under similar circumstances with lobar collapse involving the left lower lobe as well. She never required bronchoscopic intervention at that time as the secretions cleared with bronchopulmonary hygiene. Therefore, the patient is going to be provided with a PEP device to be utilized over the course of the day. I am going to obtain a repeat plain film chest x-ray in the morning. If her mucous plug has cleared at that time, there would be no indication for bronchoscopy. Nevertheless, I have tentatively scheduled the patient for bronchoscopy tomorrow morning at 7 AM, should the mucous plug not resolved. The patient should be made n.p.o. at midnight. Agree with continuing empiric antimicrobials for now. 2. History of polysubstance abuse and medical noncompliance Complicates care, management, recovery and prognosis. Continue supportive measures as noted above. This note was generated with [employer] dictation software. It may contain incorrect words, spelling, and punctuation that were not noted in checking the note before signing. HPI Consult Data Date of Consult: 09/23/21 HPI Narrative Reason for Consultation: Mucous plug HPI Narrative: The patient is a 35-year-old female, with a history as outlined below, who presented to the emergency department on the morning of September 23 with reported shortness of breath. The patient is currently 38 weeks . She did report some associated nausea and vomiting this morning. In December 2019, the patient was admitted to the hospital under similar circumstances with left-sided lobar collapse concerning for retained secretions. The patient did have a positive pneumococcal urinary antigen at that time. She was treated with antimicrobials and bronchopulmonary hygiene. She never did require bronchoscopy at that time. The patient's medical history is significant for polysubstance dependency. On presentation to the emergency department, the patient was noted to be afebrile but was tachycardic and tachypneic. She was otherwise hemodynamically stable. Initial laboratory evaluation revealed an elevated white blood cell count to 21,000. Chemistry profile was unrevealing. CTA chest was obtained which demonstrated no evidence for pulmonary embolism. There was, however, incidental note of left lower lobe collapse with what appeared to be a mucous plug or retained secretions. The patient was subsequently [facility]. She was started on antimicrobials. [facility] Medical History Drug abuse Home Medications NK 09/23/21 [History Last Taken Unknown] Allergy/AdvReac Type Severity Reaction Status Date / Time No Known Allergies Allergy Verified 09/23/21 07:28 Social History housing: homeless current occupational status: unemployed Smoking Status: Current every day smoker tobacco type: cigarettes ROS Constitutional Constitutional: Denies chills, fatigue or fever(s) Eyes Eyes: Denies blurry vision or change in vision ENT HEENT: Denies dizziness, dysphagia or epistaxis Cardiovascular Cardiovascular: Reports dyspnea; Denies chest pain, claudication or dizziness Respiratory/Chest Respiratory/Chest: Reports cough and dyspnea Gastrointestinal Gastrointestinal: Reports vomiting; Denies abdominal pain or diarrhea Genitourinary Genitourinary: Denies difficulty urinating Musculoskeletal Musculoskeletal: Denies arthralgias Integumentary Integumentary: Denies lesions, rash or skin ulcer Neurologic Neurologic: Denies abnormal gait Psychiatric Psychiatric: Denies anxiety or depression Endocrine Endocrinology: Denies fatigue Hematologic/Lymphatic Hematologic/Lymphatic: Denies easy bleeding or easy bruising Physical Exam Const alert and no apparent distress Constitutional Narrative: Currently laying in right lateral decubitus position. General Appearance: cooperative HEENT normocephalic, head/scalp atraumatic and moist oral mucous membranes Eyes PERRL, EOMs intact bilaterally and conjunctivae normal Neck supple General: trachea midline Chest inspection of chest normal Resp Effort and Inspection: able to speak in complete sentences and tachypneic Auscultation: diminished lung sounds Cardio S1 normal heart sound and S2 normal heart sound Rate: tachycardic GI normal to inspection, nondistended, normoactive bowel sounds Inspection: gravid Extremity no clubbing, cyanosis or edema Skin no rashes or lesions noted Neuro CN's II-XII intact bilaterally, moves all extremities and no focal motor deficits Psych Mood & Affect: anxious Lab / Micro Data Result Diagrams: 09/23/21 07:38 09/23/21 07:38 Labs: Laboratory Results - last 24 hr 09/23/21 07:38: WBC 21.7 H, RBC 4.71, Hgb 14.0, Hct 42.4, MCV 90.0, MCH 29.7, MCHC 33.0, RDW Std Deviation 48.2 H, RDW Coeff of Tonya 14.8 H, Plt Count 431, MPV 9.3, Immature Gran % (Auto) 0.500, Neut % (Auto) 83.6 H, Lymph % (Auto) 10.7 L, [place] % (Auto) 4.3, Eos % (Auto) 0.7, Baso % (Auto) 0.2, Absolute Neuts (auto) 18.1 H, Absolute Lymphs (auto) 2.33, Nucleated RBC % 0 09/23/21 07:38: Sodium 138, Potassium 3.7, Chloride 105, Carbon Dioxide 22.0, Anion Gap 11, BUN 9, Creatinine 0.68, Estim Creat Clear Calc 110.16, Est GFR (MDRD) Af Amer 128, Est GFR (MDRD) Non-Af 105, BUN/Creatinine Ratio 13.2, Glucose 117 H, Calcium 9.3, Total Bilirubin 0.30, AST 14 L, ALT 22, Alkaline Phosphatase 133 H, Lactate Dehydrogenase 169, Troponin I High Sens 4, Total Protein 7.2, Albumin 2.6 L, Globulin 4.6 H, Albumin/Globulin Ratio 0.6 L 09/23/21 07:56: Lactic Acid 2.1 H* Micro: Microbiology 09/23/21 07:40 Nasal Secretion SARS-CoV-2 Antigen (Rapid) - Final 09/23/21 07:45 Mucosa - Nasopharyngeal Influenza Types A,B Direct FA (MARY LOU) - Final ABG Data ABG results: ABG 09/23/21 08:14 Specimen Type ART Sample Site R Radial pH 7.45 Bicarbonate Actual 20.3 L Total CO2 21 Base Excess -4 L O2 Saturation 96 ABG pCO2 29.3 L ABG pO2 77 Bony Test Positive O2 Delivery Device Cannula Liter Flow 3.0 Radiology Impression Chest X-Ray 09/23/21 07:40 IMPRESSION: Poor inspiration with some bibasilar atelectasis. Electronically Signed: Jerome Hobson MD at 7:56 EST Tel , Service support , Chest CTA 09/23/21 07:42 IMPRESSION: 1. No CT evidence of pulmonary embolism. 2. Obstruction of the left lower lobe bronchus with left lower lobe collapse, possibly from mucous plugging or aspiration. Correlation with endoscopy would be useful.. Electronically Signed: Jerome Hobson MD at 8:45 EST Tel , Service support , Charges/Coding Visit Charges Inpatient E&M: [id number] Init Hosp L3
[2021-09-23 12:14] LABS: Reflex Lactate? Y
[2021-09-23 12:48] LABS: Bacteria 0 SEEN /hpf (None Seen); Mucous, Urine 0 SEEN /hpf (<or=2+); Red Blood Cells-Urine 0 SEEN /hpf (0-5)
[2021-09-23 12:50] LABS: Color, Urine Yellow (Yellow); Glucose, Dipstick Normal (Normal); Ketone-Dipstick 50 mg/dl (Negative); Leukocyte Esterase-Dipstick 500 /ul (Negative); Nitrite-Dipstick Negative (Negative); Occult Blood-Urine 10 /ul (Negative); Protein-Dipstick 30 mg/dl (Negative); Urine Bilirubin Dipstick Negative (Negative); Urine Clarity Sl. Cloudy (Clear); Urine Urobilinogen Normal (Normal)
[2021-09-23 13:08] LABS: Squamous Epithelial Cells - UA 5-10 SEEN /hpf (5-10)
[2021-09-23 13:09] LABS: White Blood Cells 10-25 SEEN /hpf (0-5)
[2021-09-23 13:18] LABS: Amphetamine Urine VISTA NEGATIVE (<1000 ng/mL); Barbiturate Urine VISTA NEGATIVE (< 200 ng/mL); Benzodiazepine Urine VISTA NEGATIVE (< 200 ng/mL); Cocaine Urine VISTA NEGATIVE (< 300 ng/mL); Ecstacy Urine VISTA NEGATIVE (< 500 ng/mL); Methadone Urine VISTA NEGATIVE (< 300 ng/mL); PCP Urine VISTA NEGATIVE (< 25 ng/mL); THC Urine VISTA NEGATIVE (< 50 ng/mL); Vista UDS pH Range 6
[2021-09-23] MEDS: Lactated Ringers 1,000 ML 999 ML IV (14:25)
[2021-09-23 14:43] LABS: Lactic Acid 3.6 mmol/L (0.4-1.9)
[2021-09-23 14:44] LABS: ROM Internal Control Test YES-OK TO RESULT pt. (Internal QC); ROM Patient Test Negative (Negative)
[2021-09-23 15:14] LABS: M R Staph aureus DNA By PCR Negative (Negative); Probe Check PASS; Specimen Processing Control PASS
--- NOTE | 2021-09-23 15:21 | PCM.PN.BLA ---
Progress Note was called and notified that Patient was having Late decelerations and SROM- grossly ruptured. Lactic acid now 3.6 and oxygen is being administered due to pulse ox now 93-94% on room air, with 10L o2 she is saturating 98%now. Decision at this time to consult Anesthesia and Pulmonary due to respiratory status. Charge nurse notified and ICU bed and vent are available. Pt was consulted on risks of surgery including bleeding, infection, need for intubation, need for blood transfusion, hysterectomy. pt states she does not want to accept blood products- understands risks of if declines- she verbalized understanding and reports will not accept blood. pt also requesting Salpingectomy- reports only has one tube left- title 19 was previously signed. pt understands will not be able to get after this. pt plans on adoption of this child.
[2021-09-23 15:22] LABS: Group B Strep DNA By PCR POSITIVE (Negative); Probe Check PASS
[2021-09-23] MEDS: Sodium Citrate/Citric Acid 30 ML UDC PO (15:40)
[2021-09-23] MEDS: Acetaminophen 500 MG Tablet 1000 MG PO ×2 (15:40→20:58)
--- NOTE | 2021-09-23 16:17 | PLAC_PTH ---
PATIENT: CHAPIN SRINIVASAN LOC: [facility] U#:[id number] AGE/SX: 35/F ROOM: [facility]015 RE09/23/[address]: Dr. Ginny Staley MD : 1985 BED: 1 DIS: 09/27/2021 SPEC #: [id number] RECD: 09/24/21 05:16 STATUS: ALESSANDRO RETrell #: [id number] ROWAN: 09/23/21 16:[address]: Pippa Dobbins DEPT: SURGICAL PATHOLOGY RECD BY: Nuria Wade ENTERED: 09/25/21 10:07 SP TYPE: PLACENTA OTHR DR: MD Dr. Ron Valdez MD Dr. Derek Brown, DO Dr. David Kittoe, MD Dr. Deidre Neyhart-McIntosh, MD Primary Care Phys Christel Walsh, SENIOR LOGISTICS MANAGER-C Tissues: Placenta, NOS Procedures: Surgery Specimen Level V Comments: @ Ordering doctor for [facility] edited from to DR.DMCINT Clayton by MARY at 09/25/21 153 @ Submitting doctor edited from to DR.DMCINT Clayton by MARY at 09/25/21 1531 HEADER OPERATION: Repeat section PRE-OP DIAGNOSIS: 38.2 gestation, pneumonia, GBS positive TISSUE SUBMITTED: Placenta MICROSCOPIC DIAGNOSIS Garcia placenta (539 gm): Umbilical cord ? trivascular with no inflammation. Placental membranes ? no pathologic change. Placental disc ? Ritchie-Alfred change, intravillous congestion and remote infarct. AM:juan miguel 09/27/2021 MICROSCOPIC DESCRIPTION Slides are reviewed. GROSS DESCRIPTION SPECIMEN: PLACENTA / CLINICAL INFORMATION: A. Weight: 3.45 kg B. Gestational Age: 38 weeks C. Sex: Male PLACENTAL WEIGHT (POST FIXATION): 539 gm PLACENTAL DIMENSIONS: 18 x 17 x 3 cm PLACENTAL SHAPE: Usual ovoid PLACENTAL WEIGHT FOR GESTATIONAL AGE: Within 10-99th percentile MEMBRANES - Present A. Insertion: Marginal B. Site of rupture from edge: At edge of placental disc C. Color of membrane: Hilton-naik D. Abnormalities: None UMBILICAL CORD - Present A. Color: Hilton-naik B. Insertion: Eccentric C. Length: 51 cm D. Diameter: 1.5 cm E. Number of vessels: Three F. Abnormalities: None PLACENTAL DISC - Present A. Color of surface: Hilton-naik B. surface abnormalities: None C. Maternal cotyledons: Intact with minimal tears D. Attached retro placental clot: No clot E. Cut surface: Dark red and spongy F. Lesions: 1 cm hilton-white lesion at periphery. G. Separate clot: Blood clot measures 12 x 9 x 2 cm. SECTIONS SUBMITTED: 1. Umbilical cord ( end notched) 2. Umbilical cord, placental end 3. Membrane roll 4. Placental disc, and maternal surfaces, lesion 5. Placental disc, and maternal surfaces 6. Placental disc, and maternal surfaces AM:juan miguel 09/26/21 TC:3 CPT: 15269
--- NOTE | 2021-09-23 16:43 | EX.PCM.OBRPT ---
Assessment & Plan (1) Tobacco dependence: (2) Sepsis: QUALIFIERS: Sepsis type: sepsis due to unspecified organism Qualified Code(s): A41.9 - Sepsis, unspecified organism (3) Pneumonia: QUALIFIERS: Pneumonia type: due to unspecified organism Laterality: left Lung location: lower lobe of lung Qualified Code(s): J18.9 - Pneumonia, unspecified organism (4) Third trimester : (5) 38 weeks gestation of : (6) Pneumonia affecting : QUALIFIERS: Trimester: third trimester Qualified Code(s): O99.513 - Diseases of the respiratory system complicating , third trimester; J18.9 - Pneumonia, unspecified organism (7) Mucus plugging of bronchi: (8) History of drug use: (9) Delivery by section: Maternal Data Information Final FABIO: 10/05/21 Final FABIO Source: US >20 weeks Gestational age: 38.2 Details Operative Information Date of Procedure: 09/23/21 Pre-Operative Diagnosis: 38 weeks, late decelerations, SROM, previous c/s, Pneumonia, desires sterlization Post-Operative Diagnosis: same, live male infant- declined sterilization Indications for : Repeat Elective and Nonreassuring Status Indications Narrative: Patient was admitted to [facility] labor and delivery for pneumonia, left lower lobe lung collapse, tachypnea, 38 weeks gestation. Upon evaluation patient had spontaneous rupture of membranes followed by late decelerations. Decision made for repeat section at this time. Originally patient consented for salpingectomy but during the section changed her mind and did not desire a salpingectomy. Patient declined any type of control at this time. 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 She was then placed in the supine position. She was prepped and draped in the normal sterile fashion. Anesthesia was found to be adequate. At this time a Pfannenstiel skin incision was made with a knife was carried down to the underlying layer of the fascia. The fascial incision was then extended laterally using curved Hernandez scissor. attention was then turned to the superior aspect of the fascial edge was grasped with 2 straight [place] clamps tented up and the rectus muscle dissected off sharply using curved Hernandez scissor. Attention was then turned to the inferior aspect where again Jose clamps were placed in the rectus muscles were tented up and the fascia was dissected off sharply using the curved Hernandez scissor. Rectus muscles were grasped in the midline with Allises then sharply with the scalpel. Gentle opposing traction was placed. At this time the vesicouterine peritoneum was identified. Very thin lower uterine segment was appreciated. Scalpel was used to make a uterine incision in a low transverse fashion. The uterus was then entered bluntly gentle opposing traction was placed to extend this incision. Small amount of amniotic fluid clear. Infant's head was brought to the uterine incision was delivered atraumatically. Cord was clamped and cut was handed to the waiting nursery team. The Placenta was removed from the uterus. The uterus was then removed from the abdominal cavity. The uterus was cleared of all clots and debris using a lap. At this time the uterine incision was reapproximated using #1 Vicryl in a running locked fashion. Hemostasis was appreciated. Second imbricating layer using 1 Vicryl was placed. Posterior cul-de-sac was then cleared of all clots and debris. Right salpingectomy was appreciated. Left tube and ovary appeared normal. Patient declined salpingectomy at the time of surgery. Uterus was placed back in the abdominal cavity. Gutters were cleared of all clots and debris. Uterine incision was reevaluated and noted to be of excellent hemostasis. Matthew placed over uterine incision. At this time the peritoneum was grasped with Kellys reapproximated using #2 Vicryl suture in a running fashion. Fascia was then reapproximated using #1 Vicryl in a running fashion. Subcu layer was reapproximated with #2 0 plain gut suture in an interrupted fashion. Subcu layer was closed using 4-0 Monocryl in a subcu fashion. Dry sterile dressing was applied. Instrument lap needle count correct ?2. Anticipated normal postoperative course. Presentation: Positive for Vertex Amniotic Membrane Rupture Type: Spontaneous Amniotic Fluid Description: Clear Placental Delivery Description: Expressed Placenta Disposition: Routine to Lab Specimen(s) Sent to Pathology: placenta Cord Vessel Description: 3 Vessels Cord Entanglement: None Cord Gases: ABG and VBG Infant A Gender: Male (1 minute): 8 (5 minute): 9 Delayed Cord Clamping: Yes Complications Risks of Surgery Discussed w/Patient: Bleeding, Anesthesia Risks, Infection, Need for Future C-Sections and Injury to surrounding structure(s) including bowel and bladder Complications: none
[2021-09-23] MEDS: Oxytocin 30 units/NS 500 ml 30 UNITS/500 ML IV.SOLN 167 UNITS IV (16:50)
[2021-09-23] MEDS: Ketorolac 30 MG/ML Syringe IV ×2 (17:40→23:23)
--- NOTE | 2021-09-23 18:29 | CM.ED ---
TAYLOR Note Referral Source: corn lab technician Nava and MD Referral Reason: for discharge planning TAYLOR spoke to Nava. She said that patient is from [facility]. She reports that patient reports she has 10 year old child but does not appear to enjoy talking about the child. Nava said that [facility] had called to check on patient. Taylor received call from Nava. She said that patient is going to have a c section today. Nava said that patient has said that she isn't sure if she wants to see the child. TAYLOR called Nava to receive update. Nava said that patient has now said that she see child after . TAYLOR called Luisa Boone and updated her. She said that she will do discharge planning for when she returns on Saturday. TAYLOR updated Nava corn lab technician. Plan: To be determined Phyllis BRITTON
[2021-09-23] MEDS: Ipratropium/Albuterol Sulfate 3 ML AMPUL.NEB INHALATION (19:40)
[2021-09-23] MEDS: Lactated Ringers 1,000 ML 100 ML IV (20:13)
[2021-09-24] VITALS (22 sets, daily range): BP systolic 106–140; BP diastolic 58–97; PULSE 95–125; RESP 16–24; TEMP 35.8–36.7; O2SAT 93–99
[2021-09-24] MEDS: Ipratropium/Albuterol Sulfate 3 ML AMPUL.NEB INHALATION ×4 (01:36→19:28)
[2021-09-24] MEDS: Acetaminophen 500 MG Tablet 1000 MG PO ×4 (03:20→21:57)
[2021-09-24] MEDS: oxyCODONE 5 MG Tablet PO (03:57)
[2021-09-24] MEDS: Enoxaparin 40 MG/0.4 ML Syringe SC (04:03)
[2021-09-24] MEDS: Ketorolac 30 MG/ML Syringe IV ×2 (05:27→13:09)
[2021-09-24] MEDS: Lactated Ringers 1,000 ML 100 ML IV (05:27)
--- NOTE | 2021-09-24 06:00 | RAD_ITS ---
HISTORY: LLL Collapse, cough with shortness of breath. EXAMINATION/TECHNIQUE: XR Chest 1 View COMPARISON: Chest x-ray and chest CT from one day prior FINDINGS: LINES/DEVICES: None. LUNGS: No overt pulmonary edema. Persistent left basilar retrocardiac opacification. No sizable pleural effusion. No pneumothorax detected. MEDIASTINUM AND CARDIOVASCULAR STRUCTURES: Heart size within normal limits for imaging technique. Central airways and mediastinal contour are unremarkable. BONES AND SOFT TISSUES: No acute findings. RAD/Chest 1 View (Portable) IMPRESSION: Left basilar retrocardiac opacification compatible with left lower lobe collapse demonstrated on recent CT. at 0713 Reported and signed by: Isidro Rodriguez MD Electronically Signed: Isidro Rodriguez MD at 7:12 EST Tel , Service support ,
[2021-09-24 06:14] LABS: Hemoglobin 10.5 g/dL (12.0-15.0); Mean Corp Hgb Conc 32.8 g/dL (32-36); Mean Corpuscular Hgb 29.3 pg (27.0-32.0); Mean Corpuscular Volume 89.4 fL (81-99); Mean Platelet Vol. 9.9 fl (6.2-12.0); Platelet Count 370 K/mm3 (150-450); RBC Distribution Width CV 15.2 % (11.6-14.6); RBC Distribution Width SD 49.3 fl (35.1-43.9); Red Blood Count 3.58 M/mm3 (4.2-5.4); White Blood Count 26.9 K/mm3 (4.4-11.0)
[2021-09-24 06:35] LABS: Lactic Acid 1.3 mmol/L (0.4-1.9)
--- NOTE | 2021-09-24 06:56 | PN.CC_ITS ---
Assessment & Plan Assessment/Plan (1) Mucus plugging of bronchi: PLAN: RECOMMENDATIONS: 1. Continue antimicrobials to complete 7-day treatment course. 2. Continue bronchopulmonary hygiene with PEP and incentive spirometer. 3. Mobilize patient as tolerated. 4. Follow-up in the pulmonary medicine clinic within 2 weeks of discharge. 5. The patient will ultimately require referral to either interventional pulmonology or thoracic surgery, which can be arranged on an outpatient basis. 6. Will sign off at this time. Please call with any additional questions. IMPRESSIONS: 1. Shortness of breath with associated endobronchial lesion The patient presented to the hospital with shortness of breath. CTA chest was negative for PE but did demonstrate some lobar collapse in the left lower lobe with concern for possible mucous plugging or retained secretions. The patient was admitted to the hospital in December 2019 under similar circumstances with lobar collapse involving the left lower lobe as well. The patient's oxygenation status has remained stable. Streptococcal pneumonia urinary antigen was found to be positive. Repeat chest x-ray from this morning revealed continued atelectasis. Therefore, the patient was taken for bronchoscopy which did reveal evidence of a sizable endobronchial lesion. While the etiology for the lesion is not known, it could represent a hamartoma. The patient is likely developing recurrent postobstructive pneumonias as a consequence of the endobronchial obstruction. For now, I recommend that the patient complete 7 days of antimicrobials. She should follow-up in the pulmonary medicine clinic 2 weeks post discharge. We will help facilitate additional work-up on an outpatient basis. She will likely require evaluation by either interventional pulmonology or thoracic surgery for consideration of surgical removal of the lesion. Continue bronchopulmonary hygiene with PEP and incentive spirometry. Mobilize patient as tolerated. 2. History of polysubstance abuse and medical noncompliance Complicates care, management, recovery and prognosis. Continue supportive measures as noted above. This note was generated with ExoYou dictation software. It may contain incorrect words, spelling, and punctuation that were not noted in checking the note before signing. Subjective Subjective The patient was seen and examined at the bedside this morning. Events from the last 24 hours have been reviewed. Yesterday afternoon, the patient's water broke and she subsequently underwent . Post procedure, the patient's oxygenation status has remained stable. She is currently maintaining appropriate saturations in the mid 90s on room air at rest. Chest x-ray from this morning revealed left basilar atelectasis. It should be noted that the patient again had a positive streptococcal pneumonia urinary antigen. The patient is agreeable to proceed with bronchoscopy. Objective Data Objective Data The patient's most recent lab work, culture data and imaging studies have all been personally reviewed. Vital Signs: Vital Signs Temp Pulse Resp BP Pulse Ox 97.5 F L 111 H 18 106/67 95 09/24/21 03:50 09/24/21 03:50 09/24/21 03:50 09/24/21 03:50 09/24/21 03:50 Oxygen Flow Rate (L/min) 2 Oxygen Delivery Method Room Air Weight: 86.183 kg Body Mass Index (BMI) 30.7 Intake & Output: Intake and Output for Last 24 Hours 09/22/21 09/23/21 09/24/21 23:59 23:59 23:59 Intake Total 1973.75 / 1973.75 923.33 / 923.33 Output Total 800 / 800 600 / 600 Balance 1173.75 / 1173.75 323.33 / 323.33 Lab / Micro Data Attestation: I reviewed the patient's lab results. Result Diagrams: 09/24/21 05:35 09/23/21 07:38 Labs: Laboratory Results - last 24 hr 09/23/21 07:38: WBC 21.7 H, RBC 4.71, Hgb 14.0, Hct 42.4, MCV 90.0, MCH 29.7, MCHC 33.0, RDW Std Deviation 48.2 H, RDW Coeff of Tonya 14.8 H, Plt Count 431, MPV 9.3, Immature Gran % (Auto) 0.500, Neut % (Auto) 83.6 H, Lymph % (Auto) 10.7 L, [place] % (Auto) 4.3, Eos % (Auto) 0.7, Baso % (Auto) 0.2, Absolute Neuts (auto) 18.1 H, Absolute Lymphs (auto) 2.33, Nucleated RBC % 0 09/23/21 07:38: Sodium 138, Potassium 3.7, Chloride 105, Carbon Dioxide 22.0, Anion Gap 11, BUN 9, Creatinine 0.68, Estim Creat Clear Calc 110.16, Est GFR (MDRD) Af Amer 128, Est GFR (MDRD) Non-Af 105, BUN/Creatinine Ratio 13.2, Glucose 117 H, Calcium 9.3, Total Bilirubin 0.30, AST 14 L, ALT 22, Alkaline Phosphatase 133 H, Lactate Dehydrogenase 169, Troponin I High Sens 4, Total Protein 7.2, Albumin 2.6 L, Globulin 4.6 H, Albumin/Globulin Ratio 0.6 L 09/23/21 07:56: Lactic Acid 2.1 H* 09/23/21 10:07: Group B Strep DNA Cancelled, Specimen Comment Cancelled 09/23/21 12:35: Urine Color Yellow, Urine Clarity Sl. Cloudy, Urine pH 7.0, Ur Specific [place] 1.010, Urine Protein 30 H, Urine Glucose (UA) Normal, Urine Ketones 50 H, Urine Occult Blood 10 H, Urine Nitrite Negative, Urine Bilirubin Negative, Urine Urobilinogen Normal, Ur Leukocyte Esterase 500 H, Urine RBC 0 SEEN, Urine WBC 10-25 SEEN, Ur Squamous Epith Cells 5-10 SEEN, Urine Bacteria 0 SEEN, Urine Mucus 0 SEEN 09/23/21 12:35: Urine Opiates Screen NEGATIVE, Urine Methadone Screen NEGATIVE, Ur Barbiturates Screen NEGATIVE, Ur Phencyclidine Scrn NEGATIVE, Ur Amphetamines Screen NEGATIVE, U Methamphetamin-MDMA NEGATIVE, U Benzodiazepines Scrn NEGATIVE, Urine Cocaine Screen NEGATIVE, U Cannabinoids Screen NEGATIVE, Ur Drug Screen Comment 09/23/21 13:45: MRSA (PCR) Negative 09/23/21 14:06: Lactic Acid 3.6 H* 09/23/21 14:06: Blood Type A POSITIVE, Antibody Screen NEGATIVE 09/23/21 14:15: Group B Strep DNA POSITIVE H, Specimen Comment Not Reportable 09/23/21 14:15: Vag Amniotic Fld Detect Negative 09/24/21 05:35: WBC 26.9 H, RBC 3.58 L, Hgb 10.5 L, Hct 32.0 L, MCV 89.4, MCH 29.3, MCHC 32.8, RDW Std Deviation 49.3 H, RDW Coeff of Tonya 15.2 H, Plt Count 370, MPV 9.9 09/24/21 05:35: Lactic Acid 1.3 Micro: Microbiology 09/23/21 12:45 Mucosa - Nose Respiratory Panel (PCR) - Final 09/23/21 12:35 Urine, Clean Catch Legionella Antigen - Final 09/23/21 12:35 Urine, Clean Catch Streptococcus pneumoniae Antigen (M - Final 09/23/21 07:40 Nasal Secretion SARS-CoV-2 Antigen (Rapid) - Final 09/23/21 07:45 Mucosa - Nasopharyngeal Influenza Types A,B Direct FA (MARY LOU) - Final ABG Data ABG results: ABG 09/23/21 08:14 Specimen Type ART Sample Site R Radial pH 7.45 Bicarbonate Actual 20.3 L Total CO2 21 Base Excess -4 L O2 Saturation 96 ABG pCO2 29.3 L ABG pO2 77 Bony Test Positive O2 Delivery Device Cannula Liter Flow 3.0 Radiography Diagnostic Testing: Radiology Impression Chest X-Ray 09/23/21 07:40 IMPRESSION: Poor inspiration with some bibasilar atelectasis. Electronically Signed: Jerome Hobson MD at 7:56 EST Tel , Service support , Chest CTA 09/23/21 07:[address]: 1[address] evidence of pulmonary embolism. 2. Obstruction of the left lower lobe bronchus with left lower lobe collapse, possibly from mucous plugging or aspiration. Correlation with endoscopy would be useful.. Electronically Signed: Jerome Hobson MD at 8:45 EST Tel , Service support , Physical Exam Const alert and no apparent distress General Appearance: cooperative HEENT normocephalic, head/scalp atraumatic and moist oral mucous membranes Eyes PERRL, EOMs intact bilaterally and conjunctivae normal Neck supple General: trachea midline Chest inspection of chest normal Resp normal respiratory effort Effort and Inspection: able to speak in complete sentences Auscultation: Negative for rales, rhonchi or wheezes Cardio S1 normal heart sound and S2 normal heart sound Rate: tachycardic GI normal to inspection, nondistended, normoactive bowel sounds Extremity no clubbing, cyanosis or edema Skin no rashes or lesions noted Neuro CN's II-XII intact bilaterally, moves all extremities and no focal motor deficits Psych cooperative and affect normal Charges/Coding Visit Charges Inpatient E&M: 53344 Subs Hosp L2
--- NOTE | 2021-09-24 07:00 | FLU_PTH ---
PATIENT: CHAPIN SRINIVASAN LOC: WP U#:[id number] AGE/SX: 35/F ROOM: [facility] RE09/23/[address]: Dr. Ginny Staley MD : 1985 BED: 1 DIS: 09/27/2021 SPEC #: [id number] RECD: 09/24/21 07:55 STATUS: SOUT REQ #: [id number] ROWAN: 09/24/21 07:[address]: Ti Thomas DEPT: CYTOLOGY RECD BY: Nuria Wade ENTERED: 09/25/21 10:04 SP TYPE: Fluid OTHR DR: MD Dr. Ron Valdez MD Dr. Derek Brown, DO Dr. David Kittoe, MD Dr. Deidre Neyhart-McIntosh, MD Primary Care Phys Christel Walsh, VLADIMIR-C Tissues: Bronchus, NOS Procedures: Special Stain Group II Special Stain Group I Surgery Specimen Level IV AFB Stain (control) GMS Stain (control) Cytospin Fluid Comments: @ Ordering doctor for SSII edited from to DR.[email or web address] Clayton by MARY at 09/25/21 1218 @ Ordering doctor for SUIV edited from to DR.[email or web address] Clayton by MARY at 09/25/21 1218 @ Ordering doctor for CYSPIN edited from to DR.[email or web address] Clayton by MARY at 09/25/21 1218 @ Submitting doctor edited from to DR.[email or web address] Clayton by MARY at 09/25/21 1218 HEADER OPERATION: Bronchoscopy PRE-OP DIAGNOSIS: Abnormal chest CT TISSUE SUBMITTED: Washings DIAGNOSIS CYTOLOGY Washings, not further specified (cytospin and cell block): Negative for malignant cells. Negative for acid fast bacilli. Negative for fungal organisms. See comment. AM:juan miguel 09/26/2021 COMMENT AFB and GMS stains with matched controls were used in the evaluation of this case. CYTOLOGY STUDY Slides are reviewed. CYTOLOGY GROSS Received is 30 ml of white cloudy fluid labeled with the patient's name and and designated per the requisition as washings. Submitted for cytology preparation including cell block. / juan miguel 09/25/2021 TC:5 CPT: 91152, 76859, 61771 x2
--- NOTE | 2021-09-24 07:44 | OP.BRONCH_ITS ---
Patient Name: Daly Britton Procedure Date: 09/24/2021 7:11 AM Date of : 1985 Age: 35 Procedure: Bronchoscopy Indications: Abnormal CT scan of chest Providers: Ti Thomas MD Medicines: See the Anesthesia note for documentation of the administered medications Complications: No immediate complications. Estimated blood loss: None Procedure: Pre-Anesthesia Assessment: - A History and Physical has been performed. Patient meds and allergies have been reviewed. The risks and benefits of the procedure and the sedation options and risks were discussed with the patient. All questions were answered and informed consent was obtained. Patient identification and proposed procedure were verified prior to the procedure by the physician and the nurse in the procedure room. Mental Status Examination: alert and oriented. Airway Examination: normal oropharyngeal airway. Respiratory Examination: clear to auscultation. CV Examination: normal. ASA Grade Assessment: II - A patient with mild systemic disease. After reviewing the risks and benefits, the patient was deemed in satisfactory condition to undergo the procedure. The anesthesia plan was to use monitored anesthesia care (MAC). Immediately prior to administration of medications, the patient was re-assessed for adequacy to receive sedatives. The heart rate, respiratory rate, oxygen saturations, blood pressure, adequacy of pulmonary ventilation, and response to care were monitored throughout the procedure. The physical status of the patient was re-assessed after the procedure. After I obtained informed consent, the scope was passed under direct vision. Throughout the procedure, the patient's blood pressure, pulse, and oxygen saturations were monitored continuously. The bronchoscope was introduced through the mouth and advanced to the tracheobronchial tree. The procedure was accomplished without difficulty. The patient tolerated the procedure well. Findings: Bilateral Lung Abnormalities: Scant, mucopurulent secretions were found throughout the tracheobronchial tree. They were not obstructing the airway. A partially obstructing mass was found in the left mainstem bronchus. The mass was medium-sized and endobronchial. The lesion was successfully traversed. Washings were obtained in the entire tracheobronchial tree and sent for cell count and differential and routine cytology. The return was mucopurulent. Impression: - Abnormal CT scan of chest - Scant, mucopurulent secretions were found throughout the tracheobronchial tree. - An endobronchial mass was found in the distal left mainstem bronchus. - Washings were obtained. Recommendation: - Await washing results. - Follow up with bronchoscopist in 2 weeks. Procedure Code(s): --- Professional --- 15036, Bronchoscopy, rigid or flexible, including fluoroscopic guidance, when performed; diagnostic, with cell washing, when performed (separate procedure) Diagnosis Code(s): --- Professional --- R09.89, Other specified symptoms and signs involving the circulatory and respiratory systems J98.9, Respiratory disorder, unspecified R93.8, Abnormal findings on diagnostic imaging of other specified body structures CPT copyright 2017 [employer]. All rights reserved. The codes documented in this report are preliminary and upon parts assembler review may be revised to meet current compliance requirements. DO Ti Chowdary MD 09/24/2021 7:43:49 AM This report has been signed electronically. Number of Addenda: 0 Note Initiated On: 09/24/2021 7:11 AM
[2021-09-24 08:12] LABS: Cytology, Washings SEE PATHOLOGY REPORT
[2021-09-24 08:41] LABS: Appearance/Body Fluid CLEAR; Color/Body Fluid COLORLESS; Source- Body Fluid BRONCHIAL LAVAGE
[2021-09-24 08:44] LABS: Red Cell Count/Body Fluid 15 /mm3; White Blood Count/Body Fluid 145 /mm3
--- NOTE | 2021-09-24 09:03 | PN.HOSP_ITS ---
Documented by User: Claudette Pro NP-C 09/24/21 09:28 Subjective Subjective Patient seen and examined. Patient lying in bed, just returned from bronchoscopy. Patient denies shortness of breath, O2 sats within normal limits on room air. Patient denies pain at this time Objective Data Objective Data Vital Signs: Vital Signs Temp Pulse Resp BP Pulse Ox 97.3 F L 106 H 18 110/75 95 09/24/21 08:28 09/24/21 08:30 09/24/21 08:00 09/24/21 08:30 09/24/21 08:00 Oxygen Flow Rate (L/min) 2 Oxygen Delivery Method Room Air Weight: 190 lb Body Mass Index (BMI) 30.7 Intake & Output: Intake and Output for Last 24 Hours 09/22/21 09/23/21 09/24/21 23:59 23:59 23:59 Intake Total 1973.75 / 1973.75 923.33 / 923.33 Output Total 800 / 800 600 / 600 Balance 1173.75 / 1173.75 323.33 / 323.33 Lab / Micro Data Result Diagrams: 09/24/21 05:35 09/23/21 07:38 Labs: Laboratory Results - last 24 hr 09/23/21 10:07: Group B Strep DNA Cancelled, Specimen Comment Cancelled 09/23/21 12:35: Urine Color Yellow, Urine Clarity Sl. Cloudy, Urine pH 7.0, Ur Specific [place] 1.010, Urine Protein 30 H, Urine Glucose (UA) Normal, Urine Ketones 50 H, Urine Occult Blood 10 H, Urine Nitrite Negative, Urine Bilirubin Negative, Urine Urobilinogen Normal, Ur Leukocyte Esterase 500 H, Urine RBC 0 SEEN, Urine WBC 10-25 SEEN, Ur Squamous Epith Cells 5-10 SEEN, Urine Bacteria 0 SEEN, Urine Mucus 0 SEEN 09/23/21 12:35: Urine Opiates Screen NEGATIVE, Urine Methadone Screen NEGATIVE, Ur Barbiturates Screen NEGATIVE, Ur Phencyclidine Scrn NEGATIVE, Ur Amphetamines Screen NEGATIVE, U Methamphetamin-MDMA NEGATIVE, U Benzodiazepines Scrn NEGATIVE, Urine Cocaine Screen NEGATIVE, U Cannabinoids Screen NEGATIVE, Ur Drug Screen Comment 09/23/21 13:45: MRSA (PCR) Negative 09/23/21 14:06: Lactic Acid 3.6 H* 09/23/21 14:06: Blood Type A POSITIVE, Antibody Screen NEGATIVE 09/23/21 14:15: Group B Strep DNA POSITIVE H, Specimen Comment Not Reportable 09/23/21 14:15: Vag Amniotic Fld Detect Negative 09/24/21 05:35: WBC 26.9 H, RBC 3.58 L, Hgb 10.5 L, Hct 32.0 L, MCV 89.4, MCH 29.3, MCHC 32.8, RDW Std Deviation 49.3 H, RDW Coeff of Tonya 15.2 H, Plt Count 370, MPV 9.9 09/24/21 05:35: Lactic Acid 1.3 09/24/21 07:00: Fluid Source BRONCHIAL LAVAGE, Fluid Color COLORLESS, Fluid Appearance CLEAR, Fluid WBC 145, Fluid RBC 15, Fluid Tot Cell Count TNP, Fl Pathologist Comment May follow, Fluid Comment 2 Not Reportable Micro: Microbiology 09/23/21 12:45 Mucosa - Nose Respiratory Panel (PCR) - Final 09/23/21 12:35 Urine, Clean Catch Legionella Antigen - Final 09/23/21 12:35 Urine, Clean Catch Streptococcus pneumoniae Antigen (M - Final 09/23/21 07:40 Nasal Secretion SARS-CoV-2 Antigen (Rapid) - Final 09/23/21 07:45 Mucosa - Nasopharyngeal Influenza Types A,B Direct FA (MARY LOU) - Final Radiography Diagnostic Testing: Radiology Impression Chest X-Ray 09/24/21 06:00 IMPRESSION: Left basilar retrocardiac opacification compatible with left lower lobe collapse demonstrated on recent CT. at 0713 Reported and signed by: Isidro Rodriguez MD Electronically Signed: Isidro Rodriguez MD at 7:12 EST Tel , Service support , Physical Exam Const alert, oriented x3 and no apparent distress HEENT head/scalp atraumatic and moist oral mucous membranes Head and Scalp: normocephalic Eyes conjunctivae normal and no scleral icterus Neck supple and thyroid normal Cardio regular rate, regular rhythm, S1 normal heart sound and S2 normal heart sound GI soft to palpation GI Narrative: Patient is postop day 1 from 38 weeks. Patient tender with palpation to lower abdominal quadrants Auscultation: normoactive bowel sounds Extremity normal to inspection, full ROM and no clubbing, cyanosis or edema Peripheral Pulses: Yes pulses 2+ throughout Neuro moves all extremities, no focal motor deficits and no sensory deficits noted Sensorium / Orientation: awake and alert Psych Attitude: withdrawn and bizarre Speech: slow Assessment & Plan Assessment/Plan (1) Delivery by section: (2) Mucus plugging of bronchi: (3) Pneumonia affecting : QUALIFIERS: Trimester: third trimester Qualified Code(s): O99.513 - Diseases of the respiratory system complicating , third trimester; J18.9 - Pneumonia, unspecified organism PLAN: Patient is a 35-year-old female who underwent on 09/23/2021 at 38 weeks gestation. Following patient experienced shortness of breath and was found to have mucous plugging. Patient has history of strep a pneumonia. 1. Pneumococcal pneumonia -Continue IV Rocephin -Courage use of incentive spirometry as well as Pep therapy -As needed aerosol treatments ordered -Patient will need discharged on p.o. antibiotics for full 7-day course 2. Mucus plugging of bronchi -Patient underwent bronchoscopy with Dr. 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 -Washings were obtained and sent for cell count and differential and routine cytopathology, no biopsies obtained. -Patient will need to follow-up with Dr. Thomas in 2 weeks and will need to be evaluated by cardiothoracic surgeon. 3. Status post -Postop day 1 -Patient being managed by Dr. Peck. Documented by User: Dr. Jorge Phelps MD 09/24/21 11:48 Objective Data Lab / Micro Data Result Diagrams: 09/24/21 05:35 09/23/21 07:38 Assessment & Plan Addt'l Comments This patient was seen in conjunction with Claudette Pro NP-C . I have independently interviewed and examined the patient and reviewed pertinent historical, laboratory, and other data. Please refer to EMI Navarrete note for details of this patient's presentation, findings, and recommendations. I have reviewed E[facility] Navarrete note and concur with documented findings. In brief, CHAPIN SRINIVASAN, is a 35 F who is 38 weeks presented to the emergency department complaining of right-sided chest pain in addition to shortness of breath. Patient also did complain of nausea and vomiting. Patient was evaluated in the emergency department with a CTA which demonstrated obstruction of the left lower lobe bronchus with left lower lobe collapse possibly from mucous plugging and aspiration. Patient was also found to have elevated WBC count. Patient was started on broad-spectrum antibiotic therapy admitted to the OB service and consultation placed to the hospitalist service. 09/24/2021; patient underwent emergency after she went into labor with rupture of membranes on 09/23/2021. -Underwent bronchoscopy on the morning o 09/24/[address] Thomas findings included an endobronchial mass in the distal left mainstem bronchus washings were obtained Physical Examination: GENERAL: cooperative HEENT: Atraumatic; EYES; Anicteric, Normal Conjunctiva NECK; supple, normal thyroid, RESPIRATORY: Diminished to auscultation CARDIOVASCULAR: Regular S1 S2, GI: soft, normoactive bowel sounds, : No Renal angle tenderness; EXTREMITIES: No edema, no clubbing, MUSCULOSKELETAL: no muscle waisting NEURO: Awake; no lateralizing signs. SKIN: No Rash PSYCH; Flat affect Assessment: 1. Sepsis 2. Postobstructive pneumonia with strep pneumo 3. Endobronchial mass 4. Status post 5. History of polysubstance abuse 6. History of noncompliance with medical therapy 7. DVT prophylaxis Recommendations: 1. I have discussed the results of my overview and impressions with the patient 2. Options for management were reviewed Charges/Coding Visit Charges Inpatient E&M: 75900 Subs Hosp L3
[2021-09-24 09:17] LABS: Lymphocytes 1 %; Macrophages 6 %; Neutrophil (Segs) 88 %; Other Cell Type/BF 5 %
[2021-09-24 09:20] LABS: Body Fluid QC Type(s) BF1Q,BF2Q
--- NOTE | 2021-09-24 09:47 | NURSING ---
Addendum entered by Betsy Gabriel 09/24/21 18:14: LE: Care provided for this pt was 09/23/21 Original Note: When asking admission questions regarding pt safety Daly verbalized concerns. Daly stated I don't feel safe anywhere. She preceded to state that she doesn't want to take the baby at discharge because she's staying at [facility] and she doesn't feel like its a good option to take the baby to [facility]. She was not able to elaborate. Daly was also in significant pain due to contractions and her water being broke. Daly was unable to make a decision at that time if she would want to see the baby at delivery or how she would want the infant to feed after delivery. She stated she has no support people involved. She did call her dad shortly before delivery. She briefly talked to him and stated I'm going for an emergency because my water broke. I told them if I need blood I don't want it. She preceded to ask if he's coming to the hospital. After the call she stated her father would not be coming to the hospital. Shortly after this we went to back for delivery. After delivery the patient wanted to see the and requested to breastfeed. Daly spent over an hour skin to skin, and was able to miranda appropriately with baby.
[2021-09-24] MEDS: Senna/Docusate Sodium 1 Tablet PO (10:03)
[2021-09-24] MEDS: 0.9% Saline Lock 10 ML Syringe IV (13:11)
--- NOTE | 2021-09-24 16:29 | NURSING ---
This nurse walked into pt. room for rounds. Pt. standing by crib shaking her hands and rocking side to side.
--- NOTE | 2021-09-24 17:32 | PN.OBGYN_ITS ---
Subjective Subjective Pain controlled. SOB improved. Just feels tired. Objective Data Objective Data Vital Signs: Vital Signs Temp Pulse Resp BP Pulse Ox 97.3 F L 99 20 H 131/80 H 96 09/24/21 16:30 09/24/21 16:30 09/24/21 16:29 09/24/21 16:30 09/24/21 16:29 Oxygen Flow Rate (L/min) 2 Oxygen Delivery Method Room Air Weight: 190 lb Body Mass Index (BMI) 30.7 Intake & Output: Intake and Output for Last 24 Hours 09/22/21 09/23/21 09/24/21 23:59 23:59 23:59 Intake Total 1973.75 / 1973.75 1933.33 / 1933.33 Output Total 800 / 800 1000 / 1000 Balance 1173.75 / 1173.75 933.33 / 933.33 Lab / Micro Data Result Diagrams: 09/24/21 05:35 09/23/21 07:38 Labs: Laboratory Results - last 24 hr 09/23/21 08:14: Specimen Type ART, Sample Site R Radial, pH 7.45, Bicarbonate Actual 20.3 L, Total CO2 21, Base Excess -4 L, O2 Saturation 96, ABG pCO2 29.3 L , ABG pO2 77, Bony Test Positive, O2 Delivery Device Cannula, Liter Flow 3.0 09/24/21 05:35: WBC 26.9 H, RBC 3.58 L, Hgb 10.5 L, Hct 32.0 L, MCV 89.4, MCH 29.3, MCHC 32.8, RDW Std Deviation 49.3 H, RDW Coeff of Tonya 15.2 H, Plt Count 370, MPV 9.9 09/24/21 05:35: Lactic Acid 1.3 09/24/21 07:00: Fluid Source BRONCHIAL LAVAGE, Fluid Color COLORLESS, Fluid Appearance CLEAR, Fluid WBC 145, Fluid RBC 15, Fluid Tot Cell Count TNP, Fluid Neutrophils 88, Fluid Lymphocytes 1, Fluid Macrophages 6, Fluid Other Cells 5, Fl Pathologist Comment May follow, Fluid Comment 2 Not Reportable Micro: Microbiology 09/23/21 12:45 Mucosa - Nose Respiratory Panel (PCR) - Final 09/23/21 12:35 Urine, Clean Catch Legionella Antigen - Final 09/23/21 12:35 Urine, Clean Catch Streptococcus pneumoniae Antigen (M - Final 09/23/21 07:40 Nasal Secretion SARS-CoV-2 Antigen (Rapid) - Final 09/23/21 07:45 Mucosa - Nasopharyngeal Influenza Types A,B Direct FA (MARY LOU) - Final Radiography Diagnostic Testing: Radiology Impression Chest X-Ray 09/24/21 06:00 IMPRESSION: Left basilar retrocardiac opacification compatible with left lower lobe collapse demonstrated on recent CT. at 0713 Reported and signed by: Isidro Rodriguez MD Electronically Signed: Isidro Rodriguez MD at 7:12 EST Tel , Service support , Physical Exam Const alert, oriented x3 and no apparent distress HEENT normocephalic GI soft to palpation, non-tender and non-distended GI Narrative: fundus firm, mid & below umbilicus Incision - bandage c/d/i Extremity normal to inspection and no calf tenderness Assessment & Plan (1) Delivery by section: COMMENT: POD#1 PLAN: (1) Heme - HDS, CBC reviewed (2) ID - patient with Pneumococcal pneumonia & sepsis on admission. Management per hospitalist team. -Continue IV Rocephin -Courage use of incentive spirometry as well as Pep therapy -As needed aerosol treatments ordered -Patient will need discharged on p.o. antibiotics for full 7-day course (3) Pulm - Mucus plugging of bronchi -Patient underwent bronchoscopy with Dr. 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 -Washings were obtained and sent for cell count and differential and routine cytopathology, no biopsies obtained. -Patient will need to follow-up with Dr. Thomas in 2 weeks and will need to be evaluated by cardiothoracic surgeon. (4) GI - ADAT (5) Social work consult pending as patient homeless & may adopt baby out. Also h/o drug use. Routine care
--- NOTE | 2021-09-24 17:32 | NURSING ---
This nurse took infant back to mother from nursery. Mother was angry with this nurse for supplementing infant with formula after mother could not get infant to latch.
[2021-09-24] MEDS: Naproxen 500 MG Tablet PO (19:33)
--- NOTE | 2021-09-24 20:26 | NURSING ---
Pt stated she does not want to breastfeed anymore. Stated our staff want him to have formula so that's what he will have. Offered to help with a couple times. Pt refused each time. Asked pt if she wanted to see her baby (infant has been in nursery since last feed). Pt stated I'm done with it. Pt said she does not want him in here.
--- NOTE | 2021-09-24 20:40 | NURSING ---
When this RN went in to give pt a sandwich, pt stated I'm gonna bust out of here without the baby. They want it so bad damn bad they can fucking have the mother fucker.
--- NOTE | 2021-09-24 20:56 | NURSING ---
Pt called this RN into room and stated that she has changed her mind and she does want to breastfeed her baby. She stated she was just upset that a nurse gave her baby formula without talking to her first. Pt stated she has changed her mind and wants to try again to breastfeed.
[2021-09-25] VITALS (15 sets, daily range): BP systolic 119–130; BP diastolic 71–87; PULSE 75–120; RESP 16–20; TEMP 36.1–36.5; O2SAT 95–100
[2021-09-25] MEDS: Ipratropium/Albuterol Sulfate 3 ML AMPUL.NEB INHALATION ×3 (01:22→19:00)
[2021-09-25] MEDS: Acetaminophen 500 MG Tablet 1000 MG PO ×4 (04:02→23:17)
[2021-09-25] MEDS: Enoxaparin 40 MG/0.4 ML Syringe SC (04:02)
[2021-09-25] MEDS: Naproxen 500 MG Tablet PO ×3 (04:03→16:48)
--- NOTE | 2021-09-25 09:46 | PCM.PN.HOSP ---
Documented by User: Claudette Pro NP-C 09/25/21 09:53 Subjective Subjective Patient seen and examined. Patient lying in bed no distress noted holding her son. Patient states that she has had a productive cough this morning but is feeling better, currently on room air Objective Data Objective Data Vital Signs: Vital Signs Temp Pulse Resp BP Pulse Ox 97.2 F L 96 16 119/76 96 09/25/21 08:21 09/25/21 08:21 09/25/21 08:20 09/25/21 08:21 09/25/21 08:20 Oxygen Flow Rate (L/min) 2 Oxygen Delivery Method Room Air Weight: 190 lb Body Mass Index (BMI) 30.7 Intake & Output: Intake and Output for Last 24 Hours 09/23/21 09/24/21 09/25/21 23:59 23:59 23:59 Intake Total 1973.75 / 1973.75 1933.33 / 1933.33 Output Total 800 / 800 1800 / 1800 Balance 1173.75 / 1173.75 133.33 / 133.33 Lab / Micro Data Result Diagrams: 09/24/21 05:35 09/23/21 07:38 Micro: Microbiology 09/23/21 12:45 Mucosa - Nose Respiratory Panel (PCR) - Final 09/23/21 12:35 Urine, Clean Catch Legionella Antigen - Final 09/23/21 12:35 Urine, Clean Catch Streptococcus pneumoniae Antigen (M - Final 09/23/21 07:40 Nasal Secretion SARS-CoV-2 Antigen (Rapid) - Final 09/23/21 07:45 Mucosa - Nasopharyngeal Influenza Types A,B Direct FA (MARY LOU) - Final Physical Exam Const alert, oriented x3 and no apparent distress HEENT head/scalp atraumatic and moist oral mucous membranes Eyes conjunctivae normal and no scleral icterus Neck supple and thyroid normal Cardio regular rate, regular rhythm, S1 normal heart sound and S2 normal heart sound GI soft to palpation GI Narrative: Patient is postop day 2 from 38 weeks. Patient tender with palpation to lower abdominal quadrants Auscultation: normoactive bowel sounds Extremity normal to inspection, full ROM and no clubbing, cyanosis or edema Neuro moves all extremities, no focal motor deficits and no sensory deficits noted Sensorium / Orientation: awake and alert Psych Speech: slow Mood & Affect: flat affect Assessment & Plan Assessment/Plan (1) Delivery by section: (2) Mucus plugging of bronchi: (3) Pneumonia affecting : QUALIFIERS: Trimester: third trimester Qualified Code(s): O99.513 - Diseases of the respiratory system complicating , third trimester; J18.9 - Pneumonia, unspecified organism PLAN: Patient is a 35-year-old female who underwent on 09/23/2021 at 38 weeks gestation. Following patient experienced shortness of breath and was found to have mucous plugging. Patient has history of strep a pneumonia. 1. Pneumococcal pneumonia -Continue IV Rocephin -Encourage use of incentive spirometry as well as Pep therapy -As needed aerosol treatments ordered -Patient will need discharged on p.o. antibiotics for full 7-day course 2. Mucus plugging of bronchi -Patient underwent bronchoscopy 09/24/[address] 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 -Washings were obtained and sent for cell count and differential and routine cytopathology, no biopsies obtained. -Patient will need to follow-up with Dr. Thomas in 2 weeks and will need to be evaluated by cardiothoracic surgeon outpatient 3. Status post -Postop day 2 -Patient being managed by Dr. Peck. DVT prophylaxis-subcu Lovenox This patient was seen by EMI Navarrete under the supervision of Dr. Staley. Documented by User: Dr. Ginny Staley MD 09/25/21 10:09 Objective Data Lab / Micro Data Result Diagrams: 09/24/21 05:35 09/23/21 07:38 Charges/Coding Addendum Addendum: This patient was seen in conjunction with Jonel Morris NP. I have independently interviewed and examined the patient and reviewed pertinent historical, laboratory, and other data. I have reviewed her note and concur with her documentation Patient was seen and examined. She is on room air. Not in respiratory distress. She was doing [id number] with her baby. She stated that she has been coughing up sputum. She denied any chest pain or fever or chills. Physical Exam: Gen:Comfortable, not pale, not jaundiced CVS:HS I +II, regular, no murmurs RESP: Diminished at lung bases GI: BS present and normal, soft, nontender, no palpable organs EXT:No edema Intra bronchoscopy washings cultures and pathology are pending ASSESSMENT: 1. Acute pneumococcal pneumonia, urine streptococcal pneumonia antigen was positive 2. Distal left mainstem bronchus endobronchial mass, status post bronchoscopy on 09/24/21 3. Acute mucous plugging status post bronchoscopy 4. Status post recent delivery by section, postop day #2 5. History of polysubstance abuse Plan: Continue with IV ceftriaxone; switch to p.o. antibiotics at discharge to complete 7-day total antibiotic use Continue to encourage use of incentive spirometer Follow-up with pulmonology in the outpatient Visit Charges Inpatient E&M: 57166 Subs Hosp L2
[2021-09-25] MEDS: Senna/Docusate Sodium 1 Tablet PO (10:16)
--- NOTE | 2021-09-25 11:00 | CASEMGMT ---
Social Work Assessment Labor and Delivery Unit Patient Address: [facility] [place], [place] (living at the [facility] currently) Phone number: [phone] (message line) Date of Referral: 09/23/2021 Time of Referral: 1426 Referred By: Dr. Sherman Peck Date of Intervention: 09/25/2021 Time of Intervention: 1100 Reason for Referral: Homelessness and maternal history of drug use History obtained from: Medical records and mother of baby (CRISPIN) Daly Britton Household composition: CRISPIN is currently homeless and has been living at the [facility] since July 2021. CRISPIN reports her anger was triggered living with her parents during this and could not peacefully live in these homes. Record indicates the MOB is also lived at churches in the past. Patient's parent/guardian status: CRISPIN is a 35-year-old female. Paternity is unknown for this baby. Record indicates paternity is between 3 individuals. CRISPIN has 2 children total. Oldest is a son named Caleb who was born 07/23/2011 and who has reportedly been in the custody of his father since the age of 5 or 6. This son is reportedly living in [place]. [place] baby boy is not currently named but CRISPIN is thinking the name will be Mitzy, born 09/23/2021. Medical History: Medical record indicates CRISPIN is 9, para 1 now 2 after delivering baby boy demetra. care started at 13 weeks. care with a couple of gaps in care between 19 and 25 weeks and then 32 weeks until time of delivery at 38. Total visits occurred at: 13, 17, 19, 25, 29, 30, 32 as per the care record in the chart at this time. Delivery occurred at 38 weeks via section. weight for the baby was 7 pounds 14 ounces. Apgars 8 and 9. Educational Status: CRISPIN has her bachelor's in nursing and reportedly graduated with honors. No difficulty reading, writing or understanding what is read. Financial Status: CRISPIN reports her last gainful employment was in 2016. Reports will have some benefits from job and family services but has been waiting to access those financial benefits until after the baby was born. CRISPIN does have a food card and reports to have WIC. Supplies: CRISPIN reports a general lack of baby supplies reports to have some things. MOB was not specific with those things were. Reports that family has told the MOB there is a car seat available. MOB is reporting at this time a hope to provide breastmilk to the baby mother via the breast or after discharge via pumped milk. Childcare/Caregiver(s): MOB is uncertain at this time about who will be the caregiver the . MOB does not want to take the baby to the halfway and is hoping family will help out. Transportation: MOB reports to be reliant on others, such as family for help. MOB was also walking a lot during the . Programs/Agencies Involved: CRISPIN is living at the [facility]. Reports to have Medicaid and food card through job and family. Reports to have WIC. Verbally agrees to help me grow referral. Is on the [facility] waiting list. Reports to be a client at the counseling center but has missed some appointments. Reports went to [facility]. Children Services/Legal Issues: No identified legal issues. Denies that loss of custody of Caleb was through children services. Behavioral Health Issues: Mental Health History: MOB endorses a history of anxiety and PTSD for sure. Reports to have depression but describes this is situational. Reports the depression is actually anger which turns to self-loathing and then could be considered depression but reports the root cause is anger. Medical record indicates the MOB has a history of bipolar disorder. MOB reports she does not actually believe this diagnosis. Medical record indicates the MOB has a history of treatment with Vistaril, Trileptal, and Zyprexa. Reports did not take any medication during due to concern for risk of baby. Denies history of depression issues. Denies any history of psychosis. care record indicates the MOB was manic at the office visit on 09/19/2021. However MOB was positive for amphetamines on that day as well. MOB endorses having patience issues. Reports has been mean and irritated throughout this . Also reports that she has a sound mind, body, and spirit. Denies any history of suicidal ideation, planning, or attempts. Reports has been self-destructive in the past with drug use but no actual suicide attempts. No identified homicidal thoughts. Reported that did make some morbid jokes at the halfway with a woman who had a history of having a child with shaken baby. Reports that people perceive the MOB is antagonizing but was not trying to be. Substance Use History: MOB reports a long history of substance use. Reports her typical go to use her alcohol and marijuana but denies any of this during . When this underwriter solicitation director addressed amphetamine and methamphetamine use, the MOB reported that methamphetamine issues should just be called amphetamines. Inquired as to what substances the MOB use during , and what the baby has been exposed to the MOB went on to talk about stimulants and that this could be anything such as nicotine, cocaine, Adderall, meth are all stimulants. Reports in the past has tried pills but not during this and never really like this type of the drug. Denies any history of IV drug use. Family History: Not discussed Drug Screens: Noted in the mother's medical record 2+ drug screens in the spring 2020 for amphetamines and methamphetamine/MDMA with the last one being 01/17/2021. Positive drug screen in the OB office on 07/20/2021 for amphetamines which was at 29 weeks gestation. Negative at delivery on 09/13/2021. Infant's urine is negative. Meconium is pending. Family/Social Stressors: Unplanned with questionable paternity. Chronic homelessness. Limited finances and limited identified support system. Untreated mental health, with MOB endorsing missing several appointments at the counseling center and no current prescribed medication. Limited transportation substance use during , though reports has been working on sobriety and has reduced use. She reports that use feels more related to coping skills when the MOB is feeling stressed out. MOB reports to have had recurrent bronchitis and pneumonia issues during . Pneumonia at the time of delivery with a bronchoscopy showing a bronchial mass which will require some follow-up. Support Systems: MOB identifies family as a support but also identifies this has been limited. Depression/Shaken Baby/Safe Sleeping: Broached mood and anxiety disorders and risk. MOB reports awareness of safe sleeping and shaken baby prevention. ASSESSMENT: Met with the MOB in room, introducing to self and social work role. MOB had baby to breast upon social work entering the room and smiled brightly upon this underwriter solicitation director's introduction. MOB cooperative and willing to speak with the manager social services. MOB was polite in conversation though would intermittently curse, though not directed at this underwriter solicitation director. Mood anxious. Affect constricted. Eye contact sporadic with MOB having avoidant eye contact/staring off to the side with and intense gaze then at times looking at this underwriter solicitation director with normal appearing intensity. Thought process and communication circumstantial and sporadically tangential. Appearance disheveled with hair, and gown and gown loosing hanging off of chest; breasts exposed most of visit as MOB had baby to breast for the entirety of social work visit, which was over an hour. At the end, when baby was not latching MOB made comment to the baby that not sure what baby wanted. This underwriter solicitation director suggested that maybe the baby was not hungry and just holding the baby would be okay. MOB then held baby to chest and covered baby with blanket. Note, when MOB was talking to this underwriter solicitation director MOB would be intent on conversation, not necessarily checking on baby position. MOB was gentle however in how handled the baby. At one point MOB made comment that need to make sure the baby can breathe. MOB voiced intent and desire to keep the baby and parent the baby, but that does not want the baby to live with MOB at the halfway. MOB plans to return to the halfway, as reports unable to peacefully get along with family, but reports hope the family will help with care of baby. From conversation, supplies for baby do not yet seem to be in place. MOB voiced hope the family will come through on this. MOB receptive to a [facility] or [facility] [employer] referral. Discussed with MOB having some mental health follow up. MOB initially reported plan to call in a few weeks after having time to heal up. Suggested this underwriter solicitation director, or MOB if she wants to, make the appointment now as sometimes it does take a few weeks to get in. MOB verbally agreed to allow this underwriter solicitation director to call [facility]. Let MOB know that this underwriter solicitation director was given MOB's mom's name Elisabeth Vu and number to call. MOB voiced verbal permission for this underwriter solicitation director to check with Elisabeth on willingness to take the baby at discharge and about a car seat. MOB reported had been trying to give Elisabeth space. Emotional support provided to MOB this date. Supportive listening. Educated MOB to need to call children services. MOB voiced that a health child day care center worker had already told MOB that children services will be taking the baby at discharge. Let MOB know that uncertain what specific plan will be but that children services will be following. Note, this underwriter solicitation director did review chart. Appreciate nursing documentation regarding parent/child interactions and bonding. From documentation, this underwriter solicitation director with concern regarding MOB's anger/irritability responses/coping when faced with things that are upsetting to the MOB. Concern ultimately as to how MOB's anger /irritability responses could potentially impact care of baby after discharge. MOB also voiced several times during social work visit that MOB is not a patient person and has been feeling mean and irritable during this . Positive that MOB is voicing willingness to follow up with mental health and Help Me Grow. MOB did however decline this underwriter solicitation director making any substance treatment referrals. MOB reported to feel to be doing well, that has been in rehabs in the past and has reduced use. Safe Plan of Care for infant related to substance use: Reduce use and continue with sobriety. PLAN: Social work to follow for support, resources, referrals to mental health, HMG, and children services. -REBA Felton MSW *This note was generated with [employer] dictation software. It may contain incorrect words, spelling, and punctuation that were not noted in review of the chart prior to signing*
--- NOTE | 2021-09-25 12:31 | PCM.PN.OB ---
Objective Data Objective Data Vital Signs: Vital Signs Temp Pulse Resp BP Pulse Ox 97.2 F L 96 16 119/76 96 09/25/21 08:21 09/25/21 08:21 09/25/21 08:20 09/25/21 08:21 09/25/21 08:20 Oxygen Flow Rate (L/min) 2 Oxygen Delivery Method Room Air Weight: 190 lb Body Mass Index (BMI) 30.7 Intake & Output: Intake and Output for Last 24 Hours 09/23/21 09/24/21 09/25/21 23:59 23:59 23:59 Intake Total 1973.75 / 1973.75 1933.33 / 1933.33 50 / 50 Output Total 800 / 800 1800 / 1800 Balance 1173.75 / 1173.75 133.33 / 133.33 50 / 50 Lab / Micro Data Result Diagrams: 09/24/21 05:35 09/23/21 07:38 Micro: Microbiology 09/24/21 07:00 Wash - Bronchial Wash Respiratory Culture - Preliminary Appears to be normal respiratory omid. Further studies to follow. 09/23/21 08:04 Blood Culture (Wb) - Right Hand Blood Culture - Preliminary No growth in 48 hours. 09/23/21 07:56 Blood Culture (Wb) - Anticubital Left Blood Culture - Preliminary No growth in 48 hours. 09/23/21 12:45 Mucosa - Nose Respiratory Panel (PCR) - Final 09/23/21 12:35 Urine, Clean Catch Legionella Antigen - Final 09/23/21 12:35 Urine, Clean Catch Streptococcus pneumoniae Antigen (M - Final 09/23/21 07:40 Nasal Secretion SARS-CoV-2 Antigen (Rapid) - Final 09/23/21 07:45 Mucosa - Nasopharyngeal Influenza Types A,B Direct FA (MARY LOU) - Final Assessment & Plan (1) Delivery by section: COMMENT: POD#2 PLAN: 1) Routine care 2) Continue with IV ceftriaxone; switch to p.o. antibiotics at discharge to complete 7-day total antibiotic use 3)Courage use of incentive spirometry as well as Pep therapy 4)As needed aerosol treatments ordered 5) Patient underwent bronchoscopy with Dr. 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 Washings were obtained and sent for cell count and differential and routine cytopathology, no biopsies obtained. Patient will need to follow-up with Dr. Thomas in 2 weeks and will need to be evaluated by cardiothoracic surgeon. 6) Social work consult pending as patient homeless & may adopt baby out. Also h/o drug use. Routine care
--- NOTE | 2021-09-25 12:36 | NURSING ---
Received phone call from Yaneli Vee, psychologist at [facility]. [facility] [facility]. [place] [facility] came forward and reported that the patient said, she would Give my baby wiliam wings and a halo and hang it from a tree. She also reports that the patient said, When the baby cries, I will put a belt arounds its neck and tie it tighter and tighter until it dies. Yaneli was given the phone number to TAYLOR Felton to report this information as well as she would be the person to refer to CPS as appropriate. Will follow up with Luisa.
--- NOTE | 2021-09-25 12:45 | NURSING ---
Huddle performed with SW, cut out worker, this RN, charge nurse, and community liaison officerassistant fitness manager to discuss safety plan following phone call from Yaneli Vee at [facility] (see previous note). Based on conversations with SW, documented notes from previous RNs, it was decided that a safety sealer will need to be present in room to supervise the patient when she is alone with her baby. SW to notify patient.
--- NOTE | 2021-09-25 14:18 | NURSING ---
Child Protective Services at bedside at this time.
--- NOTE | 2021-09-25 16:30 | CASEMGMT ---
Social Work Labor and delivery Date of intervention: 09.25.2021 Time of intervention: 1100 and ongoing throughout day until 1630 Summary: Called mother of baby (MOB) mother Elisabeth Vu at [phone], as per conversation with the MOB this date. Elisabeth reports would be willing to have the baby stay in the home, but has to get MOB's stepfather Alberto Vu approval as well. Let Elisabeth know of potential discharge timeframe for the baby. Inquired about car seat. Elisabeth reports MOB's sister has a car seat, and Elisabeth just needs to pick it up. Elisabeth reports to also have a bassinet. Elisabeth shared that patient has tried to live with Elisabeth and Alberto during this , but that MOB cannot get along with Alberto. Elisabeth shared that MOB also tried to live with MOB's father and father's partner during the , but MOB could not get along with the father's partner. Elisabeth reports the MOB is an intelligent woman who graduated from college with honors, and expressed wanting staff to know that MOB wants to get out of the pit that has fallen into. Supportive listening provided. Called [facility] ([facility]) at [phone] and spoke with Mela Reddy in the intake department. Referral due to concerns regarding substance exposed infant in utero, maternal mental health not currently treated, no current treatment for substance use history, homelessness, general lack of preparation for the baby for home going, limited support, and concerns about parent/child interactions thus far. Referral will be screened in for investigation and bridge maintenance worker will contact this physician underwriter, with a likely visit to hospital today. Received call from Yaneli Vee, psychologist and clinical director of [facility]. For continuity of care, Yaneli reports concern for safety of the baby. Yaneli reports that met with the MOB last and at that time the MOB was uncertain on intention regarding parenting versus adoption of baby. MOB not willing at that time to engage in discussion/planning for baby. Yaneli reports was then approached by someone who shared that MOB was making comments at the senior care about giving the baby wiliam wings and a halo, hanging baby from a tree, and tightening the belt tighter each time the baby cried. Huddled with unit staff, management and rubber compounder mixer regarding safety concerns called in. In light of MOB's observed actions in the hospital, MOB voicing to this physician underwriter being angry/irritable during and not a patient person, as well as concerns called in decision made to have someone with MOB to provide support and supervision. This physician underwriter to room to update MOB to decision for supervision. Knocked on MOB's door, no answer. Opened door and no answer with this physician underwriter calling the MOB's name. Found the room darkened, MOB lying on side with back to the door and baby not in sight. Crib empty. Walked into room and found the baby laying by MOB's side sleeping, tucked into MOB's side. MOB's eyes were half open and staring off. Observed no immediate response that this physician underwriter was present or awareness. This physician underwriter to bed, and said MOB's name again. MOB jerked and eyes focused on this physician underwriter. This physician underwriter suggested that baby be placed in crib for safety. MOB voiced it might be good for this physician underwriter to take baby so MOB could sit up. Placed baby in crib and swaddled the baby. MOB sat up. As soon as baby started to cry MOB asked for baby and stated that baby needs to feed. Gave baby back to MOB and baby placed to breast. This physician underwriter let MOB know that children services would be coming to see MOB today, that MOB's mom said there is car seat available, and that this physician underwriter would get the baby an and outfit to wear as MOB had no clothes for the baby at hospital. This physician underwriter also took opportunity to address with MOB concerns regarding call received regarding threats to baby. As soon as this physician underwriter mentioned wiliam wings the MOB interjected and made comment can't people take a joke? This physician underwriter inquired if MOB is aware then of concerns this physician underwriter is talking about. MOB voiced that is aware of comments and that figured this would get back around. MOB reported that has dark sense of humor and people don't know how to take jokes. MOB also talked about being an artist and these comments were artistic expression. Gently confronted/challenged MOB that these comments would not be considered artistic expression nor joking about killing a baby as something to joke about. MOB maintained that this was all humor, and frustrated that others as at the senior care are doing things they shouldn't and I have to be well rounded. Educated MOB that as these are serious comments and combined with risk for depression, anxiety and psychosis staff will be giving MOB some support and supervision with the baby. Encouated MOB that having someone in the room may be a positive, as really every postapartum mom could use some help and support. MOB voiced I wish I knew what all of that was, in reference to the mood issues. Educated to PPD, anxiety and psychosis. Explained that MOB is at risk based on history. Explored whether MOB has been experiencing any paranoia, hallucinations, difficulty with reality testing or history of such. MOB reports has only ever hallucinated when did hallucinogenic type drugs. MOB denies any intent to harm the baby, or any thoughts of such since baby has been born, maintaining that it was all a joke. While MOB expressed irritability with concerns reported and having to have someone in the room, the MOB did not outright argue with the plan. MOB did exhibit irritability and matter of factly at one point when talked about staff as motherfuckers and the baby a motherfucker when talking about baby having had some formula the other day. Children services presented to the unit to see MOB. Sharonda Meek the assigned worker, , extension [phone]. Sharonda rapports looking at safety planning options versus filing in court, but will know more after meeting with the MOB. Updated nursing that this physician underwriter found MOB and baby in a safe sleeping situation and that removed baby to crib until MOB was awake and alert. Received call from MOB's mother Elisabeth Vu who reports has not been able to talk to children services and that has heard that MOB's father and stepmother are approved for safety plan. Elisabeth reports that MOB wants Elisabeth over the MOB's father to provide care to the baby. This physician underwriter called Sharonda and left message about from Elisabeth. Gave Elisabeth's number. Received call from Sharonda at [facility] who reports just left the MOB's father's home. This home as well as MOB's father and stepmother are approved for safety plan. Sharonda reports Elisabeth may be an option later on, but for purposes of baby's discharge on 09.25.2021 the MOB's father and stepmother are approved at this time. Giselle Aroldo is the stepmother and who would come to hospital to pick baby up. Sharonda reports Giselle has questions bout type of formula for the baby. Sharonda provided [phone] as number to call. Elizabeth Cobb charge coordinator for [facility] approached this physician underwriter about Elisabeth being present and having questions. Updated to call with [facility]. Elizabeth will update Elisabeth. Gave Sharonda at [facility] number for Elisabeth to call. Plan: Social work to follow and assist with planning for MOB and baby. Anticipate discharge on 09.26.2021. -RICCO Felton, RECLAMATION SUPERVISOR
--- NOTE | 2021-09-25 19:41 | NURSING ---
This RN speaking with patient during assessment and questioned mother on age of previous child and whether or not she sees him. patient states that child is just over 10 but states she does not really like to talk about child. This RN apologized and redirected conversation. Patient does not appear upset after redirection.
[2021-09-26] VITALS (11 sets, daily range): BP systolic 119–130; BP diastolic 70–86; PULSE 88–97; RESP 16–28; TEMP 36.3–36.6; O2SAT 95–98
--- NOTE | 2021-09-26 00:44 | NURSING ---
Patient talking with this RN and expressing that she is upset that upset because will not be going home with her at this time. Patient states that she has a dark, cynical sense of humor and that some people don't understand that. Patient states that she has never hurt a child and would never hurt a child. Patient states she hopes that living separately from will only be temporary.
[2021-09-26] MEDS: Naproxen 500 MG Tablet PO ×3 (03:46→18:28)
[2021-09-26] MEDS: Enoxaparin 40 MG/0.4 ML Syringe SC (03:46)
[2021-09-26] MEDS: Acetaminophen 500 MG Tablet 1000 MG PO ×4 (03:46→22:21)
--- NOTE | 2021-09-26 08:33 | NURSING ---
Sitting with patient continuously. She has been patient and nurturing with baby as he cluster feeds.
--- NOTE | 2021-09-26 09:17 | PCM.PN.OB ---
Subjective Subjective Denies complaints Objective Data Objective Data Vital Signs: Vital Signs Temp Pulse Resp BP Pulse Ox 97.8 F 91 28 H 127/86 H 98 09/26/21 07:46 09/26/21 07:46 09/26/21 07:46 09/26/21 07:46 09/26/21 07:46 Oxygen Flow Rate (L/min) 2 Oxygen Delivery Method Room Air Weight: 190 lb Body Mass Index (BMI) 30.7 Intake & Output: Intake and Output for Last 24 Hours 09/24/21 09/25/21 09/26/21 23:59 23:59 23:59 Intake Total 1933.33 / 1933.33 50 / 50 Output Total 1800 / 1800 Balance 133.33 / 133.33 50 / 50 Lab / Micro Data Result Diagrams: 09/24/21 05:35 09/23/21 07:38 Micro: Microbiology 09/24/21 07:00 Wash - Bronchial Wash Gram Stain - Final 09/24/21 07:00 Wash - Bronchial Wash Respiratory Culture - Final 09/23/21 08:04 Blood Culture (Wb) - Right Hand Blood Culture - Preliminary No growth in 48 hours. 09/23/21 07:56 Blood Culture (Wb) - Anticubital Left Blood Culture - Preliminary No growth in 48 hours. 09/23/21 12:45 Mucosa - Nose Respiratory Panel (PCR) - Final 09/23/21 12:35 Urine, Clean Catch Legionella Antigen - Final 09/23/21 12:35 Urine, Clean Catch Streptococcus pneumoniae Antigen (M - Final 09/23/21 07:40 Nasal Secretion SARS-CoV-2 Antigen (Rapid) - Final 09/23/21 07:45 Mucosa - Nasopharyngeal Influenza Types A,B Direct FA (MARY LOU) - Final Physical Exam Const alert, oriented x3 and no apparent distress HEENT normocephalic GI soft to palpation, non-tender and non-distended GI Narrative: fundus firm, mid & below umbilicus Incision - bandage c/d/i Extremity normal to inspection and no calf tenderness Assessment & Plan (1) Pneumonia: QUALIFIERS: Laterality: left Lung location: lower lobe of lung Pneumonia type: due to unspecified organism Qualified Code(s): J18.9 - Pneumonia, unspecified organism PLAN: Management per medicine Continue with IV ceftriaxone; switch to p.o. antibiotics at discharge to complete 7-day total antibiotic use Enouraged use of incentive spirometry as well as Pep therapy As needed aerosol treatments ordered (2) Delivery by section: COMMENT: POD#3 PLAN: Routine PP care Doig well (3) History of drug use: PLAN: Social work involved and working on plan for baby (4) Mucus plugging of bronchi: PLAN: Patient underwent bronchoscopy with Dr. 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 Patient will need to follow-up with Dr. Thomas in 2 weeks and will need to be evaluated by cardiothoracic surgeon.
[2021-09-26 09:45] LABS: Pathologist Comment/Body Fluid Reviewed
--- NOTE | 2021-09-26 10:15 | PN.HOSP_ITS ---
Documented by User: Claudette Pro NP-Kami 09/26/21 10:23 Subjective Subjective Patient seen and examined. Patient lying in bed no distress noted. Patient currently breast-feeding baby. Objective Data Objective Data Vital Signs: Vital Signs Temp Pulse Resp BP Pulse Ox 97.8 F 91 28 H 127/86 H 98 09/26/21 07:46 09/26/21 07:46 09/26/21 07:46 09/26/21 07:46 09/26/21 07:46 Oxygen Flow Rate (L/min) 2 Oxygen Delivery Method Room Air Weight: 190 lb Body Mass Index (BMI) 30.7 Intake & Output: Intake and Output for Last 24 Hours 09/24/21 09/25/21 09/26/21 23:59 23:59 23:59 Intake Total 1933.33 / 1933.33 50 / 50 Output Total 1800 / 1800 Balance 133.33 / 133.33 50 / 50 Lab / Micro Data Result Diagrams: 09/24/21 05:35 09/23/21 07:38 Labs: Laboratory Results - last 24 hr 09/24/21 07:00: Fl Pathologist Comment Reviewed Micro: Microbiology 09/24/21 07:00 Wash - Bronchial Wash Gram Stain - Final 09/24/21 07:00 Wash - Bronchial Wash Respiratory Culture - Final 09/23/21 08:04 Blood Culture (Wb) - Right Hand Blood Culture - Preliminary No growth in 48 hours. 09/23/21 07:56 Blood Culture (Wb) - Anticubital Left Blood Culture - Preliminary No growth in 48 hours. 09/23/21 12:45 Mucosa - Nose Respiratory Panel (PCR) - Final 09/23/21 12:35 Urine, Clean Catch Legionella Antigen - Final 09/23/21 12:35 Urine, Clean Catch Streptococcus pneumoniae Antigen (M - Final 09/23/21 07:40 Nasal Secretion SARS-CoV-2 Antigen (Rapid) - Final 09/23/21 07:45 Mucosa - Nasopharyngeal Influenza Types A,B Direct FA (MARY LOU) - Final Physical Exam Const alert, oriented x3 and no apparent distress HEENT head/scalp atraumatic and moist oral mucous membranes Eyes conjunctivae normal and no scleral icterus Neck supple and thyroid normal Cardio regular rate, regular rhythm, S1 normal heart sound and S2 normal heart sound GI soft to palpation GI Narrative: Patient is postop day 2 from 38 weeks. Patient tender with palpation to lower abdominal quadrants Auscultation: normoactive bowel sounds Extremity normal to inspection, full ROM and no clubbing, cyanosis or edema Neuro moves all extremities, no focal motor deficits and no sensory deficits noted Sensorium / Orientation: awake and alert Psych Attitude: withdrawn and bizarre Speech: slow Mood & Affect: flat affect Assessment & Plan Assessment/Plan (1) Delivery by section: (2) Mucus plugging of bronchi: (3) Pneumonia affecting : QUALIFIERS: Trimester: third trimester Qualified Code(s): O99.513 - Diseases of the respiratory system complicating , third trimester; J18.9 - Pneumonia, unspecified organism PLAN: Patient is a 35-year-old female who underwent on 09/23/2021 at 38 weeks gestation. Following patient experienced shortness of breath and was found to have mucous plugging. Patient has history of strep a pneumonia. 1. Pneumococcal pneumonia -Continue IV Rocephin -Encourage use of incentive spirometry as well as Pep therapy -As needed aerosol treatments ordered -Patient will need discharged on p.o. antibiotics for full 7-day course 2. Mucus plugging of bronchi -Patient underwent bronchoscopy 09/24/[address] 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 -Washings were obtained and sent for cell count and differential and routine cytopathology, no biopsies obtained. -Patient will need to follow-up with Dr. Thomas in 2 weeks and will need to be evaluated by cardiothoracic surgeon outpatient 3. Status post -Postop day 3 -Patient being managed by Dr. Peck. Discharge planning patient okay to discharge from a medical standpoint. Patient will need cefdinir 300 mg by mouth twice daily x4 days as well as albuterol inhaler 2 to 4 puffs every 4 hours as needed for shortness of breath. DVT prophylaxis-subcu Lovenox This patient was seen by EMI Navarrete under the supervision of Dr. Staley. Documented by User: Dr. Ginny Staley MD 09/26/21 15:13 Objective Data Lab / Micro Data Result Diagrams: 09/24/21 05:35 09/23/21 07:38 Charges/Coding Addendum Addendum: This patient was seen in conjunction with Jonel Pro NP. I have independently interviewed and examined the patient and reviewed pertinent hist orical, laboratory, and other data. I have reviewed her note and concur with her documentation Patient was seen and examined. She remains on room air. Denies fever or chills. Physical Exam: Gen:Comfortable, not pale, not jaundiced CVS:HS I +II, regular, no murmurs RESP: Diminished at lung bases GI: BS present and normal, soft, nontender, no palpable organs EXT:No edema Intra bronchoscopy washings cultures are pending Pathology is negative for malignant cells ASSESSMENT: 1. Acute pneumococcal pneumonia, urine streptococcal pneumonia antigen was positive 2. Distal left mainstem bronchus endobronchial mass, status post bronchoscopy on 09/24/21 3. Acute mucous plugging status post bronchoscopy 4. Status post recent delivery by section, postop day #2 5. History of polysubstance abuse Plan: Continue with IV ceftriaxone; switch to cefdinir at discharge to complete 7-day total antibiotic use Continue to encourage use of incentive spirometer Follow-up with pulmonology in the outpatient Visit Charges Inpatient E&M: 16921 Subs Hosp L2
[2021-09-26] MEDS: Senna/Docusate Sodium 1 Tablet PO (10:23)
[2021-09-26] MEDS: 0.9% Saline Lock 10 ML Syringe IV (10:24)
[2021-09-26] MEDS: Ipratropium/Albuterol Sulfate 3 ML AMPUL.NEB INHALATION (13:04)
--- NOTE | 2021-09-26 15:23 | NURSING ---
Continues with productive cough especially after resp. treatment. She has been pleasant and cooperative but expresses concerns over the future. Lots of encouragement given.
--- NOTE | 2021-09-26 17:30 | CASEMGMT ---
Social Work Labor and delivery Unit Time of intervention: ongoing throughout the day Date of intervention: 09.26.2021 Summary: Called mother of baby (MOB) stepmother Giselle Kendrick at [phone]. Message left to call this insurance underwriter sales, as was told by children services that Giselle had questions about things for the baby, such as type of formula. Spoke with loading shovel oiler and OBGYN is planning to discharge MOB tomorrow rather than today. Electrical Maintenance Technician also aware of planned discharge date. Spoke with Sharonda Meek from [facility] to update. Sharonda reports Giselle is asking to talk to this insurance underwriter sales. Sharonda asked what number this insurance underwriter sales has, which this insurance underwriter sales reviewed. Sharonda reports MOB had provided incorrect numbers to [facility] yesterday for both sets of parents, and the correct numbers is [phone]. Updated Sharonda to new discharge date. Spoke with Giselle and updated that typically babies are started on similac with iron, which the baby did have at hospital at one point. Let Giselle know that MOB is hoping to provide some breastmilk for the baby. Giselle had to cut phone call short as [facility] to the home to talk. Giselle reported plan to call this insurance underwriter sales back later. Giselle expressed interest in Dr. Huang for baby's follow up. Arranged MOB an intake assessment at [facility] for 10-25-2021 at 1030 with Pelon Ross. Typed information out for MOB. Met with MOB this afternoon. Provided MOB wiht follow, information on mood and anxiety disorders, and [facility] resource list. MOB clean and well groomed today. Smiled at this insurance underwriter sales entering room. Eye contact improved as compared to 09.25.2021, more direct and normal intensity. MOB talkative, pleasant, and mood brighter. MOB did become tearful when this insurance underwriter sales broached MOB's prior loss of older son and how this may related to MOB's concerns with baby. MOB then started to fully cry. Let MOB know that not trying to have MOB recount details of the past, but that prior loss as something factoring into MOB's current emotions. MOB acknowledged that fear of loss of baby has been on MOB's mind and that does not want to go through what went through with Caleb, as with baby Mitzy. MOB admitted that thinks about whether should just give up the baby now, or whether MOB can maintain motivation to work on own health and plan with children services to keep custody of this baby. Reinforced that MOB does need to be consistent with [facility] plan, with outpatient providers, and sobriety from drugs. Reinforced that MOB does have work to do for a healthy and stable lifestyle. Supportive encouragement and listening offered to MOB. MOB talked about starting to understand that cannot use morbid humor and artistic expression. MOB maintains that comments about baby, which have created a safety concern, were just artistic expression as MOB was in a dark place and was thinking of past/present/future loss and worry about future losses. Reviewed with MOB that talking about of anyone and specifically about killing another human, adult or child, will have serious consequences. MOB denies intent to harm the baby, and no voiced intent or desire to harm any other person currently. Reviewed mood issues, as MOB voiced feeling that mood will be better that no longer . Let MOB know that this is not always the case, and reinforced need for mental health follow up due to maternal risk factors. Noted that MOB both laughing and crying during the conversation today. Less anxious appearing as compared to 09.25.2021, and more on the side of happy and euphoric. MOB did stay more focused in conversation, only slightly circumstantial today. MOB is future oriented and talked of wanting to provide breast milk, get to appointments, and working with parents on care of baby. MOB voiced thanks to this insurance underwriter sales for support. Let MOB know that Giselle has called and this insurance underwriter sales spoke briefly this morning. MOB reports would like this insurance underwriter sales to reinforce MOB's hopes to provide breast milk. This insurance underwriter sales agreed, but also reinforces to MOB that cannot give breast milk if MOB starts to use substances again. MOB voiced understanding and intent to comply. Called Giselle back, as received two calls this afternoon. Giselle had questions about formula, follow up and what to look for in the baby. Educated that nursing can go over discharge instructions and if Giselle still has questions can see if calender inspector is available for additional questions. Reviewed safe sleeping with Giselle a well. Reviewed MOB's desire to provide breast milk, as well as that CRISPIN still has custody so there is going to be some level of collaboration wiht MOB. Encouraged Giselle to talk to [facility] on these types of questions. Giselle will be to hospital around 1000 on 09.27.2021. Note, MOB is unsure how will get back to the alf and said that could walk. This insurance underwriter sales will call hospital van to see if can help with transport back to alf tomorrow as not appropriate for MOB to walk after csection and recovering from pneumonia. Plan: Continue to collaborate with staff, MOB, family, and [facility] on discharge planning. Anticipate discharge on 09.27.2021. MOB back to alf and baby to care of paternal grandparents as set by [facility]. -REBA Felton, [employer]400 DEVELOPER
--- NOTE | 2021-09-27 01:00 | NURSING ---
bedside repot given to michel CADE. that RN to assume care of couplet at this time.
[2021-09-27] MEDS: Naproxen 500 MG Tablet PO (02:39)
[2021-09-27 02:45] VITALS: BP 140/74; PULSE 86; TEMP 36.3
[2021-09-27 02:47] VITALS: BP 140/74; PULSE 86; RESP 20; TEMP 36.3
[2021-09-27] MEDS: Acetaminophen 500 MG Tablet 1000 MG PO ×2 (03:57→09:26)
[2021-09-27] MEDS: Enoxaparin 40 MG/0.4 ML Syringe SC (03:57)
[2021-09-27 07:05] VITALS: PULSE 98; RESP 20
[2021-09-27] MEDS: Ipratropium/Albuterol Sulfate 3 ML AMPUL.NEB INHALATION (07:15)
[2021-09-27 07:51] VITALS: PULSE 92; O2SAT 95
[2021-09-27 07:59] VITALS: BP 135/76; PULSE 88; TEMP 36.4
[2021-09-27 08:15] VITALS: BP 148/82; PULSE 88; RESP 20; TEMP 36.6; O2SAT 95
--- NOTE | 2021-09-27 08:46 | PCM.DC.SUM ---
Providers Date of Admission: 09/23/21 Primary Care Physician: No Primary Care Phys Consultations 09/23/21 10:11 Consult: Hospitalist Routine Consulting Provider: Jorge Phelps Reason for Consult: Pneumonia EMERGENT Consult: Yes Notified: Yes Date Notified: 09/23/21 Time Notified: 10:11 Method of Notification: Provider Initiated 09/23/21 10:23 Consult: Pharmacy Benefit Manager / Pulmonary Medicine Routine Consulting Provider: Pulmonary Medicine [facility] Reason for Consult: mucous plug, collapse LLL EMERGENT Consult: Yes MD Notified: Yes Date Notified: 09/23/21 Time Notified: 10:23 Method of Notification: Provider Initiated Reason For Visit: PNEUMONIA, REPEAT C SECTION Diagnosis Discharge Diagnosis (1) Delivery by section: Status: Acute (2) Mucus plugging of bronchi: Status: Acute Code(s): T17.500A - Unspecified foreign body in bronchus causing asphyxiation, initial encounter (3) Pneumonia affecting : Status: Acute Code(s): O99.519 - Diseases of the respiratory system complicating , unspecified trimester; J18.9 - Pneumonia, unspecified organism Qualifiers: Trimester: third trimester Qualified Code(s): O99.513 - Diseases of the respiratory system complicating , third trimester; J18.9 - Pneumonia, unspecified organism Medications at Discharge Home Medications cefdinir 300 mg PO BID 7 Days #14 cap 09/27/21 Hospital Course Operations section Summary of Care Provided Hospital Course: Patient for repeat C/S. Hospital course complicated by pneumonia. Seen by pulmonology and hospitalist. Physical Exam Narrative Patient seen at bedside. Feeling better. Desires discharge home today. Pain controlled with PO medications. Breast feeding and pumping. Lochia minimal. Denies any headache, vision changes, SOB or CP. Cleared for discharge by pulmonology and medicine. D/C home on oral antibiotics. Rx sent. Const alert and no apparent distress General Appearance: cooperative and comfortable Exam Limitations: no limitations HEENT normocephalic Eyes General Eye: normal appearance of both eyes Neck full ROM General: normal visual inspection Chest Chest: symmetrical chest wall rise Cardio regular rate and regular rhythm GI normal to inspection, nondistended, normoactive bowel sounds Back/Spine normal ROM Extremity full ROM and no calf tenderness General Extremity: normal exam except as noted Skin no rashes or lesions noted Neuro CN's II-XII intact bilaterally Psych mental status grossly normal Weight / BMI Weight Weight: 190 lb Body Mass Index (BMI) 30.7 ABG / Lab / Microbiology Data Result Diagrams: 09/24/21 05:35 09/23/21 07:38 Laboratory: Laboratory Results - last 24 hr 09/24/21 07:00: Fl Pathologist Comment Reviewed 09/24/21 07:00: Miscellaneous Cytology SEE PATHOLOGY REPORT Microbiology: Microbiology 09/24/21 07:00 Wash - Bronchial Wash Gram Stain - Final 09/24/21 07:00 Wash - Bronchial Wash Respiratory Culture - Final 09/23/21 08:04 Blood Culture (Wb) - Right Hand Blood Culture - Preliminary No growth in 48 hours. 09/23/21 07:56 Blood Culture (Wb) - Anticubital Left Blood Culture - Preliminary No growth in 48 hours. 09/23/21 12:45 Mucosa - Nose Respiratory Panel (PCR) - Final 09/23/21 12:35 Urine, Clean Catch Legionella Antigen - Final 09/23/21 12:35 Urine, Clean Catch Streptococcus pneumoniae Antigen (M - Final 09/23/21 07:40 Nasal Secretion SARS-CoV-2 Antigen (Rapid) - Final 09/23/21 07:45 Mucosa - Nasopharyngeal Influenza Types A,B Direct FA (MARY LOU) - Final D/C Instructions Discharge Diet: No restrictions May resume sexual activity in: 6-8 weeks Weight Bearing Status: Weight bearing as tolerated Lifting Restrictions: 20 lbs Call your doctor if your incision/area has: Continuous Slow Oozing, Increased Pain/ Swelling, Increased Redness, Foul Smelling Discharge and Swelling at the incision site Call your doctor if you observe: Fever of 101 or Higher, Inability to urinate, Using more than 1 pad per hour, Shortness of breath, Chest pain, Calf discomfort and Uncontrolled pain Remove Dressing in: 5 days Cleanse incision/area with: Soap & Water and Keep Dressing Clean & Dry When: 1 week in office for incision check or sooner if needed 6 weeks Meaningful Use Info Meaningful Use Diagnoses (Choose all that apply): None applicable Discharge Plan Admission Admit Date/Time: 09/23/21 09:28 Primary Reason for Your Visit: Repeat C/S Attending Provider: Ginny Staley Primary Care Provider: Care Physician,No Primary Consulting Providers: Jorge Phelps ; Ron Akbar ; Ti Thomas ; Christel Walsh DESIGN CENTER CONSULTANT Discharge Orders/Prescriptions Prescriptions: New cefdinir 300 mg capsule 300 mg PO BID 7 Days Qty: 14 RF: 0 Referrals / Follow Up: Care Physician,No Primary [Primary Care Provider] - Disposition Disposition (needs filled in before D/C Order can be placed): Home, Self Care
--- NOTE | 2021-09-27 11:28 | CASEMGMT ---
Social Work Labor and Delivery Summary: Mother of baby (MOB) and infant to be discharged today. MOB actually has an assessment with [facility] today at 1130. Spoke with MOB about this. Rather than call hospital van for a ride to the half-way, MOB will have her mother Elisabeth Vu transport MOB to appointment. This mortgage underwriter called Giselle Kendrick, MOB's stepmother, and informed that can come to hospital before 1000 today. Elisabeth and Giselle both to unit and in MOB's room with MOB and . Reviewed appointment times, answered questions posed by MOB, Elisabeth, and Giselle as able. Provided some baby clothing and items to the MOB for home going. MOB expressed appreciation. Elisabeth agrees to help with some of the follow up appointments for MOB. Educated MOB that [facility] can help with appointments as well, but that MOB does need to call in advance rather than the day of. Elisabeth also heard this information. Noted that [facility] Sharonda Meek is to see MOB on 09.28.2021, but that MOB is slated to come back to hospital to see on 09.28.2021 at 1100. Message left for Sharonda at [facility] of this appointment, so that it does not interfere with whatever time Sharonda planned to see MOB. This mortgage underwriter did broach depression, anxiety, and psychosis with Elisabeth and MOB. Reviewed signs and symptoms as well as importance of coming back to the hospital should symptoms exacerbate further. This mortgage underwriter did speak with MOB privately and reviewed concern about MOB's emotional health, that addressing this sooner than later may be of benefit to the plan being set for with [facility], and that MOB's appointment at [facility] is just for an intake on 10-25-2021, so there will be a delay in starting back on medications. MOB reported to have Meds at Elisabeth's home and could use those. Urged MOB to consult with a doctor about which medications are appropriate to restart. MOB expressed understanding. Discussed inpatient hospitalization for mental health as a way to have MOB evaluated for and stabilized on medications more quickly. MOB refuses this option at present time. Reports to feel that being farther away from the baby would be more harmful to emotional health. MOB verbally contracts that if thoughts of harm to self, harm to others, or paranoia surface will come back to hospital for evaluation. This mortgage underwriter reinforced that to be able to be present for baby in the long line teamster, MOB's health needs to be taken care of. MOB voiced that plans to abstain from any drug use, and plans to go to follow up appointments made. [facility] referral made via the [facility]'s secure web based referral system. Assessment: MOB cooperative and pleasant with this mortgage underwriter, as well as observed MOB to be cooperative with visitors in the room. Observed MOB to have a labile mood, as evidenced by MOB smiling, happy, and then at times laughing and crying at the same time. Mood appeared to exacerbate when MOB was facing much information coming at MOB at one time, and when MOB perceived that was not going to be able to hold and feed baby after circumcision today. When this mortgage underwriter was able to speak with MOB one on one, the MOB was able to focus, no tears, appropriate affect, and more focused thought process. Mood labile, but easily cries when overwhelmed. No identified SI or HI, and no evidence today of internal stimuli such as hallucinations. MOB able to stay more focused with one on one intervention. MOB future oriented regarding going to appointments, working with children services and seeing the baby. MOB also handled baby appropriately, and no observed anger or aggression towards the baby noted. MOB has maintained that has no plans or desire to harm her baby, that prior comments before hospitalization were artistic expression rather than an intent to actually harm her baby. Has expressed understanding that comments about harming others is not seen as appropriate to joke about. MOB expressed thanks for time and support provided throughout hospitalization. Plan: CRISPIN discharging in care of her mother Elisabeth, to go to drug/alcohol assessment at 1130 today. Then back to [facility] to reside. CRISPIN has multiple appointments set and all are written out. Baby discharging in care of Giselle Kendrick, CRISPIN's stepmother and approved by [facility] safety plan. Will monitor for meconium drug screen results and report back to [facility] as indicated. -REBA Felton, SUNNY
--- NOTE | 2021-09-28 06:58 | OB.TRI.NOTE ---
HPI - General General Date of Admission: 09/23/21 HPI Narrative CHAPIN SRINIVASAN, is a 35 F PO #4 C/S that presents to triage with headache and shortness of breath. She was discharged home earlier today from unit. Diagnosed with pneumonia and taking oral antibiotics. No history of preeclampsia. Rates headache 4-5/10. Headache more painful when she is sitting up. History of migraines. PFSH PFS Medical History Drug abuse Home Medications cefdinir 300 mg PO BID 7 Days #14 cap 09/27/21 [Rx Last Taken 09/27/21 18:00] nitrofurantoin monohyd/m-cryst [Macrobid] 100 mg PO Q12H 7 Days #14 cap 09/28/21 [Rx Last Taken Unknown] Allergy/AdvReac Type Severity Reaction Status Date / Time No Known Allergies Allergy Verified 09/28/21 00:05 Surgical History (Updated 09/28/21 @ 07:12 by Nyla Garcia CNM) Hx of tonsillectomy Previous section Social History housing: homeless current occupational status: unemployed Smoking Status: Light Smoker (<10/day) History Elective abortions Hx Para 1 Spontaneous abortions Hx # Term Pregnancies Ectopic pregnancies Hx # Pregnancies Multiple births # of living children ROS Eyes Eyes: Denies blurry vision, change in vision or spots in vision ENT HEENT: Denies dizziness Cardiovascular Cardiovascular: Denies abdominal pain or chest pain Respiratory/Chest Respiratory/Chest: Reports chest congestion, cough, pain on inspiration, pain with cough and shortness of breath with exertion; Denies shortness of breath at rest Gastrointestinal Gastrointestinal: Denies abdominal pain, diarrhea or vomiting Genitourinary Genitourinary: Denies change in urinary stream, difficulty urinating or dysuria Musculoskeletal Musculoskeletal: Reports none Integumentary Integumentary: Denies rash Neurologic Neurologic: Denies dizziness, headache(s), memory loss or weakness Physical Exam Const General Appearance: cooperative Orientation / Consciousness: awake, oriented to person, oriented to place and oriented to time HEENT normocephalic Eyes General Eye: normal appearance of both eyes Neck full ROM Chest inspection of chest normal Resp normal respiratory effort and normal air movement Effort and Inspection: symmetric chest movement and actively coughing Auscultation: diminished lung sounds left and other Current diagnosis of pneumonia, mass on left lung Cardio regular rate GI soft to palpation, non-tender and non-distended Back/Spine normal ROM Extremity full ROM, normal capillary refill and no calf tenderness Skin no rashes or lesions noted Neuro oriented x3 and CN's II-XII intact bilaterally Assessment & Plan (1) Pneumonia: (2) Headache, migraine: (3) Delivery by section: COMMENT: POD#4 PLAN: BP's within normal ranges Fioricet 2 tabs PO x1 now PIH labs- normal D/C with preeclampsia precautions- patient to return to ED due to SOB Patient has follow up in office next week for incision check
[2021-09-28 09:07] LABS: Pathology Specimen OB SEE PATHOLOGY REPORT
--- NOTE | 2021-10-17 15:37 | CASEMGMT ---
Social Work Labor and Delivery Meconium drug screen results are back and negative for abuse. Called Sharonda Meek at [facility] ([facility]) [phone], extension [phone]. Message left. No other services requested or indicated. -RICCO Felton, OPERATIONS PLANT ATTENDANT
== END 2021-09-27 11:15 | disposition home or self-care (01) | DRG 540 ==
LOC: ED 09:26 → WP 09:30
PROVIDERS: Internal Medicine; Internal Medicine Critical Care Medicine; Admitting Provider Obstetrics & Gynecology; Emergency Provider Emergency Medicine; Visit Provider Internal Medicine
PROC: 0BJ08ZZ Inspection of Tracheobronchial Tree, Via Natural or Artificial Opening Endoscopic (ICD-10-PCS; CPT 31622; principal; 2021-09-24 07:00)
DX: O65.5 Obstructed labor due to abnormality of maternal pelvic organs (principal); T17.500A Unspecified foreign body in bronchus causing asphyxiation, initial encounter; J13 Pneumonia due to Streptococcus pneumoniae; J98.11 Atelectasis; F17.210 Nicotine dependence, cigarettes, uncomplicated; O34.211 Maternal care for low transverse scar from previous cesarean delivery; O76 Abnormality in fetal heart rate and rhythm complicating labor and delivery; O99.52 Diseases of the respiratory system complicating childbirth; Z37.0 Single live birth; X58.XXXA Exposure to other specified factors, initial encounter; O99.334 Smoking (tobacco) complicating childbirth; Z3A.38 38 weeks gestation of pregnancy; Y93.9 Activity, unspecified; Y92.89 Other specified places as the place of occurrence of the external cause; Y99.8 Other external cause status; Z91.19 Patient's noncompliance with other medical treatment and regimen; Z87.01 Personal history of pneumonia (recurrent); Z59.00 Homelessness unspecified
CPT/HCPCS: 36415; 36600; 59025; 59050; 71045; 71275; 80053; 80307; 81001; 82803; 83605; 83615; 84112; 84484; 85025; 85027; 86850; 86900; 86901; 87015; 87040; 87070; 87116; 87205; 87206; 87252; 87426; 87449; 87633; 87641; 87653; 87804; 88108; 88305; 88307; 88312; 88313; 89050; 93005; 94640; 94667; 94668; 99218; 99285; 99406; J7120; Q9967; A4216; G0378; J0696

== ENCOUNTER 2021-09-27 23:39 | Emergency (ER) | payer MEDICAID, SELFPAY ==
[2021-09-27 23:40] VITALS: BP 145/102; PULSE 89; RESP 23; TEMP 36.5; O2SAT 97; BMI 34.8
--- NOTE | 2021-09-27 23:54 | ED.RN ---
pt arrives to ed with headache, chills, and elevated bp. triage bp 145/102. ed dr consulted about patient and i was instructed to called ob brick burner. ob charge decided patient warranted admission to ob. regina martínez rn [id number]
== END 2021-09-27 23:55 ==
LOC: ED 23:53
DX: R50.9 Fever, unspecified (principal)

== ENCOUNTER 2021-09-27 23:55 | Outpatient (CLI) | payer MEDICAID, SELFPAY ==
[2021-09-28] VITALS (12 sets, daily range): BP systolic 132–150; BP diastolic 72–117; PULSE 78–171; O2SAT 80–99; BMI 34.2
--- NOTE | 2021-09-28 00:07 | NURSING ---
Pt came in day #4 after being dc'd today. C/O frontal headache and nape of neck. She also c/o SOB, she has pneumonia being treated with antibiotics and pt had a recent bronchoscopy done with unknown results of that at this time. BPs here were 150/94, pulse ox 99%, r-18, pulse 88. then BP-148/91, pulse 86, pulse ox 97%, resp-20. pt reports having a hard time taking a deep breath due to alot of pain on her left lower lung where the bronchoscopy was done. Pt denies right upper quadrant pain, has no clonus and brisk +3 reflexes. Pts fundus is F/-1 with scant bleeding and has c/d/i mepilex on. urine collected and will notify provider pt is here and of current assessment.
--- NOTE | 2021-09-28 00:25 | NURSING ---
Called Marco and notified pt is here for C/O headache 05/16 and borderline bps, brisk reflexes, no clonus, fundus is F/-1 with scant bleeding and mepilex is c/D/I without redness or swelling around the site. pt c/o left lower lung pain with breathing, SOB especially with coughing. Marco ordered PIH labs and fioricet for headache.
--- NOTE | 2021-09-28 00:49 | NURSING ---
Pt reports headache is improving now that tylenol has kicked in.
[2021-09-28 00:51] LABS: Hematocrit 30.9 % (37-47); Hemoglobin 10.1 g/dL (12.0-15.0); Mean Corp Hgb Conc 32.7 g/dL (32-36); Mean Corpuscular Hgb 29.6 pg (27.0-32.0); Mean Corpuscular Volume 90.6 fL (81-99); Mean Platelet Vol. 8.7 fl (6.2-12.0); Platelet Count 524 K/mm3 (150-450); RBC Distribution Width SD 49.7 fl (35.1-43.9); Red Blood Count 3.41 M/mm3 (4.2-5.4)
[2021-09-28] MEDS: Acetaminophen/Butalbital/Caffe 1 Tablet 2 TABLET PO (00:53)
--- NOTE | 2021-09-28 01:09 | NURSING ---
Pt consistently asking for a breast pump bc its time to pump. Pump set up and handed to pt. Pt did say that her headache gets worse when she sits up. Pt made a few comments about the baby. She states Can The baby come in my room? RN stated that the baby is not here at the hospital and the pt states Yes, I know, he's with my dad. She also made the comment while she was started to pump that she wished the baby could be here.
[2021-09-28 01:18] LABS: AST(SGOT) 28 U/L (15-37); Alanine Aminotransfer ALT/SGPT 37 U/L (13-56); Creatinine, Serum 0.53 mg/dL (0.55-1.02); EST Glomerular Filtration Rate 140 mL/min (>60); Est Glom Filt Rate - Afr Amer 169 mL/min (>60); Estimated Creatinine Clearance 141.33 ml/min
--- NOTE | 2021-09-28 01:35 | NURSING ---
Rn spoke to Anesthesia Dr. Guo regarding pts headache of being better when lying flat and worse when sat up to pump. Discussed pts case. Dr. Cardenas states due to the pneumonia a blood patch would not be suggested at this time. HE suggested pt hydrate, try caffeine, tylenol and motrin. Charge nurse Ej updated on all discussed with Murray and Dr. Guo
--- NOTE | 2021-09-28 02:02 | NURSING ---
Addendum entered by Nava Dong 09/28/21 02:04: Call occurred at 0121 Original Note: Call placed to Lashell and notified of [facility] lab results WNL and went through each result. pt states her headache is better with tylenol and laying flat but worse when she sat up to pump. Lashell states pt can be dc'd on the OB standpoint and send pt to ER for evaluation of pneumonia status and SOB.
--- NOTE | 2021-09-28 02:25 | NURSING ---
DC instructions given and then Walked with pt with her belongings to ER with two staff members: Henok and Ej
== END 2021-09-28 02:25 | disposition home or self-care (01) ==
LOC: WPOUT 23:59 → WP 23:59
PROVIDERS: Visit Provider Advanced Practice Midwife
DX: O99.53 Diseases of the respiratory system complicating the puerperium (principal); J18.9 Pneumonia, unspecified organism
CPT/HCPCS: 87635; 36415; 70450; 71045; 81001; 82565; 84450; 84460; 84550; 85027; 85379; 87086; 87088; 96361; 96374; 96375; 99218; 99282; J7030; U0005; A4216; G0378; U0003

== ENCOUNTER 2021-09-28 02:32 | Emergency (ER) | payer MEDICAID, SELFPAY ==
[2021-09-28 02:34] VITALS: BP 146/99; PULSE 76; RESP 16; TEMP 36.7; O2SAT 97; BMI 34.4
--- NOTE | 2021-09-28 02:59 | CT_ITS ---
STUDY: CT BRAIN WITHOUT CONTRAST REASON FOR EXAM: Female, 35 years old. Headache, recent delivery RADIATION DOSAGE (If Supplied By Facility): CTDIvol = ( 44.99 ) mGy, DLP = ( 762.36 ) mGycm TECHNIQUE: Transaxial CT imaging of the brain was performed without administration of intravenous contrast material. Individualized dose optimization techniques were used for this CT. COMPARISON: No relevant priors. FINDINGS: Normal soft tissue structures. Normal calvarium. Normal size ventricles and extra-axial spaces for the patient''s age. Normal white matter tracts of the cerebral hemispheres. Normal basal ganglia and thalami. Normal brainstem. Normal cerebellum. Normal appearance of the pituitary gland. There is no intracranial hemorrhage. There are no findings of an acute ischemic infarction. Scattered paranasal sinus mucosal thickening and debris. CT/Brain/Head without Contrast IMPRESSION: No acute abnormal intracranial finding. Normal appearance of the pituitary gland. Electronically Signed: Elier Kaba MD at 4:48 EST Tel , Service support ,
--- NOTE | 2021-09-28 03:01 | EX.ED.DYSGE1 ---
HPI History of Present Illness Chief Complaint: Shortness of Breath Detail of Chief Complaint: Headache and cough and shortness of breath Informant: patient Narrative Narrative: Patient presents to the emergency department chief complaint of headache and cough and shortness of breath. Patient states that she delivered a baby via on the . [facility] [place] [facility]. She started having a headache today and was sent to the ER for evaluation. Patient currently being treated for pneumonia. Patient denies any fevers. Cough seems to have improved. [facility] and had eclampsia labs performed as she presented hypertensive initially to triage. Her work-up was unremarkable and she was sent back down to the ER. Patient does have history of migraines. She does complain of photophobia. She states the headache is worse with standing. She states that she did have a spinal anesthetic. Patient states the headache did not start till several days after her delivery. Prior similar symptoms: No PFSH PFSH Medical History Drug abuse Home Medications cefdinir 300 mg PO BID 7 Days #14 cap 09/27/21 [Rx Last Taken 09/27/21 18:00] nitrofurantoin monohyd/m-cryst [Macrobid] 100 mg PO Q12H 7 Days #14 cap 09/28/21 [Rx Last Taken Unknown] Allergy/AdvReac Type Severity Reaction Status Date / Time No Known Allergies Allergy Verified 09/28/21 00:05 Surgical History Hx of tonsillectomy Previous section Social History housing: homeless current occupational status: unemployed Smoking Status: Light Smoker (<10/day) ROS ROS ED Constitutional Constitutional ED: Reports systems reviewed and no addt'l complaints, except as documented; Denies body ache(s), change in weight or chills Eyes Eyes: Denies acute decrease in peripheral vision, change in vision, double vision or loss of vision ENT ENT ED: Reports none; Denies ear pain, lip swelling, loss taste/smell, neck pain, otalgia or sore throat Cardiovascular Cardiovascular: Reports none; Denies abdominal pain, chest pain with activity, leg edema, lightheadedness, palpitations, rapid heart rate or syncope Respiratory/Chest Respiratory/Chest: Reports none and cough; Denies change in mental status, dry cough, dyspnea, hemoptysis, shortness of breath at rest or shortness of breath with exertion Gastrointestinal Gastrointestinal: Reports none; Denies abdominal pain, change in stool character, diarrhea, hematemesis, hematochezia, melena, rectal bleeding or vomiting Genitourinary Genitourinary ED: Reports none; Denies abdominal discomfort, anuria, dysuria, genital pain or polyuria Musculoskeletal Musculoskeletal: Reports none; Denies arthralgias, back pain, difficulty walking, extremity pain, muscle weakness or myalgias Integumentary Reports none; Denies abscess or rash Neurologic Neurologic: Reports none and headache(s); Denies abnormal gait, confusion, focal weakness, frequent falls, loss of vision, numbness, paresthesias, radicular pain, vertigo or weakness Psychiatric Psychiatric: Reports systems reviewed and no addt'l complaints, except as documented and none; Denies behavioral changes, confusion, difficulty concentrating, hallucinations, suicidal ideation, tactile hallucinations or visual hallucinations Endocrine Endocrinology: Denies none, cold intolerance, excessive sweating, fatigue or heat intolerance Hematologic/Lymphatic Hematologic/Lymphatic: Reports none; Denies anemia, easy bleeding or easy bruising Allergic/Immunologic Allergic/Immunologic ED: Denies as per HPI, none, lip swelling, mouth swelling, throat swelling, tongue swelling or hives EXAM Physical Exam Const Vital Signs: 09/28/21 02:34 09/28/21 06:03 Temperature 98.1 F Temperature Source Temporal Pulse Rate 76 78 Respiratory Rate 16 18 Blood Pressure 146/99 H 113/76 Blood Pressure Mean 114 88 Pulse Ox 97 95 Oxygen Delivery Method Room Air Room Air Positive well nourished and well developed General Appearance ED: well developed and NAD HEENT Reports TM's clear and moist mucous membranes normocephalic and atraumatic; Negative for trauma or tenderness Tympanic Membrane ED: Yes TM's clear Eyes PERRL and EOMs intact bilaterally General Eye ED: Negative for pale conjunctiva or scleral icterus Neck no lymphadenopathy, supple and no JVD General: Negative for tenderness Chest Wall inspection of chest normal and palpation of chest normal Chest: Negative for tenderness Resp normal respiratory effort and clear to auscultation bilaterally Effort and Inspection: Negative for respiratory distress or pain with movement Auscultation: Negative for rhonchi, wheezes or diminished lung sounds Cardio regular rate, regular rhythm, S1 normal heart sound, S2 normal heart sound and no murmurs Peripheral Pulses: pulses 2+ throughout GI normal to inspection, nondistended, normoactive bowel sounds, soft to palpation, non-tender, non-distended and no masses Back/Spine no CVA tenderness and no thoracic nor lumbar tenderness Extremity normal to inspection General Extremety ED: Negative for edema General Extremity: Negative for edema Neuro oriented x3, CN's II-XII intact bilaterally, no sensory deficits noted and gait normal Sensorium / Orientation: awake, alert, oriented to person, oriented to place and oriented to time Motor Exam: strength 5/5 throughout and strength abnormal Psych mental status grossly normal Skin no rashes or lesions noted and no wounds MDM MDM MDM Narrative Medical decision making narrative: IV line established on arrival. Patient was medicated with Reglan, Benadryl, and Toradol and her headache essentially resolved. Patient's urinalysis was positive with greater than 100 RBCs and 50-100 WBCs and +1 bacteria. Urine culture will be sent. Chest x-ray obtained showed bilateral lower lung infiltrates. Patient clinically states she is feeling better with less cough therefore she will continue with her cefdinir that she is currently on. Patient will be started on Macrobid to cover the urine. Patient advised to return if increasing shortness of breath or worsening headache or condition should worsen anyway. At this point given that she had good results with treatment in the department of her headache my suspicion for dural venous sinus thrombosis is low. She was advised to return if worsening headache especially with standing and walking or conditions worsen anyway. At this point the fact that her headache did not start till 2 days after her lumbar puncture I do not feel this is likely lumbar puncture related. Lab Data Attestation: I reviewed the patient's lab results. Labs: Laboratory Results - last 24 hr 09/28/21 09/28/21 03:30 03:33 D-Dimer Quant (PE/DVT) 2.85 H* Urine Color Red Urine Clarity Cloudy Urine pH 7.0 Ur Specific [place] 1.015 Urine Protein 100 H Urine Glucose (UA) Normal Urine Ketones Negative Urine Occult Blood 250 H Urine Nitrite Negative Urine Bilirubin Negative Urine Urobilinogen Normal Ur Leukocyte Esterase 500 H Urine RBC > 100 SEEN Urine WBC 50-100 SEEN Ur Squamous Epith Cells 0-5 SEEN Ur Transition Epith Cell 5-10 SEEN Urine Bacteria 1+ Urine Mucus 0 SEEN Radiography Diagnostic Testing: Clinical Impression(s) from Imaging Studies Brain CT 09/28/21 02:59 IMPRESSION: No acute abnormal intracranial finding. Normal appearance of the pituitary gland. Electronically Signed: Elier Kaba MD at 4:48 EST Tel , Service support , Chest X-Ray 09/28/21 04:14 IMPRESSION: Bilateral lower lung infiltrates. Electronically Signed: Elier Kaba MD at 4:58 EST Tel , Service support , Discharge Plan Triage Chief Complaint: Shortness of Breath ED Provider: Jarret Morgan Dx/Rx/DC Orders Clinical Impression: Pneumonia, UTI (urinary tract infection), Headache, migraine Instructions: ED, Migraine (Classical), ED Pneumonia (Adult), ED CYSTITIS Female Adult Prescriptions: New nitrofurantoin monohyd/m-cryst [Macrobid] 100 mg capsule 100 mg PO Q12H 7 Days Qty: 14 RF: 0 No Action cefdinir 300 mg capsule 300 mg PO BID 7 Days Qty: 14 RF: 0 Primary Care Provider: Care Physician,No Primary Referrals: Care Physician,No Primary [Primary Care Provider] - Disposition Disposition: Home, Self Care
[2021-09-28] MEDS: DiphenhydrAMINE 50 MG/ML Syringe 25 MG IV (03:35)
[2021-09-28] MEDS: Metoclopramide 10 MG/2 ML Vial IV (03:35)
[2021-09-28] MEDS: Ketorolac 15 MG/ML Vial IV (03:35)
[2021-09-28] MEDS: 0.9% Normal Saline 1,000 ML 1000 ML IV (03:36)
[2021-09-28 03:47] LABS: Mucous, Urine 0 SEEN /hpf (<or=2+)
[2021-09-28 03:50] LABS: Color, Urine Red (Yellow); Glucose, Dipstick Normal (Normal); Ketone-Dipstick Negative (Negative); Leukocyte Esterase-Dipstick 500 /ul (Negative); Nitrite-Dipstick Negative (Negative); Occult Blood-Urine 250 /ul (Negative); Protein-Dipstick 100 mg/dl (Negative); Specific Gravity, Urine 1.015 (1.002-1.030); Urine Bilirubin Dipstick Negative (Negative); Urine Clarity Cloudy (Clear); Urine Urobilinogen Normal (Normal)
[2021-09-28 03:56] LABS: Red Blood Cells-Urine > 100 SEEN /hpf (0-5); White Blood Cells 50-100 SEEN /hpf (0-5)
[2021-09-28 03:57] LABS: Bacteria 1+ /hpf (None Seen); Squamous Epithelial Cells - UA 0-5 SEEN /hpf (5-10); Transitional Epithelial - Ur 5-10 SEEN /hpf (0-5)
[2021-09-28 04:06] LABS: D-Dimer Quantitative (DVT/PE) 2.85 FEU/ug/m (0.27-0.49)
--- NOTE | 2021-09-28 04:14 | RAD_ITS ---
STUDY: X-RAY CHEST REASON FOR EXAM: Female, 35 years old. Cough TECHNIQUE: Portable, upright, AP chest radiograph COMPARISON: 09/24/2021 FINDINGS: Bilateral lower lung infiltrative opacities. There is no demonstrated pleural abnormality. Normal size heart. Normal mediastinum and nedra. Normal visualized pulmonary arteries. Normal visualized aortic arch and descending thoracic aorta. There is no demonstrated abnormality of the visualized soft tissue structures of the upper abdomen. RAD/Chest 1 View (Portable) IMPRESSION: Bilateral lower lung infiltrates. Electronically Signed: Elier Kaba MD at 4:58 EST Tel , Service support ,
[2021-09-28] MEDS: Nitrofurantoin Macrocrystals 100 MG Capsule PO (04:51)
[2021-09-28 06:03] VITALS: BP 113/76; PULSE 78; RESP 18; O2SAT 95
[2021-09-28 07:20] VITALS: BP 120/79; PULSE 72; RESP 18; O2SAT 96
== END 2021-09-28 07:38 | disposition home or self-care (01) ==
PROVIDERS: Emergency Provider Emergency Medicine
DX: O90.89 Other complications of the puerperium, not elsewhere classified (principal); J18.9 Pneumonia, unspecified organism; N39.0 Urinary tract infection, site not specified; G43.909 Migraine, unspecified, not intractable, without status migrainosus; F17.210 Nicotine dependence, cigarettes, uncomplicated
CPT/HCPCS: 70450; 71045; 81001; 85379; 87086; 87088; 87635; 99282; J7030; U0005; A4216; U0003

== ENCOUNTER → 2022-02-15 | Outpatient (CLI) | payer MEDICAID, SELFPAY ==
[2022-02-15 09:50] LABS: Absolute Lymphocyte Count 3.34 X10^3/uL (0.83-4.51); Basophil# 0.06 X10^3/uL; Basophil% 0.6 % (0-1); Eosinophil# 0.33 X10^3/uL; Eosinophils% 3.5 % (0-5); Hematocrit 42.9 % (37-47); Hemoglobin 14.3 g/dL (12.0-15.0); Lymphocyte # 3.34 X10^3/ul (0.83-4.51); Lymphocyte % 35.8 % (19-41); Mean Corp Hgb Conc 33.3 g/dL (32-36); Mean Corpuscular Hgb 29.4 pg (27.0-32.0); Mean Corpuscular Volume 88.1 fL (81-99); Mean Platelet Vol. 10.1 fl (6.2-12.0); Monocyte# 0.61 X10^3/uL; Monocyte% 6.5 % (0-10); NRBC Flagged by Analyzer 0 % (0-5); Neutrophil # 4.97 X10^3/uL (2.7-7.7); Neutrophil % 53.3 % (47-70); Platelet Count 344 K/mm3 (150-450); RBC Distribution Width CV 13.7 % (11.6-14.6); Red Blood Count 4.87 M/mm3 (4.2-5.4); White Blood Count 9.3 K/mm3 (4.4-11.0)
[2022-02-15 10:20] LABS: ALB/GLOB Ratio 1.1 RATIO (0.9-2.4); AST(SGOT) 15 U/L (15-37); Alanine Aminotransfer ALT/SGPT 27 U/L (13-56); Albumin, Serum 3.9 g/dL (3.2-5.0); Alkaline Phosphatase 82 U/L (45-117); Anion Gap 6 (5-15); BUN 13 mg/dL (7-18); BUN/Creat Ratio 16.1 RATIO (10-20); Calcium,Total 9.4 mg/dL (8.5-10.1); Chloride 107 mmol/L (98-107); Cholesterol 198 mg/dL (200); EST Glomerular Filtration Rate 87 mL/min (>60); Est Glom Filt Rate - Afr Amer 105 mL/min (>60); Globulin 3.7 g/dL (2.2-4.2); Glucose 98 mg/dL (74-106); High Density Lipoprotein 46 mg/dL; Potassium 4.1 mmol/L (3.5-5.1); Protein, Total 7.6 g/dL (6.4-8.2); Sodium Level 140 mmol/L (136-145); Thyroid Stim Hormone (TSH) 1.01 uIU/mL (0.358-3.74); Triglycerides 180 mg/dL; Very Low Density Lipoprotein 36 mg/dL (5-40)
== END | disposition home or self-care (01) ==
LOC: LAB 09:19
PROVIDERS: Referring Provider Nurse Practitioner Adult Health; Visit Provider Nurse Practitioner Adult Health
DX: R29.898 Other symptoms and signs involving the musculoskeletal system (principal)
CPT/HCPCS: 36415; 80053; 80061; 83735; 84443; 85025

== ENCOUNTER → 2024-01-16 | Outpatient (CLI) | payer MEDICAID, SELFPAY ==
[2024-01-16 15:21] LABS: Absolute Lymphocyte Count 3.32 X10^3/uL (0.83-4.51); Absolute Neutrophil Count 4.6 X10^3/uL (2.0-7.7); Basophil# 0.07 X10^3/uL; Basophil% 0.8 % (0-1); Eosinophil# 0.56 X10^3/uL; Eosinophils% 6.1 % (0-5); Hematocrit 42.6 % (37-47); Lymphocyte # 3.32 X10^3/ul (0.83-4.51); Lymphocyte % 36.2 % (19-41); Mean Corp Hgb Conc 32.9 g/dL (32-36); Mean Corpuscular Hgb 29.7 pg (27.0-32.0); Mean Corpuscular Volume 90.3 fL (81-99); Monocyte% 6.5 % (0-10); NRBC Flagged by Analyzer 0 % (0-5); Neutrophil # 4.59 X10^3/uL (2.7-7.7); Neutrophil % 50.1 % (47-70); Platelet Count 339 K/mm3 (150-450); RBC Distribution Width CV 13.4 % (11.6-14.6); Red Blood Count 4.72 M/mm3 (4.2-5.4); White Blood Count 9.2 K/mm3 (4.4-11.0)
[2024-01-16 16:51] LABS: Erythrocyte Sedimentation Rate 9 mm/hr (0-30)
[2024-01-16 18:19] LABS: AST(SGOT) 14 U/L (15-37); Alanine Aminotransfer ALT/SGPT 22 U/L (13-56); Albumin, Serum 3.7 g/dL (3.2-5.0); Alkaline Phosphatase 46 U/L (45-117); Anion Gap 3 (5-15); BUN 11 mg/dL (7-18); CRP < 2.90 mg/L (0.0-3.0); Calcium,Total 9.7 mg/dL (8.5-10.1); Chloride 109 mmol/L (98-107); Creatinine, Serum 0.69 mg/dL (0.55-1.02); EST Glomerular Filtration Rate 103 mL/min (>60); Est Glom Filt Rate - Afr Amer 124 mL/min (>60); Globulin 3.6 g/dL (2.2-4.2); Glucose 103 mg/dL (74-106); Iron 58 ug/dL (50-170); Iron Binding Capacity,Total 371 ug/dL (250-450); PERCENT IRON SATURATION 15.6 % (15.0-55.0); Protein, Total 7.3 g/dL (6.4-8.2); Rheumatoid Factor < 10.0 IU/mL (<15); Sodium Level 138 mmol/L (136-145); Thyroid Stim Hormone (TSH) 1.48 uIU/mL (0.358-3.74)
[2024-01-20 16:09] LABS: ANTINUCLEAR ANTIBODIES DIRECT Negative (Negative); Vitamin D 1,25-Dihydroxy 60.1 pg/mL (24.8-81.5)
== END | disposition home or self-care (01) ==
LOC: LAB 14:10
PROVIDERS: Referring Provider Nurse Practitioner Family; Visit Provider Nurse Practitioner Family
DX: M35.3 Polymyalgia rheumatica (principal); R53.83 Other fatigue
CPT/HCPCS: 36415; 80053; 82652; 83540; 83550; 84443; 85025; 85652; 86038; 86140; 86431

== ENCOUNTER → 2024-01-31 | Outpatient (CLI) | payer MEDICAID, SELFPAY | END | disposition home or self-care (01) | LOC: SL 20:06 | PROVIDERS: Referring Provider Nurse Practitioner Family; Visit Provider Nurse Practitioner Family | DX: G47.10 Hypersomnia, unspecified (principal) | CPT/HCPCS: 95810 ==